=== PATIENT | female | born 1935 | race Caucasian/White ===

== ENCOUNTER 2016-12-13 10:02 | Day surgery (SDC) | payer MEDICARE, OTHER ==
[~2016-12-13] VITALS: Ht 157.5 cm; Wt 58.0 kg
[2016-12-13] VITALS (8 sets, daily range): BP systolic 112–143; BP diastolic 58–74; PULSE 53–59; RESP 9–29
[~2016-12-13 10:02] MED LIST: LEVE500T8 PO; RTPRO HHN; TYL650R PR
[2016-12-13] MEDS ORDERED: CEFAZOLIN 1 GM/50 ML (PMX) 50 ML IVPB ONE (12:20)
[2016-12-13] MEDS ORDERED: PROPOFOL 20 ML ONE (12:43)
--- NOTE | 2016-12-13 14:55 | GILP ---
DATE OF PROCEDURE: 12/13/2016 PROCEDURE PERFORMED: EGD with PEG INDICATION: An 81-year-old female undergoing this procedure for dislodgement of the G-tube. It was buried in the subcutaneous tissue. The balloon was deflated and removed 3 days ago. We allowed 3 days for the opening to become smaller, so we can put the original G-tube. The patient is suffering from dysphagia. INFORMED CONSENT: The risk of the procedure, related and unrelated complications, anesthetic risks, alternatives discussed. Informed consent was obtained. DESCRIPTION OF PROCEDURE: The patient was brought to the GI lab, sedated by ____and after opium ultimate sedation, scope was passed with much ease into esophagus, advanced further down into stomach, internal stoma identified. Through the external stomach, a guidewire was passed and the whole procedure was completed by modified Ponsky technique. The patient was rescoped, the position of the internal bumper confirmed. External bumper secured. She tolerated the procedure very well. IMPRESSION: Successful placement of gastrostomy tube done without any complication. PLAN: Resume feeding now, abdominal binder. Dictated By: SHANA RODAS/NTS Conf#: [id number] DID#: [id number] CC: SHANA GOODWIN MD;*EndCC* MTDD
== END 2016-12-13 16:00 | disposition home or self-care (01) ==
LOC: GIL 10:02
PROVIDERS: ATTEND Internal Medicine Gastroenterology
DX: R13.10 Dysphagia, unspecified (principal); J44.9 Chronic obstructive pulmonary disease, unspecified; I10 Essential (primary) hypertension
CPT/HCPCS: 43246; J0690

== ENCOUNTER 2016-12-16 15:45 | Inpatient (IN) | payer MEDICARE, OTHER ==
[~2016-12-16] VITALS: Ht 160 cm; Wt 58.0 kg
[2016-12-16] VITALS (31 sets, daily range): BP systolic 76–127; BP diastolic 36–70; PULSE 51–91; RESP 9–30; Ht 160 cm; Wt 58.0 kg
[2016-12-16] MEDS ORDERED: NORepinephrine 8MG/250 ML (PMX 250 ML ONE (16:54)
[2016-12-16] MEDS: SOD CHLORIDE 0.9% 1,000 ML IV SCH (16:56)
[2016-12-16] MEDS ORDERED: NORepinephrine 8MG/250 ML (PMX 250 ML IV SCH (17:00)
[2016-12-16] MEDS ORDERED: ACETAMINOPHEN 650 MG SUPP PR PRN (17:00)
[2016-12-16] MEDS ORDERED: VANCOMYCIN IV PER PHARMACY XX SCH (17:00)
[2016-12-16] MEDS ORDERED: ONDANSETRON 4 MG INJ IV PRN (17:00)
--- NOTE | 2016-12-16 17:07 | HP ---
Date/Time of Note Date/Time of Note DATE: 12/16/16 TIME: 16:58 Assessment/Plan VTE Prophylaxis VTE Prophylaxis Intervention: SCD's Assessment/Plan Assessment/Plan 81 yo female with a past medical history of glioblastoma, chronic encephalopathy , brain abscess s/p craniotomy, dysphagia s/p PEG, aspiration pneumonia risk, who came from [facility] for hypotension/hypothermia, and possible aspiration pneumonitis. 1. Septic Shock - 2/2 aspiration pneumonitis - admit the patient to the ICU, consult pulm, broad spectrum antibiotics, pressor support, respiratory cultures 2. Hyponatremia - chronic - monitor acute changes 3. Anemia - chronic disease - transfuse if hgb < 8 g/dL 4. Glioblastoma - monitor acute changes 5. Chronic encephalopathy - continue to re-orient patient as needed 6. Dysphagia s/p PEG - possible replacement needed, Dr. Salgado consulted 7. Gi ppx - pepcid IV 8. DVT ppx - scds as per clinical course. this critical care note took greater than 1 hour to complete HPI/ROS Admit Date/Time Admit Date/Time Dec 16, 2016 at 15:45 Hx of Present Illness 81 yo female with a past medical history of glioblastoma, chronic encephalopathy , brain abscess s/p craniotomy, dysphagia s/p PEG, aspiration pneumonia risk, who came from [facility] for hypotension/hypothermia, and possible aspiration pneumonitis. All this information was gathered from the chart, as the patient a non-verbal. ROS Subjective hx not possible: pt non-verbal PMH/Family/Social Past Medical History glioblastoma, chronic encephalopathy, brain abscess s/p craniotomy, dysphagia s/ p PEG, aspiration pneumonia risk Past Surgical History s/p PEG, colonoscopy, s/p left craniotomy Family History Significant Family History: no pertinent family hx Social History Alcohol Use: none Smoking Status: Never smoker Drug Use: none Exam/Review of Systems Vital Signs Vitals Vital Signs Date Time Temp Pulse Resp B/P Pulse Ox O2 Delivery O2 Flow Rate FiO2 12/16/16 16:30 56 12 86/43 97 Nasal Cannula 3.0 Exam Exam Gen Marlo: alert to self HEENT: NC/AT, PERRLA NECK: supple, no thyromegaly THORAX: symmetrical, no obvious deformities CV: S1S2, RRR, no M/G/R Lungs: CTAB no W/C/R/R Abd: soft, NT/ND, +BS, no rebound, no guarding, neg HSM, PEG site leaking EXT: no edema, no ecchymosis, no clubbing, FROM, contractures Neuro: stares, grossly intact Psych: withdrawn Skin: scattered ecchymoses Medications Medications Current Medications Sodium Chloride (NS) 1,000 ml @ 50 mls/hr Q20H IV Last administered on t 16:56; Admin Dose 50 MLS/HR; Start 12/16/16 at 16:41 Ondansetron HCl (Zofran Inj) 4 mg Q6H PRN IV NAUSEA AND/OR VOMITING; Start 10/20 at 17:00 Acetaminophen (Tylenol Supp) 650 mg Q4H PRN [place] PAIN LEVEL 1-3 OR FEVER; Start 12/16/16 at 17:00 Lorazepam (Ativan) 1 mg Q2H PRN IV ANXIETY; Start 12/16/16 at 17:00 Famotidine (Pepcid Iv) 20 mg Q12 IV ; Start 12/16/16 at 21:00 Levetiracetam 500 mg 500 mg BID PO ; Start 12/16/16 at 21:00 Norepinephrine/ Dextrose (Levophed/D5W) 500 ml @ 0 mls/hr TITRATE IV ; Start at 00:00 MAMTA SUAREZ MD Dec 16, 2016 17:07
[2016-12-16] MEDS ORDERED: LEVOFLOXACIN 500MG/D5W (PMX) 100 ML IVPB SCH (17:30)
--- NOTE | 2016-12-16 19:44 | CONS ---
DATE OF ADMISSION: 12/16/2016 DATE OF CONSULTATION: TYPE OF CONSULTATION: Gastroenterology. HISTORY OF PRESENT ILLNESS: The patient is an 81-year-old female with a history of glioblastoma; ch ronic encephalopathy; brain abscess, status post craniotomy; dysphagia, status post PEG; aspiration pneumonia who came from [facility] for hypothermia and hypotension, possible aspiration pneumon itis. The patient was in septic shock. She was started on a broad spectrum antibiotic and pressor support. GI consult was called in for leakage around the G-tube site. PAST MEDICAL HISTORY: As described. PAST SURGICAL HISTORY: G-tube and left craniotomy. FAMILY HISTORY: Negative. PHYSICAL EXAMINATION: VITAL SIGNS: Stable now. Heart rate is 54, ____ is 96. GENERAL: The patient is not in any distress. CARDIOVASCULAR: No murmur, gallop or click. LUNGS: Clear. ABDOMEN: Benign. I looked at the G-tube. G-tube opening was larger because of the buried bumper s yndrome and staffing had put a lot of gauze under the bumper, creating the leakage, so I removed all the gauze, which patient doesn't need it, and G-tube is in position. Again, the stoma is much larg er. There are no signs of peritonitis. EXTREMITIES: No edema. IMAGING: Chest x-ray: The lungs were clear. LABORATORY: WBC 7.8, hematocrit is 32. CMP was grossly within normal limits. IMPRESSION: 1. Sepsis, rule out pneumonia, rule out urinary tract infection. 2. Mild leakage from the gastrostomy tube site because of the larger stoma. 3. Status post craniotomy for glioblastoma. 4. Chronic encephalopathy. 5. Anemia. 6. Hyponatremia. PLAN: Continue pressor support, IV antibiotic, IV hydration. I've repositioned the G-tube. It can be used for medicine, and if there is leakage, then I may have to get a larger G-tube, instead of 2 4-Croatian a 26- or 28-Croatian, and if it's available from the GI lab, will replace it. Dictated By: SHANA RODAS/NEWTON Conf#: [id number] DID#: [id number]
[2016-12-16] MEDS: LEVOFLOXACIN 500MG/D5W (PMX) 100 ML IVPB SCH (20:18)
[2016-12-16] MEDS: FAMOTIDINE 20 MG INJ IV SCH (20:18)
[2016-12-16] MEDS: LEVETIRACETAM 500 MG TAB PO SCH (20:50)
[2016-12-16] MEDS: CEFEPIME 1GM/50 ML (PMX) 50 ML IVPB SCH (21:24)
[2016-12-16] MEDS ORDERED: VANCOMYCIN 1.25 GM in SOD CHLORIDE 0.9% 250 ML IVPB ONE (22:00)
[2016-12-17] VITALS (104 sets, daily range): BP systolic 73–172; BP diastolic 32–100; PULSE 75–157; RESP 15–44
--- NOTE | 2016-12-17 00:37 | RADRPT ---
PROCEDURE: XR Chest. CLINICAL INDICATION: Dyspnea TECHNIQUE: Anterior chest x-ray. COMPARISON: 12/03/2016 FINDINGS: Small bilateral pleural effusion in the left lung base is increased from previous exam. Blunting right costophrenic angle suggests trace pleural effusion, new compared to previous exam. Consolidation left lung base with obscured left hemidiaphragm is worse than on previous exam. Pulmonary vascular congestion is slightly more prominent than on previous exam. There is no evidence of pneumothorax. The heart size is large. There is atherosclerotic calcification of the aorta. The cardiomediastina l silhouette is otherwise unremarkable. The soft tissues are normal. Osseous structures are unremarkable. IMPRESSION: 1. Findings suggesting congestive heart failure with cardiomegaly, small bilateral pleural effusion s and pulmonary vascular congestion. 2. Atherosclerotic calcification aorta. 3. Retrocardiac atelectasis versus infiltrate, increased from previous exam. RPTAT: II .Anival Hendrix MD, MD Date Time Electronically viewed and signed by .Anival Hendrix MD, on 12/17/2016 00:37 .M/
[2016-12-17 06:25] LABS: CREATININE 0.26 mg/dl (0.44-1.00)
[2016-12-17 06:26] LABS: CALCIUM 8.4 mg/dl (8.4-10.2)
[2016-12-17 06:35] LABS: POTASSIUM 2.8 mmol/L (3.5-5.1)
[2016-12-17] MEDS ORDERED: SOD CHLORIDE 0.9% 1,000 ML IV ONE (07:00)
[2016-12-17 07:04] LABS: HEMATOCRIT 32.5 % (37.0-47.0); HEMOGLOBIN 11.4 g/dl (12.0-16.0); LYMPHOCYTES # 0.4 10^3/ul (0.8-2.9); LYMPHOCYTES % 3.7 % (15.0-51.0); MEAN CORPUSCULAR HEMOGLOBIN 31.5 pg (29.0-33.0); MEAN CORPUSCULAR VOLUME 90.1 fl (82.0-101.0); MEAN PLATELET VOLUME 6.3 fl (7.4-10.4); MONOCYTE # 0.6 10^3/ul (0.3-0.9); MONOCYTES % 5.6 % (0.0-11.0); NEUTROPHIL # 10.5 10^3/ul (1.6-7.5); NEUTROPHILS % 90.7 % (39.0-77.0); PLATELET COUNT 144 10^3/UL (140-440); RED BLOOD COUNT 3.61 10^6/ul (4.20-5.40); RED CELL DISTRIBUTION WIDTH 17.4 % (11.5-14.5); UNCORRECTED WBC 11.6 10^3/ul (4.8-10.8); WHITE BLOOD COUNT 11.6 10^3/ul (4.8-10.8)
[2016-12-17 07:17] LABS: CONDITION 1; LH ANALYZER COMMENTS 1
[2016-12-17] MEDS ORDERED: LIDOCAINE 1% (MDV) 20 ML INJ SC ONE (07:30)
[2016-12-17] MEDS ORDERED: MAGNESIUM SULFATE 1 GM/D5W 100 ML IVPB ONE (07:30)
[2016-12-17] MEDS ORDERED: POTASSIUM CHLORIDE 250 ML IVPB ONE (08:30)
[2016-12-17] MEDS ORDERED: POTASSIUM CHLORIDE 20 MEQ POWDER FOR ORAL SOLN GTB ONE (08:30)
[2016-12-17 08:37] LABS: AADO2 Arterial 344.3 mmHg (7.0-24.0); Allen Test ACCEPTAB; Arterial Base Excess -0.6 mmol/L (-3.0-3); Arterial COHb 0.3 % (0.0-3.0); Arterial Fraction of Oxyhgb 88.4 % (93.0-99.0); Arterial HCO3 22.5 mmol/L (22.0-26.0); Arterial MetHb 0.4 % (0.0-1.5); Arterial Total Hemglobin 12.1 g/dl (12.0-18.0); MODE MASK - SIMPLE
[2016-12-17] MEDS: CEFEPIME 1GM/50 ML (PMX) 50 ML IVPB SCH (09:00)
[2016-12-17] MEDS: FAMOTIDINE 20 MG INJ IV SCH ×2 (09:01→20:04)
[2016-12-17] MEDS: LEVETIRACETAM 500 MG TAB PO SCH ×2 (09:01→20:04)
--- NOTE | 2016-12-17 09:26 | CONS ---
Date/Time of Note Date/Time of Note DATE: 12/17/16 TIME: 09:21 Assessment/Plan Assessment/Plan Additional Assessment/Plan Assessment and recommendation; next 1. Patient admitted with hypotension and sepsis. Next 2. Hyponatremia with interval improvement. 3. History of glioblastoma as well as brain abscess status post multiple surgeries with very poor residual mental status. 4. Stable seizure disorder. 5. Hypokalemia. 6. Bibasilar atelectasis and changes of congestive heart failure is seen on chest x-ray from yesterday. Next Continue current treatment. Patient prognosis appears poor. G-tube will be replaced by the cartoonist special effects however it is not completely out and may just require repositioning. I did have a detailed discussion the patient's son at bedside and answered all his questions. Meanwhile resume amiodarone with the patient take for her cardiac arrhythmia. Potassium was replaced. Consultation Date/Type/Reason Admit Date/Time Dec 16, 2016 at 15:45 Initial Consult Date Patient condition remains unchanged. Was transferred over from [place] because of hypotension. The patient's G-tube has been out for the last 48 hours and is awaiting replacement. Patient also was found to be hyponatremic and septic. Currently on broad-spectrum antibiotic coverage. Because of underlying severe anoxic brain injury patient is unresponsive which is her underlying mental status. Next General examination; elderly lady currently on simple mask unresponsive. 24 HR Interval Summary Free Text/Dictation HEENT examination; supple neck, no JVD. Pupils are midsize and reactive to light bilaterally. Bilateral cataracts are present. Multiple well-healed craniotomy scars are present. No thyromegaly. No neck bruits. Bruits. Chest examination; diminished breath sounds throughout with scattered crackles. S1-S2 audible no murmurs regular rhythm. Abdomen examination; soft, no organomegaly. There is a dressing applied over the prior J-tube site. Mild drainage around it. Extremity examination; trace peripheral edema with extensive ecchymosis involving all 4 extremities more pronounced in the left arm. AUTOMOTIVE SERVICE WRITER examination patient remains unresponsive. Exam/Review of Systems Vital Signs Vitals Vital Signs Date Time Temp Pulse Resp B/P Pulse Ox O2 Delivery O2 Flow Rate FiO2 12/17/16 08:00 89 12/17/16 07:30 23 128/58 91 Mask 12/17/16 07:00 98.0 12/17/16 06:00 10.0 Intake and Output 12/16/16 12/16/16 12/17/16 15:00 23:00 07:00 Intake Total 468.00 ml 431.25 ml Output Total 510 ml 115 ml Balance -42.00 ml 316.25 ml Results Result Diagram: 12/17/16 0650 12/17/16 0520 Results 24 hrs Laboratory Tests Test 12/16/16 21:26 12/17/16 05:20 12/17/16 06:50 12/17/16 07:42 Bedside Glucose 136 Anion Gap 14 Blood Urea Nitrogen 11 Calcium Level 8.4 Carbon Dioxide Level 23 Chloride Level 102 Creatinine 0.26 L Glucose Level 64 #L Magnesium Level 1.6 L Potassium Level 2.8 *L Sodium Level 136 Basophils # 0.0 Basophils % 0.0 Blood Morphology Comment Eosinophils # 0.0 Eosinophils % 0.0 Hematocrit 32.5 L Hemoglobin 11.4 L Lymphocytes # 0.4 L Lymphocytes % 3.7 L Mean Corpuscular Hemoglobin 31.5 Mean Corpuscular Hemoglobin Concent 35.0 Mean Corpuscular Volume 90.1 Mean Platelet Volume 6.3 #L Monocytes # 0.6 Monocytes % 5.6 Neutrophils # 10.5 H Neutrophils % 90.7 H Nucleated Red Blood Cells # 0.0 Nucleated Red Blood Cells % 0.0 Platelet Count 144 # Red Blood Count 3.61 L Red Cell Distribution Width 17.4 H White Blood Count 11.6 #H Arterial Blood HCO3 22.5 Arterial Blood Base Excess -0.6 Arterial Blood Oxygen Saturation 89.0 L Rony Test ACCEPTAB Arterial Blood Gas Puncture Site Right Radial Arterial Blood Carboxyhemoglobin 0.3 Arterial Blood Date Drawn 12/17/2016 8:20:13 AM Arterial Blood Methemoglobin 0.4 Arterial Blood pCO2 (Temp correct) 32.4 L Arterial Blood pH (Temp corrected) 7.460 H Arterial Blood pO2 (Temp corrected) 55.1 L Blood Gas A-a O2 Differential 344.3 H Blood Gas Modality MASK - SIMPLE Blood Gas Notified Time 12/17/2016 8:37:00 AM Blood Gas Notified Whom JLD Blood Gas Specimen Source Blood arterial Blood Gas Temperature 37.0 FiO2 61.0 Oxyhemoglobin Percent 88.4 L Total Hemoglobin 12.1 Medications Medications Current Medications Sodium Chloride (NS) 1,000 ml @ 50 mls/hr Q20H IV Last administered on 16:56; Admin Dose 50 MLS/HR; Start 12/16/16 at 16:41 Ondansetron HCl (Zofran Inj) 4 mg Q6H PRN IV NAUSEA AND/OR VOMITING; Start 10/20 at 17:00 Acetaminophen (Tylenol Supp) 650 mg Q4H PRN [place] PAIN LEVEL 1-3 OR FEVER; Start 12/16/16 at 17:00 Lorazepam (Ativan) 1 mg Q2H PRN IV ANXIETY; Start 12/16/16 at 17:00 Famotidine (Pepcid Iv) 20 mg Q12 IV Last administered on 12/17/16 09:01; Admin Dose 20 MG; Start 12/16/16 at 21:00 Levetiracetam 500 mg 500 mg BID PO Last administered on 12/17/16 09:01; Admin Dose 500 MG; Start 12/16/16 at 21:00 Norepinephrine 16 mg/Dextrose 500 ml @ 0 mls/hr TITRATE IV ; Start 12/17/16 at 00:00 Cefepime HCl 50 ml @ 100 mls/hr Q12 IVPB Last administered on 12/16/16 21:24 ; Admin Dose 100 MLS/HR; Start 12/16/16 at 21:00 Levofloxacin/ Dextrose 100 ml @ 100 mls/hr Q24H IVPB Last administered on 12/16 20:18; Admin Dose 100 MLS/HR; Start 12/16/16 at 20:00 Vancomycin HCl 750 mg/Sodium Chloride 150 ml @ 75 mls/hr Q12H IVPB ; Start at 10:00 Potassium Chloride (KCl 40 MEQ/250 ML NS) 250 ml @ 62.5 mls/hr ONCE ONCE IVPB ; Start 12/17/16 at 08:30; Stop 12/17/16 at 12:29 ALISE ESTRADA Dec 17, 2016 09:26
[2016-12-17] MEDS: VANCOMYCIN 750 MG in SOD CHLORIDE 0.9% 150 ML IVPB SCH ×2 (09:45→15:21)
--- NOTE | 2016-12-17 11:34 | RADRPT ---
PROCEDURE: XR Chest. CLINICAL INDICATION: Aspiration. TECHNIQUE: Single AP portable chest COMPARISON: 12/16/2016 FINDINGS: Cardiomegaly. Atherosclerotic calcification of the thoracic aorta. Patchy airspace opacity in the right infrahilar and lower lobe region suggestive of consolidation and pneumonia. Left base patchy airspace opacity which may reflect atelectasis or pleural effusion. . Probable small right pleural effusion No pneumothorax. The osseous structures and soft tissues are unremarkable. IMPRESSION: 1. Bilateral air space opacities with more focal right perihilar and lower lobe area of consolidatio n suggestive of pneumonia. 2. Small bilateral pleural effusions. RPTAT:AAJJ Physician Ary Date Time Electronically viewed and signed by Physician Ary on 12/17/2016 11:34 TRISH/
--- NOTE | 2016-12-17 11:40 | RADRPT ---
PROCEDURE: XR Chest. CLINICAL INDICATION: Right central line placement. TECHNIQUE: Single AP portable chest COMPARISON: 12/17/2016 FINDINGS: Stable cardiomegaly and bilateral patchy air space disease with right lower lobe consolidation and b ilateral pleural effusions most compatible with pneumonia. Right PICC line catheter to overlying the mid superior vena cava. Atherosclerotic calcification of the aorta. No pneumothorax. The osseous s tructures and soft tissues are unremarkable. IMPRESSION: 1. Right PICC line catheter to overlying the mid superior vena cava. No other interval change in bi lateral airspace disease and cardiomegaly. RPTAT:AAJJ Dez Forde Physician Date Time Electronically viewed and signed by Physician Ary on 12/17/2016 11:40 TRISH/
[2016-12-17] MEDS: SOD CHLORIDE 0.9% 1,000 ML IV SCH ×2 (11:58→14:58)
--- NOTE | 2016-12-17 13:05 | PN ---
Date/Time of Note Date/Time of Note DATE: 12/17/16 TIME: 13:02 Assessment/Plan VTE Prophylaxis VTE Prophylaxis Intervention: SCD's Lines/Catheters IV [facility] PICC Line Central line still needed: Yes Urinary Cath still in place: Yes Reason Cath still needed: urinary retention Assessment/Plan Chief Complaint/Hosp Course Assessment/Plan: 81 yo female with a past medical history of glioblastoma, chronic encephalopathy, brain abscess s/p craniotomy, dysphagia s/p PEG, aspiration pneumonia risk, who came from [facility] for hypotension/hypothermia, and possible aspiration pneumonitis. 1. Septic Shock - 2/2 aspiration pneumonitis - on abx and pressor support. - continue ICU care, f/u consult pulm rec's, broad spectrum antibiotics, pressor support, respiratory cultures 2. Hyponatremia - chronic - resolved today - monitor acute changes 3. Anemia - chronic disease - transfuse if hgb < 8 g/dL 4. Glioblastoma - monitor acute changes 5. Chronic encephalopathy - continue to re-orient patient as needed 6. Dysphagia s/p PEG - possible replacement needed, Dr. Salgado consulted 7. Gi ppx - pepcid IV 8. DVT ppx - scds as per clinical course. Critical care time spent on pt care today = 45 min. Problems: Subjective 24 Hr Interval Summary Free Text/Dictation Pt on hyperthermia blanket to bring body temp up, on pressor and on NRB mask. Exam/Review of Systems Vital Signs Vitals Vital Signs Date Time Temp Pulse Resp B/P Pulse Ox O2 Delivery O2 Flow Rate FiO2 12/17/16 12:56 91 12/17/16 11:54 Non Rebreather 15.0 12/17/16 11:45 17 112/57 99 12/17/16 11:00 96.8 Intake and Output 12/16/16 12/16/16 12/17/16 15:00 23:00 07:00 Intake Total 468.00 ml 450.00 ml Output Total 510 ml 115 ml Balance -42.00 ml 335.00 ml Exam Gen Marlo: alert to self, on NRB mask HEENT: NC/AT, PERRLA NECK: supple, no thyromegaly THORAX: symmetrical, no obvious deformities CV: S1S2, RRR, no M/G/R Lungs: + mild crackles at bases Abd: soft, NT/ND, +BS, no rebound, no guarding, neg HSM, PEG site leaking EXT: no edema, no ecchymosis, no clubbing, FROM, contractures Neuro: stares, grossly intact Psych: withdrawn Skin: scattered ecchymoses Results Result Diagram: 12/17/16 0650 12/17/16 0520 Results 24 hrs Laboratory Tests Test 12/16/16 21:26 12/17/16 05:20 12/17/16 06:50 12/17/16 07:42 Bedside Glucose 136 Anion Gap 14 Blood Urea Nitrogen 11 Calcium Level 8.4 Carbon Dioxide Level 23 Chloride Level 102 Creatinine 0.26 L Glucose Level 64 #L Magnesium Level 1.6 L Potassium Level 2.8 *L Sodium Level 136 Basophils # 0.0 Basophils % 0.0 Blood Morphology Comment Eosinophils # 0.0 Eosinophils % 0.0 Hematocrit 32.5 L Hemoglobin 11.4 L Lymphocytes # 0.4 L Lymphocytes % 3.7 L Mean Corpuscular Hemoglobin 31.5 Mean Corpuscular Hemoglobin Concent 35.0 Mean Corpuscular Volume 90.1 Mean Platelet Volume 6.3 #L Monocytes # 0.6 Monocytes % 5.6 Neutrophils # 10.5 H Neutrophils % 90.7 H Nucleated Red Blood Cells # 0.0 Nucleated Red Blood Cells % 0.0 Platelet Count 144 # Red Blood Count 3.61 L Red Cell Distribution Width 17.4 H White Blood Count 11.6 #H Arterial Blood HCO3 22.5 Arterial Blood Base Excess -0.6 Arterial Blood Oxygen Saturation 89.0 L Rony Test ACCEPTAB Arterial Blood Gas Puncture Site Right Radial Arterial Blood Carboxyhemoglobin 0.3 Arterial Blood Date Drawn 12/17/2016 8:20:13 AM Arterial Blood Methemoglobin 0.4 Arterial Blood pCO2 (Temp correct) 32.4 L Arterial Blood pH (Temp corrected) 7.460 H Arterial Blood pO2 (Temp corrected) 55.1 L Blood Gas A-a O2 Differential 344.3 H Blood Gas Modality MASK - SIMPLE Blood Gas Notified Time 12/17/2016 8:37:00 AM Blood Gas Notified Whom ALEXIAD Blood Gas Specimen Source Blood arterial Blood Gas Temperature 37.0 FiO2 61.0 Oxyhemoglobin Percent 88.4 L Total Hemoglobin 12.1 Medications Medications Current Medications Sodium Chloride (NS) 1,000 ml @ 50 mls/hr Q20H IV Last administered on 16:56; Admin Dose 50 MLS/HR; Start 12/16/16 at 16:41 Ondansetron HCl (Zofran Inj) 4 mg Q6H PRN IV NAUSEA AND/OR VOMITING; Start 10/20 at 17:00 Acetaminophen (Tylenol Supp) 650 mg Q4H PRN [place] PAIN LEVEL 1-3 OR FEVER; Start 12/16/16 at 17:00 Lorazepam (Ativan) 1 mg Q2H PRN IV ANXIETY; Start 12/16/16 at 17:00 Famotidine (Pepcid Iv) 20 mg Q12 IV Last administered on 12/17/16 09:01; Admin Dose 20 MG; Start 12/16/16 at 21:00 Levetiracetam 500 mg 500 mg BID PO Last administered on 12/17/16 09:01; Admin Dose 500 MG; Start 12/16/16 at 21:00 Norepinephrine 16 mg/Dextrose 500 ml @ 0 mls/hr TITRATE IV ; Start 12/17/16 at 00:00 Cefepime HCl 50 ml @ 100 mls/hr Q12 IVPB Last administered on 12/16/16 21:24 ; Admin Dose 100 MLS/HR; Start 12/16/16 at 21:00 Levofloxacin/ Dextrose 100 ml @ 100 mls/hr Q24H IVPB Last administered on 12/16 20:18; Admin Dose 100 MLS/HR; Start 12/16/16 at 20:00 Vancomycin HCl/ Sodium Chloride (Vancocin/NS) 150 ml @ 75 mls/hr Q12H IVPB ; Start 12/17/16 at 10:00 Amiodarone HCl (Cordarone) 200 mg BID NGT ; Start 12/17/16 at 21:00 IV Flush (NS 10 ml) 10 ml PRN PRN IV IV PROTOCOL; Start 12/17/16 at 12:30 CAROL MICHELLE Dec 17, 2016 13:05
--- NOTE | 2016-12-17 13:24 | RADRPT ---
PROCEDURE: US guidance for PICC line CLINICAL INDICATION: PICC line placement TECHNIQUE: Multiple real-time images were acquired of the patient's arm utilizing a high resolutio n transducer. This was performed by the PICC line nurse for venous access. COMPARISON: None FINDINGS: Ultrasound guidance for PICC line placement. IMPRESSION: Ultrasound guidance for PICC line placement. RPTAT: AA .Bernardo West MD, MD Date Time Electronically viewed and signed by .Bernardo West MD, on 12/17/2016 13:24 .S/
[2016-12-17 15:33] LABS: ADD UMIC YES; URINE BILIRUBIN (Dip) NEGATIVE (NEGATIVE); URINE BLOOD (Dip) NEGATIVE (NEGATIVE); URINE COLOR LT. YELLOW (YELLOW); URINE GLUCOSE (Dip) NEGATIVE (NEGATIVE); URINE KETONES (Dip) 15 (NEGATIVE); URINE LEUKOCYTE ESTERASE (Dip) TRACE (NEGATIVE); URINE NITRITE (Dip) POSITIVE (NEGATIVE); URINE TOTAL PROTEIN (Dip) NEGATIVE (NEGATIVE); URINE UROBILINOGEN (Dip) 0.2 E.U./dL (0.1-1.0)
[2016-12-17 15:47] LABS: BACTERIA,URINE MODERATE; SQUAMOUS EPITHELIAL CELL,UR MANY; URINE RBCS 0-2 /HPF (0)
--- NOTE | 2016-12-17 15:54 | RADRPT ---
Echocardiogram Report Patient Name: JOMAR YATES Gender: Female Date: 1935 Study Date: 17-Dec-2016 Systems Lead: Otf Aragon RDCS Location: 110 Ref. Physician: CAROL MICHELLE Quality: Technically Difficult Study Procedures: Transthoracic echocardiogram with complete 2D, M-Mode, and doppler examination. Indications: Shortness of breath. 2D/M Mode Doppler Measurement Value Normal Ranges Measurement Value Normal Ranges LVIDd 2D 3.7 3.5 - 5.6 cm AV Peak Nilson 1.5 m/sec LVIDs 2D 1.4 2.1 - 4.1 cm AV Peak PG 9.0 mmHg FS 2D 61.3 % LVOT Peak Nilson 1.3 m/sec LVPWd 2D 1.3 0.6 - 1.1 cm LVOT Peak PG 6.0 mmHg IVSd 2D 1.4 0.6 - 1.1 cm MV E Peak Nilson 0.8 m/sec IVS/LVPW 2D 1.1 MV A Peak Nilson 0.9 m/sec AoR Diam 2D 2.6 2.0 - 3.7 cm MV E/A 0.9 LA/Ao 2D 0 0 - 1 MV Decel Time 194 msec EDV 2D 49.4 cm3 MV E/A 0.9 ESV 2D 2.9 cm3 TR Peak Nilson 2.9 m/sec LA Dimen 2D 1.2 2.3 - 4.0 cm TR Peak PG 34.0 mmHg RVSP 37.0 mmHg Findings Left Ventricle: Hyperdynamic left ventricular systolic function. Normal left ventricular cavity size. Moderate concentric left ventricular hypertrophy. Ejection fraction is visually estimated at 70 %. Tissue Doppler/Mitral Doppler indices are consistent with impaired relaxation (Stage I diastolic dysfunction). Right Ventricle: Normal right ventricular size. Normal right ventricular systolic function. Left Atrium: The left atrium is normal in size. Right Atrium: The right atrium is normal in size. Mitral Valve: Normal appearance and function of the mitral valve with trace physiologic regurgitation. Aortic Valve: Aortic sclerosis without stenosis. Trace aortic valve regurgitation. Tricuspid Valve: Normal appearance of the tricuspid valve. Estimated peak PA systolic pressure 37 mmHg. There is mild tricuspid regurgitation. Pulmonic Valve: Normal pulmonic valve appearance. There is trace pulmonic regurgitation. Pericardium: Normal pericardium with no significant pericardial effusion. Aorta: Normal aortic root. IVC: Normal size and normal respiratory collapse consistent with normal right atrial pressure. Conclusions 1.Hyperdynamic left ventricular systolic function. Normal left ventricular cavity size. Moderate concentric left ventricular hypertrophy. Ejection fraction is visually estimated at 70 %. Tissue Doppler/Mitral Doppler indices are consistent with impaired relaxation (Stage I diastolic dysfunction). 2.The left atrium is normal in size. 3.Normal appearance and function of the mitral valve with trace physiologic regurgitation. 4.Aortic sclerosis without stenosis. Trace aortic valve regurgitation. 5.Normal appearance of the tricuspid valve. Estimated peak PA systolic pressure 37 mmHg. There is mild tricuspid regurgitation. Electronically Signed By: Pedro Wiggins 17-Dec-2016 15:53:57 -0800 Patient Name: JOMAR YATES Study Date: 17-Dec-2016 [id number]
--- NOTE | 2016-12-17 19:09 | CONS ---
Date/Time of Note Date/Time of Note DATE: 12/17/16 TIME: 19:07 Assessment/Plan Assessment/Plan Additional Assessment/Plan IMPRESSION: 1. Sepsis, rule out pneumonia, rule out urinary tract infection. 2. Mild leakage from the gastrostomy tube site because of the larger stoma. 3. Status post craniotomy for glioblastoma. 4. Chronic encephalopathy. 5. Anemia. 6. Hyponatremia. Plan wound care nurse to evaluate g tube site,discussed with son may be she needs larger g tube Consultation Date/Type/Reason Admit Date/Time Dec 16, 2016 at 15:45 Initial Consult Date 24 HR Interval Summary Constitutional: improved Exam/Review of Systems Vital Signs Vitals Vital Signs Date Time Temp Pulse Resp B/P Pulse Ox O2 Delivery O2 Flow Rate FiO2 12/17/16 19:00 99 17 109/54 99 Non Rebreather 12/17/16 16:55 2.0 12/17/16 16:00 97.8 Intake and Output 12/16/16 12/16/16 12/17/16 15:00 23:00 07:00 Intake Total 468.00 ml 450.00 ml Output Total 510 ml 115 ml Balance -42.00 ml 335.00 ml Exam Constitutional: alert, oriented, well developed Psych: nl mood/affect, no complaints Head: atraumatic, normocephalic Eyes: EOMI, PERRL, nl conjunctiva, nl lids, nl sclera ENMT: nl external ears & nose, nl lips & teeth, nl nasal mucosa & septum Neck: non-tender, supple Respiratory: clear to auscultation, normal air movement Cardiovascular: nl pulses, regular rate and rhythm Gastrointestinal: nl liver, spleen, non-tender, soft Musculoskeletal: nl extremities to inspection, nl gait and stance Extremities: normal pulses Neurological: LOBBY PORTER II-XII intact, nl mental status, nl speech, nl strength Skin: nl turgor, No rash or lesions Lymph: nl lymph nodes Results Result Diagram: 12/17/16 0650 12/17/16 0520 Results 24 hrs Laboratory Tests Test 12/16/16 21:26 12/17/16 05:20 12/17/16 06:50 12/17/16 07:42 Bedside Glucose 136 Anion Gap 14 Blood Urea Nitrogen 11 Calcium Level 8.4 Carbon Dioxide Level 23 Chloride Level 102 Creatinine 0.26 L Glucose Level 64 #L Magnesium Level 1.6 L Potassium Level 2.8 *L Sodium Level 136 Basophils # 0.0 Basophils % 0.0 Blood Morphology Comment Eosinophils # 0.0 Eosinophils % 0.0 Hematocrit 32.5 L Hemoglobin 11.4 L Lymphocytes # 0.4 L Lymphocytes % 3.7 L Mean Corpuscular Hemoglobin 31.5 Mean Corpuscular Hemoglobin Concent 35.0 Mean Corpuscular Volume 90.1 Mean Platelet Volume 6.3 #L Monocytes # 0.6 Monocytes % 5.6 Neutrophils # 10.5 H Neutrophils % 90.7 H Nucleated Red Blood Cells # 0.0 Nucleated Red Blood Cells % 0.0 Platelet Count 144 # Red Blood Count 3.61 L Red Cell Distribution Width 17.4 H White Blood Count 11.6 #H Arterial Blood HCO3 22.5 Arterial Blood Base Excess -0.6 Arterial Blood Oxygen Saturation 89.0 L Rony Test ACCEPTAB Arterial Blood Gas Puncture Site Right Radial Arterial Blood Carboxyhemoglobin 0.3 Arterial Blood Date Drawn 12/17/2016 8:20:13 AM Arterial Blood Methemoglobin 0.4 Arterial Blood pCO2 (Temp correct) 32.4 L Arterial Blood pH (Temp corrected) 7.460 H Arterial Blood pO2 (Temp corrected) 55.1 L Blood Gas A-a O2 Differential 344.3 H Blood Gas Modality MASK - SIMPLE Blood Gas Notified Time 12/17/2016 8:37:00 AM Blood Gas Notified Whom JLD Blood Gas Specimen Source Blood arterial Blood Gas Temperature 37.0 FiO2 61.0 Oxyhemoglobin Percent 88.4 L Total Hemoglobin 12.1 Test 12/17/16 14:30 Urine Bacteria MODERATE Urine Bilirubin NEGATIVE Urine Clarity CLOUDY Urine Color LT. YELLOW Urine Glucose NEGATIVE Urine Hemoglobin NEGATIVE Urine Ketones 15 Urine Leukocyte Esterase TRACE H Urine Microscopic RBC 0-2 Urine Microscopic WBC 10-25 Urine Nitrite POSITIVE H Urine Specific [place] 1.020 Urine Squamous Epithelial Cells MANY Urine Total Protein NEGATIVE Urine Urobilinogen 0.2 E.U./dL Urine Yeast MODERATE Urine pH 7.0 Medications Medications Current Medications Sodium Chloride (NS) 1,000 ml @ 50 mls/hr Q20H IV Last administered on t 14:58; Admin Dose 50 MLS/HR; Start 12/16/16 at 16:41 Ondansetron HCl (Zofran Inj) 4 mg Q6H PRN IV NAUSEA AND/OR VOMITING; Start 10/20 at 17:00 Acetaminophen (Tylenol Supp) 650 mg Q4H PRN [place] PAIN LEVEL 1-3 OR FEVER; Start 12/16/16 at 17:00 Lorazepam (Ativan) 1 mg Q2H PRN IV ANXIETY; Start 12/16/16 at 17:00 Famotidine (Pepcid Iv) 20 mg Q12 IV Last administered on 12/17/16 09:01; Admin Dose 20 MG; Start 12/16/16 at 21:00 Levetiracetam 500 mg 500 mg BID PO Last administered on 12/17/16 09:01; Admin Dose 500 MG; Start 12/16/16 at 21:00 Norepinephrine 16 mg/Dextrose 500 ml @ 0 mls/hr TITRATE IV Last administered on 12/17/16 13:49; Admin Dose 18.75 MLS/HR; Start 12/17/16 at 00:00 Cefepime HCl 50 ml @ 100 mls/hr Q12 IVPB Last administered on 12/16/16 21:24 ; Admin Dose 100 MLS/HR; Start 12/16/16 at 21:00 Levofloxacin/ Dextrose (Levaquin 500mg/ D5W 100 ml (Pmx)) 100 ml @ 100 mls/hr Q24H IVPB Last administered on 12/16/16 20:18; Admin Dose 100 MLS/HR; Start at 20:00 Amiodarone HCl (Cordarone) 200 mg BID NGT ; Start 12/17/16 at 21:00 IV Flush 10 ml 10 ml PRN PRN IV IV PROTOCOL; Start 12/17/16 at 12:30 Vancomycin HCl/ Sodium Chloride (Vancocin/NS) 150 ml @ 75 mls/hr Q12H IVPB ; Start 12/18/16 at 03:00 SHANA GOODWIN MD Dec 17, 2016 19:09
[2016-12-17] MEDS: LEVOFLOXACIN 500MG/D5W (PMX) 100 ML IVPB SCH (20:04)
[2016-12-17] MEDS: AMIODARONE 200 MG TAB NGT SCH (20:17)
[2016-12-17] MEDS ORDERED: METOPROLOL 5 MG INJ IV ONE (21:00)
[2016-12-17 21:43] LABS: CREATININE 0.33 mg/dl (0.44-1.00)
[2016-12-17 21:44] LABS: MAGNESIUM 1.8 mg/dl (1.7-2.5)
[2016-12-17 21:45] LABS: POTASSIUM 2.8 mmol/L (3.5-5.1)
[2016-12-17] MEDS ORDERED: POTASSIUM CHLORIDE 30 MEQ in SOD CHLORIDE 0.9% 150 ML IVPB SCH (22:00)
[2016-12-17] MEDS ORDERED: AMIODARONE 150MG/D5W BOLUS 100 ML IV ONE ×2 (22:00→22:30)
[2016-12-17] MEDS ORDERED: AMIODARONE 900 MG in DEXTROSE 5% 482 ML IV SCH (22:00)
[2016-12-17] MEDS ORDERED: AMIODARONE 150MG/D5W BOLUS 100 ML ONE (22:07)
[2016-12-17] MEDS: POTASSIUM CHLORIDE 30 MEQ in SOD CHLORIDE 0.9% 150 ML IVPB SCH (22:39)
[2016-12-17] MEDS: AMIODARONE 900 MG in DEXTROSE 5% 482 ML IV SCH (22:41)
[2016-12-17] MEDS: LORAZEPAM 2 MG INJ IV PRN (23:10)
[2016-12-18] VITALS (102 sets, daily range): BP systolic 86–152; BP diastolic 30–96; PULSE 72–124; RESP 19–49
[2016-12-18] MEDS: CEFEPIME 1GM/50 ML (PMX) 50 ML IVPB SCH ×3 (00:59→21:14)
[2016-12-18] MEDS: POTASSIUM CHLORIDE 30 MEQ in SOD CHLORIDE 0.9% 150 ML IVPB SCH (01:54)
[2016-12-18 02:58] LABS: AADO2 Arterial 619.2 mmHg (7.0-24.0); Allen Test ACCEPTAB; Arterial Base Excess -3.1 mmol/L (-3.0-3); Arterial COHb 0.3 % (0.0-3.0); Arterial Fraction of Oxyhgb 90.3 % (93.0-99.0); Arterial HCO3 20.8 mmol/L (22.0-26.0); Arterial MetHb 0.3 % (0.0-1.5); Arterial Total Hemglobin 11.7 g/dl (12.0-18.0); MODE MASK - NRB
[2016-12-18] MEDS ORDERED: VANCOMYCIN 750 MG in SOD CHLORIDE 0.9% 150 ML IVPB SCH ×2 (03:00→20:00)
[2016-12-18 04:42] LABS: EOSINOPHILS % 0.2 % (0.0-7.0); HEMATOCRIT 31.8 % (37.0-47.0); HEMOGLOBIN 10.8 g/dl (12.0-16.0); LYMPHOCYTES # 0.3 10^3/ul (0.8-2.9); LYMPHOCYTES % 3.5 % (15.0-51.0); MEAN CORPUSCULAR HEMOGLOBIN 31.5 pg (29.0-33.0); MEAN CORPUSCULAR HGB CONC 34.1 g/dl (32.0-37.0); MEAN CORPUSCULAR VOLUME 92.5 fl (82.0-101.0); MEAN PLATELET VOLUME 6.7 fl (7.4-10.4); MONOCYTES % 0.2 % (0.0-11.0); NEUTROPHIL # 7.6 10^3/ul (1.6-7.5); NEUTROPHILS % 96.1 % (39.0-77.0); PLATELET COUNT 126 10^3/UL (140-440); RED BLOOD COUNT 3.43 10^6/ul (4.20-5.40); RED CELL DISTRIBUTION WIDTH 17.8 % (11.5-14.5); UNCORRECTED WBC 7.9 10^3/ul (4.8-10.8); WHITE BLOOD COUNT 7.9 10^3/ul (4.8-10.8)
[2016-12-18 04:48] LABS: POTASSIUM 4.2 mmol/L (3.5-5.1)
[2016-12-18 04:49] LABS: CONDITION 1; LH ANALYZER COMMENTS 1
[2016-12-18 04:50] LABS: CREATININE 0.4 mg/dl (0.44-1.00)
[2016-12-18 04:51] LABS: CALCIUM 8.2 mg/dl (8.4-10.2)
[2016-12-18 04:54] LABS: MAGNESIUM 1.5 mg/dl (1.7-2.5); PHOSPHORUS 2.9 mg/dl (2.5-4.9)
[2016-12-18] MEDS ORDERED: FUROSEMIDE 40 MG INJ IV ONE ×2 (05:00)
[2016-12-18] MEDS ORDERED: PHENYLephrine 20MG IN 250 ML 250 ML ONE (08:13)
[2016-12-18] MEDS: FAMOTIDINE 20 MG INJ IV SCH ×2 (08:17→21:13)
[2016-12-18] MEDS: LEVETIRACETAM 500 MG TAB PO SCH ×2 (08:17→21:14)
[2016-12-18] MEDS: AMIODARONE 200 MG TAB NGT SCH ×2 (08:18→21:14)
[2016-12-18 08:26] LABS: AADO2 Arterial 574.4 mmHg (7.0-24.0); Allen Test ACCEPTAB; Arterial COHb 0.3 % (0.0-3.0); Arterial Fraction of Oxyhgb 97.1 % (93.0-99.0); Arterial HCO3 18.2 mmol/L (22.0-26.0); Arterial MetHb 0.2 % (0.0-1.5); Arterial Total Hemglobin 11.8 g/dl (12.0-18.0); Blood Gas IEPAP 15/5; MODE MASK - BIPAP
[2016-12-18] MEDS ORDERED: MAGNESIUM SULFATE 2 GM/50 ML 50 ML IVPB ONE (08:30)
[2016-12-18] MEDS: SOD CHLORIDE 0.9% 1,000 ML IV SCH ×2 (08:31→14:00)
[2016-12-18] MEDS: PHENYLephrine 40 MG in DEXTROSE 5% 496 ML IV SCH (09:13)
--- NOTE | 2016-12-18 09:52 | CONS ---
Date/Time of Note Date/Time of Note DATE: 12/18/16 TIME: 09:48 Assessment/Plan Assessment/Plan Additional Assessment/Plan Assessment and recommendations; 1. Patient with severe anoxic enthesopathy status post craniotomy. 2. Severe sepsis. 3. Possibly aspiration pneumonia. 4. G-tube dislodgment. 5. Seizure disorder. 6. Cardiac arrhythmia. Currently on amiodarone drip. 7. Severe hypotension on high-dose Levophed drip. 8. Severe hypoxemia. 8. ABG was reviewed from today on BiPAP which is showing evidence of hyperventilation with mild respiratory alkalosis. Continue current treatment for now. I am going to have a discussion with the patient's son regarding further plan of care as the patient's prognosis appears extremely poor and she may need to be intubated. Meanwhile obtain a chest x- ray. Patient has been seen by the transport coordinator and his recommendations are to either remove the G-tube for now to let the wound heal or to place a bigger size tube. Consultation Date/Type/Reason Admit Date/Time Dec 16, 2016 at 15:45 Initial Consult Date Patient condition has taken a turn for the worse. Now requiring BiPAP at 90% FiO2. Patient remains completely unresponsive due to underlying encephalopathy. Also requiring high-dose Levophed for blood pressure maintenance. Patient also developed A. fib with RVR now in sinus rhythm on amiodarone drip. General examination; elderly lady, currently on BiPAP unresponsive. Exam/Review of Systems Vital Signs Vitals Vital Signs Date Time Temp Pulse Resp B/P Pulse Ox O2 Delivery O2 Flow Rate FiO2 12/18/16 09:15 83 29 111/36 95 BIPAP 12/18/16 09:00 99.2 12/18/16 05:18 15.0 100 Intake and Output 12/17/16 12/17/16 12/18/16 15:00 23:00 07:00 Intake Total 731.25 ml 860.00 ml 1428.45 ml Output Total 100 ml 215 ml 690 ml Balance 631.25 ml 645.00 ml 738.45 ml Exam HEENT examination; supple neck, right pupil is surgical. There is a left cataract. Multiple well-healed craniotomy scars are present. Patient does not multiple carious teeth. No thyromegaly. No neck masses. Supple neck. Chest examination; diminished breath sounds bilaterally. S1-S2 audible, no murmurs. Abdomen is soft. G-tube in place. With very mild leakage around the insertion site. Bowel sounds are audible. Extremity examination trace peripheral edema with multiple ecchymosis involving all 4 extremities more pronounced in the left upper extremity. TORPEDO MAN examination; patient remains completely unresponsive. Results Result Diagram: 12/18/16 0340 12/18/16 0340 Results 24 hrs Laboratory Tests Test 12/17/16 14:30 12/17/16 21:10 12/18/16 02:32 12/18/16 03:40 Urine Bacteria MODERATE Urine Bilirubin NEGATIVE Urine Clarity CLOUDY Urine Color LT. YELLOW Urine Glucose NEGATIVE Urine Hemoglobin NEGATIVE Urine Ketones 15 Urine Leukocyte Esterase TRACE H Urine Microscopic RBC 0-2 Urine Microscopic WBC 10-25 Urine Nitrite POSITIVE H Urine Specific [place] 1.020 Urine Squamous Epithelial Cells MANY Urine Total Protein NEGATIVE Urine Urobilinogen 0.2 E.U./dL Urine Yeast MODERATE Urine pH 7.0 Anion Gap 14 16 Blood Urea Nitrogen 10 10 Calcium Level 8.0 L 8.2 L Carbon Dioxide Level 21 21 Chloride Level 100 103 Creatinine 0.33 L 0.40 L Glucose Level 262 #H 229 H Magnesium Level 1.8 1.5 L Potassium Level 2.8 *L 4.2 Sodium Level 132 L 136 Arterial Blood HCO3 20.8 L Arterial Blood Base Excess -3.1 L Arterial Blood Oxygen Saturation 90.8 L Rony Test ACCEPTAB Arterial Blood Gas Puncture Site Right Radial Arterial Blood Carboxyhemoglobin 0.3 Arterial Blood Date Drawn 12/18/2016 2:50:34 AM Arterial Blood Methemoglobin 0.3 Arterial Blood pCO2 (Temp correct) 33.2 L Arterial Blood pH (Temp corrected) 7.414 Arterial Blood pO2 (Temp corrected) 60.6 L Blood Gas A-a O2 Differential 619.2 H Blood Gas Actual Respiration Rate 30 Blood Gas Modality MASK - NRB Blood Gas Notified Time 12/18/2016 2:58:05 AM Blood Gas Notified Whom MG Blood Gas Specimen Source Blood arterial Blood Gas Temperature 37.0 FiO2 100.0 Oxyhemoglobin Percent 90.3 L Total Hemoglobin 11.7 L Basophils # 0.0 Basophils % 0.0 Blood Morphology Comment Eosinophils # 0.0 Eosinophils % 0.2 Hematocrit 31.8 L Hemoglobin 10.8 L Lymphocytes # 0.3 L Lymphocytes % 3.5 L Mean Corpuscular Hemoglobin 31.5 Mean Corpuscular Hemoglobin Concent 34.1 Mean Corpuscular Volume 92.5 Mean Platelet Volume 6.7 L Monocytes # 0.0 L Monocytes % 0.2 Neutrophils # 7.6 H Neutrophils % 96.1 H Nucleated Red Blood Cells # 0.0 Nucleated Red Blood Cells % 0.0 Phosphorus Level 2.9 Platelet Count 126 L Red Blood Count 3.43 L Red Cell Distribution Width 17.8 H White Blood Count 7.9 # Test 12/18/16 07:30 Arterial Blood HCO3 18.2 L Arterial Blood Base Excess -4.0 L Arterial Blood Oxygen Saturation 97.6 Rony Test ACCEPTAB Arterial Blood Gas Puncture Site Right Radial Arterial Blood Carboxyhemoglobin 0.3 Arterial Blood Date Drawn 12/18/2016 8:11:05 AM Arterial Blood Methemoglobin 0.2 Arterial Blood pCO2 (Temp correct) 25.4 L Arterial Blood pH (Temp corrected) 7.473 H Arterial Blood pO2 (Temp corrected) 113.2 H Blood Gas A-a O2 Differential 574.4 H Blood Gas Actual Respiration Rate 27 Blood Gas IPAP/EPAP Ratio 15/5 Blood Gas Modality MASK - BIPAP Blood Gas Notified Time 12/18/2016 8:26:10 AM Blood Gas Notified Whom JLD Blood Gas Respiration Rate 14.0 Blood Gas Specimen Source Blood arterial Blood Gas Temperature 37.0 FiO2 100.0 Oxyhemoglobin Percent 97.1 Total Hemoglobin 11.8 L Medications Medications Current Medications Sodium Chloride (NS) 1,000 ml @ 50 mls/hr Q20H IV Last administered on 14:58; Admin Dose 50 MLS/HR; Start 12/16/16 at 16:41 Ondansetron HCl (Zofran Inj) 4 mg Q6H PRN IV NAUSEA AND/OR VOMITING; Start 10/20 at 17:00 Acetaminophen (Tylenol Supp) 650 mg Q4H PRN OR PAIN LEVEL 1-3 OR FEVER; Start 12/16/16 at 17:00 Lorazepam (Ativan) 1 mg Q2H PRN IV ANXIETY Last administered on 12/17/16 23:10 ; Admin Dose 1 MG; Start 12/16/16 at 17:00 Famotidine (Pepcid Iv) 20 mg Q12 IV Last administered on 12/18/16 08:17; Admin Dose 20 MG; Start 12/16/16 at 21:00 Levetiracetam 500 mg 500 mg BID PO Last administered on 12/18/16 08:17; Admin Dose 500 MG; Start 12/16/16 at 21:00 Norepinephrine 16 mg/Dextrose 500 ml @ 0 mls/hr TITRATE IV Last administered on 12/18/16 06:38; Admin Dose 50.62 MLS/HR; Start 12/17/16 at 00:00 Cefepime HCl 50 ml @ 100 mls/hr Q12 IVPB Last administered on 12/18/16 08:18 ; Admin Dose 100 MLS/HR; Start 12/16/16 at 21:00 Levofloxacin/ Dextrose (Levaquin 500mg/ D5W 100 ml (Pmx)) 100 ml @ 100 mls/hr Q24H IVPB Last administered on 12/17/16 20:04; Admin Dose 100 MLS/HR; Start at 20:00 Amiodarone HCl (Cordarone) 200 mg BID NGT Last administered on 12/18/16 08:18 ; Admin Dose 200 MG; Start 12/17/16 at 21:00 IV Flush 10 ml 10 ml PRN PRN IV IV PROTOCOL; Start 12/17/16 at 12:30 Vancomycin HCl 750 mg/Sodium Chloride 150 ml @ 75 mls/hr Q12H IVPB Last administered on 12/18/16 04:05; Admin Dose 75 MLS/HR; Start 12/18/16 at 03:00 Amiodarone HCl 900 mg/Dextrose 500 ml @ 0 mls/hr Q0M IV Last administered on 22:41; Admin Dose 33.4 MLS/HR; Start 12/17/16 at 22:30 Magnesium Sulfate 50 ml @ 25 mls/hr ONCE ONCE IVPB Last administered on 08:17; Admin Dose 25 MLS/HR; Start 12/18/16 at 08:30; Stop 12/18/16 at 10: 29 Phenylephrine HCl/ Dextrose (Hernán-Synephrine/ D5W) 500 ml @ 75 mls/hr TITRATE IV Last administered on 12/18/16 09:13; Admin Dose 30 MLS/HR; Start 12/18/16 at 08:30 ALISE ESTRADA Dec 18, 2016 09:52
--- NOTE | 2016-12-18 09:52 | RADRPT ---
PROCEDURE: XR Chest. CLINICAL INDICATION: Shortness of breath. TECHNIQUE: Single frontal view. COMPARISON: 12/17/2016. FINDINGS: The right arm PICC line remains in satisfactory position. There is consolidation in the right mid a nd lower lung zones consistent with pneumonia, unchanged. Left mid lung zone atelectasis or pneumon ia is improved. The heart is enlarged. There is calcification in the aorta consistent with atherosclerosis. There are small bilateral pleural effusions. There is no pneumothorax. IMPRESSION: 1. Improved appearance of the left mid lung zone. 2. No other change from 12/17/2016. RPTAT: QQ .Javier Roberts MD, MD Date Time Electronically viewed and signed by .Javier Roberts MD, MD on 12/18/2016 09:51 .R/
--- NOTE | 2016-12-18 12:07 | PN ---
Date/Time of Note Date/Time of Note DATE: 12/18/16 TIME: 12:04 Assessment/Plan VTE Prophylaxis VTE Prophylaxis Intervention: SCD's Lines/Catheters IV Catheter Type (from [facility]): PICC Line Central line still needed: Yes Urinary Cath still in place: Yes Reason Cath still needed: urinary retention Assessment/Plan Chief Complaint/Hosp Course Assessment/Plan: 81 yo female with a past medical history of glioblastoma, chronic encephalopathy, brain abscess s/p craniotomy, dysphagia s/p PEG, aspiration pneumonia risk, who came from [facility] for hypotension/hypothermia, and possible aspiration pneumonitis. 1. Septic Shock - 2/ aspiration pneumonitis - on abx and pressor support x 2 now. - continue ICU care, f/u consult pulm rec's, broad spectrum antibiotics, pressor support, respiratory cultures 2. Hyponatremia - chronic - resolved today - monitor acute changes 3. Anemia - chronic disease - transfuse if hgb < 8 g/dL 4. Glioblastoma - monitor acute changes 5. Chronic encephalopathy - continue to re-orient patient as needed 6. Dysphagia s/p PEG - possible replacement needed, Dr. Salgado consulted - holding off on this until more medically stable. 7. Gi ppx - pepcid IV 8. DVT ppx - scds as per clinical course. Palliative team also trying to set up familt meeting with son in near future as well. Critical care time spent on pt care today = 40 min. Problems: Subjective 24 Hr Interval Summary Free Text/Dictation On Bipap, now on 2 pressors. Exam/Review of Systems Vital Signs Vitals Vital Signs Date Time Temp Pulse Resp B/P Pulse Ox O2 Delivery O2 Flow Rate FiO2 12/18/16 11:45 80 32 125/47 99 BIPAP 12/18/16 11:00 97.8 12/18/16 05:18 15.0 100 Intake and Output 12/17/16 12/17/16 12/18/16 15:00 23:00 07:00 Intake Total 731.25 ml 860.00 ml 1428.45 ml Output Total 100 ml 215 ml 690 ml Balance 631.25 ml 645.00 ml 738.45 ml Exam Gen Marlo: alert to self, on BiPAP HEENT: NC/AT, PERRLA NECK: supple, no thyromegaly THORAX: symmetrical, no obvious deformities CV: S1S2, RRR, no M/G/R Lungs: + mild crackles at bases Abd: soft, NT/ND, +BS, no rebound, no guarding, neg HSM, PEG site leaking EXT: no edema, no ecchymosis, no clubbing, FROM, contractures Neuro: stares, grossly intact Psych: withdrawn Skin: scattered ecchymoses Results Result Diagram: 12/18/16 0340 12/18/16 0340 Results 24 hrs Laboratory Tests Test 12/17/16 14:30 12/17/16 21:10 12/18/16 02:32 12/18/16 03:40 Urine Bacteria MODERATE Urine Bilirubin NEGATIVE Urine Clarity CLOUDY Urine Color LT. YELLOW Urine Glucose NEGATIVE Urine Hemoglobin NEGATIVE Urine Ketones 15 Urine Leukocyte Esterase TRACE H Urine Microscopic RBC 0-2 Urine Microscopic WBC 10-25 Urine Nitrite POSITIVE H Urine Specific [place] 1.020 Urine Squamous Epithelial Cells MANY Urine Total Protein NEGATIVE Urine Urobilinogen 0.2 E.U./dL Urine Yeast MODERATE Urine pH 7.0 Anion Gap 14 16 Blood Urea Nitrogen 10 10 Calcium Level 8.0 L 8.2 L Carbon Dioxide Level 21 21 Chloride Level 100 103 Creatinine 0.33 L 0.40 L Glucose Level 262 #H 229 H Magnesium Level 1.8 1.5 L Potassium Level 2.8 *L 4.2 Sodium Level 132 L 136 Arterial Blood HCO3 20.8 L Arterial Blood Base Excess -3.1 L Arterial Blood Oxygen Saturation 90.8 L Rony Test ACCEPTAB Arterial Blood Gas Puncture Site Right Radial Arterial Blood Carboxyhemoglobin 0.3 Arterial Blood Date Drawn 12/18/2016 2:50:34 AM Arterial Blood Methemoglobin 0.3 Arterial Blood pCO2 (Temp correct) 33.2 L Arterial Blood pH (Temp corrected) 7.414 Arterial Blood pO2 (Temp corrected) 60.6 L Blood Gas A-a O2 Differential 619.2 H Blood Gas Actual Respiration Rate 30 Blood Gas Modality MASK - NRB Blood Gas Notified Time 12/18/2016 2:58:05 AM Blood Gas Notified Whom MG Blood Gas Specimen Source Blood arterial Blood Gas Temperature 37.0 FiO2 100.0 Oxyhemoglobin Percent 90.3 L Total Hemoglobin 11.7 L Basophils # 0.0 Basophils % 0.0 Blood Morphology Comment Eosinophils # 0.0 Eosinophils % 0.2 Hematocrit 31.8 L Hemoglobin 10.8 L Lymphocytes # 0.3 L Lymphocytes % 3.5 L Mean Corpuscular Hemoglobin 31.5 Mean Corpuscular Hemoglobin Concent 34.1 Mean Corpuscular Volume 92.5 Mean Platelet Volume 6.7 L Monocytes # 0.0 L Monocytes % 0.2 Neutrophils # 7.6 H Neutrophils % 96.1 H Nucleated Red Blood Cells # 0.0 Nucleated Red Blood Cells % 0.0 Phosphorus Level 2.9 Platelet Count 126 L Red Blood Count 3.43 L Red Cell Distribution Width 17.8 H White Blood Count 7.9 # Test 12/18/16 07:30 Arterial Blood HCO3 18.2 L Arterial Blood Base Excess -4.0 L Arterial Blood Oxygen Saturation 97.6 Rony Test ACCEPTAB Arterial Blood Gas Puncture Site Right Radial Arterial Blood Carboxyhemoglobin 0.3 Arterial Blood Date Drawn 12/18/2016 8:11:05 AM Arterial Blood Methemoglobin 0.2 Arterial Blood pCO2 (Temp correct) 25.4 L Arterial Blood pH (Temp corrected) 7.473 H Arterial Blood pO2 (Temp corrected) 113.2 H Blood Gas A-a O2 Differential 574.4 H Blood Gas Actual Respiration Rate 27 Blood Gas IPAP/EPAP Ratio 15/5 Blood Gas Modality MASK - BIPAP Blood Gas Notified Time 12/18/2016 8:26:10 AM Blood Gas Notified Whom JLD Blood Gas Respiration Rate 14.0 Blood Gas Specimen Source Blood arterial Blood Gas Temperature 37.0 FiO2 100.0 Oxyhemoglobin Percent 97.1 Total Hemoglobin 11.8 L Medications Medications Current Medications Sodium Chloride (NS) 1,000 ml @ 50 mls/hr Q20H IV Last administered on 14:58; Admin Dose 50 MLS/HR; Start 12/16/16 at 16:41 Ondansetron HCl (Zofran Inj) 4 mg Q6H PRN IV NAUSEA AND/OR VOMITING; Start 10/20 at 17:00 Acetaminophen (Tylenol Supp) 650 mg Q4H PRN [place] PAIN LEVEL 1-3 OR FEVER; Start 12/16/16 at 17:00 Lorazepam (Ativan) 1 mg Q2H PRN IV ANXIETY Last administered on 12/17/16 23:10 ; Admin Dose 1 MG; Start 12/16/16 at 17:00 Famotidine (Pepcid Iv) 20 mg Q12 IV Last administered on 12/18/16 08:17; Admin Dose 20 MG; Start 12/16/16 at 21:00 Levetiracetam 500 mg 500 mg BID PO Last administered on 12/18/16 08:17; Admin Dose 500 MG; Start 12/16/16 at 21:00 Norepinephrine 16 mg/Dextrose 500 ml @ 0 mls/hr TITRATE IV Last administered on 12/18/16 06:38; Admin Dose 50.62 MLS/HR; Start 12/17/16 at 00:00 Cefepime HCl 50 ml @ 100 mls/hr Q12 IVPB Last administered on 12/18/16 08:18 ; Admin Dose 100 MLS/HR; Start 12/16/16 at 21:00 Levofloxacin/ Dextrose (Levaquin 500mg/ D5W 100 ml (Pmx)) 100 ml @ 100 mls/hr Q24H IVPB Last administered on 12/17/16 20:04; Admin Dose 100 MLS/HR; Start at 20:00 Amiodarone HCl (Cordarone) 200 mg BID NGT Last administered on 12/18/16 08:18 ; Admin Dose 200 MG; Start 12/17/16 at 21:00 IV Flush 10 ml 10 ml PRN PRN IV IV PROTOCOL; Start 12/17/16 at 12:30 Vancomycin HCl 750 mg/Sodium Chloride 150 ml @ 75 mls/hr Q12H IVPB Last administered on 12/18/16 04:05; Admin Dose 75 MLS/HR; Start 12/18/16 at 03:00 Amiodarone HCl 900 mg/Dextrose 500 ml @ 0 mls/hr Q0M IV Last administered on 22:41; Admin Dose 33.4 MLS/HR; Start 12/17/16 at 22:30 Phenylephrine HCl/ Dextrose (Hernán-Synephrine/ D5W) 500 ml @ 75 mls/hr TITRATE IV Last administered on 12/18/16 09:13; Admin Dose 30 MLS/HR; Start 12/18/16 at 08:30 Miscellaneous Information (*Rx Drug Level Order Reminder*) 1 ONCE ONCE XX ; Start 12/18/16 at 14:00; Stop 12/18/16 at 14:01 CAROL MICHELLE Dec 18, 2016 12:07
--- NOTE | 2016-12-18 12:13 | CONS ---
DATE OF ADMISSION: 12/16/2016 DATE OF CONSULTATION: 12/17/2016 TYPE OF CONSULTATION: Palliative care. HISTORY OF PRESENT ILLNESS: This is an 81-year-old female with a complicated past medical history o f glioblastoma status post craniotomy for brain abscess, who presents with aspiration pneumonitis on 12/16/2016. Admitted to the intensive care unit, intubated, unfortunately required pressor support . She has been gravely ill since she has been admitted to the ICU, seen by multiple consultants inc luding GI, pulmonary medicine, and procedure was read by Dr. Wiggins, echocardiogram. The patient co ntinues to be ill requiring broad-spectrum IV antibiotic coverage, close attention to her metabolic condition. However, the patient was also encephalopathic prior to hospitalization. She has a son w ho has visited her on one occasion. The patient is a full code. Looking through her medical record s, there were 2 prior hospitalizations in 11/2016 and 01/2015. I am asked to see the patient, to sp eak to the patient's son in terms of goals of care while in the intensive care unit and throughout h ospitalization. MEDICATIONS: Please refer to reconciliation sheets. ALLERGIES: ASPIRIN. MAJOR MEDICAL PROBLEMS IN THE PAST: As per history of present illness. SOCIAL HISTORY: Unknown. The patient is intubated. FAMILY HISTORY: Unknown. REVIEW OF SYSTEMS: Cannot be obtained, patient intubated and the son is not here. What is known is that patient was transferred here from [facility] when she was found to be hypothermi c and hypotensive. PHYSICAL EXAMINATION: GENERAL: Shows an ill-appearing female who is intubated and nonresponsive to any verbal or tactile stimulation. VITAL SIGNS: Blood pressure 125/47, pulse of 80 and regular, respirations of 32, 99% saturation on 100% FIO2. HEENT: She is normocephalic and atraumatic. Anicteric and acyanotic on examination. CHEST: Shows bilateral distant breath sounds throughout both lung vitale. COR: S1, S2, without S3, S4, murmur, gallop, rub. Normal rate, normal rhythm on examination. ABDOMEN: Grossly benign. LABORATORY DATA: White blood cell count is 7.9, hemoglobin of 10.8, hematocrit of 31.8, platelet co unt 126,000. Chemistries: Serum sodium 136, potassium 4.2, chloride 103, bicarbonate 21, BUN of 10 , creatinine of 0.4, blood sugar 229. IMAGING: Chest x-ray done today 12/18/2016, improved appearance of the left mid lung zone. No othe r changes since 12/17/2016. ASSESSMENT AND PLAN: This is an 81-year-old female in the intensive care unit at [facility] transferred from [facility] when she became unstable, hypotensive and hypothermic . She is in shock secondary to sepsis, aspiration pneumonitis is presumed to be the underlying etio logy. Multiple fluid and electrolyte abnormalities at this time, and has been on pressor support. She is a full code. I will contact family member, son and schedule a meeting to discuss ongoing goa ls of care. Prognosis is extremely poor during this hospitalization. Dictated By: MISAEL CÁRDENAS MD LP/NTS Conf#: [id number] DID#: [id number]
--- NOTE | 2016-12-18 12:19 | PN ---
DATE: 12/18/2016 leadership development manager is in the process of contacting patient's son to schedule a conference with him. I hav e looked in my prior notes from 2015 admission and at that time found that my notes reflect that son is reasonable; however, there are other family members who [place] and he was conf licted insofar as changing the patient's code status between that hospitalization and followup was l ost thereafter. She does have a past medical history of glioblastoma, which was not completely rese cted. I will follow up on that history when I speak to son once again. Dictated By: MISAEL CÁRDENAS MD LP/NTS Conf#: [id number] DID#: [id number]
[2016-12-18] MEDS ORDERED: GLUCAGON 1 MG INJ IM PRN (13:00)
[2016-12-18] MEDS ORDERED: DEXTROSE 50% 50 ML SYRINGE IV PRN ×2 (13:00)
[2016-12-18] MEDS ORDERED: GLUCOSE GEL 15 GRAM TUBE BUCCAL PRN (13:00)
[2016-12-18] MEDS ORDERED: GLUCOSE GEL 15 GRAM TUBE PO PRN ×2 (13:00)
[2016-12-18] MEDS: INSULIN ASPART [NOVOLOG] 3 ML PEN SC SCH ×3 (13:35→21:17)
[2016-12-18] MEDS: AMIODARONE 900 MG in DEXTROSE 5% 482 ML IV SCH (13:59)
--- NOTE | 2016-12-18 14:41 | RADRPT ---
Vent Rate: 122 bpm RR Interval: 0 msec AR Interval: 138 msec QRS Duration: 78 msec QT Interval: 288 msec QTC Interval: 410 msec P-R-T [place]: 6 - -2 - 0 degrees Sinus tachycardia with premature supraventricular complexes and fusion complexes ST amp; T wave abnormality, consider inferolateral ischemia Abnormal ECG Electronically Signed By: Bolivar Hodges [id number]
[2016-12-18] MEDS: LEVOFLOXACIN 500MG/D5W (PMX) 100 ML IVPB SCH (20:15)
[2016-12-19] VITALS (69 sets, daily range): BP systolic 78–158; BP diastolic 41–66; PULSE 70–144; RESP 26–36
[2016-12-19] MEDS: INSULIN ASPART [NOVOLOG] 3 ML PEN SC SCH ×6 (01:04→20:21)
[2016-12-19] MEDS: SOD CHLORIDE 0.9% 1,000 ML IV SCH (04:41)
[2016-12-19 05:23] LABS: BASOPHILS % 0.1 % (0.0-2.0); EOSINOPHILS % 0.5 % (0.0-7.0); HEMATOCRIT 31.1 % (37.0-47.0); HEMOGLOBIN 10.6 g/dl (12.0-16.0); LYMPHOCYTES # 0.3 10^3/ul (0.8-2.9); LYMPHOCYTES % 3.3 % (15.0-51.0); MEAN CORPUSCULAR HEMOGLOBIN 31.5 pg (29.0-33.0); MEAN CORPUSCULAR HGB CONC 34.2 g/dl (32.0-37.0); MEAN CORPUSCULAR VOLUME 92.1 fl (82.0-101.0); MEAN PLATELET VOLUME 6.4 fl (7.4-10.4); MONOCYTES % 0.4 % (0.0-11.0); NEUTROPHIL # 7.2 10^3/ul (1.6-7.5); NEUTROPHILS % 95.7 % (39.0-77.0); PLATELET COUNT 86 10^3/UL (140-440); RED BLOOD COUNT 3.37 10^6/ul (4.20-5.40); RED CELL DISTRIBUTION WIDTH 18.1 % (11.5-14.5); UNCORRECTED WBC 7.6 10^3/ul (4.8-10.8); WHITE BLOOD COUNT 7.6 10^3/ul (4.8-10.8)
[2016-12-19 05:25] LABS: CONDITION 1; LH ANALYZER COMMENTS 1
[2016-12-19 05:54] LABS: CREATININE 0.33 mg/dl (0.44-1.00)
[2016-12-19 05:55] LABS: CALCIUM 8.2 mg/dl (8.4-10.2)
[2016-12-19 06:29] LABS: POTASSIUM 2.8 mmol/L (3.5-5.1)
[2016-12-19] MEDS ORDERED: POTASSIUM CHLORIDE 30 MEQ in SOD CHLORIDE 0.9% 150 ML IVPB ONE ×2 (07:00→10:00)
--- NOTE | 2016-12-19 08:09 | CONS ---
Date/Time of Note Date/Time of Note DATE: 12/19/16 TIME: 08:04 Assessment/Plan Assessment/Plan Additional Assessment/Plan Assessment and recommendations; next 1. Patient admitted with severe sepsis. Right lower lobe pneumonia. Currently on adequate antibiotic coverage. 2. History of brain surgery resulting in very poor mental status. 3. Cardiac arrhythmia, currently on amiodarone drip patient in sinus rhythm. 4. Severe hypotension on high-dose Levophed and phenylephrine drips. Continue current supportive care. There is a family meeting sometime today to discuss further plan of care. Patient prognosis is extremely poor and DNR status is strongly recommended with provision of comfort care measures as well. Meanwhile ABG will be performed shortly. Once ABGs done I will review it and make further recommendations. Meanwhile continue current BiPAP settings other supportive measures. Consultation Date/Type/Reason Admit Date/Time Dec 16, 2016 at 15:45 Initial Consult Date Patient condition remains extremely critical. Requiring high-dose combination of Hernán-Synephrine and Levophed drips at maxed out doses for blood pressure maintenance. Due to underlying severe anoxic brain injury, patient is unresponsive. Which is her underlying mental status. Currently maintained on BiPAP. General examination; elderly lady, on BiPAP, unresponsive. Exam/Review of Systems Vital Signs Vitals Vital Signs Date Time Temp Pulse Resp B/P Pulse Ox O2 Delivery O2 Flow Rate FiO2 12/19/16 07:00 123 34 104/57 96 BIPAP 12/19/16 05:30 50 12/19/16 04:00 97.7 12/18/16 05:18 15.0 Intake and Output 12/18/16 12/18/16 12/19/16 15:00 23:00 07:00 Intake Total 1077.87 ml 1103.30 ml 848.75 ml Output Total 235 ml 645 ml 660 ml Balance 842.87 ml 458.30 ml 188.75 ml Exam H EENT examination; supple neck, multiple cranial scars are present. Which all appeared well-healed. No thyromegaly. Positive JVD. Chest examination; diminished breath sound bilaterally. S1-S2 audible, no murmurs. Regular rhythm. Abdomen examination; soft, there is a dressing applied over J-tube. Bowel sounds are sluggish. No organomegaly felt. Extremity examination; no peripheral edema. She does have ecchymosis involving all 4 extremities. 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 Results Result Diagram: 12/19/16 0430 12/19/16 0430 Results 24 hrs Laboratory Tests Test 12/18/16 12:33 12/18/16 14:00 12/18/16 17:04 12/18/16 21:13 Bedside Glucose 320 H 270 H 298 H Vancomycin Level Trough 20.1 H Test 12/19/16 01:02 12/19/16 04:30 12/19/16 05:46 Bedside Glucose 243 H 182 Anion Gap 15 Basophils # 0.0 Basophils % 0.1 Blood Morphology Comment Blood Urea Nitrogen 9 Calcium Level 8.2 L Carbon Dioxide Level 20 L Chloride Level 98 Creatinine 0.33 L Eosinophils # 0.0 Eosinophils % 0.5 Glucose Level 185 Hematocrit 31.1 L Hemoglobin 10.6 L Lymphocytes # 0.3 L Lymphocytes % 3.3 L Mean Corpuscular Hemoglobin 31.5 Mean Corpuscular Hemoglobin Concent 34.2 Mean Corpuscular Volume 92.1 Mean Platelet Volume 6.4 L Monocytes # 0.0 L Monocytes % 0.4 Neutrophils # 7.2 Neutrophils % 95.7 H Nucleated Red Blood Cells # 0.0 Nucleated Red Blood Cells % 0.0 Platelet Count 86 #L Potassium Level 2.8 *L Red Blood Count 3.37 L Red Cell Distribution Width 18.1 H Sodium Level 130 L White Blood Count 7.6 Medications Medications Current Medications Sodium Chloride (NS) 1,000 ml @ 50 mls/hr Q20H IV Last administered on 14:00; Admin Dose 50 MLS/HR; Start 12/16/16 at 16:41 Ondansetron HCl (Zofran Inj) 4 mg Q6H PRN IV NAUSEA AND/OR VOMITING; Start 10/20 at 17:00 Acetaminophen (Tylenol Supp) 650 mg Q4H PRN [place] PAIN LEVEL 1-3 OR FEVER; Start 12/16/16 at 17:00 Lorazepam (Ativan) 1 mg Q2H PRN IV ANXIETY Last administered on 12/17/16 23:10 ; Admin Dose 1 MG; Start 12/16/16 at 17:00 Famotidine (Pepcid Iv) 20 mg Q12 IV Last administered on 12/18/16 21:13; Admin Dose 20 MG; Start 12/16/16 at 21:00 Levetiracetam 500 mg 500 mg BID PO Last administered on 12/18/16 21:14; Admin Dose 500 MG; Start 12/16/16 at 21:00 Norepinephrine 16 mg/Dextrose 500 ml @ 0 mls/hr TITRATE IV Last administered on 12/19/16 00:55; Admin Dose 56.25 MLS/HR; Start 12/17/16 at 00:00 Cefepime HCl 50 ml @ 100 mls/hr Q12 IVPB Last administered on 12/18/16 21:14 ; Admin Dose 100 MLS/HR; Start 12/16/16 at 21:00 Levofloxacin/ Dextrose (Levaquin 500mg/ D5W 100 ml (Pmx)) 100 ml @ 100 mls/hr Q24H IVPB Last administered on 12/18/16 20:15; Admin Dose 100 MLS/HR; Start at 20:00 Amiodarone HCl (Cordarone) 200 mg BID NGT Last administered on 12/18/16 21:14 ; Admin Dose 200 MG; Start 12/17/16 at 21:00 IV Flush 10 ml 10 ml PRN PRN IV IV PROTOCOL; Start 12/17/16 at 12:30 Phenylephrine HCl/ Dextrose (Hernán-Synephrine/ D5W) 500 ml @ 75 mls/hr TITRATE IV Last administered on 12/18/16 09:13; Admin Dose 30 MLS/HR; Start 12/18/16 at 08:30 Miscellaneous Information 1 ea NOTE XX ; Start 12/18/16 at 13:00 Glucose (Glutose) 15 gm Q15M PRN PO DECREASED GLUCOSE; Start 12/18/16 at 13:00 Glucose (Glutose) 22.5 gm Q15M PRN PO DECREASED GLUCOSE; Start 12/18/16 at 13: 00 Dextrose (D50w Syringe) 25 ml Q15M PRN IV DECREASED GLUCOSE; Start 12/18/16 at 13:00 Dextrose (D50w Syringe) 50 ml Q15M PRN IV DECREASED GLUCOSE; Start 12/18/16 at 13:00 Glucagon (Glucagen) 1 mg Q15M PRN IM DECREASED GLUCOSE; Start 12/18/16 at 13:00 Glucose (Glutose) 15 gm Q15M PRN BUCCAL DECREASED GLUCOSE; Start 12/18/16 at 13 :00 Insulin Aspart NOVOLOG *MODERATE* ALGORI... Q4 SC Last administered on t 05:49; Admin Dose 4 UNIT; Start 12/18/16 at 21:00 Potassium Chloride 30 meq/ Sodium Chloride 165 ml @ 55 mls/hr ONCE ONCE IVPB ; Start 12/19/16 at 07:00; Stop 12/19/16 at 09:59 Potassium Chloride/Sodium Chloride (KCl/NS) 165 ml @ 55 mls/hr ONCE ONCE IVPB ; Start 12/19/16 at 10:00; Stop 12/19/16 at 12:59 ALISE ESTRADA Dec 19, 2016 08:09
[2016-12-19] MEDS: CEFEPIME 1GM/50 ML (PMX) 50 ML IVPB SCH ×2 (08:40→20:18)
[2016-12-19] MEDS: AMIODARONE 200 MG TAB NGT SCH ×2 (08:43→20:18)
[2016-12-19] MEDS: FAMOTIDINE 20 MG INJ IV SCH ×2 (08:44→20:18)
[2016-12-19] MEDS: LEVETIRACETAM 500 MG TAB PO SCH ×2 (08:44→20:18)
[2016-12-19 09:06] LABS: AADO2 Arterial 271.7 mmHg (7.0-24.0); Allen Test ACCEPTAB; Arterial Base Excess -6.2 mmol/L (-3.0-3); Arterial COHb 0.3 % (0.0-3.0); Arterial HCO3 15.8 mmol/L (22.0-26.0); Arterial MetHb 0.2 % (0.0-1.5); Arterial Total Hemglobin 11.4 g/dl (12.0-18.0); Blood Gas IEPAP 15/8; MODE MASK - BIPAP
[2016-12-19] MEDS: DEXAMETHASONE 4 MG/ML 1 ML INJ IV SCH (13:41)
--- NOTE | 2016-12-19 13:42 | PN ---
Date/Time of Note Date/Time of Note DATE: 12/19/16 TIME: 13:33 Assessment/Plan VTE Prophylaxis VTE Prophylaxis Intervention: SCD's Lines/Catheters IV C[facility]ter Type ([facility] PICC Line Central line still needed: Yes Urinary Cath still in place: Yes Reason Cath still needed: urinary retention Assessment/Plan Chief Complaint/Hosp Course Assessment/Plan: 81 yo female with a past medical history of glioblastoma, chronic encephalopathy, brain abscess s/p craniotomy, dysphagia s/p PEG, aspiration pneumonia risk, who came from [facility] for hypotension/hypothermia, and possible aspiration pneumonitis. 1. Septic Shock - 2/ aspiration pneumonitis - on abx and pressor support x 2 still. - continue ICU care, f/u consult pulm rec's, broad spectrum antibiotics, pressor support, respiratory cultures 2. Hyponatremia - chronic - resolved now. - monitor acute changes 3. Anemia - chronic disease - transfuse if hgb < 8 g/dL 4. Glioblastoma - monitor acute changes 5. Chronic encephalopathy - continue to re-orient patient as needed 6. Dysphagia s/p PEG - possible replacement needed, Dr. Salgado consulted - holding off on this until more medically stable. 7. Gi ppx - pepcid IV 8. DVT ppx - scds 9. afib with RVR - occured a few days ago, now in NSR - continue PO amiodarone. as per clinical course. Palliative team also trying to set up family meeting with son in near future as well. Critical care time spent on pt care today = 45 min. Problems: Subjective 24 Hr Interval Summary Free Text/Dictation Pt presently on BiPAP, seen by DM educator, palliative, and pulm teams. Exam/Review of Systems Vital Signs Vitals Vital Signs Date Time Temp Pulse Resp B/P Pulse Ox O2 Delivery O2 Flow Rate FiO2 12/19/16 12:00 93 12/19/16 07:00 34 104/57 96 BIPAP 12/19/16 05:30 50 12/19/16 04:00 97.7 12/18/16 05:18 15.0 Intake and Output 12/18/16 12/18/16 12/19/16 15:00 23:00 07:00 Intake Total 1077.87 ml 1103.30 ml 848.75 ml Output Total 235 ml 645 ml 660 ml Balance 842.87 ml 458.30 ml 188.75 ml Exam Gen Marlo: alert to self, on BiPAP HEENT: NC/AT, PERRLA NECK: supple, no thyromegaly THORAX: symmetrical, no obvious deformities CV: S1S2, RRR, no M/G/R Lungs: + mild crackles at bases Abd: soft, NT/ND, +BS, no rebound, no guarding, neg HSM, PEG site leaking EXT: no edema, no ecchymosis, no clubbing, FROM, contractures Neuro: stares, grossly intact Psych: withdrawn Skin: scattered ecchymoses Results Result Diagram: 12/19/16 0430 12/19/16 0430 Results 24 hrs Laboratory Tests Test 12/18/16 14:00 12/18/16 17:04 12/18/16 21:13 12/19/16 01:02 Vancomycin Level Trough 20.1 H Bedside Glucose 270 H 298 H 243 H Test 12/19/16 04:30 12/19/16 05:46 12/19/16 08:02 12/19/16 09:17 Anion Gap 15 Basophils # 0.0 Basophils % 0.1 Blood Morphology Comment Blood Urea Nitrogen 9 Calcium Level 8.2 L Carbon Dioxide Level 20 L Chloride Level 98 Creatinine 0.33 L Eosinophils # 0.0 Eosinophils % 0.5 Glucose Level 185 Hematocrit 31.1 L Hemoglobin 10.6 L Lymphocytes # 0.3 L Lymphocytes % 3.3 L Mean Corpuscular Hemoglobin 31.5 Mean Corpuscular Hemoglobin Concent 34.2 Mean Corpuscular Volume 92.1 Mean Platelet Volume 6.4 L Monocytes # 0.0 L Monocytes % 0.4 Neutrophils # 7.2 Neutrophils % 95.7 H Nucleated Red Blood Cells # 0.0 Nucleated Red Blood Cells % 0.0 Platelet Count 86 #L Potassium Level 2.8 *L Red Blood Count 3.37 L Red Cell Distribution Width 18.1 H Sodium Level 130 L White Blood Count 7.6 Bedside Glucose 182 162 Arterial Blood HCO3 15.8 L Arterial Blood Base Excess -6.2 L Arterial Blood Oxygen Saturation 91.5 L Rony Test ACCEPTAB Arterial Blood Gas Puncture Site Right Radial Arterial Blood Carboxyhemoglobin 0.3 Arterial Blood Date Drawn 12/19/2016 8:32:11 AM Arterial Blood Methemoglobin 0.2 Arterial Blood pCO2 (Temp correct) 22.3 L Arterial Blood pH (Temp corrected) 7.468 H Arterial Blood pO2 (Temp corrected) 59.7 L Blood Gas A-a O2 Differential 271.7 H Blood Gas Actual Respiration Rate 31 Blood Gas IPAP/EPAP Ratio 18/06 Blood Gas Modality MASK - BIPAP Blood Gas Notified Time 12/19/2016 9:05:45 AM Blood Gas Notified Whom JLD Blood Gas Respiration Rate 14.0 Blood Gas Specimen Source Blood arterial Blood Gas Temperature 37.0 FiO2 50.0 Oxyhemoglobin Percent 91.0 L Total Hemoglobin 11.4 L Test 12/19/16 11:31 Bedside Glucose 172 Medications Medications Current Medications Sodium Chloride (NS) 1,000 ml @ 50 mls/hr Q20H IV Last administered on 14:00; Admin Dose 50 MLS/HR; Start 12/16/16 at 16:41 Ondansetron HCl (Zofran Inj) 4 mg Q6H PRN IV NAUSEA AND/OR VOMITING; Start 10/20 at 17:00 Acetaminophen (Tylenol Supp) 650 mg Q4H PRN IN PAIN LEVEL 1-3 OR FEVER; Start 12/16/16 at 17:00 Lorazepam (Ativan) 1 mg Q2H PRN IV ANXIETY Last administered on 12/17/16 23:10 ; Admin Dose 1 MG; Start 12/16/16 at 17:00 Famotidine (Pepcid Iv) 20 mg Q12 IV Last administered on 12/19/16 08:44; Admin Dose 20 MG; Start 12/16/16 at 21:00 Levetiracetam 500 mg 500 mg BID PO Last administered on 12/19/16 08:44; Admin Dose 500 MG; Start 12/16/16 at 21:00 Norepinephrine 16 mg/Dextrose 500 ml @ 0 mls/hr TITRATE IV Last administered on 12/19/16 10:27; Admin Dose 52.5 MLS/HR; Start 12/17/16 at 00:00 Cefepime HCl 50 ml @ 100 mls/hr Q12 IVPB Last administered on 12/19/16 08:40 ; Admin Dose 100 MLS/HR; Start 12/16/16 at 21:00 Levofloxacin/ Dextrose (Levaquin 500mg/ D5W 100 ml (Pmx)) 100 ml @ 100 mls/hr Q24H IVPB Last administered on 12/18/16 20:15; Admin Dose 100 MLS/HR; Start at 20:00 Amiodarone HCl (Cordarone) 200 mg BID NGT Last administered on 12/19/16 08:43 ; Admin Dose 200 MG; Start 12/17/16 at 21:00 IV Flush 10 ml 10 ml PRN PRN IV IV PROTOCOL; Start 12/17/16 at 12:30 Phenylephrine HCl/ Dextrose (Hernán-Synephrine/ D5W) 500 ml @ 75 mls/hr TITRATE IV Last administered on 12/18/16 09:13; Admin Dose 30 MLS/HR; Start 12/18/16 at 08:30 Miscellaneous Information 1 ea NOTE XX ; Start 12/18/16 at 13:00 Glucose (Glutose) 15 gm Q15M PRN PO DECREASED GLUCOSE; Start 12/18/16 at 13:00 Glucose (Glutose) 22.5 gm Q15M PRN PO DECREASED GLUCOSE; Start 12/18/16 at 13: 00 Dextrose (D50w Syringe) 25 ml Q15M PRN IV DECREASED GLUCOSE; Start 12/18/16 at 13:00 Dextrose (D50w Syringe) 50 ml Q15M PRN IV DECREASED GLUCOSE; Start 12/18/16 at 13:00 Glucagon (Glucagen) 1 mg Q15M PRN IM DECREASED GLUCOSE; Start 12/18/16 at 13:00 Glucose (Glutose) 15 gm Q15M PRN BUCCAL DECREASED GLUCOSE; Start 12/18/16 at 13 :00 Insulin Aspart (Novolog Insulin Pen) NOVOLOG *MODERATE* ALGORI... Q4 SC Last administered on 12/19/16 12:52; Admin Dose 2 UNIT; Start 12/18/16 at 21:00 Dexamethasone (Decadron) 4 mg DAILY IV ; Start 12/19/16 at 13:30; Status CAROL ALCALA Dec 19, 2016 13:42
[2016-12-19] MEDS: DEXTROSE 5%-0.45% NACL 1,000 ML IV SCH (14:41)
--- NOTE | 2016-12-19 14:55 | PN ---
DATE: 12/19/2016 A conference was scheduled with patient's son today at 1100 hours. It was a no show. Apparently marla cedeno called to reschedule for tomorrow, time pending. Dictated By: MISAEL CÁRDENAS MD LP/NTS Conf#: [id number] DID#: [id number]
[2016-12-19 17:13] LABS: POTASSIUM 3.3 mmol/L (3.5-5.1)
[2016-12-19 17:16] LABS: CREATININE 0.34 mg/dl (0.44-1.00)
[2016-12-19 17:17] LABS: CALCIUM 8.3 mg/dl (8.4-10.2)
--- NOTE | 2016-12-19 17:37 | CONS ---
Date/Time of Note Date/Time of Note DATE: 12/19/16 TIME: 17:36 Assessment/Plan Assessment/Plan Additional Assessment/Plan Additional Assessment/Plan IMPRESSION: 1. Sepsis, rule out pneumonia, rule out urinary tract infection. 2. Mild leakage from the gastrostomy tube site because of the larger stoma.reduced to minimal 3. Status post craniotomy for glioblastoma. 4. Chronic encephalopathy. 5. Anemia. 6. Hyponatremia. Plan wound care nurse to evaluate g tube site,discussed with son may be she needs larger g tube,when stable if leakage persistent Consultation Date/Type/Reason Admit Date/Time Dec 16, 2016 at 15:45 24 HR Interval Summary Subjective hx not possible: pt non-verbal, pt critical Exam/Review of Systems Vital Signs Vitals Vital Signs Date Time Temp Pulse Resp B/P Pulse Ox O2 Delivery O2 Flow Rate FiO2 12/19/16 17:31 81 100 60 12/19/16 17:00 34 105/52 BIPAP 12/19/16 16:00 96.9 12/18/16 05:18 15.0 Intake and Output 12/18/16 12/18/16 12/19/16 15:00 23:00 07:00 Intake Total 1077.87 ml 1103.30 ml 848.75 ml Output Total 235 ml 645 ml 705 ml Balance 842.87 ml 458.30 ml 143.75 ml Exam Constitutional: alert, oriented, well developed Psych: nl mood/affect, no complaints Head: atraumatic, normocephalic Eyes: EOMI, PERRL, nl conjunctiva, nl lids, nl sclera ENMT: nl external ears & nose, nl lips & teeth, nl nasal mucosa & septum Neck: non-tender, supple Respiratory: clear to auscultation, normal air movement Cardiovascular: nl pulses, regular rate and rhythm Gastrointestinal: nl liver, spleen, non-tender, soft Musculoskeletal: nl extremities to inspection, nl gait and stance Extremities: normal pulses Neurological: REAL ESTATE ACCOUNTANT II-XII intact, nl mental status, nl speech, nl strength Skin: nl turgor, No rash or lesions Lymph: nl lymph nodes Results Result Diagram: 12/19/16 0430 12/19/16 1650 Results 24 hrs Laboratory Tests Test 12/18/16 21:13 12/19/16 01:02 12/19/16 04:30 12/19/16 05:46 Bedside Glucose 298 H 243 H 182 Anion Gap 15 Basophils # 0.0 Basophils % 0.1 Blood Morphology Comment Blood Urea Nitrogen 9 Calcium Level 8.2 L Carbon Dioxide Level 20 L Chloride Level 98 Creatinine 0.33 L Eosinophils # 0.0 Eosinophils % 0.5 Glucose Level 185 Hematocrit 31.1 L Hemoglobin 10.6 L Lymphocytes # 0.3 L Lymphocytes % 3.3 L Mean Corpuscular Hemoglobin 31.5 Mean Corpuscular Hemoglobin Concent 34.2 Mean Corpuscular Volume 92.1 Mean Platelet Volume 6.4 L Monocytes # 0.0 L Monocytes % 0.4 Neutrophils # 7.2 Neutrophils % 95.7 H Nucleated Red Blood Cells # 0.0 Nucleated Red Blood Cells % 0.0 Platelet Count 86 #L Potassium Level 2.8 *L Red Blood Count 3.37 L Red Cell Distribution Width 18.1 H Sodium Level 130 L White Blood Count 7.6 Test 12/19/16 08:02 12/19/16 09:17 12/19/16 11:31 12/19/16 16:50 Arterial Blood HCO3 15.8 L Arterial Blood Base Excess -6.2 L Arterial Blood Oxygen Saturation 91.5 L Rony Test ACCEPTAB Arterial Blood Gas Puncture Site Right Radial Arterial Blood Carboxyhemoglobin 0.3 Arterial Blood Date Drawn 12/19/2016 8:32:11 AM Arterial Blood Methemoglobin 0.2 Arterial Blood pCO2 (Temp correct) 22.3 L Arterial Blood pH (Temp corrected) 7.468 H Arterial Blood pO2 (Temp corrected) 59.7 L Blood Gas A-a O2 Differential 271.7 H Blood Gas Actual Respiration Rate 31 Blood Gas IPAP/EPAP Ratio 18/06 Blood Gas Modality MASK - BIPAP Blood Gas Notified Time 12/19/2016 9:05:45 AM Blood Gas Notified Whom JLD Blood Gas Respiration Rate 14.0 Blood Gas Specimen Source Blood arterial Blood Gas Temperature 37.0 FiO2 50.0 Oxyhemoglobin Percent 91.0 L Total Hemoglobin 11.4 L Bedside Glucose 162 172 Anion Gap 14 Blood Urea Nitrogen 8 Calcium Level 8.3 L Carbon Dioxide Level 18 L Chloride Level 97 Creatinine 0.34 L Glucose Level 256 H Potassium Level 3.3 L Sodium Level 126 L Medications Medications Current Medications Ondansetron HCl (Zofran Inj) 4 mg Q6H PRN IV NAUSEA AND/OR VOMITING; Start 10/20 at 17:00 Acetaminophen (Tylenol Supp) 650 mg Q4H PRN [place] PAIN LEVEL 1-3 OR FEVER; Start 12/16/16 at 17:00 Lorazepam (Ativan) 1 mg Q2H PRN IV ANXIETY Last administered on 12/17/16 23:10 ; Admin Dose 1 MG; Start 12/16/16 at 17:00 Famotidine (Pepcid Iv) 20 mg Q12 IV Last administered on 12/19/16 08:44; Admin Dose 20 MG; Start 12/16/16 at 21:00 Levetiracetam 500 mg 500 mg BID PO Last administered on 12/19/16 08:44; Admin Dose 500 MG; Start 12/16/16 at 21:00 Norepinephrine 16 mg/Dextrose 500 ml @ 0 mls/hr TITRATE IV Last administered on 12/19/16 10:27; Admin Dose 52.5 MLS/HR; Start 12/17/16 at 00:00 Cefepime HCl (Maxipime 1gm/50 ml (Pmx)) 50 ml @ 100 mls/hr Q12 IVPB Last administered on 12/19/16 08:40; Admin Dose 100 MLS/HR; Start 12/16/16 at 21:00 Amiodarone HCl (Cordarone) 200 mg BID NGT Last administered on 12/19/16 08:43 ; Admin Dose 200 MG; Start 12/17/16 at 21:00 IV Flush 10 ml 10 ml PRN PRN IV IV PROTOCOL; Start 12/17/16 at 12:30 Phenylephrine HCl/ Dextrose (Hernán-Synephrine/ D5W) 500 ml @ 75 mls/hr TITRATE IV Last administered on 12/18/16 09:13; Admin Dose 30 MLS/HR; Start 12/18/16 at 08:30 Miscellaneous Information 1 ea NOTE XX ; Start 12/18/16 at 13:00 Glucose (Glutose) 15 gm Q15M PRN PO DECREASED GLUCOSE; Start 12/18/16 at 13:00 Glucose (Glutose) 22.5 gm Q15M PRN PO DECREASED GLUCOSE; Start 12/18/16 at 13: 00 Dextrose (D50w Syringe) 25 ml Q15M PRN IV DECREASED GLUCOSE; Start 12/18/16 at 13:00 Dextrose (D50w Syringe) 50 ml Q15M PRN IV DECREASED GLUCOSE; Start 12/18/16 at 13:00 Glucagon (Glucagen) 1 mg Q15M PRN IM DECREASED GLUCOSE; Start 12/18/16 at 13:00 Glucose (Glutose) 15 gm Q15M PRN BUCCAL DECREASED GLUCOSE; Start 12/18/16 at 13 :00 Insulin Aspart (Novolog Insulin Pen) NOVOLOG *MODERATE* ALGORI... Q4 SC Last administered on 12/19/16 12:52; Admin Dose 2 UNIT; Start 12/18/16 at 21:00 Dexamethasone 4 mg 4 mg DAILY IV Last administered on 12/19/16 13:41; Admin Dose 4 MG; Start 12/19/16 at 13:30 Dextrose/Sodium Chloride (D5-1/2ns) 1,000 ml @ 50 mls/hr Q20H IV Last administered on 12/19/16 14:41; Admin Dose 50 MLS/HR; Start 12/19/16 at 14:00 SHANA GOODWIN MD Dec 19, 2016 17:37
--- NOTE | 2016-12-19 17:57 | CONS ---
DATE OF ADMISSION: 12/16/2016 DATE OF CONSULTATION: 12/18/2016 GASTROINTESTINAL CONSULTATION FOLLOWUP SUBJECTIVE: The patient is an 81-year-old female who was transferred to intensive care unit for sep tic shock. The patient is on pressor support and obtunded. She is nonverbal OBJECTIVE: VITAL SIGNS: Stable. LUNGS: Air entry diminished at both bases. CARDIOVASCULAR: No murmur, gallop, or click. ABDOMEN: Soft. The G-tube is in place. The stoma is large, and there is leakage around the stomal site secondary to large stoma. EXTREMITIES: There is some ecchymoses on the left arm and some pedal edema. IMPRESSION: 1. Sepsis, most probably related to bilateral pneumonia. 2. Mild leakage from the G-tube site due to the large stoma. 3. Status post craniotomy for glioblastoma. 4. Anemia. 5. Hyponatremia. 6. Chronic encephalopathy. PLAN: I appreciate wound care evaluation. ____ has been placed, and patient has got ostomy pouch, and after that, the leakage has completely stopped. If the condition improves, then we will start f eeding her through the G-tube. Dictated By: SHANA RODAS/NEWOTN Conf#: [id number] DID#: [id number]
[2016-12-19] MEDS ORDERED: POTASSIUM CHLORIDE 250 ML IVPB ONE (19:30)
[2016-12-20] VITALS (82 sets, daily range): BP systolic 88–153; BP diastolic 36–85; PULSE 81–142; RESP 20–40
[2016-12-20] MEDS: INSULIN ASPART [NOVOLOG] 3 ML PEN SC SCH ×3 (01:27→08:08)
[2016-12-20] MEDS: PHENYLephrine 40 MG in DEXTROSE 5% 496 ML IV SCH (01:34)
[2016-12-20] MEDS: LORAZEPAM 2 MG INJ IV PRN (02:08)
[2016-12-20 04:56] LABS: HEMATOCRIT 28.5 % (37.0-47.0); HEMOGLOBIN 9.8 g/dl (12.0-16.0); LYMPHOCYTES # 0.1 10^3/ul (0.8-2.9); LYMPHOCYTES % 1.2 % (15.0-51.0); MEAN CORPUSCULAR HEMOGLOBIN 31.7 pg (29.0-33.0); MEAN CORPUSCULAR HGB CONC 34.2 g/dl (32.0-37.0); MEAN CORPUSCULAR VOLUME 92.5 fl (82.0-101.0); MEAN PLATELET VOLUME 6.8 fl (7.4-10.4); MONOCYTES % 0.5 % (0.0-11.0); NEUTROPHIL # 9.5 10^3/ul (1.6-7.5); NEUTROPHILS % 98.3 % (39.0-77.0); PLATELET COUNT 61 10^3/UL (140-440); RED BLOOD COUNT 3.09 10^6/ul (4.20-5.40); RED CELL DISTRIBUTION WIDTH 18.4 % (11.5-14.5); UNCORRECTED WBC 9.7 10^3/ul (4.8-10.8); WHITE BLOOD COUNT 9.7 10^3/ul (4.8-10.8)
[2016-12-20 05:12] LABS: CREATININE 0.3 mg/dl (0.44-1.00)
[2016-12-20 05:13] LABS: CALCIUM 8.7 mg/dl (8.4-10.2)
[2016-12-20 05:43] LABS: CONDITION 1; LH ANALYZER COMMENTS 1
--- NOTE | 2016-12-20 06:18 | RADRPT ---
PROCEDURE: XR Chest. CLINICAL INDICATION: DYSPNEA TECHNIQUE: Portable single view of the chest COMPARISON: 12/18 FINDINGS: There has been significant increase in left upper lobe and perihilar infiltrate. Right base infiltr ate is stable or slightly decreased. Left lower lobe infiltrate is likely similar to prior. Cardio megaly and aortic calcification is again seen. Right PICC line remains in place. IMPRESSION: Increase in left upper lobe and perihilar infiltrate. Stable or slight decrease in right and left b ase infiltrates. RPTAT: [facility] Danae Lancaster Physician Date Time Electronically viewed and signed by Danae Lancaster Physician on 12/20/2016 06:18 LE/
[2016-12-20 07:53] LABS: AADO2 Arterial 438.8 mmHg (7.0-24.0); Allen Test ACCEPTAB; Arterial Base Excess -8.6 mmol/L (-3.0-3); Arterial COHb 0.2 % (0.0-3.0); Arterial Fraction of Oxyhgb 98.1 % (93.0-99.0); Arterial HCO3 15.6 mmol/L (22.0-26.0); Arterial MetHb 0.5 % (0.0-1.5); Arterial Total Hemglobin 10.8 g/dl (12.0-18.0); Blood Gas IEPAP 15/8; MODE MASK - BIPAP
[2016-12-20] MEDS: FAMOTIDINE 20 MG INJ IV SCH (08:03)
[2016-12-20] MEDS: CEFEPIME 1GM/50 ML (PMX) 50 ML IVPB SCH (08:03)
[2016-12-20] MEDS: DEXAMETHASONE 4 MG/ML 1 ML INJ IV SCH (08:04)
[2016-12-20] MEDS: AMIODARONE 200 MG TAB NGT SCH ×2 (08:04→20:55)
[2016-12-20] MEDS: LEVETIRACETAM 500 MG TAB PO SCH ×2 (08:04→20:54)
--- NOTE | 2016-12-20 08:48 | CONS ---
Date/Time of Note Date/Time of Note DATE: 12/20/16 TIME: 08:44 Assessment/Plan Assessment/Plan Additional Assessment/Plan Chest x-ray was reviewed from today which is showing extensive bilateral pneumonia. Assessment and recommendations; 1. Patient admitted with severe pneumonia. 2. Currently maintained on BiPAP at 100% FiO2. 3. Paroxysmal atrial fibrillation, currently in sinus rhythm. 4. Stable seizure disorder. 5. Hyperglycemia. 6. 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 7. Hypotension. Currently on combination phenylephrine and Levophed drips with the decreased dosing today. 8. Status post G-tube removal. 9. Thrombocytopenia. Continue current supportive care. Prognosis is extremely poor. The family has still not decided about further plan of care. Meanwhile will maintain BiPAP. Consultation Date/Type/Reason Admit Date/Time Dec 16, 2016 at 15:45 Initial Consult Date Patient condition remains extremely critical. Requiring high-dose combination of Hernán-Synephrine and Levophed drips at maxed out doses for blood pressure maintenance. Due to underlying severe anoxic brain injury, patient is unresponsive. Which is her underlying mental status. Currently maintained on BiPAP. General examination; elderly lady, on BiPAP, unresponsive. 24 HR Interval Summary Free Text/Dictation Patient condition remains critical. Still requiring BiPAP at 100% FiO2. However dosing of phenylephrine and Levophed drips has been decreased. She remains in sinus rhythm. General examination; elderly lady, on BiPAP. Currently unresponsive. This is patient's underlying mental status. Exam/Review of Systems Vital Signs Vitals Vital Signs Date Time Temp Pulse Resp B/P Pulse Ox O2 Delivery O2 Flow Rate FiO2 12/20/16 06:15 101 40 135/54 100 BIPAP 12/20/16 05:44 100 12/20/16 03:45 97.9 12/18/16 05:18 15.0 Intake and Output 12/19/16 12/19/16 12/20/16 15:00 23:00 07:00 Intake Total 1760 ml 974.43 ml 873.42 ml Output Total 330 ml 475 ml 210 ml Balance 1430 ml 499.43 ml 663.42 ml Exam H EENT examination; patient on BiPAP. Multiple well-healed craniotomy scars are present with skull depressions. No neck masses. No thyromegaly. Chest examination; bilateral scattered crackles. S1-S2 audible, no murmurs. Regular rhythm. Abdomen examination; soft, nondistended. Bowel sounds audible. There is a dressing applied over the prior G-tube site. Extremity examination; no peripheral edema. POSTING CLERK examination; patient remains unresponsive. Results Result Diagram: 12/20/16 0350 12/20/16 0350 Results 24 hrs Laboratory Tests Test 12/19/16 09:17 12/19/16 11:31 12/19/16 16:50 12/19/16 17:42 Bedside Glucose 162 172 244 H Anion Gap 14 Blood Urea Nitrogen 8 Calcium Level 8.3 L Carbon Dioxide Level 18 L Chloride Level 97 Creatinine 0.34 L Glucose Level 256 H Potassium Level 3.3 L Sodium Level 126 L Test 12/19/16 20:17 12/20/16 01:24 12/20/16 03:50 12/20/16 05:11 Bedside Glucose 286 H 298 H 302 H Anion Gap 16 Basophils # 0.0 Basophils % 0.0 Blood Morphology Comment Blood Urea Nitrogen 7 Calcium Level 8.7 Carbon Dioxide Level 16 L Chloride Level 99 Creatinine 0.30 L Eosinophils # 0.0 Eosinophils % 0.0 Glucose Level 277 H Hematocrit 28.5 L Hemoglobin 9.8 L Lymphocytes # 0.1 L Lymphocytes % 1.2 L Magnesium Level 1.4 L Mean Corpuscular Hemoglobin 31.7 Mean Corpuscular Hemoglobin Concent 34.2 Mean Corpuscular Volume 92.5 Mean Platelet Volume 6.8 L Monocytes # 0.0 L Monocytes % 0.5 Neutrophils # 9.5 H Neutrophils % 98.3 H Nucleated Red Blood Cells # 0.0 Nucleated Red Blood Cells % 0.0 Platelet Count 61 #L Potassium Level 4.0 Prealbumin 4.4 L Red Blood Count 3.09 L Red Cell Distribution Width 18.4 H Sodium Level 127 L White Blood Count 9.7 # Test 12/20/16 07:00 12/20/16 07:50 Arterial Blood HCO3 15.6 L Arterial Blood Base Excess -8.6 L Arterial Blood Oxygen Saturation 98.8 Rony Test ACCEPTAB Arterial Blood Gas Puncture Site Right Radial Arterial Blood Carboxyhemoglobin 0.2 Arterial Blood Date Drawn 12/20/2016 7:21:54 AM Arterial Blood Methemoglobin 0.5 Arterial Blood pCO2 (Temp correct) 28.4 L Arterial Blood pH (Temp corrected) 7.359 Arterial Blood pO2 (Temp corrected) 245.8 H Blood Gas A-a O2 Differential 438.8 H Blood Gas Actual Respiration Rate 34 Blood Gas IPAP/EPAP Ratio 15/8 Blood Gas Modality MASK - BIPAP Blood Gas Notified Time 12/20/2016 7:53:36 AM Blood Gas Notified Whom JLD Blood Gas Respiration Rate 14.0 Blood Gas Specimen Source Blood arterial Blood Gas Temperature 37.0 FiO2 100.0 Oxyhemoglobin Percent 98.1 Total Hemoglobin 10.8 L Bedside Glucose 323 H Medications Medications Current Medications Ondansetron HCl (Zofran Inj) 4 mg Q6H PRN IV NAUSEA AND/OR VOMITING; Start 10/20 at 17:00 Acetaminophen (Tylenol Supp) 650 mg Q4H PRN [place] PAIN LEVEL 1-3 OR FEVER; Start 12/16/16 at 17:00 Lorazepam (Ativan) 1 mg Q2H PRN IV ANXIETY Last administered on 12/20/16 02:08 ; Admin Dose 1 MG; Start 12/16/16 at 17:00 Famotidine (Pepcid Iv) 20 mg Q12 IV Last administered on 12/20/16 08:03; Admin Dose 20 MG; Start 12/16/16 at 21:00 Levetiracetam 500 mg 500 mg BID PO Last administered on 12/20/16 08:04; Admin Dose 500 MG; Start 12/16/16 at 21:00 Norepinephrine 16 mg/Dextrose 500 ml @ 0 mls/hr TITRATE IV Last administered on 12/19/16 20:42; Admin Dose 46.87 MLS/HR; Start 12/17/16 at 00:00 Cefepime HCl (Maxipime 1gm/50 ml (Pmx)) 50 ml @ 100 mls/hr Q12 IVPB Last administered on 12/20/16 08:03; Admin Dose 100 MLS/HR; Start 12/16/16 at 21:00 Amiodarone HCl (Cordarone) 200 mg BID NGT Last administered on 12/20/16 08:04 ; Admin Dose 200 MG; Start 12/17/16 at 21:00 IV Flush 10 ml 10 ml PRN PRN IV IV PROTOCOL; Start 12/17/16 at 12:30 Phenylephrine HCl/ Dextrose (Hernán-Synephrine/ D5W) 500 ml @ 75 mls/hr TITRATE IV Last administered on 12/20/16 01:34; Admin Dose 15 MLS/HR; Start 12/18/16 at 08:30 Miscellaneous Information 1 ea NOTE XX ; Start 12/18/16 at 13:00 Glucose (Glutose) 15 gm Q15M PRN PO DECREASED GLUCOSE; Start 12/18/16 at 13:00 Glucose (Glutose) 22.5 gm Q15M PRN PO DECREASED GLUCOSE; Start 12/18/16 at 13: 00 Dextrose (D50w Syringe) 25 ml Q15M PRN IV DECREASED GLUCOSE; Start 12/18/16 at 13:00 Dextrose (D50w Syringe) 50 ml Q15M PRN IV DECREASED GLUCOSE; Start 12/18/16 at 13:00 Glucagon (Glucagen) 1 mg Q15M PRN IM DECREASED GLUCOSE; Start 12/18/16 at 13:00 Glucose (Glutose) 15 gm Q15M PRN BUCCAL DECREASED GLUCOSE; Start 12/18/16 at 13 :00 Insulin Aspart (Novolog Insulin Pen) NOVOLOG *MODERATE* ALGORI... Q4 SC Last administered on 12/20/16 08:08; Admin Dose 10 UNIT; Start 12/18/16 at 21:00 Dexamethasone 4 mg 4 mg DAILY IV Last administered on 12/20/16 08:04; Admin Dose 4 MG; Start 12/19/16 at 13:30 Dextrose/Sodium Chloride (D5-1/2ns) 1,000 ml @ 50 mls/hr Q20H IV Last administered on 12/19/16 14:41; Admin Dose 50 MLS/HR; Start 12/19/16 at 14:00 ALISE ESTRADA Dec 20, 2016 08:48
[2016-12-20 10:48] LABS: Allen Test ACCEPTAB; Arterial Base Excess -8.4 mmol/L (-3.0-3); Arterial COHb 0.2 % (0.0-3.0); Arterial Fraction of Oxyhgb 97.3 % (93.0-99.0); Arterial HCO3 16.9 mmol/L (22.0-26.0); Arterial MetHb 0.4 % (0.0-1.5); Arterial Total Hemglobin 10.8 g/dl (12.0-18.0); Blood Gas IEPAP 15/8; MODE MASK - BIPAP
[2016-12-20] MEDS: DEXTROSE 5%-0.45% NACL 1,000 ML IV SCH (11:01)
[2016-12-20] MEDS: ACCUCHECK XX SCH ×13 (11:30→23:30)
[2016-12-20] MEDS ORDERED: DEXTROSE 50% 50 ML SYRINGE IV PRN ×2 (11:30)
--- NOTE | 2016-12-20 12:01 | PN ---
Date/Time of Note Date/Time of Note DATE: 12/20/16 TIME: 11:55 Assessment/Plan VTE Prophylaxis VTE Prophylaxis Intervention: SCD's Lines/Catheters IV C[facility]ter Type (from [facility]): PICC Line Central line still needed: Yes Urinary Cath still in place: Yes Reason Cath still needed: urinary retention Assessment/Plan Chief Complaint/Hosp Course Assessment/Plan: 81 yo female with a past medical history of glioblastoma, chronic encephalopathy, brain abscess s/p craniotomy, dysphagia s/p PEG, aspiration pneumonia risk, who came from [facility] for hypotension/hypothermia, and possible aspiration pneumonitis. 1. Septic Shock - 2/2 aspiration pneumonitis - on abx and pressor support x 2 still. - continue ICU care, f/u consult pulm rec's, broad spectrum antibiotics, pressor support, respiratory cultures 2. Hyponatremia - chronic - resolved now. - monitor acute changes 3. Anemia - chronic disease - transfuse if hgb < 8 g/dL 4. Glioblastoma - monitor acute changes 5. Chronic encephalopathy - continue to re-orient patient as needed 6. Dysphagia s/p PEG - possible replacement needed, Dr. Salgado consulted - f/u rec's 7. Gi ppx - pepcid IV 8. DVT ppx - scds 9. afib with RVR - occurred a few days ago, now in NSR - continue PO amiodarone. 10. elevated sugars - sec to steroids, D5W IVf's - start insulin drip for now, monitor. 11. thrommbocytopenia - unclear source - d/c cefepime and Pepcid for now (can cause low plts as SE, although rare). - monitor levels, if worsens, consider Heme/Onc consult. as per clinical course. Palliative team also trying to set up family meeting with son in near future as well. Critical care time spent on pt care today = 40 min. Problems: Subjective 24 Hr Interval Summary Free Text/Dictation Pt still on BiPAP, not able to have family meeting yesterday. Exam/Review of Systems Vital Signs Vitals Vital Signs Date Time Temp Pulse Resp B/P Pulse Ox O2 Delivery O2 Flow Rate FiO2 12/20/16 11:30 93 100 100 12/20/16 09:00 32 145/65 12/20/16 08:00 97.9 BIPAP 12/18/16 05:18 15.0 Intake and Output 12/19/16 12/19/16 12/20/16 15:00 23:00 07:00 Intake Total 1760 ml 974.43 ml 873.42 ml Output Total 330 ml 475 ml 210 ml Balance 1430 ml 499.43 ml 663.42 ml Exam Gen Marlo: alert to self, on BiPAP HEENT: NC/AT, PERRLA NECK: supple, no thyromegaly THORAX: symmetrical, no obvious deformities CV: S1S2, RRR, no M/G/R Lungs: + mild crackles at bases Abd: soft, NT/ND, +BS, no rebound, no guarding, neg HSM, PEG site leaking EXT: no edema, no ecchymosis, no clubbing, FROM, contractures Neuro: stares, grossly intact Psych: withdrawn Skin: scattered ecchymoses Results Result Diagram: 12/20/16 0350 12/20/16 0350 Results 24 hrs Laboratory Tests Test 12/19/16 16:50 12/19/16 17:42 12/19/16 20:17 12/20/16 01:24 Anion Gap 14 Blood Urea Nitrogen 8 Calcium Level 8.3 L Carbon Dioxide Level 18 L Chloride Level 97 Creatinine 0.34 L Glucose Level 256 H Potassium Level 3.3 L Sodium Level 126 L Bedside Glucose 244 H 286 H 298 H Test 12/20/16 03:50 12/20/16 05:11 12/20/16 07:00 12/20/16 07:50 Anion Gap 16 Basophils # 0.0 Basophils % 0.0 Blood Morphology Comment Blood Urea Nitrogen 7 Calcium Level 8.7 Carbon Dioxide Level 16 L Chloride Level 99 Creatinine 0.30 L Eosinophils # 0.0 Eosinophils % 0.0 Glucose Level 277 H Hematocrit 28.5 L Hemoglobin 9.8 L Lymphocytes # 0.1 L Lymphocytes % 1.2 L Magnesium Level 1.4 L Mean Corpuscular Hemoglobin 31.7 Mean Corpuscular Hemoglobin Concent 34.2 Mean Corpuscular Volume 92.5 Mean Platelet Volume 6.8 L Monocytes # 0.0 L Monocytes % 0.5 Neutrophils # 9.5 H Neutrophils % 98.3 H Nucleated Red Blood Cells # 0.0 Nucleated Red Blood Cells % 0.0 Platelet Count 61 #L Potassium Level 4.0 Prealbumin 4.4 L Red Blood Count 3.09 L Red Cell Distribution Width 18.4 H Sodium Level 127 L White Blood Count 9.7 # Bedside Glucose 302 H 323 H Arterial Blood HCO3 15.6 L Arterial Blood Base Excess -8.6 L Arterial Blood Oxygen Saturation 98.8 Rony Test ACCEPTAB Arterial Blood Gas Puncture Site Right Radial Arterial Blood Carboxyhemoglobin 0.2 Arterial Blood Date Drawn 12/20/2016 7:21:54 AM Arterial Blood Methemoglobin 0.5 Arterial Blood pCO2 (Temp correct) 28.4 L Arterial Blood pH (Temp corrected) 7.359 Arterial Blood pO2 (Temp corrected) 245.8 H Blood Gas A-a O2 Differential 438.8 H Blood Gas Actual Respiration Rate 34 Blood Gas IPAP/EPAP Ratio 15 Blood Gas Modality MASK - BIPAP Blood Gas Notified Time 12/20/2016 7:53:36 AM Blood Gas Notified Whom JLD Blood Gas Respiration Rate 14.0 Blood Gas Specimen Source Blood arterial Blood Gas Temperature 37.0 FiO2 100.0 Oxyhemoglobin Percent 98.1 Total Hemoglobin 10.8 L Test 12/20/16 10:25 12/20/16 11:30 Arterial Blood HCO3 16.9 L Arterial Blood Base Excess -8.4 L Arterial Blood Oxygen Saturation 97.9 Rony Test ACCEPTAB Arterial Blood Gas Puncture Site Right Radial Arterial Blood Carboxyhemoglobin 0.2 Arterial Blood Date Drawn 12/20/2016 10:40:38 AM Arterial Blood Methemoglobin 0.4 Arterial Blood pCO2 (Temp correct) 34.2 L Arterial Blood pH (Temp corrected) 7.313 L Arterial Blood pO2 (Temp corrected) 128.8 H Blood Gas A-a O2 Differential 550.0 H Blood Gas Actual Respiration Rate 32 Blood Gas IPAP/EPAP Ratio 15 Blood Gas Modality MASK - BIPAP Blood Gas Notified Time 12/20/2016 10:48:27 AM Blood Gas Notified Whom JLD Blood Gas Respiration Rate 14.0 Blood Gas Specimen Source Blood arterial Blood Gas Temperature 37.0 FiO2 100.0 Oxyhemoglobin Percent 97.3 Total Hemoglobin 10.8 L Bedside Glucose 248 H Medications Medications Current Medications Ondansetron HCl (Zofran Inj) 4 mg Q6H PRN IV NAUSEA AND/OR VOMITING; Start 10/20 at 17:00 Acetaminophen (Tylenol Supp) 650 mg Q4H PRN [place] PAIN LEVEL 1-3 OR FEVER; Start 12/16/16 at 17:00 Lorazepam (Ativan) 1 mg Q2H PRN IV ANXIETY Last administered on 12/20/16 02:08 ; Admin Dose 1 MG; Start 12/16/16 at 17:00 Famotidine (Pepcid Iv) 20 mg Q12 IV Last administered on 12/20/16 08:03; Admin Dose 20 MG; Start 12/16/16 at 21:00 Levetiracetam 500 mg 500 mg BID PO Last administered on 12/20/16 08:04; Admin Dose 500 MG; Start 12/16/16 at 21:00 Norepinephrine 16 mg/Dextrose 500 ml @ 0 mls/hr TITRATE IV Last administered on 12/19/16 20:42; Admin Dose 46.87 MLS/HR; Start 12/17/16 at 00:00 Cefepime HCl (Maxipime 1gm/50 ml (Pmx)) 50 ml @ 100 mls/hr Q12 IVPB Last administered on 12/20/16 08:03; Admin Dose 100 MLS/HR; Start 12/16/16 at 21:00 Amiodarone HCl (Cordarone) 200 mg BID NGT Last administered on 12/20/16 08:04 ; Admin Dose 200 MG; Start 12/17/16 at 21:00 IV Flush 10 ml 10 ml PRN PRN IV IV PROTOCOL; Start 12/17/16 at 12:30 Phenylephrine HCl/ Dextrose (Hernán-Synephrine/ D5W) 500 ml @ 75 mls/hr TITRATE IV Last administered on 12/20/16 01:34; Admin Dose 15 MLS/HR; Start 12/18/16 at 08:30 Miscellaneous Information 1 ea NOTE XX ; Start 12/18/16 at 13:00 Glucose (Glutose) 15 gm Q15M PRN PO DECREASED GLUCOSE; Start 12/18/16 at 13:00 Glucose (Glutose) 22.5 gm Q15M PRN PO DECREASED GLUCOSE; Start 12/18/16 at 13: 00 Glucagon (Glucagen) 1 mg Q15M PRN IM DECREASED GLUCOSE; Start 12/18/16 at 13:00 Glucose (Glutose) 15 gm Q15M PRN BUCCAL DECREASED GLUCOSE; Start 12/18/16 at 13 :00 Dexamethasone 4 mg 4 mg DAILY IV Last administered on 12/20/16 08:04; Admin Dose 4 MG; Start 12/19/16 at 13:30 Dextrose/Sodium Chloride 1,000 ml @ 50 mls/hr Q20H IV Last administered on 11:01; Admin Dose 50 MLS/HR; Start 12/19/16 at 14:00 Magnesium Sulfate/ Sodium Chloride (Magnesium Sulfate/NS) 106 ml @ 35.333 mls/ hr ONCE ONCE IVPB ; Start 12/20/16 at 12:30; Stop 12/20/16 at 15:29 Diagnostic Test (Pha) (Accucheck) 1 ea Q1H XX ; Start 12/20/16 at 11:30 Dextrose (D50w Syringe) 25 ml Q15M PRN IV Till BS 80 mg/dL or above x2; Start 12/20/16 at 11:30 Dextrose (D50w Syringe) 50 ml Q15M PRN IV Till BS 80 mg/dL or above x2; Start 12/20/16 at 11:30 CAROL MICHELLE Dec 20, 2016 12:01
[2016-12-20] MEDS: INSULIN REGULAR, HUMAN 100 UNIT in SOD CHLORIDE 0.9% 99 ML IV SCH ×2 (12:15)
[2016-12-20] MEDS ORDERED: MAGNESIUM SULFATE 3 GM in SOD CHLORIDE 0.9% 100 ML IVPB ONE (12:30)
[2016-12-20] MEDS: IMIPENEM-CILAST 500MG IV (PMX) 100 ML IVPB SCH ×2 (17:30→23:41)
[2016-12-20] MEDS ORDERED: IMIPENEM/CILASTATIN 500 MG in SOD CHLORIDE 0.9% 250 ML IVPB SCH (18:00)
--- NOTE | 2016-12-20 18:27 | CONS ---
Date/Time of Note Date/Time of Note DATE: 12/20/16 TIME: 18:25 Assessment/Plan Assessment/Plan Additional Assessment/Plan IMPRESSION: 1. Sepsis, most probably related to bilateral pneumonia. 2. Mild leakage from the G-tube site due to the large stoma.better after osteomy pouch 3. Status post craniotomy for glioblastoma. 4. Anemia. 5. Hyponatremia. 6. Chronic encephalopathy. 7.shock on pressor support PLAN: patient has got ostomy pouch, and after that, the leakage has completely stopped. If the condition improves, then we will start feeding her through the G-tube. Consultation Date/Type/Reason Admit Date/Time Dec 16, 2016 at 15:45 24 HR Interval Summary Subjective hx not possible: pt non-verbal, pt critical Exam/Review of Systems Vital Signs Vitals Vital Signs Date Time Temp Pulse Resp B/P Pulse Ox O2 Delivery O2 Flow Rate FiO2 12/20/16 16:00 85 12/20/16 15:45 33 123/60 100 12/20/16 15:40 100 12/20/16 15:00 BIPAP 12/20/16 12:00 97.7 12/18/16 05:18 15.0 Intake and Output 12/19/16 12/19/16 12/20/16 15:00 23:00 07:00 Intake Total 1760 ml 974.43 ml 873.42 ml Output Total 330 ml 475 ml 235 ml Balance 1430 ml 499.43 ml 638.42 ml Exam Constitutional: alert, oriented, well developed Psych: nl mood/affect, no complaints Head: atraumatic, normocephalic Eyes: EOMI, PERRL, nl conjunctiva, nl lids, nl sclera ENMT: nl external ears & nose, nl lips & teeth, nl nasal mucosa & septum Neck: non-tender, supple Respiratory: clear to auscultation, normal air movement Cardiovascular: nl pulses, regular rate and rhythm Gastrointestinal: nl liver, spleen, non-tender, soft Musculoskeletal: nl extremities to inspection, nl gait and stance Extremities: normal pulses Neurological: PIPE FITTER II-XII intact, nl mental status, nl speech, nl strength Skin: nl turgor, No rash or lesions Lymph: nl lymph nodes Results Result Diagram: 12/20/16 0350 12/20/16 0350 Results 24 hrs Laboratory Tests Test 12/19/16 20:17 12/20/16 01:24 12/20/16 03:50 12/20/16 05:11 Bedside Glucose 286 H 298 H 302 H Anion Gap 16 Basophils # 0.0 Basophils % 0.0 Blood Morphology Comment Blood Urea Nitrogen 7 Calcium Level 8.7 Carbon Dioxide Level 16 L Chloride Level 99 Creatinine 0.30 L Eosinophils # 0.0 Eosinophils % 0.0 Glucose Level 277 H Hematocrit 28.5 L Hemoglobin 9.8 L Lymphocytes # 0.1 L Lymphocytes % 1.2 L Magnesium Level 1.4 L Mean Corpuscular Hemoglobin 31.7 Mean Corpuscular Hemoglobin Concent 34.2 Mean Corpuscular Volume 92.5 Mean Platelet Volume 6.8 L Monocytes # 0.0 L Monocytes % 0.5 Neutrophils # 9.5 H Neutrophils % 98.3 H Nucleated Red Blood Cells # 0.0 Nucleated Red Blood Cells % 0.0 Platelet Count 61 #L Potassium Level 4.0 Prealbumin 4.4 L Red Blood Count 3.09 L Red Cell Distribution Width 18.4 H Sodium Level 127 L White Blood Count 9.7 # Test 12/20/16 07:00 12/20/16 07:50 12/20/16 10:25 12/20/16 11:30 Arterial Blood HCO3 15.6 L 16.9 L Arterial Blood Base Excess -8.6 L -8.4 L Arterial Blood Oxygen Saturation 98.8 97.9 Rony Test ACCEPTAB ACCEPTAB Arterial Blood Gas Puncture Site Right Radial Right Radial Arterial Blood Carboxyhemoglobin 0.2 0.2 Arterial Blood Date Drawn 12/20/2016 7:21:54 AM 12/20/2016 10:40:38 AM Arterial Blood Methemoglobin 0.5 0.4 Arterial Blood pCO2 (Temp correct) 28.4 L 34.2 L Arterial Blood pH (Temp corrected) 7.359 7.313 L Arterial Blood pO2 (Temp corrected) 245.8 H 128.8 H Blood Gas A-a O2 Differential 438.8 H 550.0 H Blood Gas Actual Respiration Rate 34 32 Blood Gas IPAP/EPAP Ratio 18/06 18/06 Blood Gas Modality MASK - BIPAP MASK - BIPAP Blood Gas Notified Time 12/20/2016 7:53:36 AM 12/20/2016 10:48:27 AM Blood Gas Notified Whom JLD JLD Blood Gas Respiration Rate 14.0 14.0 Blood Gas Specimen Source Blood arterial Blood arterial Blood Gas Temperature 37.0 37.0 FiO2 100.0 100.0 Oxyhemoglobin Percent 98.1 97.3 Total Hemoglobin 10.8 L 10.8 L Bedside Glucose 323 H 248 H Test 12/20/16 13:11 12/20/16 15:04 12/20/16 15:48 12/20/16 16:30 Bedside Glucose 231 H 207 187 180 Test 12/20/16 17:21 Bedside Glucose 176 Medications Medications Current Medications Ondansetron HCl (Zofran Inj) 4 mg Q6H PRN IV NAUSEA AND/OR VOMITING; Start 10/20 at 17:00 Acetaminophen (Tylenol Supp) 650 mg Q4H PRN [place] PAIN LEVEL 1-3 OR FEVER; Start 12/16/16 at 17:00 Lorazepam (Ativan) 1 mg Q2H PRN IV ANXIETY Last administered on 12/20/16 02:08 ; Admin Dose 1 MG; Start 12/16/16 at 17:00 Famotidine (Pepcid Iv) 20 mg Q12 IV Last administered on 12/20/16 08:03; Admin Dose 20 MG; Start 12/16/16 at 21:00; Status Future Hold Levetiracetam 500 mg 500 mg BID PO Last administered on 12/20/16 08:04; Admin Dose 500 MG; Start 12/16/16 at 21:00 Norepinephrine/ Dextrose (Levophed/D5W) 500 ml @ 0 mls/hr TITRATE IV Last administered on 12/20/16 15:15; Admin Dose 15 MLS/HR; Start 12/17/16 at 00:00 Amiodarone HCl (Cordarone) 200 mg BID NGT Last administered on 12/20/16 08:04 ; Admin Dose 200 MG; Start 12/17/16 at 21:00 IV Flush 10 ml 10 ml PRN PRN IV IV PROTOCOL; Start 12/17/16 at 12:30 Phenylephrine HCl/ Dextrose (Hernán-Synephrine/ D5W) 500 ml @ 75 mls/hr TITRATE IV Last administered on 12/20/16 01:34; Admin Dose 15 MLS/HR; Start 12/18/16 at 08:30 Miscellaneous Information 1 ea NOTE XX ; Start 12/18/16 at 13:00 Glucose (Glutose) 15 gm Q15M PRN PO DECREASED GLUCOSE; Start 12/18/16 at 13:00 Glucose (Glutose) 22.5 gm Q15M PRN PO DECREASED GLUCOSE; Start 12/18/16 at 13: 00 Glucagon (Glucagen) 1 mg Q15M PRN IM DECREASED GLUCOSE; Start 12/18/16 at 13:00 Glucose (Glutose) 15 gm Q15M PRN BUCCAL DECREASED GLUCOSE; Start 12/18/16 at 13 :00 Dexamethasone 4 mg 4 mg DAILY IV Last administered on 12/20/16 08:04; Admin Dose 4 MG; Start 12/19/16 at 13:30 Dextrose/Sodium Chloride (D5-1/2ns) 1,000 ml @ 50 mls/hr Q20H IV Last administered on 12/20/16 11:01; Admin Dose 50 MLS/HR; Start 12/19/16 at 14:00 Diagnostic Test (Pha) (Accucheck) 1 ea Q1H XX ; Start 12/20/16 at 11:30 Dextrose (D50w Syringe) 25 ml Q15M PRN IV Till BS 80 mg/dL or above x2; Start 12/20/16 at 11:30 Dextrose (D50w Syringe) 50 ml Q15M PRN IV Till BS 80 mg/dL or above x2; Start 12/20/16 at 11:30 Pantoprazole 40 mg 40 mg DAILY@06 IV ; Start 12/21/16 at 06:00 Imipenem/ Cilastatin Sodium (Primaxin 500 Mg/ 100 ml (Pmx)) 100 ml @ 166.667 mls/hr Q6 IVPB Last administered on 12/20/16 17:30; Admin Dose 166.667 MLS/HR ; Start 12/20/16 at 18:00 SHANA GOODWIN MD Dec 20, 2016 18:27
[2016-12-21] VITALS (99 sets, daily range): BP systolic 48–146; BP diastolic 27–76; PULSE 76–120; RESP 17–41
[2016-12-21] MEDS: ACCUCHECK XX SCH ×23 (00:30→23:12)
[2016-12-21 01:55] LABS: AADO2 Arterial 513.7 mmHg (7.0-24.0); Allen Test ACCEPTAB; Arterial Base Excess -9.2 mmol/L (-3.0-3); Arterial COHb 0.3 % (0.0-3.0); Arterial Fraction of Oxyhgb 84.1 % (93.0-99.0); Arterial HCO3 25.7 mmol/L (22.0-26.0); Arterial MetHb 0.4 % (0.0-1.5); Arterial Total Hemglobin 10.8 g/dl (12.0-18.0); Blood Gas IEPAP 15/8; MODE MASK - BIPAP
--- NOTE | 2016-12-21 02:43 | RADRPT ---
PROCEDURE: XR Chest. CLINICAL INDICATION: s/p intubation TECHNIQUE: Single frontal chest x-ray. COMPARISON: 12/20/2016 FINDINGS: The endotracheal tube tip is in the right main bronchus approximately 1.5 cm below the level of the annabel. Right PICC line tip in superior vena cava. ECG leads are projected over the chest. Minima l enlargement of the cardiac silhouette is again seen. Pulmonary vascular congestion is again appar ent. Bilateral lung densities are again seen which could represent pulmonary edema and/or other inf iltrates improved in the left and right lower lungs and increased in the right upper lung compared t o the previous study. Calcification in the aortic arch. There may be small pleural effusions again seen. IMPRESSION: Endotracheal tube in right main bronchus as noted above. This should be pulled back approximately 5 cm. Please see additional findings above. Discussed with Wenceslao Nix at 02:39 a.m. on 12/21/2016. RPTAT: HJES .Manav Cool MD, MD Date Time Electronically viewed and signed by .Manav Cool MD, MD on 12/21/2016 02:42 .S/
[2016-12-21 04:54] LABS: HEMATOCRIT 27.3 % (37.0-47.0); HEMOGLOBIN 9.3 g/dl (12.0-16.0); MEAN CORPUSCULAR HEMOGLOBIN 31.5 pg (29.0-33.0); MEAN CORPUSCULAR HGB CONC 34.1 g/dl (32.0-37.0); MEAN CORPUSCULAR VOLUME 92.3 fl (82.0-101.0); MEAN PLATELET VOLUME 6.7 fl (7.4-10.4); PLATELET COUNT 49 10^3/UL (140-440); RED BLOOD COUNT 2.95 10^6/ul (4.20-5.40); RED CELL DISTRIBUTION WIDTH 17.8 % (11.5-14.5); UNCORRECTED WBC 2.5 10^3/ul (4.8-10.8); WHITE BLOOD COUNT 2.5 10^3/ul (4.8-10.8)
[2016-12-21 05:01] LABS: CREATININE 0.33 mg/dl (0.44-1.00)
[2016-12-21 05:02] LABS: CALCIUM 8.4 mg/dl (8.4-10.2); MAGNESIUM 1.9 mg/dl (1.7-2.5); PHOSPHORUS 4.5 mg/dl (2.5-4.9)
[2016-12-21 05:06] LABS: POTASSIUM 2.9 mmol/L (3.5-5.1)
[2016-12-21 05:08] LABS: CONDITION 1; LH ANALYZER COMMENTS 1; SUSPECT 1
[2016-12-21] MEDS: IMIPENEM-CILAST 500MG IV (PMX) 100 ML IVPB SCH ×3 (05:21→17:54)
[2016-12-21] MEDS: PANTOPRAZOLE 40 MG INJ IV SCH (05:21)
[2016-12-21] MEDS: DEXTROSE 5%-0.45% NACL 1,000 ML IV SCH (05:21)
[2016-12-21 06:20] LABS: Allen Test ACCEPTAB; Arterial Base Excess -9.9 mmol/L (-3.0-3); Arterial COHb 0.3 % (0.0-3.0); Arterial Fraction of Oxyhgb 98.1 % (93.0-99.0); Arterial HCO3 14.8 mmol/L (22.0-26.0); Arterial MetHb 0.6 % (0.0-1.5); Arterial Total Hemglobin 8.8 g/dl (12.0-18.0); MODE VENT - AC
[2016-12-21] MEDS: POTASSIUM CHLORIDE 50 ML IVPB SCH ×3 (06:21→11:16)
[2016-12-21] MEDS: PHENYLephrine 40 MG in DEXTROSE 5% 496 ML IV SCH ×2 (06:23→21:07)
--- NOTE | 2016-12-21 08:49 | CONS ---
Date/Time of Note Date/Time of Note DATE: 12/21/16 TIME: 08:43 Assessment/Plan Assessment/Plan Additional Assessment/Plan Ventilator settings; AC of 20, tidal volume 500, PEEP of 5, 60% FiO2. Assessment recommendations; 1. Patient admitted with severe bilateral pneumonia. Maintained on BiPAP but decompensated requiring intubation. 2. Advanced dementia. 3. Status post multiple craniotomies. 4. Seizure disorder. 5. Hyponatremia. 6. Hypokalemia. 7. CHF. 8. Severe hypotension currently on maxed out doses of Levophed and Hernán- Synephrine drips. 9. Poor urine output. Continue current treatment. Prognosis is extremely poor. Endotracheal tube was pulled out after last chest x-ray which revealed ETT tube in right mainstem bronchus. Consultation Date/Type/Reason Admit Date/Time Dec 16, 2016 at 15:45 Initial Consult Date Patient condition remains extremely critical. Requiring high-dose combination of Hernán-Synephrine and Levophed drips at maxed out doses for blood pressure maintenance. Due to underlying severe anoxic brain injury, patient is unresponsive. Which is her underlying mental status. Currently maintained on BiPAP. General examination; elderly lady, on BiPAP, unresponsive. Type of Consultation: Pulmonary/critical 24 HR Interval Summary Free Text/Dictation Patient condition remains extremely critical. Had to be intubated by the ER physician because of worsening respiratory status. Patient because of underlying severe anoxic encephalopathy remains unresponsive. Now orally intubated. Remains extremely hypotensive requiring high doses of Levophed and Hernán-Synephrine drips. Her output remains very poor. General examination; elderly woman, orally intubated, unresponsive. Exam/Review of Systems Vital Signs Vitals Vital Signs Date Time Temp Pulse Resp B/P Pulse Ox O2 Delivery O2 Flow Rate FiO2 12/21/16 06:30 108 21 85/45 97 12/21/16 06:15 Mechanical Ventilator 12/21/16 06:00 60 12/21/16 04:00 97.5 12/18/16 05:18 15.0 Intake and Output 12/20/16 12/20/16 12/21/16 15:00 23:00 07:00 Intake Total 1065 ml 1007.5 ml 952.70 ml Output Total 240 ml 210 ml Balance 825 ml 797.5 ml 952.70 ml Exam HEENT examination; supple neck, no JVD. Multiple cranial scars are present wich all appear well-healed. Orally intubated. No neck masses. No thyromegaly. Chest examination; diminished breath sounds throughout. S1-S2 audible, no murmurs. Regular rhythm. Abdomen examination; soft, G-tube in place. Bowel sounds audible. No organomegaly felt. Extremity examination; no peripheral edema. There are multiple ecchymosis involving all 4 extremities. INFORMATION TECHNOLOGY AUDIT MANAGER examination; patient remains unresponsive. Results Result Diagram: 12/21/16 0400 12/21/16 0400 Results 24 hrs Laboratory Tests Test 12/20/16 10:25 12/20/16 11:30 12/20/16 13:11 12/20/16 15:04 Arterial Blood HCO3 16.9 L Arterial Blood Base Excess -8.4 L Arterial Blood Oxygen Saturation 97.9 Rony Test ACCEPTAB Arterial Blood Gas Puncture Site Right Radial Arterial Blood Carboxyhemoglobin 0.2 Arterial Blood Date Drawn 12/20/2016 10:40:38 AM Arterial Blood Methemoglobin 0.4 Arterial Blood pCO2 (Temp correct) 34.2 L Arterial Blood pH (Temp corrected) 7.313 L Arterial Blood pO2 (Temp corrected) 128.8 H Blood Gas A-a O2 Differential 550.0 H Blood Gas Actual Respiration Rate 32 Blood Gas IPAP/EPAP Ratio 15/8 Blood Gas Modality MASK - BIPAP Blood Gas Notified Time 12/20/2016 10:48:27 AM Blood Gas Notified Whom JLD Blood Gas Respiration Rate 14.0 Blood Gas Specimen Source Blood arterial Blood Gas Temperature 37.0 FiO2 100.0 Oxyhemoglobin Percent 97.3 Total Hemoglobin 10.8 L Bedside Glucose 248 H 231 H 207 Test 12/20/16 15:48 12/20/16 16:30 12/20/16 17:21 12/20/16 18:47 Bedside Glucose 187 180 176 114 Test 12/20/16 19:50 12/20/16 20:51 12/20/16 21:36 12/20/16 22:32 Bedside Glucose 97 104 103 103 Test 12/20/16 23:29 12/21/16 00:33 12/21/16 01:39 12/21/16 01:46 Bedside Glucose 107 107 113 Arterial Blood HCO3 25.7 Arterial Blood Base Excess -9.2 L Arterial Blood Oxygen Saturation 84.7 L Rony Test ACCEPTAB Arterial Blood Gas Puncture Site Right Radial Arterial Blood Carboxyhemoglobin 0.3 Arterial Blood Date Drawn 12/21/2016 1:41:25 AM Arterial Blood Methemoglobin 0.4 Arterial Blood pCO2 (Temp correct) 135.7 *H Arterial Blood pH (Temp corrected) 6.895 *L Arterial Blood pO2 (Temp corrected) 63.6 L Blood Gas A-a O2 Differential 513.7 H Blood Gas Actual Respiration Rate 20 Blood Gas Critical Value Read Back GAILR. R.NDavy Blood Gas IPAP/EPAP Ratio 18/06 Blood Gas Modality MASK - BIPAP Blood Gas Notified Time 12/21/2016 1:52:55 AM Blood Gas Notified Whom GregDavyMCCLELLAN VASCULAR MANAGER Blood Gas Respiration Rate 14.0 Blood Gas Specimen Source Blood arterial Blood Gas Temperature 37.0 FiO2 100.0 Oxyhemoglobin Percent 84.1 L Total Hemoglobin 10.8 L Test 12/21/16 02:41 12/21/16 03:45 12/21/16 04:00 12/21/16 04:15 Bedside Glucose 138 139 Anion Gap 12 Basophils # Pending Basophils % Pending Blood Morphology Comment Blood Urea Nitrogen 10 Calcium Level 8.4 Carbon Dioxide Level 17 L Chloride Level 94 L Creatinine 0.33 L Eosinophils # Pending Eosinophils % Pending Glucose Level 296 H Hematocrit 27.3 L Hemoglobin 9.3 L Lymphocytes # Pending Lymphocytes % Pending Magnesium Level 1.9 Mean Corpuscular Hemoglobin 31.5 Mean Corpuscular Hemoglobin Concent 34.1 Mean Corpuscular Volume 92.3 Mean Platelet Volume 6.7 L Monocytes # Pending Monocytes % Pending Neutrophils # Pending Neutrophils % Pending Nucleated Red Blood Cells # Pending Nucleated Red Blood Cells % Pending Phosphorus Level 4.5 Platelet Count 49 L Potassium Level 2.9 *L Red Blood Count 2.95 L Red Cell Distribution Width 17.8 H Sodium Level 120 L White Blood Count 2.5 #L Arterial Blood HCO3 14.8 L Arterial Blood Base Excess -9.9 L Arterial Blood Oxygen Saturation 99.0 Rony Test ACCEPTAB Arterial Blood Gas Puncture Site Right Radial Arterial Blood Carboxyhemoglobin 0.3 Arterial Blood Date Drawn 12/21/2016 5:30:00 AM Arterial Blood Methemoglobin 0.6 Arterial Blood pCO2 (Temp correct) 28.4 L Arterial Blood pH (Temp corrected) 7.336 L Arterial Blood pO2 (Temp corrected) 214.6 H Blood Gas A-a O2 Differential 470.0 H Blood Gas Actual Respiration Rate 20 Blood Gas Inspiratory Pressure 32.0 Blood Gas Low PEEP Setting 5.0 Blood Gas Modality VENT - AC Blood Gas Notified Time 12/21/2016 5:41:00 AM Blood Gas Notified Whom MM Blood Gas Respiration Rate 20.0 Blood Gas Specimen Source Blood arterial Blood Gas Temperature 37.0 Blood Gas Tidal Volume 500.0 FiO2 100.0 Oxyhemoglobin Percent 98.1 Total Hemoglobin 8.8 L Test 12/21/16 05:30 12/21/16 06:35 Bedside Glucose 128 121 Medications Medications Current Medications Ondansetron HCl (Zofran Inj) 4 mg Q6H PRN IV NAUSEA AND/OR VOMITING; Start 10/20 at 17:00 Acetaminophen (Tylenol Supp) 650 mg Q4H PRN [place] PAIN LEVEL 1-3 OR FEVER; Start 12/16/16 at 17:00 Lorazepam (Ativan) 1 mg Q2H PRN IV ANXIETY Last administered on 12/20/16 02:08 ; Admin Dose 1 MG; Start 12/16/16 at 17:00 Famotidine (Pepcid Iv) 20 mg Q12 IV Last administered on 12/20/16 08:03; Admin Dose 20 MG; Start 12/16/16 at 21:00; Status Future Hold Levetiracetam 500 mg 500 mg BID PO Last administered on 12/20/16 20:54; Admin Dose 500 MG; Start 12/16/16 at 21:00 Norepinephrine/ Dextrose (Levophed/D5W) 500 ml @ 0 mls/hr TITRATE IV Last administered on 12/20/16 15:15; Admin Dose 15 MLS/HR; Start 12/17/16 at 00:00 Amiodarone HCl (Cordarone) 200 mg BID NGT Last administered on 12/20/16 20:55 ; Admin Dose 200 MG; Start 12/17/16 at 21:00 IV Flush 10 ml 10 ml PRN PRN IV IV PROTOCOL; Start 12/17/16 at 12:30 Phenylephrine HCl/ Dextrose (Hernán-Synephrine/ D5W) 500 ml @ 75 mls/hr TITRATE IV Last administered on 12/21/16 06:23; Admin Dose 15 MLS/HR; Start 12/18/16 at 08:30 Miscellaneous Information 1 ea NOTE XX ; Start 12/18/16 at 13:00 Glucose (Glutose) 15 gm Q15M PRN PO DECREASED GLUCOSE; Start 12/18/16 at 13:00 Glucose (Glutose) 22.5 gm Q15M PRN PO DECREASED GLUCOSE; Start 12/18/16 at 13: 00 Glucagon (Glucagen) 1 mg Q15M PRN IM DECREASED GLUCOSE; Start 12/18/16 at 13:00 Glucose (Glutose) 15 gm Q15M PRN BUCCAL DECREASED GLUCOSE; Start 12/18/16 at 13 :00 Dexamethasone 4 mg 4 mg DAILY IV Last administered on 12/20/16 08:04; Admin Dose 4 MG; Start 12/19/16 at 13:30 Dextrose/Sodium Chloride (D5-1/2ns) 1,000 ml @ 50 mls/hr Q20H IV Last administered on 12/21/16 05:21; Admin Dose 50 MLS/HR; Start 12/19/16 at 14:00 Diagnostic Test (Pha) (Accucheck) 1 ea Q1H XX ; Start 12/20/16 at 11:30 Dextrose (D50w Syringe) 25 ml Q15M PRN IV Till BS 80 mg/dL or above x2; Start 12/20/16 at 11:30 Dextrose (D50w Syringe) 50 ml Q15M PRN IV Till BS 80 mg/dL or above x2; Start 12/20/16 at 11:30 Pantoprazole 40 mg 40 mg DAILY@06 IV Last administered on 12/21/16 05:21; Admin Dose 40 MG; Start 12/21/16 at 06:00 Imipenem/ Cilastatin Sodium 100 ml @ 166.667 mls/hr Q6 IVPB Last administered on 12/21/16 05:21; Admin Dose 166.667 MLS/HR; Start 12/20/16 at 18:00 Potassium Chloride (KCl 20 MEQ/50 ML SW) 50 ml @ 25 mls/hr Q2H IVPB Last administered on 12/21/16 06:21; Admin Dose 25 MLS/HR; Start 12/21/16 at 06:00; Stop 12/21/16 at 11:59 ALISE ESTRADA Dec 21, 2016 08:48
[2016-12-21] MEDS: DEXAMETHASONE 4 MG/ML 1 ML INJ IV SCH (09:02)
[2016-12-21] MEDS: AMIODARONE 200 MG TAB NGT SCH ×2 (09:02→20:14)
[2016-12-21] MEDS: LEVETIRACETAM 500 MG TAB PO SCH (09:03)
[2016-12-21 09:28] LABS: LYMPHOCYTES # 0.2 10^3/ul (0.8-2.9); MONOCYTE # 0.1 10^3/ul (0.3-0.9); NEUTROPHIL # 1.7 10^3/ul (1.6-7.5); PLATELET ESTIMATE PLT APPEAR DECREASED
--- NOTE | 2016-12-21 11:23 | PN ---
Date/Time of Note Date/Time of Note DATE: 12/21/16 TIME: 11:14 Assessment/Plan VTE Prophylaxis VTE Prophylaxis Intervention: SCD's Lines/Catheters IV [facility]ter [facility] (from [facility] PICC Line Central line still needed: Yes Urinary Cath still in place: Yes Reason Cath still needed: urinary retention Assessment/Plan Chief Complaint/Hosp Course Assessment/Plan: 81 yo female with a past medical history of glioblastoma, chronic encephalopathy, brain abscess s/p craniotomy, dysphagia s/p PEG, aspiration pneumonia risk, who came from [facility] for hypotension/hypothermia, and possible aspiration pneumonitis. 1. Septic Shock - 2/2 aspiration pneumonitis - on abx and pressor support x 2 still. Now intubated unfortunately. - continue ICU care, f/u consult pulm rec's, broad spectrum antibiotics, pressor support, respiratory cultures 2. Hyponatremia - chronic - more prevalent today (127 -> 120) - monitor acute changes - will add salt tabs TID, NS IVF's. - check BMP in evening today. 3. Anemia - chronic disease - transfuse if hgb < 8 g/dL 4. Glioblastoma - monitor acute changes 5. Chronic encephalopathy - continue to re-orient patient as needed 6. Dysphagia s/p PEG - possible replacement needed, Dr. Salgado consulted - f/u rec's 7. Gi ppx - pepcid IV 8. DVT ppx - scds 9. afib with RVR - occurred a few days ago, now in NSR - continue PO amiodarone. 10. elevated sugars - sec to steroids, D5W IVf's, now improved with insulin drip. - continue insulin drip for now, monitor. 11. thrombocytopenia - unclear source (144 -> 126 -> 86 ->-> 49). No signs of bleeding. - have d/c'ed cefepime and Pepcid yesterday (can cause low plts as SE, although rare) - will also get Heme/Onc consult. - monitor levels Dispo: as per clinical course. Palliative team also trying to set up family meeting with son in near future as well. I spoke with pt's son Toney in detail over the phone on 12/20/16 explaining the daily plan that day. He asked questions about her condition including blood pressure, antibiotic treatment, elevated sugars and treatment for this, low platelets and our treatment for this, and and all his questions were answered then. Critical care time spent on pt care today = 50 min. Problems: Subjective 24 Hr Interval Summary Free Text/Dictation Pt had worsening respiratory distress last night and had to be intubated early this AM. Still on pressor support x 2. On insulin drip as well. Exam/Review of Systems Vital Signs Vitals Vital Signs Date Time Temp Pulse Resp B/P Pulse Ox O2 Delivery O2 Flow Rate FiO2 12/21/16 10:00 92 32 88/46 100 Mechanical Ventilator 12/21/16 08:00 60 12/21/16 07:30 98.2 12/18/16 05:18 15.0 Intake and Output 12/20/16 12/20/16 12/21/16 15:00 23:00 07:00 Intake Total 1065 ml 1007.5 ml 1030.20 ml Output Total 240 ml 210 ml Balance 825 ml 797.5 ml 1030.20 ml Exam Gen Marlo: intubated, sedated HEENT: NC/AT, PERRLA NECK: supple, no thyromegaly THORAX: symmetrical, no obvious deformities CV: S1S2, RRR, no M/G/R Lungs: + mild crackles at bases Abd: soft, NT/ND, +BS, no rebound, no guarding, neg HSM, PEG site leaking EXT: no edema, no ecchymosis, no clubbing, FROM, contractures Neuro: stares, grossly intact Skin: scattered ecchymoses Results Result Diagram: 12/21/16 0400 12/21/16 0400 Results 24 hrs Laboratory Tests Test 12/20/16 11:30 12/20/16 13:11 12/20/16 15:04 12/20/16 15:48 Bedside Glucose 248 H 231 H 207 187 Test 12/20/16 16:30 12/20/16 17:21 12/20/16 18:47 12/20/16 19:50 Bedside Glucose 180 176 114 97 Test 12/20/16 20:51 12/20/16 21:36 12/20/16 22:32 12/20/16 23:29 Bedside Glucose 104 103 103 107 Test 12/21/16 00:33 12/21/16 01:39 12/21/16 01:46 12/21/16 02:41 Bedside Glucose 107 113 138 Arterial Blood HCO3 25.7 Arterial Blood Base Excess -9.2 L Arterial Blood Oxygen Saturation 84.7 L Rony Test ACCEPTAB Arterial Blood Gas Puncture Site Right Radial Arterial Blood Carboxyhemoglobin 0.3 Arterial Blood Date Drawn 12/21/2016 1:41:25 AM Arterial Blood Methemoglobin 0.4 Arterial Blood pCO2 (Temp correct) 135.7 *H Arterial Blood pH (Temp corrected) 6.895 *L Arterial Blood pO2 (Temp corrected) 63.6 L Blood Gas A-a O2 Differential 513.7 H Blood Gas Actual Respiration Rate 20 Blood Gas Critical Value Read Back BIOFORESTIO,R. R.N. 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 MATERIAL CONTROL ASSOCIATE Blood Gas Respiration Rate 14.0 Blood Gas Specimen Source Blood arterial Blood Gas Temperature 37.0 FiO2 100.0 Oxyhemoglobin Percent 84.1 L Total Hemoglobin 10.8 L Test 12/21/16 03:45 12/21/16 04:00 12/21/16 04:15 12/21/16 05:30 Bedside Glucose 139 128 Anion Gap 12 Band Neutrophils % 25.0 H Basophils # Basophils % Blood Morphology Comment Blood Urea Nitrogen 10 Calcium Level 8.4 Carbon Dioxide Level 17 L Chloride Level 94 L Creatinine 0.33 L Eosinophils # Eosinophils % Glucose Level 296 H Hematocrit 27.3 L Hemoglobin 9.3 L Lymphocytes # 0.2 L Lymphocytes % 6.0 L Magnesium Level 1.9 Mean Corpuscular Hemoglobin 31.5 Mean Corpuscular Hemoglobin Concent 34.1 Mean Corpuscular Volume 92.3 Mean Platelet Volume 6.7 L Monocytes # 0.1 L Monocytes % 2.0 Neutrophils # 1.7 Neutrophils % 67.0 Nucleated Red Blood Cells # Nucleated Red Blood Cells % Phosphorus Level 4.5 Platelet Count 49 L Platelet Estimate PLT APPEAR DECREASED Potassium Level 2.9 *L Red Blood Count 2.95 L Red Cell Distribution Width 17.8 H Sodium Level 120 L White Blood Count 2.5 #L Arterial Blood HCO3 14.8 L Arterial Blood Base Excess -9.9 L Arterial Blood Oxygen Saturation 99.0 Rony Test ACCEPTAB Arterial Blood Gas Puncture Site Right Radial Arterial Blood Carboxyhemoglobin 0.3 Arterial Blood Date Drawn 12/21/2016 5:30:00 AM Arterial Blood Methemoglobin 0.6 Arterial Blood pCO2 (Temp correct) 28.4 L Arterial Blood pH (Temp corrected) 7.336 L Arterial Blood pO2 (Temp corrected) 214.6 H Blood Gas A-a O2 Differential 470.0 H Blood Gas Actual Respiration Rate 20 Blood Gas Inspiratory Pressure 32.0 Blood Gas Low PEEP Setting 5.0 Blood Gas Modality VENT - AC Blood Gas Notified Time 12/21/2016 5:41:00 AM Blood Gas Notified Whom MM Blood Gas Respiration Rate 20.0 Blood Gas Specimen Source Blood arterial Blood Gas Temperature 37.0 Blood Gas Tidal Volume 500.0 FiO2 100.0 Oxyhemoglobin Percent 98.1 Total Hemoglobin 8.8 L Test 12/21/16 06:35 12/21/16 08:27 12/21/16 09:28 Bedside Glucose 121 111 118 Medications Medications Current Medications Ondansetron HCl (Zofran Inj) 4 mg Q6H PRN IV NAUSEA AND/OR VOMITING; Start 10/20 at 17:00 Acetaminophen (Tylenol Supp) 650 mg Q4H PRN [place] PAIN LEVEL 1-3 OR FEVER; Start 12/16/16 at 17:00 Lorazepam (Ativan) 1 mg Q2H PRN IV ANXIETY Last administered on 12/20/16 02:08 ; Admin Dose 1 MG; Start 12/16/16 at 17:00 Famotidine (Pepcid Iv) 20 mg Q12 IV Last administered on 12/20/16 08:03; Admin Dose 20 MG; Start 12/16/16 at 21:00; Status Future Hold Levetiracetam 500 mg 500 mg BID PO Last administered on 12/21/16 09:03; Admin Dose 500 MG; Start 12/16/16 at 21:00 Norepinephrine/ Dextrose (Levophed/D5W) 500 ml @ 0 mls/hr TITRATE IV Last administered on 12/20/16 15:15; Admin Dose 15 MLS/HR; Start 12/17/16 at 00:00 Amiodarone HCl (Cordarone) 200 mg BID NGT Last administered on 12/21/16 09:02 ; Admin Dose 200 MG; Start 12/17/16 at 21:00 IV Flush 10 ml 10 ml PRN PRN IV IV PROTOCOL; Start 12/17/16 at 12:30 Phenylephrine HCl/ Dextrose (Hernán-Synephrine/ D5W) 500 ml @ 75 mls/hr TITRATE IV Last administered on 12/21/16 06:23; Admin Dose 15 MLS/HR; Start 12/18/16 at 08:30 Miscellaneous Information 1 ea NOTE XX ; Start 12/18/16 at 13:00 Glucose (Glutose) 15 gm Q15M PRN PO DECREASED GLUCOSE; Start 12/18/16 at 13:00 Glucose (Glutose) 22.5 gm Q15M PRN PO DECREASED GLUCOSE; Start 12/18/16 at 13: 00 Glucagon (Glucagen) 1 mg Q15M PRN IM DECREASED GLUCOSE; Start 12/18/16 at 13:00 Glucose (Glutose) 15 gm Q15M PRN BUCCAL DECREASED GLUCOSE; Start 12/18/16 at 13 :00 Dexamethasone 4 mg 4 mg DAILY IV Last administered on 12/21/16 09:02; Admin Dose 4 MG; Start 12/19/16 at 13:30 Dextrose/Sodium Chloride (D5-1/2ns) 1,000 ml @ 50 mls/hr Q20H IV Last administered on 12/21/16 05:21; Admin Dose 50 MLS/HR; Start 12/19/16 at 14:00 Diagnostic Test (Pha) (Accucheck) 1 ea Q1H XX ; Start 12/20/16 at 11:30 Dextrose (D50w Syringe) 25 ml Q15M PRN IV Till BS 80 mg/dL or above x2; Start 12/20/16 at 11:30 Dextrose (D50w Syringe) 50 ml Q15M PRN IV Till BS 80 mg/dL or above x2; Start 12/20/16 at 11:30 Pantoprazole 40 mg 40 mg DAILY@06 IV Last administered on 12/21/16 05:21; Admin Dose 40 MG; Start 12/21/16 at 06:00 Imipenem/ Cilastatin Sodium 100 ml @ 166.667 mls/hr Q6 IVPB Last administered on 12/21/16 05:21; Admin Dose 166.667 MLS/HR; Start 12/20/16 at 18:00 Potassium Chloride (KCl 20 MEQ/50 ML SW) 50 ml @ 25 mls/hr Q2H IVPB Last administered on 2/17/17at 09:01; Admin Dose 25 MLS/HR; Start 12/21/16 at 06:00; Stop 12/21/16 at 11:59 CAROL MICHELLE Dec 21, 2016 11:23
[2016-12-21] MEDS ORDERED: PROPOFOL 100 ML ONE (11:24)
[2016-12-21 12:17] LABS: POTASSIUM 4.7 mmol/L (3.5-5.1)
[2016-12-21 12:19] LABS: CREATININE 0.38 mg/dl (0.44-1.00)
[2016-12-21 12:20] LABS: CALCIUM 9.3 mg/dl (8.4-10.2)
[2016-12-21] MEDS: SOD CHLORIDE 0.9% 1,000 ML IV SCH (12:26)
[2016-12-21] MEDS: SODIUM CHLORIDE 1 GM TAB PO SCH ×2 (12:27→20:14)
[2016-12-21] MEDS: PROPOFOL 100 ML IV SCH (12:30)
--- NOTE | 2016-12-21 14:29 | CONS ---
DATE OF ADMISSION: 12/16/2016 DATE OF CONSULTATION: 12/21/2016 TYPE OF CONSULTATION: Infectious Disease. REASON FOR CONSULTATION: Antibiotic management. HISTORY OF PRESENT ILLNESS: Ammy Hernández is an 81-year-old female with past medical history of glio blastoma who comes in now with possible aspiration pneumonia and is being seen for antibiotic manage ment. Her past problems include: 1. Glioblastoma. 2. Chronic encephalopathy. 3. Brain abscess, status post craniotomy. 4. Dysphagia, status post G-tube placement. 5. Aspiration pneumonia. The patient comes in from [facility] with hypotension, h ypothermia and possible pneumonitis. She was brought to the ICU in septic shock, placed on broad sp ectrum antibiotics, pressors, respiratory support. She is status post G-tube placement, status post left craniotomy as noted. HOSPITAL COURSE: The patient was seen by numerous consultants. Presently she is intubated. She choi s a PICC line and a Singer catheter for urinary retention. She has anemia of chronic disease, of cou rse, glioblastoma, chronic encephalopathy, atrial fibrillation on amiodarone, now in regular sinus r hythm, thrombocytopenia. She was on cefepime, which was discontinued on the . She is now on im ipenem 500 mg q.6 hours. Her white count is 2.5, down from 9.7, H and H 9.3 and 27.3, platelet count of 49,000. So, her plat elet count has continued to drop, possibly related to the cefepime. Her blood cultures are negative . Urine showed mixed gram-negative and gram-positive organisms. She currently is afebrile. Her est x-ray shows an endotracheal tube in the right main bronchus, which should be pulled back. There is a right PICC line. Bilateral lung densities are again seen which could represent pulmonary porfirio a or infiltrates. Improvement in the left and right lower lungs and increased in the right upper ba ng, calcification in the aortic arch. There may be small pleural effusions again seen. PAST MEDICAL HISTORY: Operations as outlined. FAMILY HISTORY: Noncontributory. SOCIAL HISTORY: She does not smoke, drink or abuse drugs. ALLERGIES: NONE TO PENICILLIN, SULFA OR FOODS. MEDICATIONS: Per chart. REVIEW OF SYSTEMS: As per HPI. PHYSICAL EXAMINATION: GENERAL: The patient is a chronically ill-appearing female who actually has been reintubated mj scott of worsening respiratory distress and sedated on propofol. SKIN: Without generalized rash. She has scattered ecchymoses. HEENT: As noted, she has an ET tube. NECK: Supple. LYMPH NODES: None palpable. CHEST: Decreased breath sounds at the bases with occasional rales HEART: Without murmur or gallop. ABDOMEN: Soft, nontender. G-tube in place. There is some slight leakage from the G-tube area. EXTREMITIES: Without cyanosis, clubbing, or edema. She has contractures. RECTAL AND GENITAL: Deferred. NEUROLOGIC: No focal neurological abnormality. IMPRESSION AND PLAN: The patient has developed pancytopenia. She is currently on imipenem. If her platelet count continues to go down and she continues pancytopenic, we may switch her to an aminogl ycoside and vancomycin and discontinue the imipenem as well. I will dictate my findings to the hosp italist and the various consultants. We should also check on her sputum cultures. Dictated By: MART PANCHAL MD, JD/NEWTON Conf#: [id number] DID#: [id number]
--- NOTE | 2016-12-21 15:39 | RADRPT ---
PROCEDURE: XR Chest. CLINICAL INDICATION: Assess endotracheal tube placement. TECHNIQUE: Single frontal view of the chest was obtained COMPARISON: Chest x-ray 12/21/2016 02:28 a.m. FINDINGS: The endotracheal tube rests at T4-5 about 3 cm superior to the annabel. There are vascular calcifica tions in the aortic arch. There has been some improvement of the asymmetric mixed interstitial and alveolar infiltrates in both lungs compared to the prior study. A left pleural effusion is noted. A small right pleural effusion is suspected. Vascular calcifications in the aortic arch. The heart i s mildly enlarged. The PICC line catheter rests with its tip in the superior vena cava at the junct ion with the right atrium. There are degenerative osteophytes in the thoracic spine. IMPRESSION: 1. The endotracheal tube rests at the level of T5-6 about 3 cm superior to the annabel. 2. Interval improvement of the mixed patchy bilateral pulmonary infiltrates as compared to 12/21/19 at 12:28 a.m. 3. Stable bilateral pleural effusions, the left to larger than the right. 4. Satisfactory positioning of the PICC line catheter in the superior vena cava. 5. Atherosclerotic vascular disease. RPTAT:AAJJ Physician Jasmin Date Time Electronically viewed and signed by Physician Jasmin on 12/21/2016 15:39 /
--- NOTE | 2016-12-21 15:58 | CONS ---
Date/Time of Note Date/Time of Note DATE: 12/21/16 TIME: 15:54 Assessment/Plan Assessment/Plan Additional Assessment/Plan 1. Sepsis, most probably related to bilateral pneumonia. 2. Mild leakage from the G-tube site due to the large stoma.better after ostomy pouch 3. Status post craniotomy for glioblastoma. 4. Anemia. 5. Hyponatremia. 6. Chronic encephalopathy. 7.shock on pressor support 8. vent dependent respiratory failure 9. pancytopenia ,secondary to sepsis PLAN: patient has got ostomy pouch, and after that, the leakage has completely stopped. If the condition improves, then we will start feeding her through the G-tube antibiotics as per ID monitor cbc Consultation Date/Type/Reason Admit Date/Time Dec 16, 2016 at 15:45 Type of Consultation: Pulmonary/critical 24 HR Interval Summary Free Text/Dictation condition deteriorated over nite,requiring intubation Subjective hx not possible: pt critical Exam/Review of Systems Vital Signs Vitals Vital Signs Date Time Temp Pulse Resp B/P Pulse Ox O2 Delivery O2 Flow Rate FiO2 12/21/16 14:15 101 23 93/49 99 Mechanical Ventilator 12/21/16 11:30 60 12/21/16 07:30 98.2 12/18/16 05:18 15.0 Intake and Output 12/20/16 12/20/16 12/21/16 15:00 23:00 07:00 Intake Total 1065 ml 1007.5 ml 1030.20 ml Output Total 240 ml 210 ml Balance 825 ml 797.5 ml 1030.20 ml Exam Constitutional: alert, oriented, well developed Psych: nl mood/affect, no complaints Head: atraumatic, normocephalic Eyes: EOMI, PERRL, nl conjunctiva, nl lids, nl sclera ENMT: nl external ears & nose, nl lips & teeth, nl nasal mucosa & septum Neck: non-tender, supple Respiratory: clear to auscultation, normal air movement Cardiovascular: nl pulses, regular rate and rhythm Gastrointestinal: nl liver, spleen, non-tender, soft Musculoskeletal: nl extremities to inspection, nl gait and stance Extremities: normal pulses Neurological: CREDIT MANAGER II-XII intact, nl mental status, nl speech, nl strength Skin: nl turgor, No rash or lesions Lymph: nl lymph nodes Results Result Diagram: 12/21/16 0400 12/21/16 1146 Results 24 hrs Laboratory Tests Test 12/20/16 16:30 12/20/16 17:21 12/20/16 18:47 12/20/16 19:50 Bedside Glucose 180 176 114 97 Test 12/20/16 20:51 12/20/16 21:36 12/20/16 22:32 12/20/16 23:29 Bedside Glucose 104 103 103 107 Test 12/21/16 00:33 12/21/16 01:39 12/21/16 01:46 12/21/16 02:41 Bedside Glucose 107 113 138 Arterial Blood HCO3 25.7 Arterial Blood Base Excess -9.2 L Arterial Blood Oxygen Saturation 84.7 L Rony Test ACCEPTAB Arterial Blood Gas Puncture Site Right Radial Arterial Blood Carboxyhemoglobin 0.3 Arterial Blood Date Drawn 12/21/2016 1:41:25 AM Arterial Blood Methemoglobin 0.4 Arterial Blood pCO2 (Temp correct) 135.7 *H Arterial Blood pH (Temp corrected) 6.895 *L Arterial Blood pO2 (Temp corrected) 63.6 L Blood Gas A-a O2 Differential 513.7 H Blood Gas Actual Respiration Rate 20 Blood Gas Critical Value Read Back BIONISIO,R. R.N. 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 BRAIDED [employer]SEMBLER Blood Gas Respiration Rate 14.0 Blood Gas Specimen Source Blood arterial Blood Gas Temperature 37.0 FiO2 100.0 Oxyhemoglobin Percent 84.1 L Total Hemoglobin 10.8 L Test 12/21/16 03:45 12/21/16 04:00 12/21/16 04:15 12/21/16 05:30 Bedside Glucose 139 128 Anion Gap 12 Band Neutrophils % 25.0 H Basophils # Basophils % Blood Morphology Comment Blood Urea Nitrogen 10 Calcium Level 8.4 Carbon Dioxide Level 17 L Chloride Level 94 L Creatinine 0.33 L Eosinophils # Eosinophils % Glucose Level 296 H Hematocrit 27.3 L Hemoglobin 9.3 L Lymphocytes # 0.2 L Lymphocytes % 6.0 L Magnesium Level 1.9 Mean Corpuscular Hemoglobin 31.5 Mean Corpuscular Hemoglobin Concent 34.1 Mean Corpuscular Volume 92.3 Mean Platelet Volume 6.7 L Monocytes # 0.1 L Monocytes % 2.0 Neutrophils # 1.7 Neutrophils % 67.0 Nucleated Red Blood Cells # Nucleated Red Blood Cells % Phosphorus Level 4.5 Platelet Count 49 L Platelet Estimate PLT APPEAR DECREASED Potassium Level 2.9 *L Red Blood Count 2.95 L Red Cell Distribution Width 17.8 H Sodium Level 120 L White Blood Count 2.5 #L Arterial Blood HCO3 14.8 L Arterial Blood Base Excess -9.9 L Arterial Blood Oxygen Saturation 99.0 Rony Test ACCEPTAB Arterial Blood Gas Puncture Site Right Radial Arterial Blood Carboxyhemoglobin 0.3 Arterial Blood Date Drawn 12/21/2016 5:30:00 AM Arterial Blood Methemoglobin 0.6 Arterial Blood pCO2 (Temp correct) 28.4 L Arterial Blood pH (Temp corrected) 7.336 L Arterial Blood pO2 (Temp corrected) 214.6 H Blood Gas A-a O2 Differential 470.0 H Blood Gas Actual Respiration Rate 20 Blood Gas Inspiratory Pressure 32.0 Blood Gas Low PEEP Setting 5.0 Blood Gas Modality VENT - AC Blood Gas Notified Time 12/21/2016 5:41:00 AM Blood Gas Notified Whom MM Blood Gas Respiration Rate 20.0 Blood Gas Specimen Source Blood arterial Blood Gas Temperature 37.0 Blood Gas Tidal Volume 500.0 FiO2 100.0 Oxyhemoglobin Percent 98.1 Total Hemoglobin 8.8 L Test 12/21/16 06:35 12/21/16 08:27 12/21/16 09:28 12/21/16 11:15 Bedside Glucose 121 111 118 120 Test 12/21/16 11:46 12/21/16 11:55 12/21/16 14:11 12/21/16 15:31 Anion Gap 18 H Blood Urea Nitrogen 10 Calcium Level 9.3 Carbon Dioxide Level 13 L Chloride Level 98 Creatinine 0.38 L Glucose Level 137 # Potassium Level 4.7 Sodium Level 124 L Bedside Glucose 174 176 184 Medications Medications Current Medications Ondansetron HCl (Zofran Inj) 4 mg Q6H PRN IV NAUSEA AND/OR VOMITING; Start 10/20 at 17:00 Acetaminophen (Tylenol Supp) 650 mg Q4H PRN [place] PAIN LEVEL 1-3 OR FEVER; Start 12/16/16 at 17:00 Lorazepam (Ativan) 1 mg Q2H PRN IV ANXIETY Last administered on 12/20/16t 02:08 ; Admin Dose 1 MG; Start 12/16/16 at 17:00 Famotidine 20 mg 20 mg Q12 IV Last administered on 12/20/16 08:03; Admin Dose 20 MG; Start 12/16/16 at 21:00; Status Future Hold Norepinephrine/ Dextrose (Levophed/D5W) 500 ml @ 0 mls/hr TITRATE IV Last administered on 12/21/16 12:04; Admin Dose 37.5 MLS/HR; Start 12/17/16 at 00:00 Amiodarone HCl (Cordarone) 200 mg BID NGT Last administered on 12/21/16 09:02 ; Admin Dose 200 MG; Start 12/17/16 at 21:00 IV Flush 10 ml 10 ml PRN PRN IV IV PROTOCOL; Start 12/17/16 at 12:30 Phenylephrine HCl/ Dextrose (Hernán-Synephrine/ D5W) 500 ml @ 75 mls/hr TITRATE IV Last administered on 12/21/16 06:23; Admin Dose 15 MLS/HR; Start 12/18/16 at 08:30 Miscellaneous Information 1 ea NOTE XX ; Start 12/18/16 at 13:00 Glucose (Glutose) 15 gm Q15M PRN PO DECREASED GLUCOSE; Start 12/18/16 at 13:00 Glucose (Glutose) 22.5 gm Q15M PRN PO DECREASED GLUCOSE; Start 12/18/16 at 13: 00 Glucagon (Glucagen) 1 mg Q15M PRN IM DECREASED GLUCOSE; Start 12/18/16 at 13:00 Glucose (Glutose) 15 gm Q15M PRN BUCCAL DECREASED GLUCOSE; Start 12/18/16 at 13 :00 Dexamethasone 4 mg 4 mg DAILY IV Last administered on 12/21/16 09:02; Admin Dose 4 MG; Start 12/19/16 at 13:30 Dextrose/Sodium Chloride (D5-1/2ns) 1,000 ml @ 50 mls/hr Q20H IV Last administered on 12/21/16 05:21; Admin Dose 50 MLS/HR; Start 12/19/16 at 14:00 Diagnostic Test (Pha) (Accucheck) 1 ea Q1H XX Last administered on 12/21/16 15 :35; Admin Dose 1 EA; Start 12/20/16 at 11:30 Dextrose (D50w Syringe) 25 ml Q15M PRN IV Till BS 80 mg/dL or above x2; Start 12/20/16 at 11:30 Dextrose (D50w Syringe) 50 ml Q15M PRN IV Till BS 80 mg/dL or above x2; Start 12/20/16 at 11:30 Pantoprazole 40 mg 40 mg DAILY@06 IV Last administered on 12/21/16 05:21; Admin Dose 40 MG; Start 12/21/16 at 06:00 Imipenem/ Cilastatin Sodium 100 ml @ 166.667 mls/hr Q6 IVPB Last administered on 12/21/16 12:26; Admin Dose 166.667 MLS/HR; Start 12/20/16 at 18:00 Levetiracetam/ Sodium Chloride (Keppra Iv/NS) 105 ml @ 420 mls/hr Q12 IVPB ; Start 12/21/16 at 21:00 Sodium Chloride 2 gm 2 gm TID PO Last administered on 12/21/16 12:27; Admin Dose 2 GM; Start 12/21/16 at 13:00 Sodium Chloride 1,000 ml @ 75 mls/hr [id number] IV Last administered on 12:26; Admin Dose 75 MLS/HR; Start 12/21/16 at 12:00; Stop 12/22/16 at 11: 00 Propofol (Diprivan) 100 ml @ 1.74 mls/hr Q12H IV Last administered on 12:30; Admin Dose 1.74 MLS/HR; Start 12/21/16 at 12:30 SHANA GOODWIN MD Dec 21, 2016 15:58
--- NOTE | 2016-12-21 19:01 | CONS ---
Date/Time of Note Date/Time of Note DATE: 12/21/16 TIME: 18:47 Assessment/Plan Assessment/Plan Chief Complaint/Hosp Course PROGRESSIVE PANCYTOPENIA , INCLUDING THE SIGNIFICANT DROP OF PLATELET COUNT FROM N ON ADMISSION TO 49 TODAY NOTE THAT PT WAS EXPOSED TO IMIPENEM, PEPCID, VANCO, CEFEPIME REVIEW SMEAR AVOID MYELOSUPPRESSIVE MEDS CHECK DIC PROFILE NO INDICATIONS FOR TRANSFUSION AT PRESENT PANCYTOPENIA IS MOST LIKELY 2 TO SEPSIS, ALTHOUGH DRUG EFFECT IS ALSO POSSIBLE glioblastoma-monitor acute changes OBTAIN AND REVIEW OLD RECORD brain abscess s/p craniotomy Anemia - chronic disease - transfuse if hgb < 8 g/dL Septic Shock - 2/2 aspiration pneumonitis -ICU, pulm, broad spectrum antibiotics , pressor support, f-up respiratory cultures, ID Hyponatremia - chronic - monitor acute changes Chronic encephalopathy Dysphagia s/p PEG - possible replacement needed, Dr. Salgado consulted Gi ppx - pepcid IV DVT ppx - scds Problems: Consultation Date/Type/Reason Admit Date/Time Dec 16, 2016 at 15:45 Date of Consultation: Dec 21, 2016 Type of Consultation: hemeonc Reason for Consultation thrombocytopenia GBM Referring Provider: CAROL MICHELLE Hx of Present Illness 81 yo female with a past medical history of glioblastoma, chronic encephalopathy , brain abscess s/p craniotomy, dysphagia s/p PEG, aspiration pneumonia risk, who came from [facility] for hypotension/hypothermia, and possible aspiration pneumonitis. All this information was gathered from the chart, as the patient a non-verbal. PT IS CURRENTLY IN ICU, SEPTIC, CRITICALLY ILL, ON PRESSORS SHE WAS NOTED TO HAVE PROGRESSIVE PANCYTOPENIA , INCLUDING THE SIGNIFICANT DROP OF PLATELET COUNT FROM N ON ADMISSION TO 49 TODAY AND I WAS ASKED TO PROVIDE HEMEONC CONSULT NOTE THAT PT WAS EXPOSED TO IMIPENEM, PEPCID, VANCO, CEFEPIME ROS Subjective hx not possible: pt non-verbal PMH/Family/Social Past Medical History glioblastoma, chronic encephalopathy, brain abscess s/p craniotomy, dysphagia s/ p PEG, aspiration pneumonia risk Past Surgical History s/p PEG, colonoscopy, s/p left craniotomy Family History Significant Family History: no pertinent family hx Social History Alcohol Use: none Smoking Status: Never smoker Drug Use: none Constitutional: improved Psychological: nl mood/affect, no complaints Social History Alcohol Use: none Smoking Status: Unknown if ever smoked Drug Use: none Exam/Review of Systems Vital Signs Vitals Vital Signs Date Time Temp Pulse Resp B/P Pulse Ox O2 Delivery O2 Flow Rate FiO2 12/21/16 17:30 97 27 98 60 12/21/16 16:45 98/54 Mechanical Ventilator 12/21/16 16:00 98.5 12/18/16 05:18 15.0 Intake and Output 12/20/16 12/20/16 12/21/16 15:00 23:00 07:00 Intake Total 1065 ml 1007.5 ml 1030.20 ml Output Total 240 ml 210 ml Balance 825 ml 797.5 ml 1030.20 ml Exam GENERAL: The patient is a chronically ill-appearing female who actually has been reintubated because of worsening respiratory distress and sedated on propofol. SKIN: Without generalized rash. She has scattered ecchymoses. HEENT: As noted, she has an ET tube. NECK: Supple. LYMPH NODES: None palpable. CHEST: Decreased breath sounds at the bases with occasional rales HEART: Without murmur or gallop. ABDOMEN: Soft, nontender. G-tube in place. There is some slight leakage from the G-tube area. EXTREMITIES: Without cyanosis, clubbing, or edema. She has contractures. RECTAL AND GENITAL: Deferred. NEUROLOGIC: No focal neurological abnormality. Results Result Diagram: 12/21/16 0400 12/21/16 1146 Results 24 hrs Laboratory Tests Test 12/20/16 19:50 12/20/16 20:51 12/20/16 21:36 12/20/16 22:32 Bedside Glucose 97 104 103 103 Test 12/20/16 23:29 12/21/16 00:33 12/21/16 01:39 12/21/16 01:46 Bedside Glucose 107 107 113 Arterial Blood HCO3 25.7 Arterial Blood Base Excess -9.2 L Arterial Blood Oxygen Saturation 84.7 L Rony Test ACCEPTAB Arterial Blood Gas Puncture Site Right Radial Arterial Blood Carboxyhemoglobin 0.3 Arterial Blood Date Drawn 12/21/2016 1:41:25 AM Arterial Blood Methemoglobin 0.4 Arterial Blood pCO2 (Temp correct) 135.7 *H Arterial Blood pH (Temp corrected) 6.895 *L Arterial Blood pO2 (Temp corrected) 63.6 L Blood Gas A-a O2 Differential 513.7 H Blood Gas Actual Respiration Rate 20 Blood Gas Critical Value Read Back BIONISIO,R. R.N. 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 Blood Gas Respiration Rate 14.0 Blood Gas Specimen Source Blood arterial Blood Gas Temperature 37.0 FiO2 100.0 Oxyhemoglobin Percent 84.1 L Total Hemoglobin 10.8 L Test 12/21/16 02:41 12/21/16 03:45 12/21/16 04:00 12/21/16 04:15 Bedside Glucose 138 139 Anion Gap 12 Band Neutrophils % 25.0 H Basophils # Basophils % Blood Morphology Comment Blood Urea Nitrogen 10 Calcium Level 8.4 Carbon Dioxide Level 17 L Chloride Level 94 L Creatinine 0.33 L Eosinophils # Eosinophils % Glucose Level 296 H Hematocrit 27.3 L Hemoglobin 9.3 L Lymphocytes # 0.2 L Lymphocytes % 6.0 L Magnesium Level 1.9 Mean Corpuscular Hemoglobin 31.5 Mean Corpuscular Hemoglobin Concent 34.1 Mean Corpuscular Volume 92.3 Mean Platelet Volume 6.7 L Monocytes # 0.1 L Monocytes % 2.0 Neutrophils # 1.7 Neutrophils % 67.0 Nucleated Red Blood Cells # Nucleated Red Blood Cells % Phosphorus Level 4.5 Platelet Count 49 L Platelet Estimate PLT APPEAR DECREASED Potassium Level 2.9 *L Red Blood Count 2.95 L Red Cell Distribution Width 17.8 H Sodium Level 120 L White Blood Count 2.5 #L Arterial Blood HCO3 14.8 L Arterial Blood Base Excess -9.9 L Arterial Blood Oxygen Saturation 99.0 Rony Test ACCEPTAB Arterial Blood Gas Puncture Site Right Radial Arterial Blood Carboxyhemoglobin 0.3 Arterial Blood Date Drawn 12/21/2016 5:30:00 AM Arterial Blood Methemoglobin 0.6 Arterial Blood pCO2 (Temp correct) 28.4 L Arterial Blood pH (Temp corrected) 7.336 L Arterial Blood pO2 (Temp corrected) 214.6 H Blood Gas A-a O2 Differential 470.0 H Blood Gas Actual Respiration Rate 20 Blood Gas Inspiratory Pressure 32.0 Blood Gas Low PEEP Setting 5.0 Blood Gas Modality VENT - AC Blood Gas Notified Time 12/21/2016 5:41:00 AM Blood Gas Notified Whom MM Blood Gas Respiration Rate 20.0 Blood Gas Specimen Source Blood arterial Blood Gas Temperature 37.0 Blood Gas Tidal Volume 500.0 FiO2 100.0 Oxyhemoglobin Percent 98.1 Total Hemoglobin 8.8 L Test 12/21/16 05:30 12/21/16 06:35 12/21/16 08:27 12/21/16 09:28 Bedside Glucose 128 121 111 118 Test 12/21/16 11:15 12/21/16 11:46 12/21/16 11:55 12/21/16 14:11 Bedside Glucose 120 174 176 Anion Gap 18 H Blood Urea Nitrogen 10 Calcium Level 9.3 Carbon Dioxide Level 13 L Chloride Level 98 Creatinine 0.38 L Glucose Level 137 # Potassium Level 4.7 Sodium Level 124 L Test 12/21/16 15:31 12/21/16 16:46 12/21/16 17:49 Bedside Glucose 184 175 171 Medications Medications Current Medications Ondansetron HCl (Zofran Inj) 4 mg Q6H PRN IV NAUSEA AND/OR VOMITING; Start 10/20 at 17:00 Acetaminophen (Tylenol Supp) 650 mg Q4H PRN [place] PAIN LEVEL 1-3 OR FEVER; Start 12/16/16 at 17:00 Lorazepam (Ativan) 1 mg Q2H PRN IV ANXIETY Last administered on 12/20/16 02:08 ; Admin Dose 1 MG; Start 12/16/16 at 17:00 Famotidine 20 mg 20 mg Q12 IV Last administered on 12/20/16 08:03; Admin Dose 20 MG; Start 12/16/16 at 21:00; Status Future Hold Norepinephrine/ Dextrose (Levophed/D5W) 500 ml @ 0 mls/hr TITRATE IV Last administered on 12/21/16 12:04; Admin Dose 37.5 MLS/HR; Start 12/17/16 at 00:00 Amiodarone HCl (Cordarone) 200 mg BID NGT Last administered on 12/21/16 09:02 ; Admin Dose 200 MG; Start 12/17/16 at 21:00 IV Flush 10 ml 10 ml PRN PRN IV IV PROTOCOL; Start 12/17/16 at 12:30 Phenylephrine HCl/ Dextrose (Hernán-Synephrine/ D5W) 500 ml @ 75 mls/hr TITRATE IV Last administered on 12/21/16 06:23; Admin Dose 15 MLS/HR; Start 12/18/16 at 08:30 Miscellaneous Information 1 ea NOTE XX ; Start 12/18/16 at 13:00 Glucose (Glutose) 15 gm Q15M PRN PO DECREASED GLUCOSE; Start 12/18/16 at 13:00 Glucose (Glutose) 22.5 gm Q15M PRN PO DECREASED GLUCOSE; Start 12/18/16 at 13: 00 Glucagon (Glucagen) 1 mg Q15M PRN IM DECREASED GLUCOSE; Start 12/18/16 at 13:00 Glucose (Glutose) 15 gm Q15M PRN BUCCAL DECREASED GLUCOSE; Start 12/18/16 at 13 :00 Dexamethasone 4 mg 4 mg DAILY IV Last administered on 12/21/16 09:02; Admin Dose 4 MG; Start 12/19/16 at 13:30 Dextrose/Sodium Chloride (D5-1/2ns) 1,000 ml @ 50 mls/hr Q20H IV Last administered on 12/21/16 05:21; Admin Dose 50 MLS/HR; Start 12/19/16 at 14:00 Diagnostic Test (Pha) (Accucheck) 1 ea Q1H XX Last administered on 12/21/16 18 :42; Admin Dose 1 EA; Start 12/20/16 at 11:30 Dextrose (D50w Syringe) 25 ml Q15M PRN IV Till BS 80 mg/dL or above x2; Start 12/20/16 at 11:30 Dextrose (D50w Syringe) 50 ml Q15M PRN IV Till BS 80 mg/dL or above x2; Start 12/20/16 at 11:30 Pantoprazole 40 mg 40 mg DAILY@06 IV Last administered on 12/21/16 05:21; Admin Dose 40 MG; Start 12/21/16 at 06:00 Imipenem/ Cilastatin Sodium 100 ml @ 166.667 mls/hr Q6 IVPB Last administered on 12/21/16 17:54; Admin Dose 166.667 MLS/HR; Start 12/20/16 at 18:00 Levetiracetam/ Sodium Chloride (Keppra Iv/NS) 105 ml @ 420 mls/hr Q12 IVPB ; Start 12/21/16 at 21:00 Sodium Chloride 2 gm 2 gm TID PO Last administered on 12/21/16 12:27; Admin Dose 2 GM; Start 12/21/16 at 13:00 Sodium Chloride 1,000 ml @ 75 mls/hr [id number] IV Last administered on 12:26; Admin Dose 75 MLS/HR; Start 12/21/16 at 12:00; Stop 12/22/16 at 11: 00 Propofol (Diprivan) 100 ml @ 1.74 mls/hr Q12H IV Last administered on 12:30; Admin Dose 1.74 MLS/HR; Start 12/21/16 at 12:30 MAYA MIKE MD Dec 21, 2016 19:01
[2016-12-21 20:08] LABS: LACTATE DEHYDROGENASE 719 IU/L (313-618); PT RATIO 1.4; URIC ACID 4.8 mg/dl (3.1-7.9)
[2016-12-21 20:09] LABS: THROMBIN TIME 14.2 SEC (13.8-19.1)
[2016-12-21 20:10] LABS: IRON 13 ug/dl (35-150)
[2016-12-21 20:16] LABS: D-DIMER 2410.85 ng/ml (<460)
[2016-12-21] MEDS: INSULIN REGULAR, HUMAN 100 UNIT in SOD CHLORIDE 0.9% 99 ML IV SCH ×2 (20:18)
[2016-12-21 20:20] LABS: TOTAL IRON BINDING CAPACITY 128 ug/dl (241-421)
[2016-12-21 20:34] LABS: FIBRIN SPLIT PRODUCT <10 ug/ml (<10); INR 1.46; PARTIAL THROMBOPLASTIN TIME 34.9 Sec (25.0-35.0); PROTIME 17.8 Sec (12.2-14.2)
[2016-12-21 20:38] LABS: PLATELET COUNT 16 10^3/UL (140-440)
[2016-12-21 20:41] LABS: THYROID STIMULATING HORMONE 0.177 MIU/L (0.465-4.680)
[2016-12-21 20:43] LABS: RETICULOCYTE COUNT % 1.8 % (0.5-1.5)
[2016-12-21] MEDS: LEVETIRACETAM IV 500 MG in SOD CHLORIDE 0.9% 100 ML IVPB SCH (21:03)
[2016-12-21 21:36] LABS: FOLATE > 20.0 ng/ml (2.8-20.0)
[2016-12-21] MEDS ORDERED: SOD CHLORIDE 0.9% 250 ML IV* ONE (22:33)
[2016-12-21] MEDS ORDERED: ACETAMINOPHEN 325 MG TAB PO SCH (23:00)
[2016-12-21] MEDS ORDERED: DIPHENHYDRAMINE 50 MG INJ IV SCH (23:00)
[2016-12-22] VITALS (95 sets, daily range): BP systolic 86–148; BP diastolic 45–79; PULSE 77–123; RESP 18–35
[2016-12-22] MEDS: ACCUCHECK XX SCH ×25 (00:12→23:55)
[2016-12-22] MEDS: IMIPENEM-CILAST 500MG IV (PMX) 100 ML IVPB SCH ×4 (00:12→18:45)
[2016-12-22] MEDS: PROPOFOL 100 ML IV SCH ×2 (00:30→12:30)
[2016-12-22] MEDS: SOD CHLORIDE 0.9% 1,000 ML IV SCH (01:20)
[2016-12-22] MEDS: DEXTROSE 5%-0.45% NACL 1,000 ML IV SCH ×2 (04:11→22:00)
[2016-12-22 05:03] LABS: HEMATOCRIT 27.2 % (37.0-47.0); HEMOGLOBIN 9.4 g/dl (12.0-16.0); MEAN CORPUSCULAR HEMOGLOBIN 31.7 pg (29.0-33.0); MEAN CORPUSCULAR HGB CONC 34.5 g/dl (32.0-37.0); MEAN CORPUSCULAR VOLUME 91.8 fl (82.0-101.0); RED BLOOD COUNT 2.97 10^6/ul (4.20-5.40); RED CELL DISTRIBUTION WIDTH 19.5 % (11.5-14.5); UNCORRECTED WBC 3.8 10^3/ul (4.8-10.8); WHITE BLOOD COUNT 3.8 10^3/ul (4.8-10.8)
[2016-12-22] MEDS: PANTOPRAZOLE 40 MG INJ IV SCH (05:14)
[2016-12-22 05:25] LABS: CONDITION 1; LH ANALYZER COMMENTS 1; MEAN PLATELET VOLUME 8.3 fl (7.4-10.4); SUSPECT 1
[2016-12-22 05:27] LABS: PLATELET COUNT 14 10^3/UL (140-440); POTASSIUM 3.8 mmol/L (3.5-5.1)
[2016-12-22 05:30] LABS: CALCIUM 9.3 mg/dl (8.4-10.2); CREATININE 0.36 mg/dl (0.44-1.00)
--- NOTE | 2016-12-22 07:32 | RADRPT ---
PROCEDURE: XR Chest. CLINICAL INDICATION: Respiratory failure TECHNIQUE: Portable single view of the chest COMPARISON: 12/21 FINDINGS: The endotracheal tube has been pulled back and is now in good position with tip at the level of the clavicles. Right PICC line remains in place. Cardiomegaly and ectatic and calcified aorta again se en. Lung volumes are reduced compared with prior. Diffuse right lung infiltrate and increased inte rstitial markings are stable. Left lung infiltrate has increased in the left base. Left upper lobe infiltrate is likely unchanged. Degenerative change of the spine. IMPRESSION: Endotracheal tube now in good position. Increased left base infiltrate. Reduced lung volumes. RPTAT: [facility] Physician Deonna Date Time Electronically viewed and signed by Danae Lancaster Physician on 12/22/2016 07:32 LE/
[2016-12-22 08:50] LABS: AADO2 Arterial 218.2 mmHg (7.0-24.0); Allen Test ACCEPTAB; Arterial Base Excess -9.9 mmol/L (-3.0-3); Arterial COHb 0.3 % (0.0-3.0); Arterial Fraction of Oxyhgb 96.9 % (93.0-99.0); Arterial HCO3 13.4 mmol/L (22.0-26.0); Arterial MetHb 0.4 % (0.0-1.5); Arterial Total Hemglobin 8.3 g/dl (12.0-18.0); MODE VENT - AC
[2016-12-22 09:05] LABS: LYMPHOCYTES # 0.2 10^3/ul (0.8-2.9); MONOCYTE # 0.2 10^3/ul (0.3-0.9); NEUTROPHIL # 2.5 10^3/ul (1.6-7.5)
[2016-12-22 09:06] LABS: PLATELET ESTIMATE PLT APPEAR DECREASED
[2016-12-22] MEDS: LEVETIRACETAM IV 500 MG in SOD CHLORIDE 0.9% 100 ML IVPB SCH ×2 (09:30→22:10)
[2016-12-22] MEDS: DEXAMETHASONE 4 MG/ML 1 ML INJ IV SCH (09:30)
[2016-12-22] MEDS: SODIUM CHLORIDE 1 GM TAB PO SCH ×3 (09:32→22:11)
[2016-12-22] MEDS: AMIODARONE 200 MG TAB NGT SCH ×2 (09:34→22:11)
--- NOTE | 2016-12-22 12:50 | PN ---
Date/Time of Note Date/Time of Note DATE: 12/22/16 TIME: 12:43 Assessment/Plan VTE Prophylaxis VTE Prophylaxis Intervention: contraindicated, SCD's VTE Contraindication Reason: bleeding Lines/Catheters IV Catheter Type (from Nrs): PICC Line Central line still needed: Yes Urinary Cath still in place: Yes Reason Cath still needed: urinary retention Assessment/Plan Chief Complaint/Hosp Course Assessment/Plan: 81 yo female with a past medical history of glioblastoma, chronic encephalopathy, brain abscess s/p craniotomy, dysphagia s/p PEG, aspiration pneumonia risk, who came from [facility] for hypotension/hypothermia, and possible aspiration pneumonitis. 1. Septic Shock - 2/2 aspiration pneumonitis - on abx and pressor support x 1 now. Still intubated. - continue ICU care, f/u consult pulm rec's, broad spectrum antibiotics, pressor support, respiratory cultures 2. Hyponatremia - chronic - slightly improved today (120 -> 124 -> 129) - monitor acute changes - salt tabs TID x 24 more hrs, NS IVF's. - check BMP 3. Anemia - chronic disease - transfuse if hgb < 8 g/dL 4. Glioblastoma - monitor acute changes 5. Chronic encephalopathy - continue to re-orient patient as needed 6. Dysphagia s/p PEG - possible replacement needed, Dr. Salgado consulted - f/u rec's 7. Gi ppx - pepcid IV 8. DVT ppx - scds 9. afib with RVR - occurred a few days ago, now in NSR - continue PO amiodarone. 10. elevated sugars - sec to steroids, D5W IVf's, now improved with insulin drip. - continue insulin drip for now, monitor. 11. thrombocytopenia - unclear source (144 -> 126 -> 86 ->-> 49 -> -> 16 -> 14) . No signs of bleeding. Seen by Heme/Onc team - check CBC today (plt transfusion given this AM) - have also d/c'ed cefepime and Pepcid 2 days ago (can cause low plts as SE, although rare) - f/u Heme/Onc and ID consult rec's - monitor levels Dispo: as per clinical course. Palliative team also trying to set up family meeting with son in near future as well. I spoke with pt's son Toney in detail over the phone on 12/20/16 explaining the daily plan that day. He asked questions about her condition including blood pressure, antibiotic treatment, elevated sugars and treatment for this, low platelets and our treatment for this, and and all his questions were answered then. Critical care time spent on pt care today = 45 min. Problems: Subjective 24 Hr Interval Summary Free Text/Dictation Pt received plt transfusion today. On one pressor support only now. Still intubated. Exam/Review of Systems Vital Signs Vitals Vital Signs Date Time Temp Pulse Resp B/P Pulse Ox O2 Delivery O2 Flow Rate FiO2 12/22/16 10:30 105 20 96/45 98 Mechanical Ventilator 12/22/16 10:00 97.4 12/22/16 08:00 40 Intake and Output 12/21/16 12/21/16 12/22/16 15:00 23:00 07:00 Intake Total 1036.59 ml 1294.42 ml 1361.93 ml Output Total 1125 ml 620 ml Balance 1036.59 ml 169.42 ml 741.93 ml Exam Gen Marlo: intubated, sedated HEENT: NC/AT, PERRLA NECK: supple, no thyromegaly THORAX: symmetrical, no obvious deformities CV: S1S2, RRR, no M/G/R Lungs: + mild crackles at bases Abd: soft, NT/ND, +BS, no rebound, no guarding, neg HSM, PEG site leaking EXT: no edema, no ecchymosis, no clubbing, FROM, contractures Neuro: stares, grossly intact Skin: scattered ecchymoses Results Result Diagram: 12/22/16 04012/22/16 0400 Results 24 hrs Laboratory Tests Test 12/21/16 14:11 12/21/16 15:31 12/21/16 16:46 12/21/16 17:49 Bedside Glucose 176 184 175 171 Test 12/21/16 18:41 12/21/16 19:43 12/21/16 20:10 12/21/16 21:07 Bedside Glucose 163 151 138 Absolute Reticulocyte Count 0.049 Activated Partial Thromboplast Time 34.9 D-Dimer 2410.85 H D-Dimer Comment Erythrocyte Sedimentation Rate 30 Ferritin 820.0 H Fibrinogen 326.0 Folate > 20.0 H INR International Normalized Ratio 1.46 Iron Level 13 L Lactate Dehydrogenase 719 H Percent Iron Saturation 10 L Percent Reticulocyte Count 1.8 H Plasma Fibrin Degradation Products <10 Platelet Count 16 *L Prothrombin Time 17.8 #H Prothrombin Time Ratio 1.4 Thrombin Time 14.2 Thyroid Stimulating Hormone (TSH) 0.177 L Total Iron Binding Capacity 128 L Uric Acid 4.8 Vitamin B12 Level > 1000 H Test 12/21/16 22:02 12/21/16 23:06 12/21/16 23:08 12/22/16 00:11 Bedside Glucose 134 98 135 133 Test 12/22/16 02:16 12/22/16 04:00 12/22/16 04:05 12/22/16 06:09 Bedside Glucose 116 121 144 Anion Gap 16 Band Neutrophils % 26.0 H Blood Morphology Comment Blood Urea Nitrogen 9 Calcium Level 9.3 Carbon Dioxide Level 13 L Chloride Level 104 Creatinine 0.36 L Glucose Level 112 Hematocrit 27.2 L Hemoglobin 9.4 L Lymphocytes # 0.2 L Lymphocytes % 5.0 L Mean Corpuscular Hemoglobin 31.7 Mean Corpuscular Hemoglobin Concent 34.5 Mean Corpuscular Volume 91.8 Mean Platelet Volume 8.3 # Monocytes # 0.2 L Monocytes % 4.0 Neutrophils # 2.5 Neutrophils % 65.0 Nucleated Red Blood Cells % 1.0 H Platelet Count 14 #*L Platelet Estimate PLT APPEAR DECREASED Potassium Level 3.8 Red Blood Count 2.97 L Red Cell Distribution Width 19.5 H Sodium Level 129 L White Blood Count 3.8 #L Test 12/22/16 08:00 12/22/16 08:17 12/22/16 10:14 12/22/16 11:41 Arterial Blood HCO3 13.4 L Arterial Blood Base Excess -9.9 L Arterial Blood Oxygen Saturation 97.6 Rony Test ACCEPTAB Arterial Blood Gas Puncture Site Right Radial Arterial Blood Carboxyhemoglobin 0.3 Arterial Blood Date Drawn 12/22/2016 8:36:24 AM Arterial Blood Methemoglobin 0.4 Arterial Blood pCO2 (Temp correct) 21.9 L Arterial Blood pH (Temp corrected) 7.406 Arterial Blood pO2 (Temp corrected) 113.7 H Blood Gas A-a O2 Differential 218.2 H Blood Gas Actual Respiration Rate 20 Blood Gas Low PEEP Setting 5.0 Blood Gas Modality VENT - AC Blood Gas Notified Time 12/22/2016 8:50:18 AM Blood Gas Notified Whom WS Blood Gas Respiration Rate 20.0 Blood Gas Specimen Source Blood arterial Blood Gas Temperature 37.0 Blood Gas Tidal Volume 500.0 FiO2 50.0 Oxyhemoglobin Percent 96.9 Total Hemoglobin 8.3 L Bedside Glucose 122 114 139 Medications Medications Current Medications Ondansetron HCl (Zofran Inj) 4 mg Q6H PRN IV NAUSEA AND/OR VOMITING; Start 10/20 at 17:00 Acetaminophen (Tylenol Supp) 650 mg Q4H PRN [place] PAIN LEVEL 1-3 OR FEVER; Start 12/16/16 at 17:00 Lorazepam (Ativan) 1 mg Q2H PRN IV ANXIETY Last administered on 12/20/16 02:08 ; Admin Dose 1 MG; Start 12/16/16 at 17:00 Famotidine 20 mg 20 mg Q12 IV Last administered on 12/20/16 08:03; Admin Dose 20 MG; Start 12/16/16 at 21:00; Status Future Hold Norepinephrine/ Dextrose (Levophed/D5W) 500 ml @ 0 mls/hr TITRATE IV Last administered on 12/22/16 12:20; Admin Dose 22.5 MLS/HR; Start 12/17/16 at 00:00 Amiodarone HCl (Cordarone) 200 mg BID NGT Last administered on 12/22/16 09:34 ; Admin Dose 200 MG; Start 12/17/16 at 21:00 IV Flush 10 ml 10 ml PRN PRN IV IV PROTOCOL; Start 12/17/16 at 12:30 Phenylephrine HCl/ Dextrose (Hernán-Synephrine/ D5W) 500 ml @ 75 mls/hr TITRATE IV Last administered on 12/21/16 21:07; Admin Dose 18.75 MLS/HR; Start at 08:30 Miscellaneous Information 1 ea NOTE XX ; Start 12/18/16 at 13:00 Glucose (Glutose) 15 gm Q15M PRN PO DECREASED GLUCOSE; Start 12/18/16 at 13:00 Glucose (Glutose) 22.5 gm Q15M PRN PO DECREASED GLUCOSE; Start 12/18/16 at 13: 00 Glucagon (Glucagen) 1 mg Q15M PRN IM DECREASED GLUCOSE; Start 12/18/16 at 13:00 Glucose (Glutose) 15 gm Q15M PRN BUCCAL DECREASED GLUCOSE; Start 12/18/16 at 13 :00 Dexamethasone 4 mg 4 mg DAILY IV Last administered on 12/22/16 09:30; Admin Dose 4 MG; Start 12/19/16 at 13:30 Dextrose/Sodium Chloride (D5-1/2ns) 1,000 ml @ 50 mls/hr Q20H IV Last administered on 12/22/16 04:11; Admin Dose 50 MLS/HR; Start 12/19/16 at 14:00 Diagnostic Test (Pha) (Accucheck) 1 ea Q1H XX Last administered on 12/22/16 06 :11; Admin Dose 1 EA; Start 12/20/16 at 11:30 Dextrose (D50w Syringe) 25 ml Q15M PRN IV Till BS 80 mg/dL or above x2; Start 12/20/16 at 11:30 Dextrose (D50w Syringe) 50 ml Q15M PRN IV Till BS 80 mg/dL or above x2; Start 12/20/16 at 11:30 Pantoprazole 40 mg 40 mg DAILY@06 IV Last administered on 12/22/16 05:14; Admin Dose 40 MG; Start 12/21/16 at 06:00 Imipenem/ Cilastatin Sodium 100 ml @ 166.667 mls/hr Q6 IVPB Last administered on 12/22/16 12:19; Admin Dose 166.667 MLS/HR; Start 12/20/16 at 18:00 Levetiracetam/ Sodium Chloride (Keppra Iv/NS) 105 ml @ 420 mls/hr Q12 IVPB Last administered on 12/22/16 09:30; Admin Dose 420 MLS/HR; Start 12/21/16 at 21:00 Sodium Chloride 2 gm 2 gm TID PO Last administered on 12/22/16 12:19; Admin Dose 2 GM; Start 12/21/16 at 13:00 Propofol (Diprivan) 100 ml @ 1.74 mls/hr Q12H IV Last administered on 12:30; Admin Dose 1.74 MLS/HR; Start 12/21/16 at 12:30 Acetaminophen (Tylenol Tab) 650 mg ONCE PO Last administered on 12/22/16 05:14 ; Admin Dose 650 MG; Start 12/21/16 at 23:00; Stop 12/22/16 at 22:59 Diphenhydramine HCl (Benadryl) 25 mg ONCE IV Last administered on 12/22/16t 05: 14; Admin Dose 25 MG; Start 12/21/16 at 23:00; Stop 12/22/16 at 22:59 CAROL MICHELLE Dec 22, 2016 12:50
[2016-12-22 13:45] LABS: HEMATOCRIT 20.4 % (37.0-47.0); HEMOGLOBIN 7.1 g/dl (12.0-16.0); MEAN CORPUSCULAR HEMOGLOBIN 32.2 pg (29.0-33.0); MEAN CORPUSCULAR HGB CONC 34.9 g/dl (32.0-37.0); MEAN CORPUSCULAR VOLUME 92.2 fl (82.0-101.0); MEAN PLATELET VOLUME 6.7 fl (7.4-10.4); PLATELET COUNT 211 10^3/UL (140-440); RED BLOOD COUNT 2.21 10^6/ul (4.20-5.40); RED CELL DISTRIBUTION WIDTH 19.1 % (11.5-14.5); UNCORRECTED WBC 5.2 10^3/ul (4.8-10.8); WHITE BLOOD COUNT 5.2 10^3/ul (4.8-10.8)
[2016-12-22 13:46] LABS: CONDITION 1; LH ANALYZER COMMENTS 1; SUSPECT 1
--- NOTE | 2016-12-22 14:36 | PN ---
DATE: 12/22/2016 SUBJECTIVE: No acute changes. The patient is lying comfortably in bed, intubated, sedated on insul in and Levophed drip. VITAL SIGNS: Temperature 97.4, pulse 105, respirations 20, blood pressure 96/45, saturation 98% on vent. LABORATORY DATA: WBC 3.8, H and H 9.4 and 27.2, platelets 14, bands 26, lymphocytes 5, monocytes 4. MICROBIOLOGY: Cultures since admission have been negative. INDWELLINGS: The patient had PICC line placed on 12/17/2016, endotracheal tube, NG tube, Singer cath eter. DIAGNOSTICS: Chest x-ray revealed increased left base infiltrate. ANTIMICROBIALS: The patient is on: 1. Imipenem. 2. Vancomycin since 12/16/2016. Total antibiotics day #8. PHYSICAL EXAMINATION: GENERAL: This is a chronically ill-appearing, obese, well-developed, elderly woman who is lying com fortably in bed. HEENT: Head atraumatic, normocephalic. Sclerae anicteric. Buccal mucosa dry. NECK: Supple, trachea midline. CHEST: Rise symmetrical. Breath sounds diminished. HEART: S1, S2. ABDOMEN: Soft. Bowel sounds present. EXTREMITIES: With bilateral edema. ASSESSMENT: 1. Severe sepsis with shock. 2. Pancytopenia with progressive thrombocytopenia. 3. Healthcare-associated pneumonia. 4. Urinary tract infection as per urinalysis, with a moderate amount a few yeast as per urinalysis. Urine culture on admission showed contaminated specimen. 5. History of brain abscess, status post craniotomy. 6. Dysphagia, status post percutaneous endoscopic gastrostomy. 7. History of glioblastoma. PLAN: We are going to start patient on Diflucan. We will send sputum for culture. We will start h er on doxycycline IV for broader coverage. Continue imipenem for now. Repeat urine culture. Dictated By: MERISSA DUTTA CNA GNA for [facility] Conf#: [id number] DID#: [id number]
[2016-12-22 14:58] LABS: LYMPHOCYTES # 0.2 10^3/ul (0.8-2.9); MONOCYTE # 0.6 10^3/ul (0.3-0.9); MYELOCYTES # 0.1; NEUTROPHIL # 2.4 10^3/ul (1.6-7.5)
[2016-12-22] MEDS: FLUCONAZOLE 100 MG/NS (PMX) 50 ML IVPB SCH (15:12)
--- NOTE | 2016-12-22 17:45 | CONS ---
Date/Time of Note Date/Time of Note DATE: 12/22/16 TIME: 17:42 Consult Date/Type/Reason Admit Date/Time Dec 16, 2016 at 15:45 Initial Consult Date 12/21/16 Type of Consultation: Pulm Ordering Provider: CAROL MICHELLE Subjective No events on mech vent. Remains on levophed gtt. Objective Vital Signs Date Time Temp Pulse Resp B/P Pulse Ox O2 Delivery O2 Flow Rate FiO2 12/22/16 15:15 92 18 116/66 98 Mechanical Ventilator 12/22/16 13:45 40 12/22/16 12:00 97.7 Intake and Output 12/21/16 12/21/16 12/22/16 15:00 23:00 07:00 Intake Total 1036.59 ml 1294.42 ml 1361.93 ml Output Total 1125 ml 620 ml Balance 1036.59 ml 169.42 ml 741.93 ml CV: S1S2, RRR, no M/G/R Lungs: + mild crackles at bases Abd: soft, NT/ND, +BS, no rebound, no guarding, neg HSM, PEG site leaking EXT: no edema, no ecchymosis, no clubbing, FROM, contractures Results/Medications Result Diagram: 12/22/16 1520 12/22/16 0400 Results 24 hrs Laboratory Tests Test 12/21/16 17:49 12/21/16 18:41 12/21/16 19:43 12/21/16 20:10 Bedside Glucose 171 163 151 Absolute Reticulocyte Count 0.049 Activated Partial Thromboplast Time 34.9 D-Dimer 2410.85 H D-Dimer Comment Erythrocyte Sedimentation Rate 30 Ferritin 820.0 H Fibrinogen 326.0 Folate > 20.0 H INR International Normalized Ratio 1.46 Iron Level 13 L Lactate Dehydrogenase 719 H Percent Iron Saturation 10 L Percent Reticulocyte Count 1.8 H Plasma Fibrin Degradation Products <10 Platelet Count 16 *L Prothrombin Time 17.8 #H Prothrombin Time Ratio 1.4 Thrombin Time 14.2 Thyroid Stimulating Hormone (TSH) 0.177 L Total Iron Binding Capacity 128 L Uric Acid 4.8 Vitamin B12 Level > 1000 H Test 12/21/16 21:07 12/21/16 22:02 12/21/16 23:06 12/21/16 23:08 Bedside Glucose 138 134 98 135 Test 12/22/16 00:11 12/22/16 02:16 12/22/16 04:00 12/22/16 04:05 Bedside Glucose 133 116 121 Anion Gap 16 Band Neutrophils % 26.0 H Blood Morphology Comment Blood Urea Nitrogen 9 Calcium Level 9.3 Carbon Dioxide Level 13 L Chloride Level 104 Creatinine 0.36 L Glucose Level 112 Hematocrit 27.2 L Hemoglobin 9.4 L Lymphocytes # 0.2 L Lymphocytes % 5.0 L Mean Corpuscular Hemoglobin 31.7 Mean Corpuscular Hemoglobin Concent 34.5 Mean Corpuscular Volume 91.8 Mean Platelet Volume 8.3 # Monocytes # 0.2 L Monocytes % 4.0 Neutrophils # 2.5 Neutrophils % 65.0 Nucleated Red Blood Cells % 1.0 H Platelet Count 14 #*L Platelet Estimate PLT APPEAR DECREASED Potassium Level 3.8 Red Blood Count 2.97 L Red Cell Distribution Width 19.5 H Sodium Level 129 L White Blood Count 3.8 #L Test 12/22/16 06:09 12/22/16 08:00 12/22/16 08:17 12/22/16 10:14 Bedside Glucose 144 122 114 Arterial Blood HCO3 13.4 L Arterial Blood Base Excess -9.9 L Arterial Blood Oxygen Saturation 97.6 Rony Test ACCEPTAB Arterial Blood Gas Puncture Site Right Radial Arterial Blood Carboxyhemoglobin 0.3 Arterial Blood Date Drawn 12/22/2016 8:36:24 AM Arterial Blood Methemoglobin 0.4 Arterial Blood pCO2 (Temp correct) 21.9 L Arterial Blood pH (Temp corrected) 7.406 Arterial Blood pO2 (Temp corrected) 113.7 H Blood Gas A-a O2 Differential 218.2 H Blood Gas Actual Respiration Rate 20 Blood Gas Low PEEP Setting 5.0 Blood Gas Modality VENT - AC Blood Gas Notified Time 12/22/2016 8:50:18 AM Blood Gas Notified Whom WS Blood Gas Respiration Rate 20.0 Blood Gas Specimen Source Blood arterial Blood Gas Temperature 37.0 Blood Gas Tidal Volume 500.0 FiO2 50.0 Oxyhemoglobin Percent 96.9 Total Hemoglobin 8.3 L Test 12/22/16 11:41 12/22/16 13:31 12/22/16 14:27 12/22/16 15:20 Bedside Glucose 139 141 Band Neutrophils % 36.0 H Basophils # Basophils % Blood Morphology Comment Differential Comment MANUAL DIFF Eosinophils # Eosinophils % Hematocrit 20.4 #L Hemoglobin 7.1 #L Lymphocytes # 0.2 L Lymphocytes % 4.0 L Mean Corpuscular Hemoglobin 32.2 Mean Corpuscular Hemoglobin Concent 34.9 Mean Corpuscular Volume 92.2 Mean Platelet Volume 6.7 L Monocytes # 0.6 Monocytes % 11.0 Myelocytes # 0.1 Myelocytes % 1.0 H Neutrophils # 2.4 Neutrophils % 46.0 Nucleated Red Blood Cells # Nucleated Red Blood Cells % 1.0 H Platelet Count 211 # 219 Promyelocytes # 0.1 Promyelocytes % 2.0 H Red Blood Count 2.21 #L Red Cell Distribution Width 19.1 H White Blood Count 5.2 # Test 12/22/16 15:35 Bedside Glucose 139 Medications Current Medications Ondansetron HCl (Zofran Inj) 4 mg Q6H PRN IV NAUSEA AND/OR VOMITING; Start 10/20 at 17:00 Acetaminophen (Tylenol Supp) 650 mg Q4H PRN [place] PAIN LEVEL 1-3 OR FEVER; Start 12/16/16 at 17:00 Lorazepam (Ativan) 1 mg Q2H PRN IV ANXIETY Last administered on 12/20/16 02:08 ; Admin Dose 1 MG; Start 12/16/16 at 17:00 Famotidine 20 mg 20 mg Q12 IV Last administered on 12/20/16 08:03; Admin Dose 20 MG; Start 12/16/16 at 21:00; Status Future Hold Norepinephrine/ Dextrose (Levophed/D5W) 500 ml @ 0 mls/hr TITRATE IV Last administered on 12/22/16 12:20; Admin Dose 22.5 MLS/HR; Start 12/17/16 at 00:00 Amiodarone HCl (Cordarone) 200 mg BID NGT Last administered on 12/22/16 09:34 ; Admin Dose 200 MG; Start 12/17/16 at 21:00 IV Flush 10 ml 10 ml PRN PRN IV IV PROTOCOL; Start 12/17/16 at 12:30 Phenylephrine HCl/ Dextrose (Hernán-Synephrine/ D5W) 500 ml @ 75 mls/hr TITRATE IV Last administered on 12/21/16 21:07; Admin Dose 18.75 MLS/HR; Start at 08:30 Miscellaneous Information 1 ea NOTE XX ; Start 12/18/16 at 13:00 Glucose (Glutose) 15 gm Q15M PRN PO DECREASED GLUCOSE; Start 12/18/16 at 13:00 Glucose (Glutose) 22.5 gm Q15M PRN PO DECREASED GLUCOSE; Start 12/18/16 at 13: 00 Glucagon (Glucagen) 1 mg Q15M PRN IM DECREASED GLUCOSE; Start 12/18/16 at 13:00 Glucose (Glutose) 15 gm Q15M PRN BUCCAL DECREASED GLUCOSE; Start 12/18/16 at 13 :00 Dexamethasone 4 mg 4 mg DAILY IV Last administered on 12/22/16 09:30; Admin Dose 4 MG; Start 12/19/16 at 13:30 Dextrose/Sodium Chloride (D5-1/2ns) 1,000 ml @ 50 mls/hr Q20H IV Last administered on 12/22/16 04:11; Admin Dose 50 MLS/HR; Start 12/19/16 at 14:00 Diagnostic Test (Pha) (Accucheck) 1 ea Q1H XX Last administered on 12/22/16 14 :30; Admin Dose 1 EA; Start 12/20/16 at 11:30 Dextrose (D50w Syringe) 25 ml Q15M PRN IV Till BS 80 mg/dL or above x2; Start 12/20/16 at 11:30 Dextrose (D50w Syringe) 50 ml Q15M PRN IV Till BS 80 mg/dL or above x2; Start 12/20/16 at 11:30 Pantoprazole 40 mg 40 mg DAILY@06 IV Last administered on 12/22/16 05:14; Admin Dose 40 MG; Start 12/21/16 at 06:00 Imipenem/ Cilastatin Sodium 100 ml @ 166.667 mls/hr Q6 IVPB Last administered on 12/22/16 12:19; Admin Dose 166.667 MLS/HR; Start 12/20/16 at 18:00 Levetiracetam/ Sodium Chloride (Keppra Iv/NS) 105 ml @ 420 mls/hr Q12 IVPB Last administered on 12/22/16 09:30; Admin Dose 420 MLS/HR; Start 12/21/16 at 21:00 Sodium Chloride 2 gm 2 gm TID PO Last administered on 12/22/16 12:19; Admin Dose 2 GM; Start 12/21/16 at 13:00 Propofol (Diprivan) 100 ml @ 1.74 mls/hr Q12H IV Last administered on 12:30; Admin Dose 1.74 MLS/HR; Start 12/21/16 at 12:30 Acetaminophen (Tylenol Tab) 650 mg ONCE PO Last administered on 12/22/16 05:14 ; Admin Dose 650 MG; Start 12/21/16 at 23:00; Stop 12/22/16 at 22:59 Diphenhydramine HCl 25 mg 25 mg ONCE IV Last administered on 12/22/16 05:14; Admin Dose 25 MG; Start 12/21/16 at 23:00; Stop 12/22/16 at 22:59 Doxycycline Hyclate 100 mg/ Sodium Chloride 250 ml @ 250 mls/hr Q12 IVPB ; Start 12/22/16 at 21:00 Fluconazole/ Sodium Chloride (Diflucan 100 Mg/ NS (Pmx)) 50 ml @ 50 mls/hr Q24H IVPB Last administered on 12/22/16 15:12; Admin Dose 50 MLS/HR; Start at 15:00 Assessment/Plan Additional Assessment/Plan IMP: 1. Septic Shock 2. Aspiration Pneumonia 3. VDRF 4. Anemia 5. Glioblastoma 6. Chronic encephalopathy RECS: 1. Abx 2. Vent support 3. Titrate levophed to MAP > 65 mm Hg 4. Prognosis poor 35 min cc time AARON LANDEROS MD Dec 22, 2016 17:45
[2016-12-22] MEDS ORDERED: SOD CHLORIDE 0.9% 250 ML IV* ONE (19:36)
--- NOTE | 2016-12-22 21:47 | CONS ---
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 Salgado consulted Gi ppx - pepcid IV DVT ppx - scds Problems: Consultation Date/Type/Reason Admit Date/Time Dec 16, 2016 at 15:45 Initial Consult Date 12/21/16 Type of Consultation: HEMEONC Referring Provider: CAROL MICHELLE 24 HR Interval Summary Free Text/Dictation ALL NOTED D/W STAFF POST PLATELET TRANSFUSION PLATELET COUNT IMPROVED NO BLEEDING H/H- DROPPED Exam/Review of Systems Vital Signs Vitals Vital Signs Date Time Temp Pulse Resp B/P Pulse Ox O2 Delivery O2 Flow Rate FiO2 12/22/16 20:00 101 12/22/16 19:00 25 132/66 96 Mechanical Ventilator 12/22/16 17:40 40 12/22/16 16:00 97.6 Intake and Output 12/21/16 12/21/16 12/22/16 15:00 23:00 07:00 Intake Total 1036.59 ml 1294.42 ml 1361.93 ml Output Total 1125 ml 620 ml Balance 1036.59 ml 169.42 ml 741.93 ml Exam Pt received plt transfusion today. On one pressor support only now. Still intubated. Exam/Review of Systems Vital Signs Vitals Vital Signs Date Time Temp Pulse Resp B/P Pulse Ox O2 Delivery O2 Flow Rate FiO2 12/22/16 10:30 105 20 96/45 98 Mechanical Ventilator 12/22/16 10:00 97.4 12/22/16 08:00 40 Intake and Output 12/21/16 12/21/16 12/22/16 15:00 23:00 07:00 Intake Total 1036.59 ml 1294.42 ml 1361.93 ml Output Total 1125 ml 620 ml Balance 1036.59 ml 169.42 ml 741.93 ml Exam Gen Marlo: intubated, sedated HEENT: NC/AT, PERRLA NECK: supple, no thyromegaly THORAX: symmetrical, no obvious deformities CV: S1S2, RRR, no M/G/R Lungs: + mild crackles at bases Abd: soft, NT/ND, +BS, no rebound, no guarding, neg HSM, PEG site leaking EXT: no edema, no ecchymosis, no clubbing, FROM, contractures Neuro: stares, grossly intact Skin: scattered ecchymoses Results Result Diagram: 12/22/16 1520 12/22/16 0400 Results 24 hrs Laboratory Tests Test 12/21/16 22:02 12/21/16 23:06 12/21/16 23:08 12/22/16 00:11 Bedside Glucose 134 98 135 133 Test 12/22/16 02:16 12/22/16 04:00 12/22/16 04:05 12/22/16 06:09 Bedside Glucose 116 121 144 Anion Gap 16 Band Neutrophils % 26.0 H Blood Morphology Comment Blood Urea Nitrogen 9 Calcium Level 9.3 Carbon Dioxide Level 13 L Chloride Level 104 Creatinine 0.36 L Glucose Level 112 Hematocrit 27.2 L Hemoglobin 9.4 L Lymphocytes # 0.2 L Lymphocytes % 5.0 L Mean Corpuscular Hemoglobin 31.7 Mean Corpuscular Hemoglobin Concent 34.5 Mean Corpuscular Volume 91.8 Mean Platelet Volume 8.3 # Monocytes # 0.2 L Monocytes % 4.0 Neutrophils # 2.5 Neutrophils % 65.0 Nucleated Red Blood Cells % 1.0 H Platelet Count 14 #*L Platelet Estimate PLT APPEAR DECREASED Potassium Level 3.8 Red Blood Count 2.97 L Red Cell Distribution Width 19.5 H Sodium Level 129 L White Blood Count 3.8 #L Test 12/22/16 08:00 12/22/16 08:17 12/22/16 10:14 12/22/16 11:41 Arterial Blood HCO3 13.4 L Arterial Blood Base Excess -9.9 L Arterial Blood Oxygen Saturation 97.6 Rony Test ACCEPTAB Arterial Blood Gas Puncture Site Right Radial Arterial Blood Carboxyhemoglobin 0.3 Arterial Blood Date Drawn 12/22/2016 8:36:24 AM Arterial Blood Methemoglobin 0.4 Arterial Blood pCO2 (Temp correct) 21.9 L Arterial Blood pH (Temp corrected) 7.406 Arterial Blood pO2 (Temp corrected) 113.7 H Blood Gas A-a O2 Differential 218.2 H Blood Gas Actual Respiration Rate 20 Blood Gas Low PEEP Setting 5.0 Blood Gas Modality VENT - AC Blood Gas Notified Time 12/22/2016 8:50:18 AM Blood Gas Notified Whom WS Blood Gas Respiration Rate 20.0 Blood Gas Specimen Source Blood arterial Blood Gas Temperature 37.0 Blood Gas Tidal Volume 500.0 FiO2 50.0 Oxyhemoglobin Percent 96.9 Total Hemoglobin 8.3 L Bedside Glucose 122 114 139 Test 12/22/16 13:31 12/22/16 14:27 12/22/16 15:20 12/22/16 15:35 Band Neutrophils % 36.0 H Basophils # Basophils % Blood Morphology Comment Differential Comment MANUAL DIFF Eosinophils # Eosinophils % Hematocrit 20.4 #L Hemoglobin 7.1 #L Lymphocytes # 0.2 L Lymphocytes % 4.0 L Mean Corpuscular Hemoglobin 32.2 Mean Corpuscular Hemoglobin Concent 34.9 Mean Corpuscular Volume 92.2 Mean Platelet Volume 6.7 L Monocytes # 0.6 Monocytes % 11.0 Myelocytes # 0.1 Myelocytes % 1.0 H Neutrophils # 2.4 Neutrophils % 46.0 Nucleated Red Blood Cells # Nucleated Red Blood Cells % 1.0 H Platelet Count 211 # 219 Promyelocytes # 0.1 Promyelocytes % 2.0 H Red Blood Count 2.21 #L Red Cell Distribution Width 19.1 H White Blood Count 5.2 # Bedside Glucose 141 139 Test 12/22/16 17:50 12/22/16 20:06 Bedside Glucose 138 130 Medications Medications Current Medications Ondansetron HCl (Zofran Inj) 4 mg Q6H PRN IV NAUSEA AND/OR VOMITING; Start 10/20 at 17:00 Acetaminophen (Tylenol Supp) 650 mg Q4H PRN [place] PAIN LEVEL 1-3 OR FEVER; Start 12/16/16 at 17:00 Lorazepam (Ativan) 1 mg Q2H PRN IV ANXIETY Last administered on 12/20/16 02:08 ; Admin Dose 1 MG; Start 12/16/16 at 17:00 Famotidine 20 mg 20 mg Q12 IV Last administered on 12/20/16 08:03; Admin Dose 20 MG; Start 12/16/16 at 21:00; Status Future Hold Norepinephrine/ Dextrose (Levophed/D5W) 500 ml @ 0 mls/hr TITRATE IV Last administered on 12/22/16 12:20; Admin Dose 22.5 MLS/HR; Start 12/17/16 at 00:00 Amiodarone HCl (Cordarone) 200 mg BID NGT Last administered on 12/22/16 09:34 ; Admin Dose 200 MG; Start 12/17/16 at 21:00 IV Flush 10 ml 10 ml PRN PRN IV IV PROTOCOL; Start 12/17/16 at 12:30 Phenylephrine HCl/ Dextrose (Hernán-Synephrine/ D5W) 500 ml @ 75 mls/hr TITRATE IV Last administered on 12/21/16 21:07; Admin Dose 18.75 MLS/HR; Start at 08:30 Miscellaneous Information 1 ea NOTE XX ; Start 12/18/16 at 13:00 Glucose (Glutose) 15 gm Q15M PRN PO DECREASED GLUCOSE; Start 12/18/16 at 13:00 Glucose (Glutose) 22.5 gm Q15M PRN PO DECREASED GLUCOSE; Start 12/18/16 at 13: 00 Glucagon (Glucagen) 1 mg Q15M PRN IM DECREASED GLUCOSE; Start 12/18/16 at 13:00 Glucose (Glutose) 15 gm Q15M PRN BUCCAL DECREASED GLUCOSE; Start 12/18/16 at 13 :00 Dexamethasone 4 mg 4 mg DAILY IV Last administered on 12/22/16 09:30; Admin Dose 4 MG; Start 12/19/16 at 13:30 Dextrose/Sodium Chloride (D5-1/2ns) 1,000 ml @ 50 mls/hr Q20H IV Last administered on 12/22/16 04:11; Admin Dose 50 MLS/HR; Start 12/19/16 at 14:00 Diagnostic Test (Pha) (Accucheck) 1 ea Q1H XX Last administered on 12/22/16 20 :13; Admin Dose 1 EA; Start 12/20/16 at 11:30 Dextrose (D50w Syringe) 25 ml Q15M PRN IV Till BS 80 mg/dL or above x2; Start 12/20/16 at 11:30 Dextrose (D50w Syringe) 50 ml Q15M PRN IV Till BS 80 mg/dL or above x2; Start 12/20/16 at 11:30 Pantoprazole 40 mg 40 mg DAILY@06 IV Last administered on 12/22/16 05:14; Admin Dose 40 MG; Start 12/21/16 at 06:00 Imipenem/ Cilastatin Sodium 100 ml @ 166.667 mls/hr Q6 IVPB Last administered on 12/22/16 18:45; Admin Dose 166.667 MLS/HR; Start 12/20/16 at 18:00 Levetiracetam/ Sodium Chloride (Keppra Iv/NS) 105 ml @ 420 mls/hr Q12 IVPB Last administered on 12/22/16 09:30; Admin Dose 420 MLS/HR; Start 12/21/16 at 21:00 Sodium Chloride 2 gm 2 gm TID PO Last administered on 12/22/16 12:19; Admin Dose 2 GM; Start 12/21/16 at 13:00 Propofol (Diprivan) 100 ml @ 1.74 mls/hr Q12H IV Last administered on 12:30; Admin Dose 1.74 MLS/HR; Start 12/21/16 at 12:30 Acetaminophen (Tylenol Tab) 650 mg ONCE PO Last administered on 12/22/16 05:14 ; Admin Dose 650 MG; Start 12/21/16 at 23:00; Stop 12/22/16 at 22:59 Diphenhydramine HCl 25 mg 25 mg ONCE IV Last administered on 12/22/16 05:14; Admin Dose 25 MG; Start 12/21/16 at 23:00; Stop 12/22/16 at 22:59 Doxycycline Hyclate 100 mg/ Sodium Chloride 250 ml @ 250 mls/hr Q12 IVPB ; Start 12/22/16 at 21:00 Fluconazole/ Sodium Chloride (Diflucan 100 Mg/ NS (Pmx)) 50 ml @ 50 mls/hr Q24H IVPB Last administered on 12/22/16t 15:12; Admin Dose 50 MLS/HR; Start at 15:00 MAYA MIKE MD Dec 22, 2016 21:47
[2016-12-22] MEDS: DOXYCYCLINE 100 MG in SOD CHLORIDE 0.9% 250 ML IVPB SCH (22:10)
[2016-12-23] VITALS (99 sets, daily range): BP systolic 78–146; BP diastolic 47–106; PULSE 72–128; RESP 17–32
[2016-12-23] MEDS: PROPOFOL 100 ML IV SCH ×2 (00:30→12:30)
[2016-12-23] MEDS: ACCUCHECK XX SCH ×23 (00:30→23:30)
[2016-12-23] MEDS: IMIPENEM-CILAST 500MG IV (PMX) 100 ML IVPB SCH ×4 (01:34→18:06)
[2016-12-23] MEDS: PANTOPRAZOLE 40 MG INJ IV SCH (05:38)
[2016-12-23 06:50] LABS: CREATININE 0.32 mg/dl (0.44-1.00)
[2016-12-23 06:51] LABS: CALCIUM 9.8 mg/dl (8.4-10.2)
[2016-12-23 07:01] LABS: HEMATOCRIT 31.1 % (37.0-47.0); HEMOGLOBIN 10.8 g/dl (12.0-16.0); MEAN CORPUSCULAR HEMOGLOBIN 31.3 pg (29.0-33.0); MEAN CORPUSCULAR HGB CONC 34.7 g/dl (32.0-37.0); MEAN CORPUSCULAR VOLUME 90.2 fl (82.0-101.0); MEAN PLATELET VOLUME 7.3 fl (7.4-10.4); PLATELET COUNT 147 10^3/UL (140-440); RED BLOOD COUNT 3.44 10^6/ul (4.20-5.40); RED CELL DISTRIBUTION WIDTH 16.8 % (11.5-14.5); UNCORRECTED WBC 6.6 10^3/ul (4.8-10.8); WHITE BLOOD COUNT 6.6 10^3/ul (4.8-10.8)
[2016-12-23 07:05] LABS: POTASSIUM 2.2 mmol/L (3.5-5.1)
[2016-12-23] MEDS ORDERED: POTASSIUM CHLORIDE (SR) 20 MEQ TAB PO STA (07:14)
[2016-12-23 07:21] LABS: CONDITION 1; LH ANALYZER COMMENTS 1; SUSPECT 1
[2016-12-23] MEDS: POTASSIUM CHLORIDE 50 ML IVPB SCH ×6 (08:10→14:03)
[2016-12-23] MEDS: DEXTROSE 5%-0.45% NACL 1,000 ML IV SCH (08:10)
[2016-12-23] MEDS: INSULIN REGULAR, HUMAN 100 UNIT in SOD CHLORIDE 0.9% 99 ML IV SCH ×2 (09:02)
[2016-12-23] MEDS: AMIODARONE 200 MG TAB NGT SCH ×2 (09:08→21:25)
[2016-12-23] MEDS: DEXAMETHASONE 4 MG/ML 1 ML INJ IV SCH (09:08)
[2016-12-23] MEDS: SODIUM CHLORIDE 1 GM TAB PO SCH ×2 (09:08→14:03)
[2016-12-23] MEDS: LEVETIRACETAM IV 500 MG in SOD CHLORIDE 0.9% 100 ML IVPB SCH ×2 (09:08→21:25)
[2016-12-23] MEDS: DOXYCYCLINE 100 MG in SOD CHLORIDE 0.9% 250 ML IVPB SCH ×2 (09:10→21:26)
[2016-12-23 11:22] LABS: LYMPHOCYTES # 0.2 10^3/ul (0.8-2.9); MONOCYTE # 0.3 10^3/ul (0.3-0.9); NEUTROPHIL # 5.5 10^3/ul (1.6-7.5)
--- NOTE | 2016-12-23 12:42 | CONS ---
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 Salgado consulted Gi ppx - pepcid IV DVT ppx - scds Problems: Consultation Date/Type/Reason Admit Date/Time Dec 16, 2016 at 15:45 Initial Consult Date 12/21/16 Type of Consultation: HEMEONC Referring Provider: CAROL MICHELLE 24 HR Interval Summary Free Text/Dictation all noted post PRBC NO BLEEDING Exam/Review of Systems Vital Signs Vitals Vital Signs Date Time Temp Pulse Resp B/P Pulse Ox O2 Delivery O2 Flow Rate FiO2 12/23/16 10:45 89 20 105/54 96 12/23/16 10:00 Mechanical Ventilator 12/23/16 08:00 40 12/23/16 08:00 98.0 Intake and Output 12/22/16 12/22/16 12/23/16 15:00 23:00 07:00 Intake Total 1223.87 ml 474 ml Output Total 580 ml 2295 ml 850 ml Balance 643.87 ml -1821 ml -850 ml Exam Gen Marlo: intubated, sedated HEENT: NC/AT, PERRLA NECK: supple, no thyromegaly THORAX: symmetrical, no obvious deformities CV: S1S2, RRR, no M/G/R Lungs: + mild crackles at bases Abd: soft, NT/ND, +BS, no rebound, no guarding, neg HSM, PEG site leaking EXT: no edema, no ecchymosis, no clubbing, FROM, contractures Neuro: stares, grossly intact Skin: scattered ecchymoses Results Result Diagram: 12/23/16 0530 12/23/16 0530 Results 24 hrs Laboratory Tests Test 12/22/16 13:31 12/22/16 14:27 12/22/16 15:20 12/22/16 15:35 Band Neutrophils % 36.0 H Basophils # Basophils % Blood Morphology Comment Differential Comment MANUAL DIFF Eosinophils # Eosinophils % Hematocrit 20.4 #L Hemoglobin 7.1 #L Lymphocytes # 0.2 L Lymphocytes % 4.0 L Mean Corpuscular Hemoglobin 32.2 Mean Corpuscular Hemoglobin Concent 34.9 Mean Corpuscular Volume 92.2 Mean Platelet Volume 6.7 L Monocytes # 0.6 Monocytes % 11.0 Myelocytes # 0.1 Myelocytes % 1.0 H Neutrophils # 2.4 Neutrophils % 46.0 Nucleated Red Blood Cells # Nucleated Red Blood Cells % 1.0 H Platelet Count 211 # 219 Promyelocytes # 0.1 Promyelocytes % 2.0 H Red Blood Count 2.21 #L Red Cell Distribution Width 19.1 H White Blood Count 5.2 # Bedside Glucose 141 139 Test 12/22/16 17:50 12/22/16 20:06 12/22/16 22:17 12/22/16 23:32 Bedside Glucose 138 130 125 109 Test 12/23/16 01:34 12/23/16 03:47 12/23/16 05:30 12/23/16 05:35 Bedside Glucose 99 105 102 Anion Gap 18 H Band Neutrophils % 8.0 H Basophils # Basophils % Blood Morphology Comment Blood Urea Nitrogen 10 Calcium Level 9.8 Carbon Dioxide Level 16 L Chloride Level 107 Creatinine 0.32 L Differential Comment MANUAL DIFF Eosinophils # Eosinophils % Glucose Level 82 Hematocrit 31.1 #L Hemoglobin 10.8 #L Lymphocytes # 0.2 L Lymphocytes % 3.0 L Mean Corpuscular Hemoglobin 31.3 Mean Corpuscular Hemoglobin Concent 34.7 Mean Corpuscular Volume 90.2 Mean Platelet Volume 7.3 L Monocytes # 0.3 Monocytes % 5.0 Neutrophils # 5.5 Neutrophils % 84.0 H Nucleated Red Blood Cells # Nucleated Red Blood Cells % Platelet Count 147 # Potassium Level 2.2 *L Red Blood Count 3.44 #L Red Cell Distribution Width 16.8 H Sodium Level 139 White Blood Count 6.6 # Test 12/23/16 08:17 12/23/16 09:03 12/23/16 09:38 12/23/16 10:06 Bedside Glucose 78 67 L 93 81 Test 12/23/16 10:50 12/23/16 11:53 Bedside Glucose 74 110 Medications Medications Current Medications Ondansetron HCl (Zofran Inj) 4 mg Q6H PRN IV NAUSEA AND/OR VOMITING; Start 10/20 at 17:00 Acetaminophen (Tylenol Supp) 650 mg Q4H PRN [place] PAIN LEVEL 1-3 OR FEVER; Start 12/16/16 at 17:00 Lorazepam (Ativan) 1 mg Q2H PRN IV ANXIETY Last administered on 12/20/16 02:08 ; Admin Dose 1 MG; Start 12/16/16 at 17:00 Famotidine 20 mg 20 mg Q12 IV Last administered on 12/20/16 08:03; Admin Dose 20 MG; Start 12/16/16 at 21:00; Status Future Hold Norepinephrine/ Dextrose (Levophed/D5W) 500 ml @ 0 mls/hr TITRATE IV Last administered on 12/22/16 12:20; Admin Dose 22.5 MLS/HR; Start 12/17/16 at 00:00 Amiodarone HCl (Cordarone) 200 mg BID NGT Last administered on 12/23/16 09:08 ; Admin Dose 200 MG; Start 12/17/16 at 21:00 IV Flush 10 ml 10 ml PRN PRN IV IV PROTOCOL; Start 12/17/16 at 12:30 Phenylephrine HCl/ Dextrose (Hernán-Synephrine/ D5W) 500 ml @ 75 mls/hr TITRATE IV Last administered on 12/21/16 21:07; Admin Dose 18.75 MLS/HR; Start at 08:30 Miscellaneous Information 1 ea NOTE XX ; Start 12/18/16 at 13:00 Glucose (Glutose) 15 gm Q15M PRN PO DECREASED GLUCOSE; Start 12/18/16 at 13:00 Glucose (Glutose) 22.5 gm Q15M PRN PO DECREASED GLUCOSE; Start 12/18/16 at 13: 00 Glucagon (Glucagen) 1 mg Q15M PRN IM DECREASED GLUCOSE; Start 12/18/16 at 13:00 Glucose (Glutose) 15 gm Q15M PRN BUCCAL DECREASED GLUCOSE; Start 12/18/16 at 13 :00 Dexamethasone 4 mg 4 mg DAILY IV Last administered on 12/23/16 09:08; Admin Dose 4 MG; Start 12/19/16 at 13:30 Dextrose/Sodium Chloride (D5-1/2ns) 1,000 ml @ 50 mls/hr Q20H IV Last administered on 12/23/16 08:10; Admin Dose 50 MLS/HR; Start 12/19/16 at 14:00 Diagnostic Test (Pha) (Accucheck) 1 ea Q1H XX Last administered on 12/23/16 06 :39; Admin Dose 1 EA; Start 12/20/16 at 11:30 Dextrose (D50w Syringe) 25 ml Q15M PRN IV Till BS 80 mg/dL or above x2 Last administered on 12/23/16 09:26; Admin Dose 25 ML; Start 12/20/16 at 11:30 Dextrose (D50w Syringe) 50 ml Q15M PRN IV Till BS 80 mg/dL or above x2; Start 12/20/16 at 11:30 Pantoprazole 40 mg 40 mg DAILY@06 IV Last administered on 12/23/16 05:38; Admin Dose 40 MG; Start 12/21/16 at 06:00 Imipenem/ Cilastatin Sodium 100 ml @ 166.667 mls/hr Q6 IVPB Last administered on 12/23/16 11:48; Admin Dose 166.667 MLS/HR; Start 12/20/16 at 18:00 Levetiracetam/ Sodium Chloride (Keppra Iv/NS) 105 ml @ 420 mls/hr Q12 IVPB Last administered on 12/23/16 09:08; Admin Dose 420 MLS/HR; Start 12/21/16 at 21:00 Sodium Chloride 2 gm 2 gm TID PO Last administered on 12/23/16 09:08; Admin Dose 2 GM; Start 12/21/16 at 13:00 Propofol 100 ml @ 1.74 mls/hr Q12H IV Last administered on 12/21/16 12:30; Admin Dose 1.74 MLS/HR; Start 12/21/16 at 12:30 Doxycycline Hyclate 100 mg/ Sodium Chloride 250 ml @ 250 mls/hr Q12 IVPB Last administered on 12/23/16 09:10; Admin Dose 250 MLS/HR; Start 12/22/16 at 21:00 Fluconazole/ Sodium Chloride 50 ml @ 50 mls/hr Q24H IVPB Last administered on 15:12; Admin Dose 50 MLS/HR; Start 12/22/16 at 15:00 Potassium Chloride (KCl 10 MEQ/50 ML SW) 50 ml @ 50 mls/hr Q1H IVPB Last administered on 12/23/16 11:49; Admin Dose 50 MLS/HR; Start 12/23/16 at 07:30; Stop 12/23/16 at 13:29 MAYA MIKE MD Dec 23, 2016 12:42
--- NOTE | 2016-12-23 13:49 | CONS ---
Date/Time of Note Date/Time of Note DATE: 12/23/16 TIME: 13:47 Assessment/Plan Assessment/Plan Chief Complaint/Hosp Course Impression 1. Sepsis, most probably related to bilateral pneumonia. 2. 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 Improved after ostomy pouch 3. Status post craniotomy for glioblastoma. 4. Anemia. 5. Hyponatremia. 6. Chronic encephalopathy. 7. shock on pressor support 8. vent dependent respiratory failure 9. pancytopenia ,secondary to sepsis PLAN: 1. routine G-tube care. 2. If the condition improves, then we will start feeding her through the G- tube. For now, would continue to hold tube feed 3. antibiotics as per ID 4. management of pancytopenia per Heme onc 5. consider TPN for nutrition per primary Problems: Consultation Date/Type/Reason Admit Date/Time Dec 16, 2016 at 15:45 Initial Consult Date 12/21/16 Type of Consultation: GI Referring Provider: CAROL MICHELLE 24 HR Interval Summary Subjective hx not possible: pt non-verbal Constitutional: requiring O2 Exam/Review of Systems Vital Signs Vitals Vital Signs Date Time Temp Pulse Resp B/P Pulse Ox O2 Delivery O2 Flow Rate FiO2 12/23/16 12:00 89 12/23/16 10:45 20 105/54 96 12/23/16 10:00 Mechanical Ventilator 12/23/16 08:00 40 12/23/16 08:00 98.0 Intake and Output 12/22/16 12/22/16 12/23/16 15:00 23:00 07:00 Intake Total 1223.87 ml 474 ml Output Total 580 ml 2295 ml 850 ml Balance 643.87 ml -1821 ml -850 ml Exam Constitutional: non-verbal Psych: confusion Head: atraumatic, normocephalic Eyes: nl conjunctiva, nl lids, nl sclera ENMT: mucosa pink and moist, nl external ears & nose, nl lips & teeth, nl nasal mucosa & septum Neck: non-tender, supple Respiratory: clear to auscultation, normal air movement Cardiovascular: nl pulses, regular rate and rhythm Gastrointestinal: bowel sounds, non-tender, soft Results Result Diagram: 12/23/16 0530 12/23/16 0530 Results 24 hrs Laboratory Tests Test 12/22/16 14:27 12/22/16 15:20 12/22/16 15:35 12/22/16 17:50 Bedside Glucose 141 139 138 Platelet Count 219 Test 12/22/16 20:06 12/22/16 22:17 12/22/16 23:32 12/23/16 01:34 Bedside Glucose 130 125 109 99 Test 12/23/16 03:47 12/23/16 05:30 12/23/16 05:35 12/23/16 08:17 Bedside Glucose 105 102 78 Anion Gap 18 H Band Neutrophils % 8.0 H Basophils # Basophils % Blood Morphology Comment Blood Urea Nitrogen 10 Calcium Level 9.8 Carbon Dioxide Level 16 L Chloride Level 107 Creatinine 0.32 L Differential Comment MANUAL DIFF Eosinophils # Eosinophils % Glucose Level 82 Hematocrit 31.1 #L Hemoglobin 10.8 #L Lymphocytes # 0.2 L Lymphocytes % 3.0 L Mean Corpuscular Hemoglobin 31.3 Mean Corpuscular Hemoglobin Concent 34.7 Mean Corpuscular Volume 90.2 Mean Platelet Volume 7.3 L Monocytes # 0.3 Monocytes % 5.0 Neutrophils # 5.5 Neutrophils % 84.0 H Nucleated Red Blood Cells # Nucleated Red Blood Cells % Platelet Count 147 # Potassium Level 2.2 *L Red Blood Count 3.44 #L Red Cell Distribution Width 16.8 H Sodium Level 139 White Blood Count 6.6 # Test 12/23/16 09:03 12/23/16 09:38 12/23/16 10:06 12/23/16 10:50 Bedside Glucose 67 L 93 81 74 Test 12/23/16 11:53 12/23/16 13:10 Bedside Glucose 110 95 Medications Medications Current Medications Ondansetron HCl (Zofran Inj) 4 mg Q6H PRN IV NAUSEA AND/OR VOMITING; Start 10/20 at 17:00 Acetaminophen (Tylenol Supp) 650 mg Q4H PRN [place] PAIN LEVEL 1-3 OR FEVER; Start 12/16/16 at 17:00 Lorazepam (Ativan) 1 mg Q2H PRN IV ANXIETY Last administered on 12/20/16 02:08 ; Admin Dose 1 MG; Start 12/16/16 at 17:00 Famotidine 20 mg 20 mg Q12 IV Last administered on 12/20/16 08:03; Admin Dose 20 MG; Start 12/16/16 at 21:00; Status Future Hold Norepinephrine/ Dextrose (Levophed/D5W) 500 ml @ 0 mls/hr TITRATE IV Last administered on 12/22/16 12:20; Admin Dose 22.5 MLS/HR; Start 12/17/16 at 00:00 Amiodarone HCl (Cordarone) 200 mg BID NGT Last administered on 12/23/16 09:08 ; Admin Dose 200 MG; Start 12/17/16 at 21:00 IV Flush 10 ml 10 ml PRN PRN IV IV PROTOCOL; Start 12/17/16 at 12:30 Phenylephrine HCl/ Dextrose (Hernán-Synephrine/ D5W) 500 ml @ 75 mls/hr TITRATE IV Last administered on 12/21/16 21:07; Admin Dose 18.75 MLS/HR; Start at 08:30 Miscellaneous Information 1 ea NOTE XX ; Start 12/18/16 at 13:00 Glucose (Glutose) 15 gm Q15M PRN PO DECREASED GLUCOSE; Start 12/18/16 at 13:00 Glucose (Glutose) 22.5 gm Q15M PRN PO DECREASED GLUCOSE; Start 12/18/16 at 13: 00 Glucagon (Glucagen) 1 mg Q15M PRN IM DECREASED GLUCOSE; Start 12/18/16 at 13:00 Glucose (Glutose) 15 gm Q15M PRN BUCCAL DECREASED GLUCOSE; Start 12/18/16 at 13 :00 Dexamethasone 4 mg 4 mg DAILY IV Last administered on 12/23/16 09:08; Admin Dose 4 MG; Start 12/19/16 at 13:30 Dextrose/Sodium Chloride (D5-1/2ns) 1,000 ml @ 50 mls/hr Q20H IV Last administered on 12/23/16 08:10; Admin Dose 50 MLS/HR; Start 12/19/16 at 14:00 Diagnostic Test (Pha) (Accucheck) 1 ea Q1H XX Last administered on 12/23/16 06 :39; Admin Dose 1 EA; Start 12/20/16 at 11:30 Dextrose (D50w Syringe) 25 ml Q15M PRN IV Till BS 80 mg/dL or above x2 Last administered on 12/23/16 09:26; Admin Dose 25 ML; Start 12/20/16 at 11:30 Dextrose (D50w Syringe) 50 ml Q15M PRN IV Till BS 80 mg/dL or above x2; Start 12/20/16 at 11:30 Pantoprazole 40 mg 40 mg DAILY@06 IV Last administered on 12/23/16 05:38; Admin Dose 40 MG; Start 12/21/16 at 06:00 Imipenem/ Cilastatin Sodium 100 ml @ 166.667 mls/hr Q6 IVPB Last administered on 12/23/16 11:48; Admin Dose 166.667 MLS/HR; Start 12/20/16 at 18:00 Levetiracetam/ Sodium Chloride (Keppra Iv/NS) 105 ml @ 420 mls/hr Q12 IVPB Last administered on 12/23/16 09:08; Admin Dose 420 MLS/HR; Start 12/21/16 at 21:00 Sodium Chloride 2 gm 2 gm TID PO Last administered on 12/23/16 09:08; Admin Dose 2 GM; Start 12/21/16 at 13:00 Propofol 100 ml @ 1.74 mls/hr Q12H IV Last administered on 12/21/16 12:30; Admin Dose 1.74 MLS/HR; Start 12/21/16 at 12:30 Doxycycline Hyclate 100 mg/ Sodium Chloride 250 ml @ 250 mls/hr Q12 IVPB Last administered on 12/23/16 09:10; Admin Dose 250 MLS/HR; Start 12/22/16 at 21:00 Fluconazole/ Sodium Chloride (Diflucan 100 Mg/ NS (Pmx)) 50 ml @ 50 mls/hr Q24H IVPB Last administered on 12/22/16 15:12; Admin Dose 50 MLS/HR; Start at 15:00 SHINE MADRID MD Dec 23, 2016 13:49
--- NOTE | 2016-12-23 14:07 | PN ---
Date/Time of Note Date/Time of Note DATE: 12/23/16 TIME: 14:02 Assessment/Plan VTE Prophylaxis VTE Prophylaxis Intervention: contraindicated, SCD's Lines/Catheters IV C[facility]ter Type (from [facility]): PICC Line Central line still needed: Yes Urinary Cath still in place: Yes Reason Cath still needed: urinary retention Assessment/Plan Chief Complaint/Hosp Course Assessment/Plan: 81 yo female with a past medical history of glioblastoma, chronic encephalopathy, brain abscess s/p craniotomy, dysphagia s/p PEG, aspiration pneumonia risk, who came from [facility] for hypotension/hypothermia, and possible aspiration pneumonitis. 1. Septic Shock - 2/2 aspiration pneumonitis - on abx and pressor support x 1 now. Still intubated. - continue ICU care, f/u consult pulm rec's, broad spectrum antibiotics, pressor support, respiratory cultures - will switch to ISS as well, d/c insulin drip. 2. Hyponatremia - chronic - resolving now (120 -> 124 -> 129 ->-> 139) - monitor levels - will d/c salt tabs TID todau - check BMP daily 3. Anemia - chronic disease - transfuse if hgb < 8 g/dL 4. Glioblastoma - monitor acute changes 5. Chronic encephalopathy - continue to re-orient patient as needed 6. Dysphagia s/p PEG - possible replacement needed, Dr. Salgado consulted - f/u rec's 7. Gi ppx - pepcid IV 8. DVT ppx - scds 9. afib with RVR - occurred a few days ago, now in NSR - continue PO amiodarone. 10. elevated sugars - sec to steroids, D5W IVf's, now improved with insulin drip. - continue insulin drip for now, monitor. 11. thrombocytopenia - unclear source, s/p plt transfusion and improvement seen now (14 -> 211 -> 147) Seen by Heme/Onc team, DIC panel ordered as well. - monitor, have also d/c'ed cefepime and Pepcid 3 days ago (can cause low plts as SE, although rare) - f/u Heme/Onc and ID consult rec's, f/u DIC panel 12. hypokalemia - replete aggressively today, f/u BMP later today as well. Dispo: as per clinical course. Palliative team also trying to set up family meeting with son in near future as well. I spoke with pt's son Toney in detail over the phone on 12/20/16 explaining the daily plan that day. He asked questions about her condition including blood pressure, antibiotic treatment, elevated sugars and treatment for this, low platelets and our treatment for this, and and all his questions were answered then. Critical care time spent on pt care today = 40 min. Problems: Subjective 24 Hr Interval Summary Free Text/Dictation Plt levels much improved. Some + bleeding oral however. On lower dose pressor x 1 support now. Had some hypoglycemia today as well (has still been on insulin drip). Exam/Review of Systems Vital Signs Vitals Vital Signs Date Time Temp Pulse Resp B/P Pulse Ox O2 Delivery O2 Flow Rate FiO2 12/23/16 13:45 77 31 95/57 96 12/23/16 13:00 Mechanical Ventilator 12/23/16 12:00 98.6 12/23/16 08:00 40 Intake and Output 12/22/16 12/22/16 12/23/16 15:00 23:00 07:00 Intake Total 1223.87 ml 474 ml Output Total 580 ml 2295 ml 850 ml Balance 643.87 ml -1821 ml -850 ml Exam Gen Marlo: intubated, sedated HEENT: NC/AT, PERRLA NECK: supple, no thyromegaly THORAX: symmetrical, no obvious deformities CV: S1S2, RRR, no M/G/R Lungs: + mild crackles at bases Abd: soft, NT/ND, +BS, no rebound, no guarding, neg HSM, PEG site leaking EXT: no edema, no ecchymosis, no clubbing, FROM, contractures Neuro: stares, grossly intact Skin: scattered ecchymoses Results Result Diagram: 12/23/16 0530 12/23/16 0530 Results 24 hrs Laboratory Tests Test 12/22/16 14:27 12/22/16 15:20 12/22/16 15:35 12/22/16 17:50 Bedside Glucose 141 139 138 Platelet Count 219 Test 12/22/16 20:06 12/22/16 22:17 12/22/16 23:32 12/23/16 01:34 Bedside Glucose 130 125 109 99 Test 12/23/16 03:47 12/23/16 05:30 12/23/16 05:35 12/23/16 08:17 Bedside Glucose 105 102 78 Anion Gap 18 H Band Neutrophils % 8.0 H Basophils # Basophils % Blood Morphology Comment Blood Urea Nitrogen 10 Calcium Level 9.8 Carbon Dioxide Level 16 L Chloride Level 107 Creatinine 0.32 L Differential Comment MANUAL DIFF Eosinophils # Eosinophils % Glucose Level 82 Hematocrit 31.1 #L Hemoglobin 10.8 #L Lymphocytes # 0.2 L Lymphocytes % 3.0 L Mean Corpuscular Hemoglobin 31.3 Mean Corpuscular Hemoglobin Concent 34.7 Mean Corpuscular Volume 90.2 Mean Platelet Volume 7.3 L Monocytes # 0.3 Monocytes % 5.0 Neutrophils # 5.5 Neutrophils % 84.0 H Nucleated Red Blood Cells # Nucleated Red Blood Cells % Platelet Count 147 # Potassium Level 2.2 *L Red Blood Count 3.44 #L Red Cell Distribution Width 16.8 H Sodium Level 139 White Blood Count 6.6 # Test 12/23/16 09:03 12/23/16 09:38 12/23/16 10:06 12/23/16 10:50 Bedside Glucose 67 L 93 81 74 Test 12/23/16 11:53 12/23/16 13:10 Bedside Glucose 110 95 Medications Medications Current Medications Ondansetron HCl (Zofran Inj) 4 mg Q6H PRN IV NAUSEA AND/OR VOMITING; Start 10/20 at 17:00 Acetaminophen (Tylenol Supp) 650 mg Q4H PRN [place] PAIN LEVEL 1-3 OR FEVER; Start 12/16/16 at 17:00 Lorazepam (Ativan) 1 mg Q2H PRN IV ANXIETY Last administered on 12/20/16 02:08 ; Admin Dose 1 MG; Start 12/16/16 at 17:00 Famotidine 20 mg 20 mg Q12 IV Last administered on 12/20/16 08:03; Admin Dose 20 MG; Start 12/16/16 at 21:00; Status Future Hold Norepinephrine/ Dextrose (Levophed/D5W) 500 ml @ 0 mls/hr TITRATE IV Last administered on 12/22/16 12:20; Admin Dose 22.5 MLS/HR; Start 12/17/16 at 00:00 Amiodarone HCl (Cordarone) 200 mg BID NGT Last administered on 12/23/16 09:08 ; Admin Dose 200 MG; Start 12/17/16 at 21:00 IV Flush 10 ml 10 ml PRN PRN IV IV PROTOCOL; Start 12/17/16 at 12:30 Phenylephrine HCl/ Dextrose (Hernán-Synephrine/ D5W) 500 ml @ 75 mls/hr TITRATE IV Last administered on 12/21/16 21:07; Admin Dose 18.75 MLS/HR; Start at 08:30 Miscellaneous Information 1 ea NOTE XX ; Start 12/18/16 at 13:00 Glucose (Glutose) 15 gm Q15M PRN PO DECREASED GLUCOSE; Start 12/18/16 at 13:00 Glucose (Glutose) 22.5 gm Q15M PRN PO DECREASED GLUCOSE; Start 12/18/16 at 13: 00 Glucagon (Glucagen) 1 mg Q15M PRN IM DECREASED GLUCOSE; Start 12/18/16 at 13:00 Glucose (Glutose) 15 gm Q15M PRN BUCCAL DECREASED GLUCOSE; Start 12/18/16 at 13 :00 Dexamethasone 4 mg 4 mg DAILY IV Last administered on 12/23/16 09:08; Admin Dose 4 MG; Start 12/19/16 at 13:30 Dextrose/Sodium Chloride (D5-1/2ns) 1,000 ml @ 50 mls/hr Q20H IV Last administered on 12/23/16 08:10; Admin Dose 50 MLS/HR; Start 12/19/16 at 14:00 Diagnostic Test (Pha) (Accucheck) 1 ea Q1H XX Last administered on 12/23/16 06 :39; Admin Dose 1 EA; Start 12/20/16 at 11:30 Dextrose (D50w Syringe) 25 ml Q15M PRN IV Till BS 80 mg/dL or above x2 Last administered on 12/23/16 09:26; Admin Dose 25 ML; Start 12/20/16 at 11:30 Dextrose (D50w Syringe) 50 ml Q15M PRN IV Till BS 80 mg/dL or above x2; Start 12/20/16 at 11:30 Pantoprazole 40 mg 40 mg DAILY@06 IV Last administered on 12/23/16 05:38; Admin Dose 40 MG; Start 12/21/16 at 06:00 Imipenem/ Cilastatin Sodium 100 ml @ 166.667 mls/hr Q6 IVPB Last administered on 12/23/16 11:48; Admin Dose 166.667 MLS/HR; Start 12/20/16 at 18:00 Levetiracetam/ Sodium Chloride (Keppra Iv/NS) 105 ml @ 420 mls/hr Q12 IVPB Last administered on 12/23/16 09:08; Admin Dose 420 MLS/HR; Start 12/21/16 at 21:00 Sodium Chloride 2 gm 2 gm TID PO Last administered on 12/23/16 09:08; Admin Dose 2 GM; Start 12/21/16 at 13:00 Propofol 100 ml @ 1.74 mls/hr Q12H IV Last administered on 12/21/16 12:30; Admin Dose 1.74 MLS/HR; Start 12/21/16 at 12:30 Doxycycline Hyclate 100 mg/ Sodium Chloride 250 ml @ 250 mls/hr Q12 IVPB Last administered on 12/23/16 09:10; Admin Dose 250 MLS/HR; Start 12/22/16 at 21:00 Fluconazole/ Sodium Chloride (Diflucan 100 Mg/ NS (Pmx)) 50 ml @ 50 mls/hr Q24H IVPB Last administered on 12/22/16 15:12; Admin Dose 50 MLS/HR; Start at 15:00 CAROL MICHELLE Dec 23, 2016 14:07
[2016-12-23] MEDS: FLUCONAZOLE 100 MG/NS (PMX) 50 ML IVPB SCH (15:54)
[2016-12-23 16:04] LABS: POTASSIUM 4.5 mmol/L (3.5-5.1)
[2016-12-23 16:07] LABS: CREATININE 0.32 mg/dl (0.44-1.00)
[2016-12-23 16:08] LABS: CALCIUM 9.8 mg/dl (8.4-10.2)
--- NOTE | 2016-12-23 16:19 | CONS ---
Date/Time of Note Date/Time of Note DATE: 12/23/16 TIME: 16:16 Consult Date/Type/Reason Admit Date/Time Dec 16, 2016 at 15:45 Initial Consult Date 12/21/16 Type of Consultation: Pulm Ordering Provider: CAROL MICHELLE Subjective Remains on vent and vasopressor support. Objective Vital Signs Date Time Temp Pulse Resp B/P Pulse Ox O2 Delivery O2 Flow Rate FiO2 12/23/16 14:30 85 27 98/51 97 12/23/16 14:00 Mechanical Ventilator 12/23/16 13:00 40 12/23/16 12:00 98.6 Intake and Output 12/22/16 12/22/16 12/23/16 15:00 23:00 07:00 Intake Total 1223.87 ml 474 ml Output Total 580 ml 2295 ml 850 ml Balance 643.87 ml -1821 ml -850 ml CV: S1S2, RRR, no M/G/R Lungs: + mild crackles at bases Abd: soft, NT/ND, +BS, no rebound, no guarding, neg HSM, PEG site leaking EXT: no edema, no ecchymosis, no clubbing, FROM, contractures Results/Medications Result Diagram: 12/23/16 0530 12/23/16 1550 Results 24 hrs Laboratory Tests Test 12/22/16 17:50 12/22/16 20:06 12/22/16 22:17 12/22/16 23:32 Bedside Glucose 138 130 125 109 Test 12/23/16 01:34 12/23/16 03:47 12/23/16 05:30 12/23/16 05:35 Bedside Glucose 99 105 102 Anion Gap 18 H Band Neutrophils % 8.0 H Basophils # Basophils % Blood Morphology Comment Blood Urea Nitrogen 10 Calcium Level 9.8 Carbon Dioxide Level 16 L Chloride Level 107 Creatinine 0.32 L Differential Comment MANUAL DIFF Eosinophils # Eosinophils % Glucose Level 82 Hematocrit 31.1 #L Hemoglobin 10.8 #L Lymphocytes # 0.2 L Lymphocytes % 3.0 L Mean Corpuscular Hemoglobin 31.3 Mean Corpuscular Hemoglobin Concent 34.7 Mean Corpuscular Volume 90.2 Mean Platelet Volume 7.3 L Monocytes # 0.3 Monocytes % 5.0 Neutrophils # 5.5 Neutrophils % 84.0 H Nucleated Red Blood Cells # Nucleated Red Blood Cells % Platelet Count 147 # Potassium Level 2.2 *L Red Blood Count 3.44 #L Red Cell Distribution Width 16.8 H Sodium Level 139 White Blood Count 6.6 # Test 12/23/16 08:17 12/23/16 09:03 12/23/16 09:38 12/23/16 10:06 Bedside Glucose 78 67 L 93 81 Test 12/23/16 10:50 12/23/16 11:53 12/23/16 13:10 12/23/16 14:05 Bedside Glucose 74 110 95 100 Test 12/23/16 15:50 12/23/16 16:01 Anion Gap 18 H Blood Urea Nitrogen 11 Calcium Level 9.8 Carbon Dioxide Level 15 L Chloride Level 110 Creatinine 0.32 L Glucose Level 97 Potassium Level 4.5 # Sodium Level 138 Bedside Glucose 94 Medications Current Medications Ondansetron HCl (Zofran Inj) 4 mg Q6H PRN IV NAUSEA AND/OR VOMITING; Start 10/20 at 17:00 Acetaminophen (Tylenol Supp) 650 mg Q4H PRN [place] PAIN LEVEL 1-3 OR FEVER; Start 12/16/16 at 17:00 Lorazepam (Ativan) 1 mg Q2H PRN IV ANXIETY Last administered on 12/20/16 02:08 ; Admin Dose 1 MG; Start 12/16/16 at 17:00 Famotidine 20 mg 20 mg Q12 IV Last administered on 12/20/16 08:03; Admin Dose 20 MG; Start 12/16/16 at 21:00; Status Future Hold Norepinephrine/ Dextrose (Levophed/D5W) 500 ml @ 0 mls/hr TITRATE IV Last administered on 12/22/16 12:20; Admin Dose 22.5 MLS/HR; Start 12/17/16 at 00:00 Amiodarone HCl (Cordarone) 200 mg BID NGT Last administered on 12/23/16 09:08 ; Admin Dose 200 MG; Start 12/17/16 at 21:00 IV Flush 10 ml 10 ml PRN PRN IV IV PROTOCOL; Start 12/17/16 at 12:30 Phenylephrine HCl/ Dextrose (Hernán-Synephrine/ D5W) 500 ml @ 75 mls/hr TITRATE IV Last administered on 12/21/16 21:07; Admin Dose 18.75 MLS/HR; Start at 08:30 Miscellaneous Information 1 ea NOTE XX ; Start 12/18/16 at 13:00 Glucose (Glutose) 15 gm Q15M PRN PO DECREASED GLUCOSE; Start 12/18/16 at 13:00 Glucose (Glutose) 22.5 gm Q15M PRN PO DECREASED GLUCOSE; Start 12/18/16 at 13: 00 Glucagon (Glucagen) 1 mg Q15M PRN IM DECREASED GLUCOSE; Start 12/18/16 at 13:00 Glucose (Glutose) 15 gm Q15M PRN BUCCAL DECREASED GLUCOSE; Start 12/18/16 at 13 :00 Dexamethasone 4 mg 4 mg DAILY IV Last administered on 12/23/16 09:08; Admin Dose 4 MG; Start 12/19/16 at 13:30 Dextrose/Sodium Chloride (D5-1/2ns) 1,000 ml @ 50 mls/hr Q20H IV Last administered on 12/23/16 08:10; Admin Dose 50 MLS/HR; Start 12/19/16 at 14:00 Diagnostic Test (Pha) (Accucheck) 1 ea Q1H XX Last administered on 12/23/16 06 :39; Admin Dose 1 EA; Start 12/20/16 at 11:30 Dextrose (D50w Syringe) 25 ml Q15M PRN IV Till BS 80 mg/dL or above x2 Last administered on 12/23/16 09:26; Admin Dose 25 ML; Start 12/20/16 at 11:30 Dextrose (D50w Syringe) 50 ml Q15M PRN IV Till BS 80 mg/dL or above x2; Start 12/20/16 at 11:30 Pantoprazole 40 mg 40 mg DAILY@06 IV Last administered on 12/23/16 05:38; Admin Dose 40 MG; Start 12/21/16 at 06:00 Imipenem/ Cilastatin Sodium 100 ml @ 166.667 mls/hr Q6 IVPB Last administered on 12/23/16 11:48; Admin Dose 166.667 MLS/HR; Start 12/20/16 at 18:00 Levetiracetam 500 mg/Sodium Chloride 105 ml @ 420 mls/hr Q12 IVPB Last administered on 12/23/16 09:08; Admin Dose 420 MLS/HR; Start 12/21/16 at 21:00 Propofol 100 ml @ 1.74 mls/hr Q12H IV Last administered on 12/21/16 12:30; Admin Dose 1.74 MLS/HR; Start 12/21/16 at 12:30 Doxycycline Hyclate 100 mg/ Sodium Chloride 250 ml @ 250 mls/hr Q12 IVPB Last administered on 12/23/16 09:10; Admin Dose 250 MLS/HR; Start 12/22/16 at 21:00 Fluconazole/ Sodium Chloride (Diflucan 100 Mg/ NS (Pmx)) 50 ml @ 50 mls/hr Q24H IVPB Last administered on 12/23/16 15:54; Admin Dose 50 MLS/HR; Start at 15:00 Insulin Aspart (Novolog Insulin Pen) NOVOLOG *MILD* ALGORI... Q4 SC ; Start at 17:00 Assessment/Plan Additional Assessment/Plan IMP: 1. Septic Shock 2. Aspiration Pneumonia 3. VDRF 4. Anemia 5. Glioblastoma 6. Chronic encephalopathy RECS: 1. Abx per ID 2. Vent support 3. Titrate levophed to MAP > 65 mm Hg 4. Palliative care eval/Goals of care discussion with family. 35 min cc time AARON LANDEROS MD Dec 23, 2016 16:19
[2016-12-23] MEDS: INSULIN ASPART [NOVOLOG] 3 ML PEN SC SCH ×2 (16:39→21:00)
--- NOTE | 2016-12-23 18:23 | PN ---
DATE: 12/23/2016 SUBJECTIVE: No acute events overnight. The patient is lying comfortably in bed, still on Levophed drip, but it was titrated down to 3 mcg per minute. LABORATORIES: WBC today 6.6, platelets 147, neutrophils 84, bands 8, lymphs 3. BUN 11, creatinine 0.32. MICROBIOLOGY: Blood cultures remain negative. Endotracheal culture growing gram-negative rods. INDWELLINGS: Endotracheal tube, PICC line placed on 12/2012, NG tube, Singer catheter. ANTIMICROBIALS: 1. Doxycycline day #2. 2. Fluconazole day 2. 3. Imipenem day #4. PHYSICAL EXAMINATION: GENERAL: Chronically ill-appearing, fragile, elderly woman who is lying comfortably in bed. HEENT: Head atraumatic, normocephalic. Sclerae anicteric. Buccal mucosa dry. NECK: Obese. CHEST: Rise symmetrical. Breath sounds diminished to bases. HEART: S1, S2. ABDOMEN: Obese, soft. Bowel tones hypoactive. EXTREMITIES: Bilateral edema. SKIN: With multiple ecchymoses positive for anasarca. ASSESSMENT: 1. Severe sepsis with shock. 2. Healthcare-associated pneumonia. 3. Urinary tract infection as per urinalysis. 4. History of brain abscess, status post craniotomy. 5. Resolving thrombocytopenia. 6. History of glioblastoma. PLAN: The patient is improving. Still on pressors, but had been titrating down. Platelet count im proved. We will continue her on current antimicrobials. Follow recommendations of specialists. Dictated By: MERISSA DUTTA TURRET LATHE MACHINIST for MART DELACRUZ/NTS Conf#: [id number] DID#: [id number]
[2016-12-24] VITALS (99 sets, daily range): BP systolic 83–146; BP diastolic 45–74; PULSE 70–130; RESP 17–33
[2016-12-24] MEDS: ACCUCHECK XX SCH ×9 (00:02→06:45)
[2016-12-24] MEDS: PROPOFOL 100 ML IV SCH ×2 (00:30→12:30)
[2016-12-24] MEDS: IMIPENEM-CILAST 500MG IV (PMX) 100 ML IVPB SCH ×4 (00:39→18:10)
[2016-12-24] MEDS: INSULIN ASPART [NOVOLOG] 3 ML PEN SC SCH ×6 (01:00→20:56)
[2016-12-24 05:07] LABS: AADO2 Arterial 197.1 mmHg (7.0-24.0); Allen Test ACCEPTAB; Arterial Base Excess -8.5 mmol/L (-3.0-3); Arterial COHb 0.3 % (0.0-3.0); Arterial Fraction of Oxyhgb 91.4 % (93.0-99.0); Arterial HCO3 14.2 mmol/L (22.0-26.0); Arterial MetHb 0.4 % (0.0-1.5); MODE VENT-AC
[2016-12-24 05:49] LABS: POTASSIUM 3.7 mmol/L (3.5-5.1)
[2016-12-24 05:52] LABS: CREATININE 0.34 mg/dl (0.44-1.00)
[2016-12-24] MEDS: PANTOPRAZOLE 40 MG INJ IV SCH (06:02)
[2016-12-24] MEDS: LORAZEPAM 2 MG INJ IV PRN (06:20)
[2016-12-24 06:44] LABS: HEMATOCRIT 32.2 % (37.0-47.0); HEMOGLOBIN 11.3 g/dl (12.0-16.0); LYMPHOCYTES # 0.3 10^3/ul (0.8-2.9); LYMPHOCYTES % 3.5 % (15.0-51.0); MEAN CORPUSCULAR HEMOGLOBIN 31.3 pg (29.0-33.0); MEAN CORPUSCULAR HGB CONC 35.1 g/dl (32.0-37.0); MEAN CORPUSCULAR VOLUME 89.1 fl (82.0-101.0); MEAN PLATELET VOLUME 7.1 fl (7.4-10.4); MONOCYTES % 0.2 % (0.0-11.0); NEUTROPHILS % 96.3 % (39.0-77.0); PLATELET COUNT 80 10^3/UL (140-440); RED BLOOD COUNT 3.61 10^6/ul (4.20-5.40); RED CELL DISTRIBUTION WIDTH 17.7 % (11.5-14.5); UNCORRECTED WBC 8.3 10^3/ul (4.8-10.8); WHITE BLOOD COUNT 8.3 10^3/ul (4.8-10.8)
[2016-12-24 06:46] LABS: CONDITION 1; LH ANALYZER COMMENTS 1; SUSPECT 1
--- NOTE | 2016-12-24 07:20 | RADRPT ---
PROCEDURE: XR Chest 1 view. CLINICAL INDICATION: Shortness of breath, ventilated TECHNIQUE: AP views of the chest were obtained. COMPARISON: December 22, 2016 FINDINGS: The heart is large. Calcified atherosclerosis is noted in the aorta. Endotracheal tube is stable an d appears in grossly appropriate location. Retrocardiac opacity is stable. Patchy left upper lobe infiltrates have decreased. Patchy infiltrates throughout the right lung have also mildly decreased . Significant residual remains. The osseous structures are osteopenic, but appear grossly intact. Degenerative changes are seen in the right shoulder. IMPRESSION: Cardiomegaly with calcified atherosclerosis in the aorta. Stable retrocardiac opacity that may reflect left lower lobe atelectasis or infiltrate combined with small pleural effusion. Interval decrease in left upper lobe infiltrates. Mild interval decrease in patchy infiltrates throughout the right lung. Significant residual remain s. RPTAT: AA .Andrew Jorge MD, Date Time Electronically viewed and signed by .Andrew Jorge MD, on 12/24/2016 07:20 .P/
[2016-12-24] MEDS ORDERED: SOD CHLORIDE 0.9% 500 ML IV ONE (07:30)
[2016-12-24] MEDS: LEVETIRACETAM IV 500 MG in SOD CHLORIDE 0.9% 100 ML IVPB SCH ×2 (08:27→23:32)
[2016-12-24] MEDS: DOXYCYCLINE 100 MG in SOD CHLORIDE 0.9% 250 ML IVPB SCH ×2 (08:27→20:51)
[2016-12-24] MEDS: DEXAMETHASONE 4 MG/ML 1 ML INJ IV SCH (08:27)
[2016-12-24] MEDS: AMIODARONE 200 MG TAB NGT SCH ×2 (08:27→20:50)
--- NOTE | 2016-12-24 09:04 | CONS ---
Date/Time of Note Date/Time of Note DATE: 12/24/16 TIME: 09:01 Assessment/Plan Assessment/Plan Additional Assessment/Plan Ventilator settings; assist control 20, tidal volume 500, PEEP of 5, 50% FiO2. Assessment and recommendations; 1. Patient with bilateral pneumonia requiring intubation. Failed BiPAP. 2. History of glioblastoma with multiple cranial surgeries. 3. Patient with severe anoxic brain injury. Remains unresponsive which is her underlying mental status. 4. Stable seizure disorder. Continue current supportive care. Overall prognosis remains very poor. Consultation Date/Type/Reason Admit Date/Time Dec 16, 2016 at 15:45 Initial Consult Date Patient condition remains extremely critical. Requiring high-dose combination of Hernán-Synephrine and Levophed drips at maxed out doses for blood pressure maintenance. Due to underlying severe anoxic brain injury, patient is unresponsive. Which is her underlying mental status. Currently maintained on BiPAP. General examination; elderly lady, on BiPAP, unresponsive. Type of Consultation: Pulm Referring Provider: CAROL MICHELLE 24 HR Interval Summary Free Text/Dictation Patient condition remains critical. Still requiring full ventilator support. Patient however is been taken off Levophed drip. General examination; elderly lady, orally intubated. Somewhat awake but not responsive to any commands. Exam/Review of Systems Vital Signs Vitals Vital Signs Date Time Temp Pulse Resp B/P Pulse Ox O2 Delivery O2 Flow Rate FiO2 12/24/16 07:15 79 21 93/48 98 12/24/16 05:22 50 12/24/16 04:00 97.8 Mechanical Ventilator Intake and Output 12/23/16 12/23/16 12/24/16 15:00 23:00 07:00 Intake Total 475 ml 723.75 ml 566.86 ml Output Total 520 ml 305 ml 235 ml Balance -45 ml 418.75 ml 331.86 ml Exam H EENT examination; supple neck, positive JVD. Orally intubated. Patient had multiple well-healed craniotomy scars. No thyromegaly. No neck masses. Chest examination; diminished breath sounds throughout. S1-S2 audible, no murmurs. Regular rhythm. Abdomen examination; soft, G-tube in place. Bowel sounds are very sluggish. Extremity examination; no peripheral edema. HYDRAULIC LIFT DRIVER examination; patient is awake but does not follow any commands. Results Result Diagram: 12/24/16 0515 12/24/16 0515 Results 24 hrs Laboratory Tests Test 12/23/16 09:03 12/23/16 09:38 12/23/16 10:06 12/23/16 10:50 Bedside Glucose 67 L 93 81 74 Test 12/23/16 11:53 12/23/16 13:10 12/23/16 14:05 12/23/16 15:50 Bedside Glucose 110 95 100 Anion Gap 18 H Blood Urea Nitrogen 11 Calcium Level 9.8 Carbon Dioxide Level 15 L Chloride Level 110 Creatinine 0.32 L Glucose Level 97 Potassium Level 4.5 # Sodium Level 138 Test 12/23/16 16:01 12/23/16 21:31 12/24/16 01:48 12/24/16 05:00 Bedside Glucose 94 119 118 Arterial Blood HCO3 14.2 L Arterial Blood Base Excess -8.5 L Arterial Blood Oxygen Saturation 92.0 L Rony Test ACCEPTAB Arterial Blood Gas Puncture Site Right Radial Arterial Blood Carboxyhemoglobin 0.3 Arterial Blood Date Drawn 12/24/2016 4:53:24 AM Arterial Blood Methemoglobin 0.4 Arterial Blood pCO2 (Temp correct) 22.5 L Arterial Blood pH (Temp corrected) 7.417 Arterial Blood pO2 (Temp corrected) 62.2 L Blood Gas A-a O2 Differential 197.1 H Blood Gas Actual Respiration Rate 23 Blood Gas Inspiratory Pressure 35.0 Blood Gas Low PEEP Setting 5.0 Blood Gas Modality VENT-AC Blood Gas Notified Time 12/24/2016 5:06:57 AM Blood Gas Notified Whom JMD Blood Gas Respiration Rate 20.0 Blood Gas Specimen Source Blood arterial Blood Gas Temperature 37.0 Blood Gas Tidal Volume 500.0 FiO2 40.0 Oxyhemoglobin Percent 91.4 L Total Hemoglobin 12.0 Test 12/24/16 05:15 12/24/16 06:09 12/24/16 08:05 Anion Gap 18 H Basophils # Pending Basophils % Pending Blood Morphology Comment Blood Urea Nitrogen 12 Calcium Level 10.0 Carbon Dioxide Level 16 L Chloride Level 111 H Creatinine 0.34 L Eosinophils # Pending Eosinophils % Pending Glucose Level 103 Hematocrit 32.2 L Hemoglobin 11.3 L Lactic Acid Level 6.2 *H Lymphocytes # Pending Lymphocytes % Pending Mean Corpuscular Hemoglobin 31.3 Mean Corpuscular Hemoglobin Concent 35.1 Mean Corpuscular Volume 89.1 Mean Platelet Volume 7.1 L Monocytes # Pending Monocytes % Pending Neutrophils # Pending Neutrophils % Pending Nucleated Red Blood Cells # Pending Nucleated Red Blood Cells % Pending Platelet Count 80 #L Potassium Level 3.7 Red Blood Count 3.61 L Red Cell Distribution Width 17.7 H Sodium Level 141 White Blood Count 8.3 # Bedside Glucose 115 102 Medications Medications Current Medications Ondansetron HCl (Zofran Inj) 4 mg Q6H PRN IV NAUSEA AND/OR VOMITING; Start 10/20 at 17:00 Acetaminophen (Tylenol Supp) 650 mg Q4H PRN [place] PAIN LEVEL 1-3 OR FEVER; Start 12/16/16 at 17:00 Lorazepam (Ativan) 1 mg Q2H PRN IV ANXIETY Last administered on 12/20/16 02:08 ; Admin Dose 1 MG; Start 12/16/16 at 17:00 Famotidine 20 mg 20 mg Q12 IV Last administered on 12/20/16 08:03; Admin Dose 20 MG; Start 12/16/16 at 21:00; Status Future Hold Norepinephrine/ Dextrose (Levophed/D5W) 500 ml @ 0 mls/hr TITRATE IV Last administered on 12/22/16 12:20; Admin Dose 22.5 MLS/HR; Start 12/17/16 at 00:00 Amiodarone HCl (Cordarone) 200 mg BID NGT Last administered on 12/24/16 08:27 ; Admin Dose 200 MG; Start 12/17/16 at 21:00 IV Flush 10 ml 10 ml PRN PRN IV IV PROTOCOL; Start 12/17/16 at 12:30 Phenylephrine HCl/ Dextrose (Hernán-Synephrine/ D5W) 500 ml @ 75 mls/hr TITRATE IV Last administered on 12/21/16 21:07; Admin Dose 18.75 MLS/HR; Start at 08:30 Miscellaneous Information 1 ea NOTE XX ; Start 12/18/16 at 13:00 Glucose (Glutose) 15 gm Q15M PRN PO DECREASED GLUCOSE; Start 12/18/16 at 13:00 Glucose (Glutose) 22.5 gm Q15M PRN PO DECREASED GLUCOSE; Start 12/18/16 at 13: 00 Glucagon (Glucagen) 1 mg Q15M PRN IM DECREASED GLUCOSE; Start 12/18/16 at 13:00 Glucose (Glutose) 15 gm Q15M PRN BUCCAL DECREASED GLUCOSE; Start 12/18/16 at 13 :00 Dexamethasone 4 mg 4 mg DAILY IV Last administered on 12/24/16 08:27; Admin Dose 4 MG; Start 12/19/16 at 13:30 Dextrose/Sodium Chloride (D5-1/2ns) 1,000 ml @ 50 mls/hr Q20H IV Last administered on 12/23/16 08:10; Admin Dose 50 MLS/HR; Start 12/19/16 at 14:00 Dextrose (D50w Syringe) 25 ml Q15M PRN IV Till BS 80 mg/dL or above x2 Last administered on 12/23/16 09:26; Admin Dose 25 ML; Start 12/20/16 at 11:30 Dextrose (D50w Syringe) 50 ml Q15M PRN IV Till BS 80 mg/dL or above x2; Start 12/20/16 at 11:30 Pantoprazole 40 mg 40 mg DAILY@06 IV Last administered on 12/24/16 06:02; Admin Dose 40 MG; Start 12/21/16 at 06:00 Imipenem/ Cilastatin Sodium 100 ml @ 166.667 mls/hr Q6 IVPB Last administered on 12/24/16 06:03; Admin Dose 166.667 MLS/HR; Start 12/20/16 at 18:00 Levetiracetam 500 mg/Sodium Chloride 105 ml @ 420 mls/hr Q12 IVPB Last administered on 12/24/16 08:27; Admin Dose 420 MLS/HR; Start 12/21/16 at 21:00 Propofol 100 ml @ 1.74 mls/hr Q12H IV Last administered on 12/21/16 12:30; Admin Dose 1.74 MLS/HR; Start 12/21/16 at 12:30 Doxycycline Hyclate 100 mg/ Sodium Chloride 250 ml @ 250 mls/hr Q12 IVPB Last administered on 12/24/16 08:27; Admin Dose 250 MLS/HR; Start 12/22/16 at 21:00 Fluconazole/ Sodium Chloride (Diflucan 100 Mg/ NS (Pmx)) 50 ml @ 50 mls/hr Q24H IVPB Last administered on 12/23/16t 15:54; Admin Dose 50 MLS/HR; Start at 15:00 Insulin Aspart (Novolog Insulin Pen) NOVOLOG *MILD* ALGORI... Q4 SC ; Start at 17:00 ALISE ESTRADA Dec 24, 2016 09:04
--- NOTE | 2016-12-24 10:34 | PN ---
Date/Time of Note Date/Time of Note DATE: 12/24/16 TIME: 10:12 Assessment/Plan VTE Prophylaxis VTE Prophylaxis Intervention: SCD's Lines/Catheters IV [facility]ter Type (from [facility]): PICC Line Central line still needed: Yes Urinary Cath still in place: Yes Reason Cath still needed: other (indicate) Assessment/Plan Assessment/Plan 81 yo female with a past medical history of glioblastoma, chronic encephalopathy , brain abscess s/p craniotomy, dysphagia s/p PEG, who came from [facility] for hypotension/hypothermia, and possible aspiration pneumonitis. PROBLEMS: Severe Sepsis with shock, bandemia and Lactic acidosis - 2/2 PNA /UTI Acute resp failure on full ventilator support [place] Pneumonia - Pseudomonas Yeast / Bacterial UTI Pancytopenia 2/2 Sepsis: ?improving Chronic encephalopathy with hx of the following * Glioblastoma * Hx .of brain abscess * s/p craniotomy * Resultant seizure d/o Dysphagia 2/2 #4 s/p PEG Afib with RVR - now in NSR Hyperglycemia: steroid induced Hypokalemia: improved Hyponatremia - likely 2/2 dehydration: resolved Anasarca PLAN: Continue ICU care and Support Continue IV abx and antifungals per ID / appreciate input Continue Vent mgt and Weaning / appreciate pulm input Continue amiodarone for Afib Albumin / Lasix Wean off Steroids Continue close lab monitoring and mgt Appreciate all other consults PROPHYLAXIS: IV PPI / SCDs PROGNOSIS: Guarded Critical care time spent on pt care today = 40 min. Subjective 24 Hr Interval Summary Free Text/Dictation Patient seen and examined. Remains intubated, off sedation Exam/Review of Systems Vital Signs Vitals Vital Signs Date Time Temp Pulse Resp B/P Pulse Ox O2 Delivery O2 Flow Rate FiO2 12/24/16 09:30 79 20 100 50 12/24/16 09:15 90/49 12/24/16 09:00 Mechanical Ventilator 12/24/16 08:00 97.5 Intake and Output 12/23/16 12/23/16 12/24/16 15:00 23:00 07:00 Intake Total 475 ml 723.75 ml 566.86 ml Output Total 520 ml 305 ml 235 ml Balance -45 ml 418.75 ml 331.86 ml Exam Constitutional: non-verbal, other (obese, elderly, Patient barely responsive, not following commands or tracking), Eyes open spontaneously, No oriented, No distress Psych: other (unable to assess) Head: normocephalic, atraumatic Eyes: PERRL, No icteric ENMT: Intubated No mucosa pink and moist (dry) Neck: non-tender Respiratory: diminished breath sounds, + bibasal crackles No labored breathing Cardiovascular: regular rate and rhythm, No murmurs/extra sounds Gastrointestinal: soft, non-tender, bowel sounds, other (PEG tube noted + cellulitis butb no discharge and yellow serous fluid draining from around the tube) Genitourinary - Female: nl external genitalia Extremities: Generalized anasraca and bruising with ecchymosis Neurological: lethargic, other (altered, eyes opening spontaneously but no tracking or following commands), No nl mental status, No nl speech, No nl strength Results Result Diagram: 12/24/1615 12/24/1615 Results 24 hrs Laboratory Tests Test 12/23/16 10:50 12/23/16 11:53 12/23/16 13:10 12/23/16 14:05 Bedside Glucose 74 110 95 100 Test 12/23/16 15:50 12/23/16 16:01 12/23/16 21:31 12/24/16 01:48 Anion Gap 18 H Blood Urea Nitrogen 11 Calcium Level 9.8 Carbon Dioxide Level 15 L Chloride Level 110 Creatinine 0.32 L Glucose Level 97 Potassium Level 4.5 # Sodium Level 138 Bedside Glucose 94 119 118 Test 12/24/16 05:00 12/24/16 05:15 12/24/16 06:09 12/24/16 08:05 Arterial Blood HCO3 14.2 L Arterial Blood Base Excess -8.5 L Arterial Blood Oxygen Saturation 92.0 L Rony Test ACCEPTAB Arterial Blood Gas Puncture Site Right Radial Arterial Blood Carboxyhemoglobin 0.3 Arterial Blood Date Drawn 12/24/2016 4:53:24 AM Arterial Blood Methemoglobin 0.4 Arterial Blood pCO2 (Temp correct) 22.5 L Arterial Blood pH (Temp corrected) 7.417 Arterial Blood pO2 (Temp corrected) 62.2 L Blood Gas A-a O2 Differential 197.1 H Blood Gas Actual Respiration Rate 23 Blood Gas Inspiratory Pressure 35.0 Blood Gas Low PEEP Setting 5.0 Blood Gas Modality VENT-AC Blood Gas Notified Time 12/24/2016 5:06:57 AM Blood Gas Notified Whom JMD Blood Gas Respiration Rate 20.0 Blood Gas Specimen Source Blood arterial Blood Gas Temperature 37.0 Blood Gas Tidal Volume 500.0 FiO2 40.0 Oxyhemoglobin Percent 91.4 L Total Hemoglobin 12.0 Anion Gap 18 H Basophils # Pending Basophils % Pending Blood Morphology Comment Blood Urea Nitrogen 12 Calcium Level 10.0 Carbon Dioxide Level 16 L Chloride Level 111 H Creatinine 0.34 L Eosinophils # Pending Eosinophils % Pending Glucose Level 103 Hematocrit 32.2 L Hemoglobin 11.3 L Lactic Acid Level 6.2 *H Lymphocytes # Pending Lymphocytes % Pending Mean Corpuscular Hemoglobin 31.3 Mean Corpuscular Hemoglobin Concent 35.1 Mean Corpuscular Volume 89.1 Mean Platelet Volume 7.1 L Monocytes # Pending Monocytes % Pending Neutrophils # Pending Neutrophils % Pending Nucleated Red Blood Cells # Pending Nucleated Red Blood Cells % Pending Platelet Count 80 #L Potassium Level 3.7 Red Blood Count 3.61 L Red Cell Distribution Width 17.7 H Sodium Level 141 White Blood Count 8.3 # Bedside Glucose 115 102 Test 12/24/16 09:22 Lactic Acid Level 5.4 *H Medications Medications Current Medications Ondansetron HCl (Zofran Inj) 4 mg Q6H PRN IV NAUSEA AND/OR VOMITING; Start 10/20 at 17:00 Acetaminophen (Tylenol Supp) 650 mg Q4H PRN MS PAIN LEVEL 1-3 OR FEVER; Start 12/16/16 at 17:00 Lorazepam (Ativan) 1 mg Q2H PRN IV ANXIETY Last administered on 12/20/16 02:08 ; Admin Dose 1 MG; Start 12/16/16 at 17:00 Famotidine 20 mg 20 mg Q12 IV Last administered on 12/20/16 08:03; Admin Dose 20 MG; Start 12/16/16 at 21:00; Status Future Hold Norepinephrine/ Dextrose (Levophed/D5W) 500 ml @ 0 mls/hr TITRATE IV Last administered on 12/22/16 12:20; Admin Dose 22.5 MLS/HR; Start 12/17/16 at 00:00 Amiodarone HCl (Cordarone) 200 mg BID NGT Last administered on 12/24/16 08:27 ; Admin Dose 200 MG; Start 12/17/16 at 21:00 IV Flush 10 ml 10 ml PRN PRN IV IV PROTOCOL; Start 12/17/16 at 12:30 Phenylephrine HCl/ Dextrose (Hernán-Synephrine/ D5W) 500 ml @ 75 mls/hr TITRATE IV Last administered on 12/21/16 21:07; Admin Dose 18.75 MLS/HR; Start at 08:30 Miscellaneous Information 1 ea NOTE XX ; Start 12/18/16 at 13:00 Glucose (Glutose) 15 gm Q15M PRN PO DECREASED GLUCOSE; Start 12/18/16 at 13:00 Glucose (Glutose) 22.5 gm Q15M PRN PO DECREASED GLUCOSE; Start 12/18/16 at 13: 00 Glucagon (Glucagen) 1 mg Q15M PRN IM DECREASED GLUCOSE; Start 12/18/16 at 13:00 Glucose (Glutose) 15 gm Q15M PRN BUCCAL DECREASED GLUCOSE; Start 12/18/16 at 13 :00 Dexamethasone 4 mg 4 mg DAILY IV Last administered on 12/24/16 08:27; Admin Dose 4 MG; Start 12/19/16 at 13:30 Dextrose/Sodium Chloride (D5-1/2ns) 1,000 ml @ 50 mls/hr Q20H IV Last administered on 12/23/16 08:10; Admin Dose 50 MLS/HR; Start 12/19/16 at 14:00 Dextrose (D50w Syringe) 25 ml Q15M PRN IV Till BS 80 mg/dL or above x2 Last administered on 12/23/16 09:26; Admin Dose 25 ML; Start 12/20/16 at 11:30 Dextrose (D50w Syringe) 50 ml Q15M PRN IV Till BS 80 mg/dL or above x2; Start 12/20/16 at 11:30 Pantoprazole 40 mg 40 mg DAILY@06 IV Last administered on 12/24/16 06:02; Admin Dose 40 MG; Start 12/21/16 at 06:00 Imipenem/ Cilastatin Sodium 100 ml @ 166.667 mls/hr Q6 IVPB Last administered on 12/24/16 06:03; Admin Dose 166.667 MLS/HR; Start 12/20/16 at 18:00 Levetiracetam 500 mg/Sodium Chloride 105 ml @ 420 mls/hr Q12 IVPB Last administered on 12/24/16 08:27; Admin Dose 420 MLS/HR; Start 12/21/16 at 21:00 Propofol 100 ml @ 1.74 mls/hr Q12H IV Last administered on 12/21/16 12:30; Admin Dose 1.74 MLS/HR; Start 12/21/16 at 12:30 Doxycycline Hyclate 100 mg/ Sodium Chloride 250 ml @ 250 mls/hr Q12 IVPB Last administered on 12/24/16 08:27; Admin Dose 250 MLS/HR; Start 12/22/16 at 21:00 Fluconazole/ Sodium Chloride (Diflucan 100 Mg/ NS (Pmx)) 50 ml @ 50 mls/hr Q24H IVPB Last administered on 12/23/16 15:54; Admin Dose 50 MLS/HR; Start at 15:00 Insulin Aspart (Novolog Insulin Pen) NOVOLOG *MILD* ALGORI... Q4 SC ; Start at 17:00 Procedures Procedures PROCEDURE: XR Chest 1 view. CLINICAL INDICATION: Shortness of breath, ventilated TECHNIQUE: AP views of the chest were obtained. COMPARISON: December 22, 2016 FINDINGS: The heart is large. Calcified atherosclerosis is noted in the aorta. Endotracheal tube is stable and appears in grossly appropriate location. Retrocardiac opacity is stable. Patchy left upper lobe infiltrates have decreased. Patchy infiltrates throughout the right lung have also mildly decreased. Significant residual remains. The osseous structures are osteopenic , but appear grossly intact. Degenerative changes are seen in the right shoulder. IMPRESSION: Cardiomegaly with calcified atherosclerosis in the aorta. Stable retrocardiac opacity that may reflect left lower lobe atelectasis or infiltrate combined with small pleural effusion. Interval decrease in left upper lobe infiltrates. Mild interval decrease in patchy infiltrates throughout the right lung. Significant residual remains. RPTAT: AA .Andrew Jorge MD, Date Time Electronically viewed and signed by .Andrew Jorge MD, on 12/24/2016 07:20 JOHAN LEMUS Dec 24, 2016 10:23
[2016-12-24] MEDS ORDERED: POTASSIUM CHLORIDE 40 MEQ in DEXTROSE 5%-0.45% NACL 1,000 ML IV SCH (11:00)
[2016-12-24] MEDS ORDERED: SOD CHLORIDE 0.9% 1,000 ML IV ONE (11:00)
[2016-12-24] MEDS ORDERED: FUROSEMIDE 40 MG INJ IV ONE (11:30)
[2016-12-24 11:31] LABS: ANISOCYTOSIS 1+
[2016-12-24] MEDS: D5W-0.45 NACL + KCL 40 MEQ 1,000 ML IV SCH (11:54)
[2016-12-24] MEDS: ALBUMIN HUMAN 25% 100 ML IV SCH ×2 (11:54→19:05)
[2016-12-24] MEDS ORDERED: NACL IV SCH (12:00)
[2016-12-24] MEDS ORDERED: POTASSIUM CHLORIDE IV SCH (12:00)
[2016-12-24] MEDS ORDERED: DEXTROSE IV SCH (12:00)
[2016-12-24] MEDS: FLUCONAZOLE 100 MG/NS (PMX) 50 ML IVPB SCH (15:36)
--- NOTE | 2016-12-24 16:38 | PN ---
DATE: 12/24/2016 SUBJECTIVE: Patient is off pressors, lying comfortably in bed, afebrile. VITAL SIGNS: Temperature 97.5, pulse 77, respirations 20, blood pressure 90/49, saturation 100 on 5 0 FIO2. WBC 8.3, H and H 11.3 and 32.2, platelets 80, neutrophils 96.3, no bands. BUN 12, creatini ne 0.34. Lactic acid 5.4. MICROBIOLOGY: Sputum culture grew Pseudomonas aeruginosa. Urine culture ordered to be repeated, bu t has not been done and states it says it was canceled. INDWELLINGS: Endotracheal tube, NG tube, Singer catheter, PICC line placed on 12/2012. ANTIMICROBIALS: Patient is on: 1. Fluconazole. 2. Doxycycline. 3. Imipenem. PHYSICAL EXAMINATION: GENERAL: This is an obese, chronically ill-appearing, elderly woman who is in no distress. HEENT: Head atraumatic, normocephalic. Sclerae anicteric. Buccal mucosa dry. NECK: Obese. CHEST: Rise symmetrical. Breath sounds diminished to bases. HEART: S1, S2. ABDOMEN: Obese, soft. Bowel tones hypoactive. EXTREMITIES: With bilateral edema and multiple ecchymotic areas. ASSESSMENT: 1. Severe sepsis with shock, status post Levophed discontinued. 2. Healthcare-associated pneumonia. 3. Urinary tract infection as per urinalysis. 4. History of glioblastoma with brain abscess, status post craniotomy. 5. Anemia with thrombocytopenia. 5. Lactic acidosis. PLAN: The patient is doing better in terms of the fact that she is off pressors now. She is on ant ibiotics and antifungal coverage for presence of yeast in her urinalysis. We will order a urine cul ture again today. Continue her on current antimicrobials. Order procalcitonin levels. Dictated By: MERISSA DUTTA MINE SAFET[employer] MANAGER for [employer] MD NI/NTS Conf#: [id number] DID#: [id number]
--- NOTE | 2016-12-24 19:21 | CONS ---
Date/Time of Note Date/Time of Note DATE: 12/24/16 TIME: 19:19 Assessment/Plan Assessment/Plan Additional Assessment/Plan 1. Sepsis, most probably related to bilateral pneumonia. 2. Mild leakage from the G-tube site due to the large stoma.better after ostomy pouch 3. Status post craniotomy for glioblastoma. 4. Anemia. 5. Hyponatremia. 6. Chronic encephalopathy. 7.shock on pressor support 8. vent dependent respiratory failure 9. pancytopenia ,secondary to sepsis PLAN: patient has got ostomy pouch, and after that, the leakage has completely stopped. If the condition improves, then we will start feeding her through the G-tube antibiotics as per ID monitor cbc Consultation Date/Type/Reason Admit Date/Time Dec 16, 2016 at 15:45 Type of Consultation: Pulm Referring Provider: CAROL MICHELLE 24 HR Interval Summary Subjective hx not possible: pt non-verbal, pt critical Exam/Review of Systems Vital Signs Vitals Vital Signs Date Time Temp Pulse Resp B/P Pulse Ox O2 Delivery O2 Flow Rate FiO2 12/24/16 18:15 90 20 102/49 98 12/24/16 18:00 Mechanical Ventilator 12/24/16 17:30 50 12/24/16 16:00 98.7 Intake and Output 12/23/16 12/23/16 12/24/16 15:00 23:00 07:00 Intake Total 475 ml 723.75 ml 566.86 ml Output Total 520 ml 305 ml 235 ml Balance -45 ml 418.75 ml 331.86 ml Exam Constitutional: alert, oriented, well developed Psych: nl mood/affect, no complaints Head: atraumatic, normocephalic Eyes: EOMI, PERRL, nl conjunctiva, nl lids, nl sclera ENMT: nl external ears & nose, nl lips & teeth, nl nasal mucosa & septum Neck: non-tender, supple Respiratory: clear to auscultation, normal air movement Cardiovascular: nl pulses, regular rate and rhythm Gastrointestinal: nl liver, spleen, non-tender, soft Musculoskeletal: nl extremities to inspection, nl gait and stance Extremities: normal pulses Neurological: [employer]LYST II-XII intact, nl mental status, nl speech, nl strength Skin: nl turgor, No rash or lesions Lymph: nl lymph nodes Results Result Diagram: 12/24/16 0515 12/24/16 0515 Results 24 hrs Laboratory Tests Test 12/23/16 21:31 12/24/16 01:48 12/24/16 05:00 12/24/16 05:15 Bedside Glucose 119 118 Arterial Blood HCO3 14.2 L Arterial Blood Base Excess -8.5 L Arterial Blood Oxygen Saturation 92.0 L Rony Test ACCEPTAB Arterial Blood Gas Puncture Site Right Radial Arterial Blood Carboxyhemoglobin 0.3 Arterial Blood Date Drawn 12/24/2016 4:53:24 AM Arterial Blood Methemoglobin 0.4 Arterial Blood pCO2 (Temp correct) 22.5 L Arterial Blood pH (Temp corrected) 7.417 Arterial Blood pO2 (Temp corrected) 62.2 L Blood Gas A-a O2 Differential 197.1 H Blood Gas Actual Respiration Rate 23 Blood Gas Inspiratory Pressure 35.0 Blood Gas Low PEEP Setting 5.0 Blood Gas Modality VENT-AC Blood Gas Notified Time 12/24/2016 5:06:57 AM Blood Gas Notified Whom JMD Blood Gas Respiration Rate 20.0 Blood Gas Specimen Source Blood arterial Blood Gas Temperature 37.0 Blood Gas Tidal Volume 500.0 FiO2 40.0 Oxyhemoglobin Percent 91.4 L Total Hemoglobin 12.0 Anion Gap 18 H Anisocytosis 1+ Basophils # 0.0 Basophils % 0.0 Blood Morphology Comment Blood Urea Nitrogen 12 Calcium Level 10.0 Carbon Dioxide Level 16 L Chloride Level 111 H Creatinine 0.34 L Eosinophils # 0.0 Eosinophils % 0.0 Glucose Level 103 Hematocrit 32.2 L Hemoglobin 11.3 L Lactic Acid Level 6.2 *H Lymphocytes # 0.3 L Lymphocytes % 3.5 L Mean Corpuscular Hemoglobin 31.3 Mean Corpuscular Hemoglobin Concent 35.1 Mean Corpuscular Volume 89.1 Mean Platelet Volume 7.1 L Monocytes # 0.0 L Monocytes % 0.2 Neutrophils # 8.0 H Neutrophils % 96.3 H Nucleated Red Blood Cells # 0.0 Nucleated Red Blood Cells % 0.0 Platelet Count 80 #L Potassium Level 3.7 Red Blood Count 3.61 L Red Cell Distribution Width 17.7 H Sodium Level 141 White Blood Count 8.3 # Test 12/24/16 06:09 12/24/16 08:05 12/24/16 09:22 12/24/16 12:26 Bedside Glucose 115 102 85 Lactic Acid Level 5.4 *H Test 12/24/16 15:58 12/24/16 16:00 Lactic Acid Level 5.0 *H Bedside Glucose 119 Medications Medications Current Medications Ondansetron HCl (Zofran Inj) 4 mg Q6H PRN IV NAUSEA AND/OR VOMITING; Start 10/20 at 17:00 Acetaminophen (Tylenol Supp) 650 mg Q4H PRN [place] PAIN LEVEL 1-3 OR FEVER; Start 12/16/16 at 17:00 Lorazepam (Ativan) 1 mg Q2H PRN IV ANXIETY Last administered on 12/20/16 02:08 ; Admin Dose 1 MG; Start 12/16/16 at 17:00 Famotidine 20 mg 20 mg Q12 IV Last administered on 12/20/16 08:03; Admin Dose 20 MG; Start 12/16/16 at 21:00; Status Future Hold Norepinephrine/ Dextrose (Levophed/D5W) 500 ml @ 0 mls/hr TITRATE IV Last administered on 12/22/16 12:20; Admin Dose 22.5 MLS/HR; Start 12/17/16 at 00:00 Amiodarone HCl (Cordarone) 200 mg BID NGT Last administered on 12/24/16 08:27 ; Admin Dose 200 MG; Start 12/17/16 at 21:00 IV Flush 10 ml 10 ml PRN PRN IV IV PROTOCOL; Start 12/17/16 at 12:30 Phenylephrine HCl/ Dextrose (Hernán-Synephrine/ D5W) 500 ml @ 75 mls/hr TITRATE IV Last administered on 12/21/16 21:07; Admin Dose 18.75 MLS/HR; Start at 08:30 Miscellaneous Information 1 ea NOTE XX ; Start 12/18/16 at 13:00 Glucose (Glutose) 15 gm Q15M PRN PO DECREASED GLUCOSE; Start 12/18/16 at 13:00 Glucose (Glutose) 22.5 gm Q15M PRN PO DECREASED GLUCOSE; Start 12/18/16 at 13: 00 Glucagon (Glucagen) 1 mg Q15M PRN IM DECREASED GLUCOSE; Start 12/18/16 at 13:00 Glucose (Glutose) 15 gm Q15M PRN BUCCAL DECREASED GLUCOSE; Start 12/18/16 at 13 :00 Dexamethasone (Decadron) 4 mg DAILY IV Last administered on 12/24/16 08:27; Admin Dose 4 MG; Start 12/19/16 at 13:30 Dextrose (D50w Syringe) 25 ml Q15M PRN IV Till BS 80 mg/dL or above x2 Last administered on 12/23/16 09:26; Admin Dose 25 ML; Start 12/20/16 at 11:30 Dextrose (D50w Syringe) 50 ml Q15M PRN IV Till BS 80 mg/dL or above x2; Start 12/20/16 at 11:30 Pantoprazole 40 mg 40 mg DAILY@06 IV Last administered on 12/24/16 06:02; Admin Dose 40 MG; Start 12/21/16 at 06:00 Imipenem/ Cilastatin Sodium 100 ml @ 166.667 mls/hr Q6 IVPB Last administered on 12/24/16 18:10; Admin Dose 166.667 MLS/HR; Start 12/20/16 at 18:00 Levetiracetam 500 mg/Sodium Chloride 105 ml @ 420 mls/hr Q12 IVPB Last administered on 12/24/16 08:27; Admin Dose 420 MLS/HR; Start 12/21/16 at 21:00 Propofol 100 ml @ 1.74 mls/hr Q12H IV Last administered on 12/21/16 12:30; Admin Dose 1.74 MLS/HR; Start 12/21/16 at 12:30 Doxycycline Hyclate 100 mg/ Sodium Chloride 250 ml @ 250 mls/hr Q12 IVPB Last administered on 12/24/16 08:27; Admin Dose 250 MLS/HR; Start 12/22/16 at 21:00 Fluconazole/ Sodium Chloride (Diflucan 100 Mg/ NS (Pmx)) 50 ml @ 50 mls/hr Q24H IVPB Last administered on 12/24/16 15:36; Admin Dose 50 MLS/HR; Start at 15:00 Insulin Aspart NOVOLOG *MILD* ALGORI... Q4 SC ; Start 12/23/16 at 17:00 Albumin Human 100 ml @ 100 mls/hr Q8H IV Last administered on 12/24/16 19:05 ; Admin Dose 100 MLS/HR; Start 12/24/16 at 11:30; Stop 12/25/16 at 04:29 Potassium Chloride/Dextrose/ Sod Cl (D5-1/2ns + KCl 40 Meq) 1,000 ml @ 50 mls/ hr Q20H IV Last administered on 12/24/16t 11:54; Admin Dose 50 MLS/HR; Start at 12:00 SHANA GOODWIN MD Dec 24, 2016 19:21
--- NOTE | 2016-12-24 21:00 | CONS ---
Date/Time of Note Date/Time of Note DATE: 12/24/16 TIME: 20:57 Assessment/Plan Assessment/Plan Chief Complaint/Hosp Course PROGRESSIVE PANCYTOPENIA , INCLUDING THE SIGNIFICANT DROP OF PLATELET COUNT FROM N ON ADMISSION TO 14 NOTE THAT PT WAS EXPOSED TO IMIPENEM, PEPCID, VANCO, CEFEPIME SMEAR- NEG AVOID MYELOSUPPRESSIVE MEDS DIC PROFILE- NEG POST PLATELET TRANSFUSION WITH GREAT RESPONSE PANCYTOPENIA IS MOST LIKELY 2 TO SEPSIS, ALTHOUGH DRUG EFFECT IS ALSO POSSIBLE ANEMIA WITH SIGNIFICANT DROP H/H TRANSFUSE PRBC PRN MONITOR FOR BLEEDING AND HEMOLYSIS glioblastoma-monitor acute changes OLD RECORD- P brain abscess s/p craniotomy Anemia - chronic disease - transfuse if hgb < 8 g/dL Septic Shock - 2/2 aspiration pneumonitis -ICU, pulm, broad spectrum antibiotics , pressor support, f-up respiratory cultures, ID Hyponatremia - chronic - monitor acute changes Chronic encephalopathy Dysphagia s/p PEG - possible replacement needed, Dr. Salgado consulted Gi ppx - pepcid IV DVT ppx - scds Problems: Consultation Date/Type/Reason Admit Date/Time Dec 16, 2016 at 15:45 Initial Consult Date 12/21/16 Type of Consultation: hemeon Referring Provider: CAROL MICHELLE 24 HR Interval Summary Free Text/Dictation count stable h/h- improved no bleeding platelet count started to drop again Exam/Review of Systems Vital Signs Vitals Vital Signs Date Time Temp Pulse Resp B/P Pulse Ox O2 Delivery O2 Flow Rate FiO2 12/24/16 19:46 95 21 98 50 12/24/16 18:15 102/49 12/24/16 18:00 Mechanical Ventilator 12/24/16 16:00 98.7 Intake and Output 12/23/16 12/23/16 12/24/16 15:00 23:00 07:00 Intake Total 475 ml 723.75 ml 566.86 ml Output Total 520 ml 305 ml 235 ml Balance -45 ml 418.75 ml 331.86 ml Exam Gen Marlo: intubated, sedated HEENT: NC/AT, PERRLA NECK: supple, no thyromegaly THORAX: symmetrical, no obvious deformities CV: S1S2, RRR, no M/G/R Lungs: + mild crackles at bases Abd: soft, NT/ND, +BS, no rebound, no guarding, neg HSM, PEG site leaking EXT: no edema, no ecchymosis, no clubbing, FROM, contractures Neuro: stares, grossly intact Skin: scattered ecchymoses Results Result Diagram: 12/24/1615 12/24/1615 Results 24 hrs Laboratory Tests Test 12/23/16 21:31 12/24/16 01:48 12/24/16 05:00 12/24/16 05:15 Bedside Glucose 119 118 Arterial Blood HCO3 14.2 L Arterial Blood Base Excess -8.5 L Arterial Blood Oxygen Saturation 92.0 L Rony Test ACCEPTAB Arterial Blood Gas Puncture Site Right Radial Arterial Blood Carboxyhemoglobin 0.3 Arterial Blood Date Drawn 12/24/2016 4:53:24 AM Arterial Blood Methemoglobin 0.4 Arterial Blood pCO2 (Temp correct) 22.5 L Arterial Blood pH (Temp corrected) 7.417 Arterial Blood pO2 (Temp corrected) 62.2 L Blood Gas A-a O2 Differential 197.1 H Blood Gas Actual Respiration Rate 23 Blood Gas Inspiratory Pressure 35.0 Blood Gas Low PEEP Setting 5.0 Blood Gas Modality VENT-AC Blood Gas Notified Time 12/24/2016 5:06:57 AM Blood Gas Notified Whom JMD Blood Gas Respiration Rate 20.0 Blood Gas Specimen Source Blood arterial Blood Gas Temperature 37.0 Blood Gas Tidal Volume 500.0 FiO2 40.0 Oxyhemoglobin Percent 91.4 L Total Hemoglobin 12.0 Anion Gap 18 H Anisocytosis 1+ Basophils # 0.0 Basophils % 0.0 Blood Morphology Comment Blood Urea Nitrogen 12 Calcium Level 10.0 Carbon Dioxide Level 16 L Chloride Level 111 H Creatinine 0.34 L Eosinophils # 0.0 Eosinophils % 0.0 Glucose Level 103 Hematocrit 32.2 L Hemoglobin 11.3 L Lactic Acid Level 6.2 *H Lymphocytes # 0.3 L Lymphocytes % 3.5 L Mean Corpuscular Hemoglobin 31.3 Mean Corpuscular Hemoglobin Concent 35.1 Mean Corpuscular Volume 89.1 Mean Platelet Volume 7.1 L Monocytes # 0.0 L Monocytes % 0.2 Neutrophils # 8.0 H Neutrophils % 96.3 H Nucleated Red Blood Cells # 0.0 Nucleated Red Blood Cells % 0.0 Platelet Count 80 #L Potassium Level 3.7 Red Blood Count 3.61 L Red Cell Distribution Width 17.7 H Sodium Level 141 White Blood Count 8.3 # Test 12/24/16 06:09 12/24/16 08:05 12/24/16 09:22 12/24/16 12:26 Bedside Glucose 115 102 85 Lactic Acid Level 5.4 *H Test 12/24/16 15:58 12/24/16 16:00 Lactic Acid Level 5.0 *H Bedside Glucose 119 Medications Medications Current Medications Ondansetron HCl (Zofran Inj) 4 mg Q6H PRN IV NAUSEA AND/OR VOMITING; Start 10/20 at 17:00 Acetaminophen (Tylenol Supp) 650 mg Q4H PRN [place] PAIN LEVEL 1-3 OR FEVER; Start 12/16/16 at 17:00 Lorazepam (Ativan) 1 mg Q2H PRN IV ANXIETY Last administered on 12/20/16 02:08 ; Admin Dose 1 MG; Start 12/16/16 at 17:00 Famotidine 20 mg 20 mg Q12 IV Last administered on 12/20/16 08:03; Admin Dose 20 MG; Start 12/16/16 at 21:00; Status Future Hold Norepinephrine/ Dextrose (Levophed/D5W) 500 ml @ 0 mls/hr TITRATE IV Last administered on 12/22/16 12:20; Admin Dose 22.5 MLS/HR; Start 12/17/16 at 00:00 Amiodarone HCl (Cordarone) 200 mg BID NGT Last administered on 12/24/16 20:50 ; Admin Dose 200 MG; Start 12/17/16 at 21:00 IV Flush 10 ml 10 ml PRN PRN IV IV PROTOCOL; Start 12/17/16 at 12:30 Phenylephrine HCl/ Dextrose (Hernán-Synephrine/ D5W) 500 ml @ 75 mls/hr TITRATE IV Last administered on 12/21/16 21:07; Admin Dose 18.75 MLS/HR; Start at 08:30 Miscellaneous Information 1 ea NOTE XX ; Start 12/18/16 at 13:00 Glucose (Glutose) 15 gm Q15M PRN PO DECREASED GLUCOSE; Start 12/18/16 at 13:00 Glucose (Glutose) 22.5 gm Q15M PRN PO DECREASED GLUCOSE; Start 12/18/16 at 13: 00 Glucagon (Glucagen) 1 mg Q15M PRN IM DECREASED GLUCOSE; Start 12/18/16 at 13:00 Glucose (Glutose) 15 gm Q15M PRN BUCCAL DECREASED GLUCOSE; Start 12/18/16 at 13 :00 Dexamethasone (Decadron) 4 mg DAILY IV Last administered on 12/24/16 08:27; Admin Dose 4 MG; Start 12/19/16 at 13:30 Dextrose (D50w Syringe) 25 ml Q15M PRN IV Till BS 80 mg/dL or above x2 Last administered on 12/23/16 09:26; Admin Dose 25 ML; Start 12/20/16 at 11:30 Dextrose (D50w Syringe) 50 ml Q15M PRN IV Till BS 80 mg/dL or above x2; Start 12/20/16 at 11:30 Pantoprazole 40 mg 40 mg DAILY@06 IV Last administered on 12/24/16 06:02; Admin Dose 40 MG; Start 12/21/16 at 06:00 Imipenem/ Cilastatin Sodium 100 ml @ 166.667 mls/hr Q6 IVPB Last administered on 12/24/16 18:10; Admin Dose 166.667 MLS/HR; Start 12/20/16 at 18:00 Levetiracetam 500 mg/Sodium Chloride 105 ml @ 420 mls/hr Q12 IVPB Last administered on 12/24/16 08:27; Admin Dose 420 MLS/HR; Start 12/21/16 at 21:00 Propofol 100 ml @ 1.74 mls/hr Q12H IV Last administered on 12/21/16 12:30; Admin Dose 1.74 MLS/HR; Start 12/21/16 at 12:30 Doxycycline Hyclate 100 mg/ Sodium Chloride 250 ml @ 250 mls/hr Q12 IVPB Last administered on 12/24/16 20:51; Admin Dose 250 MLS/HR; Start 12/22/16 at 21:00 Fluconazole/ Sodium Chloride (Diflucan 100 Mg/ NS (Pmx)) 50 ml @ 50 mls/hr Q24H IVPB Last administered on 12/24/16 15:36; Admin Dose 50 MLS/HR; Start at 15:00 Insulin Aspart NOVOLOG *MILD* ALGORI... Q4 SC ; Start 2/19/17 at 17:00 Albumin Human 100 ml @ 100 mls/hr Q8H IV Last administered on 12/24/16 19:05 ; Admin Dose 100 MLS/HR; Start 12/24/16 at 11:30; Stop 12/25/16 at 04:29 Potassium Chloride/Dextrose/ Sod Cl (D5-1/2ns + KCl 40 Meq) 1,000 ml @ 50 mls/ hr Q20H IV Last administered on 12/24/16 11:54; Admin Dose 50 MLS/HR; Start at 12:00 MAYA MIKE MD Dec 24, 2016 21:00
[2016-12-25] VITALS (86 sets, daily range): BP systolic 81–174; BP diastolic 19–131; PULSE 85–152; RESP 19–38
[2016-12-25] MEDS: IMIPENEM-CILAST 500MG IV (PMX) 100 ML IVPB SCH ×4 (00:21→17:33)
[2016-12-25] MEDS: PROPOFOL 100 ML IV SCH ×2 (00:23→12:30)
[2016-12-25] MEDS: INSULIN ASPART [NOVOLOG] 3 ML PEN SC SCH ×6 (01:00→21:00)
[2016-12-25] MEDS: ALBUMIN HUMAN 25% 100 ML IV SCH (03:42)
[2016-12-25] MEDS: LORAZEPAM 2 MG INJ IV PRN ×4 (05:03→22:13)
[2016-12-25 05:39] LABS: ALBUMIN 3.1 g/dl (3.3-4.9)
[2016-12-25 05:41] LABS: CREATININE 0.36 mg/dl (0.44-1.00)
[2016-12-25 05:42] LABS: BILIRUBIN,DIRECT 6.8 mg/dl (0.00-0.20); BILIRUBIN,INDIRECT 1.5 mg/dl (0-1.1); BILIRUBIN,TOTAL 8.3 mg/dl (0.2-1.3); CALCIUM 10.3 mg/dl (8.4-10.2); TOTAL PROTEIN 4.8 g/dl (6.1-8.1)
[2016-12-25 05:54] LABS: POTASSIUM 2.9 mmol/L (3.5-5.1)
[2016-12-25] MEDS: PANTOPRAZOLE 40 MG INJ IV SCH (06:10)
[2016-12-25] MEDS ORDERED: POTASSIUM CHLORIDE 250 ML IVPB SCH (06:30)
[2016-12-25 06:39] LABS: HEMATOCRIT 26.8 % (37.0-47.0); HEMOGLOBIN 9.7 g/dl (12.0-16.0); MEAN CORPUSCULAR HEMOGLOBIN 31.9 pg (29.0-33.0); MEAN CORPUSCULAR HGB CONC 36.1 g/dl (32.0-37.0); MEAN CORPUSCULAR VOLUME 88.5 fl (82.0-101.0); MEAN PLATELET VOLUME 7.3 fl (7.4-10.4); RED BLOOD COUNT 3.03 10^6/ul (4.20-5.40); RED CELL DISTRIBUTION WIDTH 17.9 % (11.5-14.5)
[2016-12-25 07:20] LABS: CONDITION 1; LH ANALYZER COMMENTS 1; SUSPECT 1
[2016-12-25 07:26] LABS: PLATELET COUNT 39 10^3/UL (140-440)
[2016-12-25] MEDS: AMIODARONE 200 MG TAB NGT SCH ×2 (08:32→20:49)
[2016-12-25] MEDS: D5W-0.45 NACL + KCL 40 MEQ 1,000 ML IV SCH (08:32)
[2016-12-25] MEDS: DOXYCYCLINE 100 MG in SOD CHLORIDE 0.9% 250 ML IVPB SCH ×2 (08:33→20:49)
[2016-12-25] MEDS: POTASSIUM CHLORIDE 250 ML IVPB SCH ×2 (08:33→12:51)
[2016-12-25] MEDS: DEXAMETHASONE 4 MG/ML 1 ML INJ IV SCH (08:33)
[2016-12-25] MEDS: LEVETIRACETAM IV 500 MG in SOD CHLORIDE 0.9% 100 ML IVPB SCH ×2 (08:33→20:49)
--- NOTE | 2016-12-25 09:09 | PN ---
Date/Time of Note Date/Time of Note DATE: 12/25/16 TIME: 08:46 Assessment/Plan VTE Prophylaxis VTE Prophylaxis Intervention: contraindicated, other (SCds bruising skin) Lines/Catheters IV Catheter Type (from Nrs): PICC Line Central line still needed: Yes Urinary Cath still in place: Yes Reason Cath still needed: other (indicate) Assessment/Plan Assessment/Plan 81 yo female with a past medical history of glioblastoma, chronic encephalopathy , brain abscess s/p craniotomy, dysphagia s/p PEG, who came from [facility] for hypotension/hypothermia, and possible aspiration pneumonitis. PROBLEMS: Severe Sepsis with shock, bandemia and Lactic acidosis - 2/2 PNA /UTI Multiorgan failure Acute resp failure on full ventilator support Husam Pneumonia - Pseudomonas Yeast / Bacterial UTI Pancytopenia 2/2 Sepsis: ?improving Chronic encephalopathy with hx of the following * Glioblastoma * Hx .of brain abscess * s/p craniotomy * Resultant seizure d/o Dysphagia 2/2 #4 s/p PEG Afib with RVR - now in NSR Hyperglycemia: steroid induced Hypokalemia: improved Severe Anasarca Hepatic failure with likely ascites contributing to Tube leakage Leakage around PEG tube PLAN: Continue ICU care and Support Continue IV abx and antifungals per ID / appreciate input Continue Vent mgt and Weaning / appreciate pulm input Continue amiodarone for Afib Albumin / Lasix Wean off Steroids Continue close lab monitoring and mgt Appreciate all other consults PROPHYLAXIS: IV PPI / SCDs PROGNOSIS: Extremely poor / palliative care recommends Bioethics consult. Tried to speak with her son today, he was very hostile and absolutely refused to discuss his mother's condition, but focused instead on grievances with staff and physicians. Continue current mgt . F/u Bioethics recommendations. Critical care time spent on pt care today = 40 min. Subjective 24 Hr Interval Summary Free Text/Dictation Patient seen and examined. Nursing reports no acute overnight events. Subjective hx not possible: pt non-verbal, pt critical status Exam/Review of Systems Vital Signs Vitals Vital Signs Date Time Temp Pulse Resp B/P Pulse Ox O2 Delivery O2 Flow Rate FiO2 12/25/16 07:00 93 22 92/36 98 12/25/16 05:50 45 12/25/16 04:00 97.8 Mechanical Ventilator Intake and Output 12/24/16 12/24/1617 15:00 23:00 07:00 Intake Total 320 ml 805 ml Output Total 1335 ml 1670 ml 1130 ml Balance -1335 ml -1350 ml -325 ml Exam Constitutional: non-verbal, other (obese, elderly, Patient barely responsive, not following commands or tracking), Eyes open spontaneously, No oriented, No distress Psych: other (unable to assess) Head: normocephalic, atraumatic Eyes: PERRL, No icteric ENMT: Intubated No mucosa pink and moist (dry) Neck: non-tender Respiratory: diminished breath sounds, + bibasal crackles No labored breathing Cardiovascular: regular rate and rhythm, No murmurs/extra sounds Gastrointestinal: soft, non-tender, bowel sounds, other (PEG tube noted + cellulitis butb no discharge and yellow serous fluid draining from around the tube) Genitourinary - Female: nl external genitalia Extremities: Generalized anasraca and bruising with ecchymosis Neurological: lethargic, other (altered, eyes opening spontaneously but no tracking or following commands), No nl mental status, No nl speech, No nl strength Results Result Diagram: 12/25/16 0510 12/25/16 0510 Results 24 hrs Laboratory Tests Test 12/24/16 09:22 12/24/16 12:26 12/24/16 15:58 12/24/16 16:00 Lactic Acid Level 5.4 *H 5.0 *H Bedside Glucose 85 119 Test 12/24/16 20:56 12/25/16 01:22 12/25/16 05:00 12/25/16 05:10 Bedside Glucose 131 104 Lactic Acid Level 5.8 *H Alanine Aminotransferase (ALT/SGPT) 84 H Albumin 3.1 L Alkaline Phosphatase 186 H Anion Gap 22 H Aspartate Amino Transf (AST/SGOT) 64 H Basophils # Pending Basophils % Pending Blood Morphology Comment Blood Urea Nitrogen 12 Calcium Level 10.3 H Carbon Dioxide Level 15 L Chloride Level 111 H Creatinine 0.36 L Direct Bilirubin 6.80 H Eosinophils # Pending Eosinophils % Pending Glucose Level 105 Hematocrit 26.8 L Hemoglobin 9.7 L Indirect Bilirubin 1.5 H Lymphocytes # Pending Lymphocytes % Pending Mean Corpuscular Hemoglobin 31.9 Mean Corpuscular Hemoglobin Concent 36.1 Mean Corpuscular Volume 88.5 Mean Platelet Volume 7.3 L Monocytes # Pending Monocytes % Pending Neutrophils # Pending Neutrophils % Pending Nucleated Red Blood Cells # Pending Nucleated Red Blood Cells % Pending Platelet Count 39 #L Potassium Level 2.9 *L Red Blood Count 3.03 L Red Cell Distribution Width 17.9 H Sodium Level 145 H Total Bilirubin 8.3 H Total Protein 4.8 L White Blood Count 4.0 #L Medications Medications Current Medications Ondansetron HCl (Zofran Inj) 4 mg Q6H PRN IV NAUSEA AND/OR VOMITING; Start 10/20 at 17:00 Acetaminophen (Tylenol Supp) 650 mg Q4H PRN [place] PAIN LEVEL 1-3 OR FEVER; Start 12/16/16 at 17:00 Lorazepam (Ativan) 1 mg Q2H PRN IV ANXIETY Last administered on 12/25/16 05:03 ; Admin Dose 1 MG; Start 12/16/16 at 17:00 Famotidine 20 mg 20 mg Q12 IV Last administered on 12/20/16 08:03; Admin Dose 20 MG; Start 12/16/16 at 21:00; Status Future Hold Norepinephrine/ Dextrose (Levophed/D5W) 500 ml @ 0 mls/hr TITRATE IV Last administered on 12/22/16 12:20; Admin Dose 22.5 MLS/HR; Start 12/17/16 at 00:00 Amiodarone HCl (Cordarone) 200 mg BID NGT Last administered on 12/25/16 08:32 ; Admin Dose 200 MG; Start 12/17/16 at 21:00 IV Flush 10 ml 10 ml PRN PRN IV IV PROTOCOL; Start 12/17/16 at 12:30 Phenylephrine HCl/ Dextrose (Hernán-Synephrine/ D5W) 500 ml @ 75 mls/hr TITRATE IV Last administered on 12/21/16 21:07; Admin Dose 18.75 MLS/HR; Start at 08:30 Miscellaneous Information 1 ea NOTE XX ; Start 12/18/16 at 13:00 Glucose (Glutose) 15 gm Q15M PRN PO DECREASED GLUCOSE; Start 12/18/16 at 13:00 Glucose (Glutose) 22.5 gm Q15M PRN PO DECREASED GLUCOSE; Start 12/18/16 at 13: 00 Glucagon (Glucagen) 1 mg Q15M PRN IM DECREASED GLUCOSE; Start 12/18/16 at 13:00 Glucose (Glutose) 15 gm Q15M PRN BUCCAL DECREASED GLUCOSE; Start 12/18/16 at 13 :00 Dexamethasone (Decadron) 4 mg DAILY IV Last administered on 12/25/16 08:33; Admin Dose 4 MG; Start 12/19/16 at 13:30 Dextrose (D50w Syringe) 25 ml Q15M PRN IV Till BS 80 mg/dL or above x2 Last administered on 12/23/16 09:26; Admin Dose 25 ML; Start 12/20/16 at 11:30 Dextrose (D50w Syringe) 50 ml Q15M PRN IV Till BS 80 mg/dL or above x2; Start 12/20/16 at 11:30 Pantoprazole 40 mg 40 mg DAILY@06 IV Last administered on 12/25/16 06:10; Admin Dose 40 MG; Start 12/21/16 at 06:00 Imipenem/ Cilastatin Sodium 100 ml @ 166.667 mls/hr Q6 IVPB Last administered on 12/25/16 06:16; Admin Dose 166.667 MLS/HR; Start 12/20/16 at 18:00 Levetiracetam 500 mg/Sodium Chloride 105 ml @ 420 mls/hr Q12 IVPB Last administered on 12/25/16 08:33; Admin Dose 420 MLS/HR; Start 12/21/16 at 21:00 Propofol 100 ml @ 1.74 mls/hr Q12H IV Last administered on 12/21/16 12:30; Admin Dose 1.74 MLS/HR; Start 12/21/16 at 12:30 Doxycycline Hyclate 100 mg/ Sodium Chloride 250 ml @ 250 mls/hr Q12 IVPB Last administered on 12/25/16 08:33; Admin Dose 250 MLS/HR; Start 12/22/16 at 21:00 Fluconazole/ Sodium Chloride (Diflucan 100 Mg/ NS (Pmx)) 50 ml @ 50 mls/hr Q24H IVPB Last administered on 12/24/16 15:36; Admin Dose 50 MLS/HR; Start at 15:00 Insulin Aspart NOVOLOG *MILD* ALGORI... Q4 SC ; Start 12/23/16 at 17:00 Potassium Chloride/Dextrose/ Sod Cl 1,000 ml @ 50 mls/hr Q20H IV Last administered on 12/25/16 08:32; Admin Dose 50 MLS/HR; Start 12/24/16 at 12:00 Potassium Chloride (KCl 40 MEQ/250 ML NS) 250 ml @ 62.5 mls/hr Q4H IVPB Last administered on 12/25/16 08:33; Admin Dose 62.5 MLS/HR; Start 12/25/16 at 07:00 ; Stop 12/25/16 at 14:59 JOHAN LEMUS Dec 25, 2016 08:56
--- NOTE | 2016-12-25 09:13 | CONS ---
Date/Time of Note Date/Time of Note DATE: 12/25/16 TIME: 09:10 Assessment/Plan Assessment/Plan Additional Assessment/Plan Data settings; assist control 20, tidal volume 500, PEEP of 5, 45% FiO2. Assessment and recommendations; 1. Patient with history of chronic respiratory failure now admitted with severe bilateral pneumonia and severe sepsis. 2. History of glioblastoma, status post multiple craniotomies. 3. History of profound mental unresponsiveness. 5. Thrombocytopenia. 6. Severe icterus. 7. History of cardiac arrhythmia. Currently in sinus rhythm. Continue current treatment. Wean down FiO2 to keep O2 sat around 94%. Overall prognosis remains extremely poor. Consultation Date/Type/Reason Admit Date/Time Dec 16, 2016 at 15:45 Initial Consult Date Patient condition remains extremely critical. Requiring high-dose combination of Hernán-Synephrine and Levophed drips at maxed out doses for blood pressure maintenance. Due to underlying severe anoxic brain injury, patient is unresponsive. Which is her underlying mental status. Currently maintained on BiPAP. General examination; elderly lady, on BiPAP, unresponsive. Type of Consultation: Pulmonary/critical care Referring Provider: CAROL MICHELLE 24 HR Interval Summary Free Text/Dictation Patient's condition remains critical. Patient however has been off pressor support now. Remains orally intubated. Because of underlying severe anoxic brain injury patient remains unresponsive which is her underlying mental status. General examination; elderly lady, orally intubated. Awake but unresponsive. Exam/Review of Systems Vital Signs Vitals Vital Signs Date Time Temp Pulse Resp B/P Pulse Ox O2 Delivery O2 Flow Rate FiO2 12/25/16 07:00 93 22 92/36 98 12/25/16 05:50 45 12/25/16 04:00 97.8 Mechanical Ventilator Intake and Output 12/24/16 12/24/16 12/25/16 15:00 23:00 07:00 Intake Total 320 ml 805 ml Output Total 1335 ml 1670 ml 1130 ml Balance -1335 ml -1350 ml -325 ml Exam H EENT examination; supple neck, no JVD. Patient remains strongly icteric. Toes are midsize and reactive to light bilaterally. Orally intubated. No neck masses. Chest examination; diminished breath sound bilaterally. S1-S2 audible, no murmurs. Regular rhythm. Abdomen examination; soft, bowel sounds are audible. No organomegaly. There is a dressing applied over the J-tube. Extremity examination; no peripheral edema. Patient does not multiple ecchymosis involving all 4 extremities. 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 Results Result Diagram: 12/25/16 0510 12/25/16 0510 Results 24 hrs Laboratory Tests Test 12/24/16 09:22 12/24/16 12:26 12/24/16 15:58 12/24/16 16:00 Lactic Acid Level 5.4 *H 5.0 *H Bedside Glucose 85 119 Test 12/24/16 20:56 12/25/16 01:22 12/25/16 05:00 12/25/16 05:10 Bedside Glucose 131 104 Lactic Acid Level 5.8 *H Alanine Aminotransferase (ALT/SGPT) 84 H Albumin 3.1 L Alkaline Phosphatase 186 H Anion Gap 22 H Aspartate Amino Transf (AST/SGOT) 64 H Basophils # Pending Basophils % Pending Blood Morphology Comment Blood Urea Nitrogen 12 Calcium Level 10.3 H Carbon Dioxide Level 15 L Chloride Level 111 H Creatinine 0.36 L Direct Bilirubin 6.80 H Eosinophils # Pending Eosinophils % Pending Glucose Level 105 Hematocrit 26.8 L Hemoglobin 9.7 L Indirect Bilirubin 1.5 H Lymphocytes # Pending Lymphocytes % Pending Mean Corpuscular Hemoglobin 31.9 Mean Corpuscular Hemoglobin Concent 36.1 Mean Corpuscular Volume 88.5 Mean Platelet Volume 7.3 L Monocytes # Pending Monocytes % Pending Neutrophils # Pending Neutrophils % Pending Nucleated Red Blood Cells # Pending Nucleated Red Blood Cells % Pending Platelet Count 39 #L Potassium Level 2.9 *L Red Blood Count 3.03 L Red Cell Distribution Width 17.9 H Sodium Level 145 H Total Bilirubin 8.3 H Total Protein 4.8 L White Blood Count 4.0 #L Test 12/25/16 09:00 Bedside Glucose 120 Medications Medications Current Medications Ondansetron HCl (Zofran Inj) 4 mg Q6H PRN IV NAUSEA AND/OR VOMITING; Start 10/20 at 17:00 Acetaminophen (Tylenol Supp) 650 mg Q4H PRN [place] PAIN LEVEL 1-3 OR FEVER; Start 12/16/16 at 17:00 Lorazepam (Ativan) 1 mg Q2H PRN IV ANXIETY Last administered on 12/25/16 05:03 ; Admin Dose 1 MG; Start 12/16/16 at 17:00 Famotidine 20 mg 20 mg Q12 IV Last administered on 12/20/16 08:03; Admin Dose 20 MG; Start 12/16/16 at 21:00; Status Future Hold Norepinephrine/ Dextrose (Levophed/D5W) 500 ml @ 0 mls/hr TITRATE IV Last administered on 12/22/16 12:20; Admin Dose 22.5 MLS/HR; Start 12/17/16 at 00:00 Amiodarone HCl (Cordarone) 200 mg BID NGT Last administered on 12/25/16 08:32 ; Admin Dose 200 MG; Start 12/17/16 at 21:00 IV Flush 10 ml 10 ml PRN PRN IV IV PROTOCOL; Start 12/17/16 at 12:30 Phenylephrine HCl/ Dextrose (Hernán-Synephrine/ D5W) 500 ml @ 75 mls/hr TITRATE IV Last administered on 12/21/16 21:07; Admin Dose 18.75 MLS/HR; Start at 08:30 Miscellaneous Information 1 ea NOTE XX ; Start 12/18/16 at 13:00 Glucose (Glutose) 15 gm Q15M PRN PO DECREASED GLUCOSE; Start 12/18/16 at 13:00 Glucose (Glutose) 22.5 gm Q15M PRN PO DECREASED GLUCOSE; Start 12/18/16 at 13: 00 Glucagon (Glucagen) 1 mg Q15M PRN IM DECREASED GLUCOSE; Start 12/18/16 at 13:00 Glucose (Glutose) 15 gm Q15M PRN BUCCAL DECREASED GLUCOSE; Start 12/18/16 at 13 :00 Dexamethasone (Decadron) 4 mg DAILY IV Last administered on 12/25/16 08:33; Admin Dose 4 MG; Start 12/19/16 at 13:30 Dextrose (D50w Syringe) 25 ml Q15M PRN IV Till BS 80 mg/dL or above x2 Last administered on 12/23/16 09:26; Admin Dose 25 ML; Start 12/20/16 at 11:30 Dextrose (D50w Syringe) 50 ml Q15M PRN IV Till BS 80 mg/dL or above x2; Start 12/20/16 at 11:30 Pantoprazole 40 mg 40 mg DAILY@06 IV Last administered on 12/25/16 06:10; Admin Dose 40 MG; Start 12/21/16 at 06:00 Imipenem/ Cilastatin Sodium 100 ml @ 166.667 mls/hr Q6 IVPB Last administered on 12/25/16 06:16; Admin Dose 166.667 MLS/HR; Start 12/20/16 at 18:00 Levetiracetam 500 mg/Sodium Chloride 105 ml @ 420 mls/hr Q12 IVPB Last administered on 12/25/16 08:33; Admin Dose 420 MLS/HR; Start 12/21/16 at 21:00 Propofol 100 ml @ 1.74 mls/hr Q12H IV Last administered on 12/21/16 12:30; Admin Dose 1.74 MLS/HR; Start 12/21/16 at 12:30 Doxycycline Hyclate 100 mg/ Sodium Chloride 250 ml @ 250 mls/hr Q12 IVPB Last administered on 12/25/16 08:33; Admin Dose 250 MLS/HR; Start 12/22/16 at 21:00 Fluconazole/ Sodium Chloride (Diflucan 100 Mg/ NS (Pmx)) 50 ml @ 50 mls/hr Q24H IVPB Last administered on 12/24/16 15:36; Admin Dose 50 MLS/HR; Start at 15:00 Insulin Aspart NOVOLOG *MILD* ALGORI... Q4 SC ; Start 12/23/16 at 17:00 Potassium Chloride/Dextrose/ Sod Cl 1,000 ml @ 50 mls/hr Q20H IV Last administered on 12/25/16 08:32; Admin Dose 50 MLS/HR; Start 12/24/16 at 12:00 Potassium Chloride (KCl 40 MEQ/250 ML NS) 250 ml @ 62.5 mls/hr Q4H IVPB Last administered on 12/25/16 08:33; Admin Dose 62.5 MLS/HR; Start 12/25/16 at 07:00 ; Stop 12/25/16 at 14:59 ALISE ESTRADA Dec 25, 2016 09:13
[2016-12-25] MEDS ORDERED: POTASSIUM CHLORIDE 250 ML IVPB ONE (09:30)
[2016-12-25 10:11] LABS: ANISOCYTOSIS 1+
--- NOTE | 2016-12-25 10:19 | CONS ---
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 Salgado consulted Gi ppx - pepcid IV DVT ppx - scds Problems: Consultation Date/Type/Reason Admit Date/Time Dec 16, 2016 at 15:45 Initial Consult Date 12/21/16 Referring Provider: CAROL MICHELLE 24 HR Interval Summary Free Text/Dictation Patient condition remains extremely critical. Requiring high-dose combination of Hernán-Synephrine and Levophed drips at maxed out doses for blood pressure maintenance. Due to underlying severe anoxic brain injury, patient is unresponsive. Which is her underlying mental status. Currently maintained on BiPAP. Exam/Review of Systems Vital Signs Vitals Vital Signs Date Time Temp Pulse Resp B/P Pulse Ox O2 Delivery O2 Flow Rate FiO2 12/25/16 09:30 97 26 129/67 95 12/25/16 09:00 Mechanical Ventilator Nasal Cannula 12/25/16 08:00 98.6 12/25/16 08:00 45 Intake and Output 12/24/16 12/24/16 12/25/16 15:00 23:00 07:00 Intake Total 320 ml 805 ml Output Total 1335 ml 1670 ml 1130 ml Balance -1335 ml -1350 ml -325 ml Exam Gen Marlo: intubated, sedated HEENT: NC/AT, PERRLA NECK: supple, no thyromegaly THORAX: symmetrical, no obvious deformities CV: S1S2, RRR, no M/G/R Lungs: + mild crackles at bases Abd: soft, NT/ND, +BS, no rebound, no guarding, neg HSM, PEG site leaking EXT: no edema, no ecchymosis, no clubbing, FROM, contractures Neuro: stares, grossly intact Skin: scattered ecchymoses Results Result Diagram: 12/25/16 0510 12/25/16 0510 Results 24 hrs Laboratory Tests Test 12/24/16 12:26 12/24/16 15:58 12/24/16 16:00 12/24/16 20:56 Bedside Glucose 85 119 131 Lactic Acid Level 5.0 *H Test 12/25/16 01:22 12/25/16 05:00 12/25/16 05:10 12/25/16 09:00 Bedside Glucose 104 120 Lactic Acid Level 5.8 *H Alanine Aminotransferase (ALT/SGPT) 84 H Albumin 3.1 L Alkaline Phosphatase 186 H Anion Gap 22 H Anisocytosis 1+ Aspartate Amino Transf (AST/SGOT) 64 H Basophils # 0.0 Basophils % 1.0 Blood Morphology Comment Blood Urea Nitrogen 12 Calcium Level 10.3 H Carbon Dioxide Level 15 L Chloride Level 111 H Creatinine 0.36 L Direct Bilirubin 6.80 H Eosinophils # Pending Eosinophils % Pending Glucose Level 105 Hematocrit 26.8 L Hemoglobin 9.7 L Indirect Bilirubin 1.5 H Lymphocytes # 0.5 L Lymphocytes % 12.0 L Mean Corpuscular Hemoglobin 31.9 Mean Corpuscular Hemoglobin Concent 36.1 Mean Corpuscular Volume 88.5 Mean Platelet Volume 7.3 L Monocytes # Pending Monocytes % Pending Neutrophils # 2.7 Neutrophils % 68.0 Nucleated Red Blood Cells # 0.0 Nucleated Red Blood Cells % 0.0 Platelet Count 39 #L Potassium Level 2.9 *L Red Blood Count 3.03 L Red Cell Distribution Width 17.9 H Sodium Level 145 H Total Bilirubin 8.3 H Total Protein 4.8 L White Blood Count 4.0 #L Medications Medications Current Medications Ondansetron HCl (Zofran Inj) 4 mg Q6H PRN IV NAUSEA AND/OR VOMITING; Start 10/20 at 17:00 Acetaminophen (Tylenol Supp) 650 mg Q4H PRN [place] PAIN LEVEL 1-3 OR FEVER; Start 12/16/16 at 17:00 Lorazepam (Ativan) 1 mg Q2H PRN IV ANXIETY Last administered on 12/25/16 05:03 ; Admin Dose 1 MG; Start 12/16/16 at 17:00 Famotidine 20 mg 20 mg Q12 IV Last administered on 12/20/16 08:03; Admin Dose 20 MG; Start 12/16/16 at 21:00; Status Future Hold Norepinephrine/ Dextrose (Levophed/D5W) 500 ml @ 0 mls/hr TITRATE IV Last administered on 12/22/16 12:20; Admin Dose 22.5 MLS/HR; Start 12/17/16 at 00:00 Amiodarone HCl (Cordarone) 200 mg BID NGT Last administered on 12/25/16 08:32 ; Admin Dose 200 MG; Start 12/17/16 at 21:00 IV Flush 10 ml 10 ml PRN PRN IV IV PROTOCOL; Start 12/17/16 at 12:30 Phenylephrine HCl/ Dextrose (Hernná-Synephrine/ D5W) 500 ml @ 75 mls/hr TITRATE IV Last administered on 12/21/16 21:07; Admin Dose 18.75 MLS/HR; Start at 08:30 Miscellaneous Information 1 ea NOTE XX ; Start 12/18/16 at 13:00 Glucose (Glutose) 15 gm Q15M PRN PO DECREASED GLUCOSE; Start 12/18/16 at 13:00 Glucose (Glutose) 22.5 gm Q15M PRN PO DECREASED GLUCOSE; Start 12/18/16 at 13: 00 Glucagon (Glucagen) 1 mg Q15M PRN IM DECREASED GLUCOSE; Start 12/18/16 at 13:00 Glucose (Glutose) 15 gm Q15M PRN BUCCAL DECREASED GLUCOSE; Start 12/18/16 at 13 :00 Dexamethasone (Decadron) 4 mg DAILY IV Last administered on 12/25/16 08:33; Admin Dose 4 MG; Start 12/19/16 at 13:30 Dextrose (D50w Syringe) 25 ml Q15M PRN IV Till BS 80 mg/dL or above x2 Last administered on 12/23/16 09:26; Admin Dose 25 ML; Start 12/20/16 at 11:30 Dextrose (D50w Syringe) 50 ml Q15M PRN IV Till BS 80 mg/dL or above x2; Start 12/20/16 at 11:30 Pantoprazole 40 mg 40 mg DAILY@06 IV Last administered on 12/25/16 06:10; Admin Dose 40 MG; Start 12/21/16 at 06:00 Imipenem/ Cilastatin Sodium 100 ml @ 166.667 mls/hr Q6 IVPB Last administered on 12/25/16 06:16; Admin Dose 166.667 MLS/HR; Start 12/20/16 at 18:00 Levetiracetam 500 mg/Sodium Chloride 105 ml @ 420 mls/hr Q12 IVPB Last administered on 12/25/16 08:33; Admin Dose 420 MLS/HR; Start 12/21/16 at 21:00 Propofol 100 ml @ 1.74 mls/hr Q12H IV Last administered on 12/21/16 12:30; Admin Dose 1.74 MLS/HR; Start 12/21/16 at 12:30 Doxycycline Hyclate 100 mg/ Sodium Chloride 250 ml @ 250 mls/hr Q12 IVPB Last administered on 12/25/16 08:33; Admin Dose 250 MLS/HR; Start 12/22/16 at 21:00 Fluconazole/ Sodium Chloride (Diflucan 100 Mg/ NS (Pmx)) 50 ml @ 50 mls/hr Q24H IVPB Last administered on 12/24/16 15:36; Admin Dose 50 MLS/HR; Start at 15:00 Insulin Aspart NOVOLOG *MILD* ALGORI... Q4 SC ; Start 12/23/16 at 17:00 Potassium Chloride/Dextrose/ Sod Cl 1,000 ml @ 50 mls/hr Q20H IV Last administered on 12/25/16 08:32; Admin Dose 50 MLS/HR; Start 12/24/16 at 12:00 Potassium Chloride 250 ml @ 62.5 mls/hr Q4H IVPB Last administered on 08:33; Admin Dose 62.5 MLS/HR; Start 12/25/16 at 07:00; Stop 12/25/16 at 14 :59 Potassium Chloride (KCl 40 MEQ/250 ML NS) 250 ml @ 62.5 mls/hr ONCE ONCE IVPB ; Start 12/25/16 at 09:30; Stop 12/25/16 at 13:29 MAYA MIKE MD Dec 25, 2016 10:19
[2016-12-25 10:45] LABS: LYMPHOCYTES # 0.5 10^3/ul (0.8-2.9); MYELOCYTES # 0.1; NEUTROPHIL # 2.7 10^3/ul (1.6-7.5)
[2016-12-25] MEDS ORDERED: TOBRAMYCIN IV PER PHARMACY XX SCH (11:30)
--- NOTE | 2016-12-25 12:18 | PN ---
DATE: 12/25/2016 SUBJECTIVE: No events overnight. The patient is lying comfortably in bed. She is off pressors. S he opens eyes, but does not follow commands. VITAL SIGNS: Temperature 98.6, pulse 97, respirations 26, blood pressure 129/67, saturation 95% on vent. WBC 4, H and H 9.7 and 26.8, platelets 39, bands 12, lymphs 12. Sodium 145, potassium 2.9, B UN 12, creatinine 0.36. Lactic acid 5.8. MICROBIOLOGY: Blood cultures since admission remain negative. [facility] Procalcitonin level in process. INDWELLINGS: Endotracheal tube, PEG, Singer, PICC line placed on 12/17/2016. ANTIMICROBIALS: The patient is on: 1. Doxycycline 2. Fluconazole. 3. Imipenem. PHYSICAL EXAMINATION: GENERAL: This is a chronically ill-appearing, elderly woman who is lying comfortably in bed. HEENT: Head atraumatic, normocephalic. Sclerae anicteric. Buccal mucosa dry. NECK: Supple, trachea midline. CHEST: Rise symmetrical. Breath sounds with bilateral scattered crackles. HEART: S1, S2. ABDOMEN: Obese, soft. Bowel tones hypoactive. EXTREMITIES: Bilateral edema. SKIN: With anasarca. ASSESSMENT: 1. Severe sepsis with septic shock and persistent lactic acidosis, off pressors. 2. Healthcare-associated pneumonia. 3. Urinary tract infection per urinalysis. 4. Acute respiratory failure. 5. Anemia with thrombocytopenia. 6. History of glioblastoma with brain abscess, status post craniotomy. 7. Severe anasarca. PLAN: The patient remains unchanged. Stable off pressors. She is being followed by multiple consu ltants. Pending urine culture and procalcitonin level. We are going to repeat blood cultures today , given persistent lactic acidosis. Dictated By: MERISSA DUTTA BANK NOTE DESIGNER for [facility] Conf#: [id number] DID#: [id number]
[2016-12-25] MEDS: AMIODARONE 900 MG in DEXTROSE 5% 482 ML IV SCH ×2 (12:52→19:37)
[2016-12-25] MEDS ORDERED: DILTIAZEM 25 MG INJ IV ONE (13:00)
[2016-12-25] MEDS ORDERED: TOBRAMYCIN 300 MG in SOD CHLORIDE 0.9% 100 ML IVPB SCH (14:00)
[2016-12-25 15:25] LABS: AADO2 Arterial 226.7 mmHg (7.0-24.0); Allen Test ACCEPTAB; Arterial Base Excess -10.1 mmol/L (-3.0-3); Arterial COHb 0.3 % (0.0-3.0); Arterial Fraction of Oxyhgb 92.2 % (93.0-99.0); Arterial HCO3 13.1 mmol/L (22.0-26.0); Arterial MetHb 0.5 % (0.0-1.5); Arterial Total Hemglobin 11.8 g/dl (12.0-18.0); MODE VENT - AC
[2016-12-25] MEDS: FLUCONAZOLE 100 MG/NS (PMX) 50 ML IVPB SCH (15:34)
[2016-12-26] VITALS (103 sets, daily range): BP systolic 71–132; BP diastolic 23–119; PULSE 79–125; RESP 18–37
[2016-12-26] MEDS ORDERED: [UNRECOGNIZED DRUG - REMARK] XX ONE
[2016-12-26] MEDS: PROPOFOL 100 ML IV SCH ×3 (00:30→21:54)
[2016-12-26] MEDS: IMIPENEM-CILAST 500MG IV (PMX) 100 ML IVPB SCH ×5 (00:48→23:59)
[2016-12-26] MEDS: INSULIN ASPART [NOVOLOG] 3 ML PEN SC SCH ×6 (00:52→21:53)
[2016-12-26] MEDS: LORAZEPAM 2 MG INJ IV PRN ×2 (01:35→04:21)
[2016-12-26] MEDS ORDERED: ALBUTEROL 0.5% (NEB) 2.5 MG/0.5 ML AMP HHN SCH (02:00)
[2016-12-26] MEDS ORDERED: IPRATROPIUM (NEB) 0.5 MG/2.5 ML AMP HHN SCH (02:00)
[2016-12-26] MEDS: D5W-0.45 NACL + KCL 40 MEQ 1,000 ML IV SCH ×2 (04:00→13:20)
[2016-12-26 06:27] LABS: INR 2.61; PROTIME 28.3 Sec (12.2-14.2); PT RATIO 2.2
[2016-12-26 06:28] LABS: ALBUMIN 2.3 g/dl (3.3-4.9); PARTIAL THROMBOPLASTIN TIME 47.9 Sec (25.0-35.0); POTASSIUM 4.6 mmol/L (3.5-5.1)
[2016-12-26 06:30] LABS: CREATININE 0.36 mg/dl (0.44-1.00)
[2016-12-26 06:31] LABS: ALBUMIN/GLOBULIN RATIO 1.09; BILIRUBIN,DIRECT 8.3 mg/dl (0.00-0.20); BILIRUBIN,INDIRECT 1.5 mg/dl (0-1.1); BILIRUBIN,TOTAL 9.8 mg/dl (0.2-1.3); CALCIUM 9.9 mg/dl (8.4-10.2); TOTAL PROTEIN 4.4 g/dl (6.1-8.1)
[2016-12-26 06:32] LABS: MAGNESIUM 1.1 mg/dl (1.7-2.5)
[2016-12-26] MEDS: PANTOPRAZOLE 40 MG INJ IV SCH (06:36)
[2016-12-26 08:14] LABS: HEMATOCRIT 30.8 % (37.0-47.0); HEMOGLOBIN 10.5 g/dl (12.0-16.0); RED BLOOD COUNT 3.42 10^6/ul (4.20-5.40); WHITE BLOOD COUNT 10.9 10^3/ul (4.8-10.8)
[2016-12-26 08:15] LABS: MEAN CORPUSCULAR HEMOGLOBIN 30.7 pg (29.0-33.0); MEAN CORPUSCULAR HGB CONC 34.1 g/dl (32.0-37.0); MEAN CORPUSCULAR VOLUME 90.1 fl (82.0-101.0); RED CELL DISTRIBUTION WIDTH 18.9 % (11.5-14.5)
[2016-12-26 08:20] LABS: PLATELET COUNT 12 10^3/UL (140-440)
--- NOTE | 2016-12-26 08:21 | CONS ---
Date/Time of Note Date/Time of Note DATE: 12/26/16 TIME: 08:16 Assessment/Plan Assessment/Plan Additional Assessment/Plan Ventilator settings; AC of 20, tidal volume 500, PEEP of 5, 60% FiO2. Assessment and recommendations; 1. Patient with respiratory failure due to bilateral pneumonia. 2. History of glioblastoma with multiple craniotomies in the past. Patient has maintained extremely poor mental status throughout her stay at [facility]. 3. Shock liver with severe hyperbilirubinemia. 4. History of cardiac arrhythmia. 5. Hypotension requiring pressor support. 6. Hypoxemia. Continue current supportive care. Switch propofol to Versed. Also had fentanyl drip for pain management. Overall prognosis remains extremely poor. Consultation Date/Type/Reason Admit Date/Time Dec 16, 2016 at 15:45 Initial Consult Date Patient condition remains extremely critical. Requiring high-dose combination of Hernán-Synephrine and Levophed drips at maxed out doses for blood pressure maintenance. Due to underlying severe anoxic brain injury, patient is unresponsive. Which is her underlying mental status. Currently maintained on BiPAP. General examination; elderly lady, on BiPAP, unresponsive. Type of Consultation: Pulmonary/critical care Referring Provider: CAROL MICHELLE 24 HR Interval Summary Free Text/Dictation Patient's condition remains critical. Still requiring full ventilator support at high FiO2. Also requiring pressor support with Levophed for hypotension. Patient remains essentially unresponsive on account of anoxic brain injury. General examination; elderly lady, orally intubated. Remains unresponsive. Exam/Review of Systems Vital Signs Vitals Vital Signs Date Time Temp Pulse Resp B/P Pulse Ox O2 Delivery O2 Flow Rate FiO2 12/26/16 07:00 104 27 75/42 96 12/26/16 05:39 60 12/26/16 04:15 Mechanical Ventilator 12/26/16 04:00 97.9 Intake and Output 12/25/16 12/25/16 12/26/16 15:00 23:00 07:00 Intake Total 0 ml 0 ml Output Total 1450 ml 305 ml 390 ml Balance -1450 ml -305 ml -390 ml Exam HEENT examination; supple neck, or intubated. Vertebral craniotomy scars are present. Pupils are small bilaterally. Patient is deeply icteric. No neck masses. No thyromegaly. Chest examination; diminished breath sounds bilaterally. S1-S2 audible, no murmurs. Regular rhythm. Abdomen examination; soft, protuberant. G-tube in place with the bag attached at the prior J-tube site and there is some leakage around the tube site. Bowel sounds are sluggish. Extremity examination; trace peripheral edema. There are multiple ecchymosis involving all 4 extremities. More pronounced in the right upper extremity. DIRECTOR OF COUNSELING examination; patient is sedated. Results Result Diagram: 12/25/16 0510 12/26/16 0540 Results 24 hrs Laboratory Tests Test 12/25/16 09:00 12/25/16 11:15 12/25/16 13:08 12/25/16 14:58 Bedside Glucose 120 148 Lactic Acid Level 5.2 *H Arterial Blood HCO3 13.1 L Arterial Blood Base Excess -10.1 L Arterial Blood Oxygen Saturation 92.9 L Rony Test ACCEPTAB Arterial Blood Gas Puncture Site Right Radial Arterial Blood Carboxyhemoglobin 0.3 Arterial Blood Date Drawn 12/25/2016 3:20:44 PM Arterial Blood Methemoglobin 0.5 Arterial Blood pCO2 (Temp correct) 22.4 L Arterial Blood pH (Temp corrected) 7.385 Arterial Blood pO2 (Temp corrected) 68.7 L Blood Gas A-a O2 Differential 226.7 H Blood Gas Actual Respiration Rate 30 Blood Gas Low PEEP Setting 5.0 Blood Gas Modality VENT - AC Blood Gas Notified Time 12/25/2016 3:25:23 PM Blood Gas Notified Whom JLD Blood Gas Respiration Rate 20.0 Blood Gas Specimen Source Blood arterial Blood Gas Temperature 37.0 Blood Gas Tidal Volume 500.0 FiO2 45.0 Oxyhemoglobin Percent 92.2 L Total Hemoglobin 11.8 L Test 12/25/16 17:32 12/25/16 18:40 12/25/16 20:56 12/26/16 00:04 Bedside Glucose 156 169 Potassium Level 4.5 Random Tobramycin Level 8.4 Test 12/26/16 00:47 12/26/16 05:40 Bedside Glucose 151 Activated Partial Thromboplast Time 47.9 H Alanine Aminotransferase (ALT/SGPT) 71 H Albumin 2.3 L Albumin/Globulin Ratio 1.09 Alkaline Phosphatase 189 H Anion Gap 27 H Aspartate Amino Transf (AST/SGOT) 59 H Blood Urea Nitrogen 12 Calcium Level 9.9 Carbon Dioxide Level 12 L Chloride Level 112 H Creatinine 0.36 L Direct Bilirubin 8.30 H Globulin 2.10 Glucose Level 135 INR International Normalized Ratio 2.61 Indirect Bilirubin 1.5 H Magnesium Level 1.1 L Potassium Level 4.6 Prothrombin Time 28.3 #H Prothrombin Time Ratio 2.2 Sodium Level 146 H Total Bilirubin 9.8 H Total Protein 4.4 L Medications Medications Current Medications Ondansetron HCl (Zofran Inj) 4 mg Q6H PRN IV NAUSEA AND/OR VOMITING; Start 10/20 at 17:00 Acetaminophen (Tylenol Supp) [address] PAIN LEVEL 1-3 OR FEVER; Start 12/16/16 at 17:00 Lorazepam (Ativan) 1 mg Q2H PRN IV ANXIETY Last administered on 12/26/16 04:21 ; Admin Dose 1 MG; Start 12/16/16 at 17:00 Famotidine 20 mg 20 mg Q12 IV Last administered on 12/20/16 08:03; Admin Dose 20 MG; Start 12/16/16 at 21:00; Status Future Hold Norepinephrine/ Dextrose (Levophed/D5W) 500 ml @ 0 mls/hr TITRATE IV Last administered on 12/25/16 13:25; Admin Dose 9.37 MLS/HR; Start 12/17/16 at 00:00 Amiodarone HCl (Cordarone) 200 mg BID NGT Last administered on 12/25/16 08:32 ; Admin Dose 200 MG; Start 12/17/16 at 21:00 IV Flush 10 ml 10 ml PRN PRN IV IV PROTOCOL; Start 12/17/16 at 12:30 Phenylephrine HCl/ Dextrose (Hernán-Synephrine/ D5W) 500 ml @ 75 mls/hr TITRATE IV Last administered on 12/21/16 21:07; Admin Dose 18.75 MLS/HR; Start at 08:30 Miscellaneous Information 1 ea NOTE XX ; Start 12/18/16 at 13:00 Glucose (Glutose) 15 gm Q15M PRN PO DECREASED GLUCOSE; Start 12/18/16 at 13:00 Glucose (Glutose) 22.5 gm Q15M PRN PO DECREASED GLUCOSE; Start 12/18/16 at 13: 00 Glucagon (Glucagen) 1 mg Q15M PRN IM DECREASED GLUCOSE; Start 12/18/16 at 13:00 Glucose (Glutose) 15 gm Q15M PRN BUCCAL DECREASED GLUCOSE; Start 12/18/16 at 13 :00 Dexamethasone (Decadron) 4 mg DAILY IV Last administered on 12/25/16 08:33; Admin Dose 4 MG; Start 12/19/16 at 13:30 Dextrose (D50w Syringe) 25 ml Q15M PRN IV Till BS 80 mg/dL or above x2 Last administered on 12/23/16 09:26; Admin Dose 25 ML; Start 12/20/16 at 11:30 Dextrose (D50w Syringe) 50 ml Q15M PRN IV Till BS 80 mg/dL or above x2; Start 12/20/16 at 11:30 Pantoprazole 40 mg 40 mg DAILY@06 IV Last administered on 12/26/16 06:36; Admin Dose 40 MG; Start 12/21/16 at 06:00 Imipenem/ Cilastatin Sodium 100 ml @ 166.667 mls/hr Q6 IVPB Last administered on 12/26/16 06:36; Admin Dose 166.667 MLS/HR; Start 12/20/16 at 18:00 Levetiracetam 500 mg/Sodium Chloride 105 ml @ 420 mls/hr Q12 IVPB Last administered on 12/25/16 20:49; Admin Dose 420 MLS/HR; Start 12/21/16 at 21:00 Propofol 100 ml @ 1.74 mls/hr Q12H IV Last administered on 12/26/16 04:21; Admin Dose 1.74 MLS/HR; Start 12/21/16 at 12:30 Doxycycline Hyclate 100 mg/ Sodium Chloride 250 ml @ 250 mls/hr Q12 IVPB Last administered on 12/25/16 20:49; Admin Dose 250 MLS/HR; Start 12/22/16 at 21:00 Fluconazole/ Sodium Chloride (Diflucan 100 Mg/ NS (Pmx)) 50 ml @ 50 mls/hr Q24H IVPB Last administered on 12/25/16 15:34; Admin Dose 50 MLS/HR; Start at 15:00 Insulin Aspart NOVOLOG *MILD* ALGORI... Q4 SC Last administered on 12/26/16 00 :52; Admin Dose 1 UNIT; Start 12/23/16 at 17:00 Potassium Chloride/Dextrose/ Sod Cl (D5-1/2ns + KCl 40 Meq) 1,000 ml @ 50 mls/ hr Q20H IV Last administered on 12/25/16 08:32; Admin Dose 50 MLS/HR; Start at 12:00 Tobramycin TOBRAMYCIN PER PHARMACY NOTE XX ; Start 12/25/16 at 11:30 Amiodarone HCl 900 mg/Dextrose 500 ml @ 0 mls/hr Q0M IV Last administered on 19:37; Admin Dose 16.63 MLS/HR; Start 12/25/16 at 13:00; Stop 12/26/16 at 12:59 Tobramycin/Sodium Chloride (Tobramycin/NS) 107.5 ml @ 103.75 mls/ hr Q48H IVPB ; Start 12/27/16 at 14:00 ALISE ESTRADA Dec 26, 2016 08:21
[2016-12-26] MEDS: IPRATROPIUM (HFA) 12.9 GM INHALER INH SCH ×3 (08:36→20:43)
[2016-12-26] MEDS: ALBUTEROL HFA 8 GM INHALER INH SCH ×3 (08:37→20:43)
[2016-12-26] MEDS: AMIODARONE 200 MG TAB NGT SCH ×2 (09:00→21:33)
[2016-12-26] MEDS: DOXYCYCLINE 100 MG in SOD CHLORIDE 0.9% 250 ML IVPB SCH ×2 (09:00→21:33)
[2016-12-26 09:36] LABS: LYMPHOCYTES # 0.4 10^3/ul (0.8-2.9); MONOCYTE # 0.2 10^3/ul (0.3-0.9); MYELOCYTES # 1.1; NEUTROPHIL # 3.8 10^3/ul (1.6-7.5); PLATELET ESTIMATE PLT APPEAR DECREASED
[2016-12-26] MEDS: DEXAMETHASONE 4 MG/ML 1 ML INJ IV SCH (09:58)
[2016-12-26] MEDS: LEVETIRACETAM IV 500 MG in SOD CHLORIDE 0.9% 100 ML IVPB SCH ×2 (10:00→21:30)
--- NOTE | 2016-12-26 11:05 | CONS ---
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 Salgado consulted Gi ppx - pepcid IV DVT ppx - scds Problems: Consultation Date/Type/Reason Admit Date/Time Dec 16, 2016 at 15:45 Initial Consult Date 12/21/16 Type of Consultation: hemeon Referring Provider: CAROL MICHELLE 24 HR Interval Summary Free Text/Dictation Patient condition remains extremely critical. Requiring high-dose combination of Hernán-Synephrine and Levophed drips at maxed out doses for blood pressure maintenance. Due to underlying severe anoxic brain injury, patient is unresponsive. Which is her underlying mental status. Currently maintained on BiPAP. Exam/Review of Systems Vital Signs Vitals Vital Signs Date Time Temp Pulse Resp B/P Pulse Ox O2 Delivery O2 Flow Rate FiO2 12/26/16 08:40 105 30 97 60 12/26/16 07:00 75/42 12/26/16 04:15 Mechanical Ventilator 12/26/16 04:00 97.9 Intake and Output 12/25/16 12/25/16 12/26/16 15:00 23:00 07:00 Intake Total 544.44 ml 749.28 ml Output Total 1450 ml 305 ml 390 ml Balance -1450 ml 239.44 ml 359.28 ml Exam Gen Marlo: intubated, sedated HEENT: NC/AT, PERRLA NECK: supple, no thyromegaly THORAX: symmetrical, no obvious deformities CV: S1S2, RRR, no M/G/R Lungs: + mild crackles at bases Abd: soft, NT/ND, +BS, no rebound, no guarding, neg HSM, PEG site leaking EXT: no edema, no ecchymosis, no clubbing, FROM, contractures Neuro: stares, grossly intact Skin: scattered ecchymoses Results Result Diagram: 12/26/16 0540 12/26/16 0540 Results 24 hrs Laboratory Tests Test 12/25/16 11:15 12/25/16 13:08 12/25/16 14:58 12/25/16 17:32 Lactic Acid Level 5.2 *H Bedside Glucose 148 156 Arterial Blood HCO3 13.1 L Arterial Blood Base Excess -10.1 L Arterial Blood Oxygen Saturation 92.9 L Rony Test ACCEPTAB Arterial Blood Gas Puncture Site Right Radial Arterial Blood Carboxyhemoglobin 0.3 Arterial Blood Date Drawn 12/25/2016 3:20:44 PM Arterial Blood Methemoglobin 0.5 Arterial Blood pCO2 (Temp correct) 22.4 L Arterial Blood pH (Temp corrected) 7.385 Arterial Blood pO2 (Temp corrected) 68.7 L Blood Gas A-a O2 Differential 226.7 H Blood Gas Actual Respiration Rate 30 Blood Gas Low PEEP Setting 5.0 Blood Gas Modality VENT - AC Blood Gas Notified Time 12/25/2016 3:25:23 PM Blood Gas Notified Whom JLD Blood Gas Respiration Rate 20.0 Blood Gas Specimen Source Blood arterial Blood Gas Temperature 37.0 Blood Gas Tidal Volume 500.0 FiO2 45.0 Oxyhemoglobin Percent 92.2 L Total Hemoglobin 11.8 L Test 12/25/16 18:40 12/25/16 20:56 12/26/16 00:04 12/26/16 00:47 Potassium Level 4.5 Bedside Glucose 169 151 Random Tobramycin Level 8.4 Test 12/26/16 05:40 12/26/16 10:06 Activated Partial Thromboplast Time 47.9 H Alanine Aminotransferase (ALT/SGPT) 71 H Albumin 2.3 L Albumin/Globulin Ratio 1.09 Alkaline Phosphatase 189 H Anion Gap 27 H Aspartate Amino Transf (AST/SGOT) 59 H Band Neutrophils % 27.0 H Basophils # Basophils % Blood Urea Nitrogen 12 Calcium Level 9.9 Carbon Dioxide Level 12 L Chloride Level 112 H Creatinine 0.36 L Direct Bilirubin 8.30 H Eosinophils # Eosinophils % Globulin 2.10 Glucose Level 135 Hematocrit 30.8 L Hemoglobin 10.5 L INR International Normalized Ratio 2.61 Indirect Bilirubin 1.5 H Lymphocytes # 0.4 L Lymphocytes % 4.0 L Magnesium Level 1.1 L Mean Corpuscular Hemoglobin 30.7 Mean Corpuscular Hemoglobin Concent 34.1 Mean Corpuscular Volume 90.1 Mean Platelet Volume 9.0 # Metamyelocytes # 2.1 Metamyelocytes % 19.0 H Monocytes # 0.2 L Monocytes % 2.0 Myelocytes # 1.1 Myelocytes % 10.0 H Neutrophils # 3.8 Neutrophils % 35.0 L Nucleated Red Blood Cells # Nucleated Red Blood Cells % Platelet Count 12 #*L Platelet Estimate PLT APPEAR DECREASED Potassium Level 4.6 Promyelocytes # 0.3 Promyelocytes % 3.0 H Prothrombin Time 28.3 #H Prothrombin Time Ratio 2.2 Red Blood Count 3.42 L Red Cell Distribution Width 18.9 H Sodium Level 146 H Total Bilirubin 9.8 H Total Protein 4.4 L White Blood Count 10.9 #H Bedside Glucose 158 Medications Medications Current Medications Ondansetron HCl (Zofran Inj) 4 mg Q6H PRN IV NAUSEA AND/OR VOMITING; Start 10/20 at 17:00 Acetaminophen (Tylenol Supp) 650 mg Q4H PRN [place] PAIN LEVEL 1-3 OR FEVER; Start 12/16/16 at 17:00 Lorazepam (Ativan) 1 mg Q2H PRN IV ANXIETY Last administered on 12/26/16 04:21 ; Admin Dose 1 MG; Start 12/16/16 at 17:00 Famotidine 20 mg 20 mg Q12 IV Last administered on 12/20/16 08:03; Admin Dose 20 MG; Start 12/16/16 at 21:00; Status Future Hold Norepinephrine/ Dextrose (Levophed/D5W) 500 ml @ 0 mls/hr TITRATE IV Last administered on 12/25/16 13:25; Admin Dose 9.37 MLS/HR; Start 12/17/16 at 00:00 Amiodarone HCl (Cordarone) 200 mg BID NGT Last administered on 12/25/16 08:32 ; Admin Dose 200 MG; Start 12/17/16 at 21:00 IV Flush 10 ml 10 ml PRN PRN IV IV PROTOCOL; Start 12/17/16 at 12:30 Phenylephrine HCl/ Dextrose (Hernán-Synephrine/ D5W) 500 ml @ 75 mls/hr TITRATE IV Last administered on 12/21/16 21:07; Admin Dose 18.75 MLS/HR; Start at 08:30 Miscellaneous Information 1 ea NOTE XX ; Start 12/18/16 at 13:00 Glucose (Glutose) 15 gm Q15M PRN PO DECREASED GLUCOSE; Start 12/18/16 at 13:00 Glucose (Glutose) 22.5 gm Q15M PRN PO DECREASED GLUCOSE; Start 12/18/16 at 13: 00 Glucagon (Glucagen) 1 mg Q15M PRN IM DECREASED GLUCOSE; Start 12/18/16 at 13:00 Glucose (Glutose) 15 gm Q15M PRN BUCCAL DECREASED GLUCOSE; Start 12/18/16 at 13 :00 Dexamethasone (Decadron) 4 mg DAILY IV Last administered on 12/26/16 09:58; Admin Dose 4 MG; Start 12/19/16 at 13:30 Dextrose (D50w Syringe) 25 ml Q15M PRN IV Till BS 80 mg/dL or above x2 Last administered on 12/23/16 09:26; Admin Dose 25 ML; Start 12/20/16 at 11:30 Dextrose (D50w Syringe) 50 ml Q15M PRN IV Till BS 80 mg/dL or above x2; Start 12/20/16 at 11:30 Pantoprazole 40 mg 40 mg DAILY@06 IV Last administered on 12/26/16 06:36; Admin Dose 40 MG; Start 12/21/16 at 06:00 Imipenem/ Cilastatin Sodium 100 ml @ 166.667 mls/hr Q6 IVPB Last administered on 12/26/16 06:36; Admin Dose 166.667 MLS/HR; Start 12/20/16 at 18:00 Levetiracetam 500 mg/Sodium Chloride 105 ml @ 420 mls/hr Q12 IVPB Last administered on 12/26/16 10:00; Admin Dose 420 MLS/HR; Start 12/21/16 at 21:00 Propofol 100 ml @ 1.74 mls/hr Q12H IV Last administered on 12/26/16 04:21; Admin Dose 1.74 MLS/HR; Start 12/21/16 at 12:30 Doxycycline Hyclate 100 mg/ Sodium Chloride 250 ml @ 250 mls/hr Q12 IVPB Last administered on 12/26/16 09:00; Admin Dose 250 MLS/HR; Start 12/22/16 at 21:00 Fluconazole/ Sodium Chloride (Diflucan 100 Mg/ NS (Pmx)) 50 ml @ 50 mls/hr Q24H IVPB Last administered on 12/25/16 15:34; Admin Dose 50 MLS/HR; Start at 15:00 Insulin Aspart NOVOLOG *MILD* ALGORI... Q4 SC Last administered on 12/26/16 10 :09; Admin Dose 1 UNIT; Start 12/23/16 at 17:00 Potassium Chloride/Dextrose/ Sod Cl (D5-1/2ns + KCl 40 Meq) 1,000 ml @ 50 mls/ hr Q20H IV Last administered on 12/25/16 08:32; Admin Dose 50 MLS/HR; Start at 12:00 Tobramycin TOBRAMYCIN PER PHARMACY NOTE XX ; Start 12/25/16 at 11:30 Amiodarone HCl 900 mg/Dextrose 500 ml @ 0 mls/hr Q0M IV Last administered on 19:37; Admin Dose 16.63 MLS/HR; Start 12/25/16 at 13:00; Stop 12/26/16 at 12:59 Tobramycin/Sodium Chloride (Tobramycin/NS) 107.5 ml @ 103.75 mls/ hr Q48H IVPB ; Start 12/27/16 at 14:00 MAYA MIKE MD Dec 26, 2016 11:05
--- NOTE | 2016-12-26 13:19 | PN ---
DATE: 12/26/2016 SUBJECTIVE: No acute events overnight. The patient is lying comfortably in bed. She is nonverbal, noncommunicative, still on pressors and amiodarone drip. VITAL SIGNS: Temperature 97.9, pulse 105, respirations 30, blood pressure 75/42, saturation 97% on 60 FIO2. WBC 10.9, H and H 10.5 and 30.8, platelets 12, bands 27, lymphs 4, monos 2. BUN 12. MICROBIOLOGY: Blood cultures since December 25 negative. INDWELLINGS: Endotracheal tube, PEG, Singer, PICC line placed on December 17. ANTIMICROBIALS: The patient is on: 1. Tobramycin. 2. Doxycycline 3. Fluconazole. 4. Imipenem. PHYSICAL EXAMINATION: GENERAL: Chronically ill-appearing, elderly woman who is lying comfortably in bed. HEENT: Head atraumatic, normocephalic. Sclerae anicteric. Buccal mucosa dry. NECK: Obese. CHEST: Rise symmetrical. Breath sounds with bilateral scattered crackles. HEART: S1, S2. ABDOMEN: Soft, bowel tones present. EXTREMITIES: Bilateral edema. ASSESSMENT: 1. Severe sepsis with shock and multisystem organ failure. 2. Healthcare-associated pneumonia with sputum culture growing multidrug-resistant Pseudomonas aeru ginosa, patient was started on tobramycin. 3. Carmen glabrata urinary tract infection. 4. Persistent lactic acidosis. 5. Thrombocytopenia. 6. Anemia. 7. History of glioblastoma with brain abscess, status post craniotomy. 8. Anasarca with multiple pressure sores. 9. Transaminitis with elevated total bilirubin, gastroenterology on case. PLAN: The patient remains unchanged. She is being followed by multiple consultants. We will keep her on current antimicrobials, monitor renal function, blood products as per primary team. We will change Diflucan to Cancidas for coverage of Carmen glabrata, await for procalcitonin level. Dictated By: MERISSA DUTTA DIRECTOR for [facility]/NTS Conf#: [id number] DID#: [id number]
--- NOTE | 2016-12-26 13:47 | PN ---
Date/Time of Note Date/Time of Note DATE: 12/26/16 TIME: 13:45 Assessment/Plan VTE Prophylaxis VTE Prophylaxis Intervention: contraindicated, other (friable skin) VTE Contraindication Reason: bleeding, thrombocytopenia Lines/Catheters IV Catheter Type (from Nrs): PICC Line Central line still needed: Yes Urinary Cath still in place: Yes Reason Cath still needed: other (indicate) (terminal patient) Assessment/Plan Assessment/Plan 81 yo female with a past medical history of glioblastoma, chronic encephalopathy , brain abscess s/p craniotomy, dysphagia s/p PEG, who came from [facility] for hypotension/hypothermia, and possible aspiration pneumonitis. PROBLEMS: * Severe Sepsis with shock, bandemia and Lactic acidosis - 2/2 PNA /UTI * Multiorgan failure * Acute resp failure on full ventilator support * Husam Pneumonia - Pseudomonas * Yeast / Bacterial UTI * Leucocytosis with bandemia and thrombocytopenia 2/2 sepsis * Chronic encephalopathy with hx of the following * Glioblastoma * Hx .of brain abscess * s/p craniotomy * Resultant seizure d/o * Dysphagia 2/2 #4 s/p PEG * Afib with RVR - now in NSR * DM 2 : A1C 6.9 : Stable on SSI * Hepatic failure with * Severe anasarca * Thrombocytopenia / coagulopathy * likely ascites contributing to Tube leakage * Leakage around PEG tube with surrounding cellulitis PLAN: Continue ICU care and Support Patient remains on 2 pressors Continue IV abx and antifungals per ID / appreciate input Continue Vent mgt / appreciate pulm input Continue amiodarone for Afib Continue Keppra IV Replace electrolytes ?Start tube feeds Continue close lab monitoring and mgt Appreciate all other consults PROPHYLAXIS: IV PPI / SCDs PROGNOSIS: Extremely poor / palliative care recommends Bioethics consult. Critical care time spent on pt care today = 40 min. Subjective 24 Hr Interval Summary Subjective hx not possible: pt non-verbal, pt critical status Exam/Review of Systems Vital Signs Vitals Vital Signs Date Time Temp Pulse Resp B/P Pulse Ox O2 Delivery O2 Flow Rate FiO2 12/26/16 12:00 101 12/26/16 11:40 27 97 60 12/26/16 07:00 75/42 12/26/16 04:15 Mechanical Ventilator 12/26/16 04:00 97.9 Intake and Output 12/25/16 12/25/16 12/26/16 14:59 22:59 06:59 Intake Total 150 ml 475.94 ml 635.22 ml Output Total 1325 ml 430 ml 350 ml Balance -1175 ml 45.94 ml 285.22 ml Exam Constitutional: non-verbal, other (obese, elderly, Patient barely responsive, not following commands or tracking), Eyes open spontaneously, No oriented, No distress Psych: other (unable to assess) Head: normocephalic, atraumatic Eyes: PERRL, No icteric ENMT: Intubated No mucosa pink and moist (dry) Neck: non-tender Respiratory: diminished breath sounds, + bibasal crackles No labored breathing Cardiovascular: regular rate and rhythm, No murmurs/extra sounds Gastrointestinal: soft, non-tender, bowel sounds, other (PEG tube noted + cellulitis butb no discharge and yellow serous fluid draining from around the tube) Genitourinary - Female: nl external genitalia Extremities: Generalized anasraca and bruising with ecchymosis Neurological: lethargic, other (altered, eyes opening spontaneously but no tracking or following commands), No nl mental status, No nl speech, No nl strength Results Result Diagram: 12/26/16 0540 12/26/16 0540 Results 24 hrs Laboratory Tests Test 12/25/16 14:58 12/25/16 17:32 12/25/16 18:40 12/25/16 20:56 Arterial Blood HCO3 13.1 L Arterial Blood Base Excess -10.1 L Arterial Blood Oxygen Saturation 92.9 L Rony Test ACCEPTAB Arterial Blood Gas Puncture Site Right Radial Arterial Blood Carboxyhemoglobin 0.3 Arterial Blood Date Drawn 12/25/2016 3:20:44 PM Arterial Blood Methemoglobin 0.5 Arterial Blood pCO2 (Temp correct) 22.4 L Arterial Blood pH (Temp corrected) 7.385 Arterial Blood pO2 (Temp corrected) 68.7 L Blood Gas A-a O2 Differential 226.7 H Blood Gas Actual Respiration Rate 30 Blood Gas Low PEEP Setting 5.0 Blood Gas Modality VENT - AC Blood Gas Notified Time 12/25/2016 3:25:23 PM Blood Gas Notified Whom JLD Blood Gas Respiration Rate 20.0 Blood Gas Specimen Source Blood arterial Blood Gas Temperature 37.0 Blood Gas Tidal Volume 500.0 FiO2 45.0 Oxyhemoglobin Percent 92.2 L Total Hemoglobin 11.8 L Bedside Glucose 156 169 Potassium Level 4.5 Test 12/26/16 00:04 12/26/16 00:47 12/26/16 05:40 12/26/16 10:06 Random Tobramycin Level 8.4 Bedside Glucose 151 158 Activated Partial Thromboplast Time 47.9 H Alanine Aminotransferase (ALT/SGPT) 71 H Albumin 2.3 L Albumin/Globulin Ratio 1.09 Alkaline Phosphatase 189 H Anion Gap 27 H Aspartate Amino Transf (AST/SGOT) 59 H Band Neutrophils % 27.0 H Basophils # Basophils % Blood Urea Nitrogen 12 Calcium Level 9.9 Carbon Dioxide Level 12 L Chloride Level 112 H Creatinine 0.36 L Direct Bilirubin 8.30 H Eosinophils # Eosinophils % Globulin 2.10 Glucose Level 135 Hematocrit 30.8 L Hemoglobin 10.5 L INR International Normalized Ratio 2.61 Indirect Bilirubin 1.5 H Lymphocytes # 0.4 L Lymphocytes % 4.0 L Magnesium Level 1.1 L Mean Corpuscular Hemoglobin 30.7 Mean Corpuscular Hemoglobin Concent 34.1 Mean Corpuscular Volume 90.1 Mean Platelet Volume 9.0 # Metamyelocytes # 2.1 Metamyelocytes % 19.0 H Monocytes # 0.2 L Monocytes % 2.0 Myelocytes # 1.1 Myelocytes % 10.0 H Neutrophils # 3.8 Neutrophils % 35.0 L Nucleated Red Blood Cells # Nucleated Red Blood Cells % Platelet Count 12 #*L Platelet Estimate PLT APPEAR DECREASED Potassium Level 4.6 Promyelocytes # 0.3 Promyelocytes % 3.0 H Prothrombin Time 28.3 #H Prothrombin Time Ratio 2.2 Red Blood Count 3.42 L Red Cell Distribution Width 18.9 H Sodium Level 146 H Total Bilirubin 9.8 H Total Protein 4.4 L White Blood Count 10.9 #H Test 12/26/16 13:32 Bedside Glucose 137 Medications Medications Current Medications Ondansetron HCl (Zofran Inj) 4 mg Q6H PRN IV NAUSEA AND/OR VOMITING; Start 10/20 at 17:00 Acetaminophen (Tylenol Supp) 650 mg Q4H PRN [place] PAIN LEVEL 1-3 OR FEVER; Start 12/16/16 at 17:00 Lorazepam (Ativan) 1 mg Q2H PRN IV ANXIETY Last administered on 12/26/16t 04:21 ; Admin Dose 1 MG; Start 12/16/16 at 17:00 Famotidine 20 mg 20 mg Q12 IV Last administered on 12/20/16 08:03; Admin Dose 20 MG; Start 12/16/16 at 21:00; Status Future Hold Norepinephrine/ Dextrose (Levophed/D5W) 500 ml @ 0 mls/hr TITRATE IV Last administered on 12/25/16 13:25; Admin Dose 9.37 MLS/HR; Start 12/17/16 at 00:00 Amiodarone HCl (Cordarone) 200 mg BID NGT Last administered on 12/25/16 08:32 ; Admin Dose 200 MG; Start 12/17/16 at 21:00 IV Flush 10 ml 10 ml PRN PRN IV IV PROTOCOL; Start 12/17/16 at 12:30 Phenylephrine HCl/ Dextrose (Hernán-Synephrine/ D5W) 500 ml @ 75 mls/hr TITRATE IV Last administered on 12/21/16 21:07; Admin Dose 18.75 MLS/HR; Start at 08:30 Miscellaneous Information 1 ea NOTE XX ; Start 12/18/16 at 13:00 Glucose (Glutose) 15 gm Q15M PRN PO DECREASED GLUCOSE; Start 12/18/16 at 13:00 Glucose (Glutose) 22.5 gm Q15M PRN PO DECREASED GLUCOSE; Start 12/18/16 at 13: 00 Glucagon (Glucagen) 1 mg Q15M PRN IM DECREASED GLUCOSE; Start 12/18/16 at 13:00 Glucose (Glutose) 15 gm Q15M PRN BUCCAL DECREASED GLUCOSE; Start 12/18/16 at 13 :00 Dexamethasone (Decadron) 4 mg DAILY IV Last administered on 12/26/16 09:58; Admin Dose 4 MG; Start 12/19/16 at 13:30 Dextrose (D50w Syringe) 25 ml Q15M PRN IV Till BS 80 mg/dL or above x2 Last administered on 12/23/16 09:26; Admin Dose 25 ML; Start 12/20/16 at 11:30 Dextrose (D50w Syringe) 50 ml Q15M PRN IV Till BS 80 mg/dL or above x2; Start 12/20/16 at 11:30 Pantoprazole 40 mg 40 mg DAILY@06 IV Last administered on 12/26/16 06:36; Admin Dose 40 MG; Start 12/21/16 at 06:00 Imipenem/ Cilastatin Sodium 100 ml @ 166.667 mls/hr Q6 IVPB Last administered on 12/26/16 12:44; Admin Dose 166.667 MLS/HR; Start 12/20/16 at 18:00 Levetiracetam 500 mg/Sodium Chloride 105 ml @ 420 mls/hr Q12 IVPB Last administered on 12/26/16 10:00; Admin Dose 420 MLS/HR; Start 12/21/16 at 21:00 Propofol 100 ml @ 1.74 mls/hr Q12H IV Last administered on 12/26/16 04:21; Admin Dose 1.74 MLS/HR; Start 12/21/16 at 12:30 Doxycycline Hyclate 100 mg/ Sodium Chloride 250 ml @ 250 mls/hr Q12 IVPB Last administered on 12/26/16 09:00; Admin Dose 250 MLS/HR; Start 12/22/16 at 21:00 Fluconazole/ Sodium Chloride (Diflucan 100 Mg/ NS (Pmx)) 50 ml @ 50 mls/hr Q24H IVPB Last administered on 12/25/16 15:34; Admin Dose 50 MLS/HR; Start at 15:00 Insulin Aspart NOVOLOG *MILD* ALGORI... Q4 SC Last administered on 12/26/16 10 :09; Admin Dose 1 UNIT; Start 12/23/16 at 17:00 Potassium Chloride/Dextrose/ Sod Cl (D5-1/2ns + KCl 40 Meq) 1,000 ml @ 50 mls/ hr Q20H IV Last administered on 12/26/16 13:20; Admin Dose 50 MLS/HR; Start at 12:00 Tobramycin TOBRAMYCIN PER PHARMACY NOTE XX ; Start 12/25/16 at 11:30 Tobramycin/Sodium Chloride (Tobramycin/NS) 107.5 ml @ 103.75 mls/ hr Q48H IVPB ; Start 12/27/16 at 14:00 JOHAN LEMUS Dec 26, 2016 13:47
[2016-12-26] MEDS ORDERED: MAGNESIUM SULFATE 3 GM in SOD CHLORIDE 0.9% 100 ML IVPB ONE (16:00)
[2016-12-26] MEDS: FLUCONAZOLE 100 MG/NS (PMX) 50 ML IVPB SCH (16:25)
--- NOTE | 2016-12-26 20:06 | CONS ---
Date/Time of Note Date/Time of Note DATE: 12/26/16 TIME: 20:04 Assessment/Plan Assessment/Plan Additional Assessment/Plan Additional Assessment/Plan 1. Sepsis, most probably related to bilateral pneumonia. 2. Mild leakage from the G-tube site due to the large stoma.better after ostomy pouch 3. Status post craniotomy for glioblastoma. 4. Anemia. 5. Hyponatremia. 6. Chronic encephalopathy. 7.shock on pressor support 8. vent dependent respiratory failure 9. pancytopenia ,secondary to sepsis 10 abnormal liver function,new problem,septic hepatopathy PLAN: patient has got ostomy pouch, and after that, the leakage has completely stopped. If the condition improves, then we will start feeding her through the G-tube antibiotics as per ID monitor cbc sonogram of liver ,r/o bile duct stone Consultation Date/Type/Reason Admit Date/Time Dec 16, 2016 at 15:45 [facility] Referring Provider: CAROL MICHELLE 24 HR Interval Summary Subjective hx not possible: pt non-verbal, pt critical Exam/Review of Systems Vital Signs Vitals Vital Signs Date Time Temp Pulse Resp B/P Pulse Ox O2 Delivery O2 Flow Rate FiO2 12/26/16 19:15 100 25 113/52 95 Mechanical Ventilator 12/26/16 17:40 60 12/26/16 16:00 97.6 Intake and Output 12/25/16 12/25/16 12/26/16 15:00 23:00 07:00 Intake Total 544.44 ml 749.28 ml Output Total 1450 ml 305 ml 390 ml Balance -1450 ml 239.44 ml 359.28 ml Exam Constitutional: alert, oriented, well developed Psych: nl mood/affect, no complaints Head: atraumatic, normocephalic Eyes: EOMI, PERRL, nl conjunctiva, nl lids, nl sclera ENMT: nl external ears & nose, nl lips & teeth, nl nasal mucosa & septum Neck: non-tender, supple Respiratory: clear to auscultation, normal air movement Cardiovascular: nl pulses, regular rate and rhythm Gastrointestinal: nl liver, spleen, non-tender, soft Musculoskeletal: nl extremities to inspection, nl gait and stance Extremities: normal pulses Neurological: [employer] II-XII intact, nl mental status, nl speech, nl strength Skin: nl turgor, No rash or lesions Lymph: nl lymph nodes Results Result Diagram: 12/26/16 0540 12/26/16 0540 Results 24 hrs Laboratory Tests Test 12/25/16 20:56 12/26/16 00:04 12/26/16 00:47 12/26/16 05:40 Bedside Glucose 169 151 Random Tobramycin Level 8.4 Activated Partial Thromboplast Time 47.9 H Alanine Aminotransferase (ALT/SGPT) 71 H Albumin 2.3 L Albumin/Globulin Ratio 1.09 Alkaline Phosphatase 189 H Anion Gap 27 H Aspartate Amino Transf (AST/SGOT) 59 H Band Neutrophils % 27.0 H Basophils # Basophils % Blood Urea Nitrogen 12 Calcium Level 9.9 Carbon Dioxide Level 12 L Chloride Level 112 H Creatinine 0.36 L Direct Bilirubin 8.30 H Eosinophils # Eosinophils % Globulin 2.10 Glucose Level 135 Hematocrit 30.8 L Hemoglobin 10.5 L INR International Normalized Ratio 2.61 Indirect Bilirubin 1.5 H Lymphocytes # 0.4 L Lymphocytes % 4.0 L Magnesium Level 1.1 L Mean Corpuscular Hemoglobin 30.7 Mean Corpuscular Hemoglobin Concent 34.1 Mean Corpuscular Volume 90.1 Mean Platelet Volume 9.0 # Metamyelocytes # 2.1 Metamyelocytes % 19.0 H Monocytes # 0.2 L Monocytes % 2.0 Myelocytes # 1.1 Myelocytes % 10.0 H Neutrophils # 3.8 Neutrophils % 35.0 L Nucleated Red Blood Cells # Nucleated Red Blood Cells % Platelet Count 12 #*L Platelet Estimate PLT APPEAR DECREASED Potassium Level 4.6 Promyelocytes # 0.3 Promyelocytes % 3.0 H Prothrombin Time 28.3 #H Prothrombin Time Ratio 2.2 Red Blood Count 3.42 L Red Cell Distribution Width 18.9 H Sodium Level 146 H Total Bilirubin 9.8 H Total Protein 4.4 L White Blood Count 10.9 #H Test 12/26/16 10:06 12/26/16 13:32 12/26/16 18:47 Bedside Glucose 158 137 170 Medications Medications Current Medications Ondansetron HCl (Zofran Inj) 4 mg Q6H PRN IV NAUSEA AND/OR VOMITING; Start 10/20 at 17:00 Acetaminophen (Tylenol Supp) 650 mg Q4H PRN [place] PAIN LEVEL 1-3 OR FEVER; Start 12/16/16 at 17:00 Lorazepam (Ativan) 1 mg Q2H PRN IV ANXIETY Last administered on 12/26/16 04:21 ; Admin Dose 1 MG; Start 12/16/16 at 17:00 Famotidine 20 mg 20 mg Q12 IV Last administered on 12/20/16 08:03; Admin Dose 20 MG; Start 12/16/16 at 21:00; Status Future Hold Norepinephrine/ Dextrose (Levophed/D5W) 500 ml @ 0 mls/hr TITRATE IV Last administered on 12/25/16 13:25; Admin Dose 9.37 MLS/HR; Start 12/17/16 at 00:00 Amiodarone HCl (Cordarone) 200 mg BID NGT Last administered on 12/25/16 08:32 ; Admin Dose 200 MG; Start 12/17/16 at 21:00 IV Flush 10 ml 10 ml PRN PRN IV IV PROTOCOL; Start 12/17/16 at 12:30 Phenylephrine HCl/ Dextrose (Hernán-Synephrine/ D5W) 500 ml @ 75 mls/hr TITRATE IV Last administered on 12/21/16 21:07; Admin Dose 18.75 MLS/HR; Start at 08:30 Miscellaneous Information 1 ea NOTE XX ; Start 12/18/16 at 13:00 Glucose (Glutose) 15 gm Q15M PRN PO DECREASED GLUCOSE; Start 12/18/16 at 13:00 Glucose (Glutose) 22.5 gm Q15M PRN PO DECREASED GLUCOSE; Start 12/18/16 at 13: 00 Glucagon (Glucagen) 1 mg Q15M PRN IM DECREASED GLUCOSE; Start 12/18/16 at 13:00 Glucose (Glutose) 15 gm Q15M PRN BUCCAL DECREASED GLUCOSE; Start 12/18/16 at 13 :00 Dexamethasone (Decadron) 4 mg DAILY IV Last administered on 12/26/16 09:58; Admin Dose 4 MG; Start 12/19/16 at 13:30 Dextrose (D50w Syringe) 25 ml Q15M PRN IV Till BS 80 mg/dL or above x2 Last administered on 12/23/16 09:26; Admin Dose 25 ML; Start 12/20/16 at 11:30 Dextrose (D50w Syringe) 50 ml Q15M PRN IV Till BS 80 mg/dL or above x2; Start 12/20/16 at 11:30 Pantoprazole 40 mg 40 mg DAILY@06 IV Last administered on 12/26/16 06:36; Admin Dose 40 MG; Start 12/21/16 at 06:00 Imipenem/ Cilastatin Sodium 100 ml @ 166.667 mls/hr Q6 IVPB Last administered on 12/26/16 18:55; Admin Dose 166.667 MLS/HR; Start 12/20/16 at 18:00 Levetiracetam 500 mg/Sodium Chloride 105 ml @ 420 mls/hr Q12 IVPB Last administered on 12/26/16 10:00; Admin Dose 420 MLS/HR; Start 12/21/16 at 21:00 Propofol 100 ml @ 1.74 mls/hr Q12H IV Last administered on 12/26/16 04:21; Admin Dose 1.74 MLS/HR; Start 12/21/16 at 12:30 Doxycycline Hyclate 100 mg/ Sodium Chloride 250 ml @ 250 mls/hr Q12 IVPB Last administered on 12/26/16 09:00; Admin Dose 250 MLS/HR; Start 12/22/16 at 21:00 Fluconazole/ Sodium Chloride (Diflucan 100 Mg/ NS (Pmx)) 50 ml @ 50 mls/hr Q24H IVPB Last administered on 12/26/16 16:25; Admin Dose 50 MLS/HR; Start at 15:00 Insulin Aspart NOVOLOG *MILD* ALGORI... Q4 SC Last administered on 12/26/16 18 :50; Admin Dose 1 UNIT; Start 12/23/16 at 17:00 Potassium Chloride/Dextrose/ Sod Cl (D5-1/2ns + KCl 40 Meq) 1,000 ml @ 50 mls/ hr Q20H IV Last administered on 12/26/16 13:20; Admin Dose 50 MLS/HR; Start at 12:00 Tobramycin TOBRAMYCIN PER PHARMACY NOTE XX ; Start 12/25/16 at 11:30 Tobramycin/Sodium Chloride (Tobramycin/NS) 107.5 ml @ 103.75 mls/ hr Q48H IVPB ; Start 12/27/16 at 14:00 SHANA GOODWIN MD Dec 26, 2016 20:06
[2016-12-27] VITALS (92 sets, daily range): BP systolic 70–154; BP diastolic 36–78; PULSE 77–138; RESP 17–32
--- NOTE | 2016-12-27 00:50 | RADRPT ---
PROCEDURE: US right upper quadrant CLINICAL INDICATION: Jaundice TECHNIQUE: Multiple real-time images were acquired of the patient's right upper abdomen utilizing a high resolution transducer. Technical note: The examination is limited by bowel gas COMPARISON: None available FINDINGS: Liver: Enlarged with increased echogenicity compatible with hepatic steatosis. There is normal joseph er contour no obvious mass or ductal dilatation. Normal directional blood flow is seen within the pa tent main portal vein. The maximum dimension estimated at 23 cm . Gallbladder: Normal. No sonographic Dominguez's sign is reported. Common bile duct: Normal; 4.3 mm. There is no evidence for choledocholithiasis. Right Kidney: Normal; maximum length measured at approximately 9.4 cm. Pancreas: Visualized portions are normal. The tail is partially obscured by bowel gas. RPTAT:HJJR IMPRESSION: 1. Limited exam because of bowel gas. 2. Hepatomegaly hepatic steatosis. 3. Otherwise unremarkable. Physician Yordan Date Time Electronically viewed and signed by Physician Yordan on 12/27/2016 00:50 /
[2016-12-27] MEDS: INSULIN ASPART [NOVOLOG] 3 ML PEN SC SCH ×6 (01:43→21:00)
[2016-12-27] MEDS: ALBUTEROL HFA 8 GM INHALER INH SCH ×4 (02:10→20:17)
[2016-12-27] MEDS: PANTOPRAZOLE 40 MG INJ IV SCH (06:00)
[2016-12-27] MEDS: IMIPENEM-CILAST 500MG IV (PMX) 100 ML IVPB SCH ×3 (06:00→18:16)
[2016-12-27 06:10] LABS: INR 2.36; PROTIME 26.1 Sec (12.2-14.2)
[2016-12-27 06:11] LABS: PARTIAL THROMBOPLASTIN TIME 51.3 Sec (25.0-35.0)
[2016-12-27 06:19] LABS: ALBUMIN 2.3 g/dl (3.3-4.9); POTASSIUM 4.5 mmol/L (3.5-5.1)
[2016-12-27 06:21] LABS: BILIRUBIN,DIRECT 7.3 mg/dl (0.00-0.20); BILIRUBIN,TOTAL 8.3 mg/dl (0.2-1.3); CREATININE 0.4 mg/dl (0.44-1.00)
[2016-12-27 06:22] LABS: ALBUMIN/GLOBULIN RATIO 1.04; CALCIUM 10.5 mg/dl (8.4-10.2); TOTAL PROTEIN 4.5 g/dl (6.1-8.1)
[2016-12-27 06:50] LABS: WHITE BLOOD COUNT 16.1 10^3/ul (4.8-10.8)
[2016-12-27 06:52] LABS: HEMOGLOBIN 9.9 g/dl (12.0-16.0); MEAN CORPUSCULAR HEMOGLOBIN 31.4 pg (29.0-33.0); MEAN CORPUSCULAR VOLUME 92.1 fl (82.0-101.0); RED BLOOD COUNT 3.15 10^6/ul (4.20-5.40)
[2016-12-27 06:53] LABS: MEAN CORPUSCULAR HGB CONC 34.1 g/dl (32.0-37.0); MEAN PLATELET VOLUME 10.4 fl (7.4-10.4); PLATELET COUNT 52 10^3/UL (140-440); RED CELL DISTRIBUTION WIDTH 20.2 % (11.5-14.5)
[2016-12-27 07:51] LABS: AADO2 Arterial 412.1 mmHg (7.0-24.0); Allen Test ACCEPTAB; Arterial Base Excess -15.6 mmol/L (-3.0-3); Arterial COHb 0.3 % (0.0-3.0); Arterial Fraction of Oxyhgb 86.3 % (93.0-99.0); Arterial HCO3 10.7 mmol/L (22.0-26.0); Arterial MetHb 0.6 % (0.0-1.5); Arterial Total Hemglobin 11.8 g/dl (12.0-18.0); MODE VENT - AC
--- NOTE | 2016-12-27 07:57 | RADRPT ---
PROCEDURE: CHEST 1VW CLINICAL INDICATION: Shortness of breath TECHNIQUE: Single frontal view of the chest was obtained COMPARISON: 12/24/2016 FINDINGS: Stable endotracheal tube and right PICC. The cardiac size is mildly enlarged, stable. Aortic vascular calcifications are demonstrated. There is worsening interstitial edema and pulmonary vascular congestion. The lungs are otherwise clear. No consolidation, effusion, or pneumothorax. Mild degenerative changes of the visualized osseous structures are visualized. IMPRESSION: 1. Stable cardiomegaly with worsening moderate pulmonary vascular congestion and interstitial edema. 2. Atherosclerosis. RPTAT:PP .Donovan Rossi MD, MD Date Time Electronically viewed and signed by .Donovan Rossi MD, MD on 12/27/2016 07:57 .V/
[2016-12-27] MEDS: IPRATROPIUM (HFA) 12.9 GM INHALER INH SCH ×3 (08:27→20:17)
--- NOTE | 2016-12-27 08:46 | PN ---
Date/Time of Note Date/Time of Note DATE: 12/27/16 TIME: 08:43 Assessment/Plan VTE Prophylaxis VTE Prophylaxis Intervention: contraindicated VTE Contraindication Reason: thrombocytopenia Lines/Catheters IV Catheter Type (from Nrsg): PICC Line Central line still needed: Yes Urinary Cath still in place: Yes Reason Cath still needed: other (indicate) Assessment/Plan Assessment/Plan 81 yo female with a past medical history of glioblastoma, chronic encephalopathy , brain abscess s/p craniotomy, dysphagia s/p PEG, who came from [facility] for hypotension/hypothermia, and possible aspiration pneumonitis. PROBLEMS: * Severe Sepsis with shock, bandemia and Lactic acidosis - 2/2 PNA /UTI * still on pressors * Severe metabolic acidosis * Multiorgan failure * Acute resp failure on full ventilator support * Husam Pneumonia - Pseudomonas * Yeast / Bacterial UTI * Leucocytosis with bandemia and thrombocytopenia 2/2 sepsis * Chronic encephalopathy with hx of the following * Glioblastoma * Hx .of brain abscess * s/p craniotomy * Resultant seizure d/o * Dysphagia 2/2 #4 s/p PEG * Afib with RVR - now in NSR * DM 2 : A1C 6.9 : Stable on SSI * Worsening Hepatic failure with * Severe anasarca * Thrombocytopenia / coagulopathy * likely ascites contributing to Tube leakage * Leakage around PEG tube with surrounding cellulitis PLAN: Continue ICU care and Support Patient remains on pressors / Give Bicarb Continue IV abx and antifungals per ID / appreciate input Continue Vent mgt / appreciate pulm input Continue amiodarone for Afib Continue Keppra IV Replace electrolytes ?Start tube feeds Continue close lab monitoring and mgt Appreciate all other consults PROPHYLAXIS: IV PPI / SCDs PROGNOSIS: Extremely poor / palliative care recommends Bioethics consult. Critical care time spent on pt care today = 40 min. Subjective 24 Hr Interval Summary Free Text/Dictation Nursing reports no acute overnight events. Remains intubated and on dual pressor support Subjective hx not possible: pt non-verbal, pt critical status Exam/Review of Systems Vital Signs Vitals Vital Signs Date Time Temp Pulse Resp B/P Pulse Ox O2 Delivery O2 Flow Rate FiO2 12/27/16 07:00 79 28 101/53 92 Mechanical Ventilator 12/27/16 05:29 70 12/27/16 00:45 97.1 Intake and Output 12/26/16 12/26/16 12/27/16 15:00 23:00 07:00 Intake Total 910.04 ml 883.372 ml 551.19 ml Output Total 135 ml 295 ml 280 ml Balance 775.04 ml 588.372 ml 271.19 ml Exam Constitutional: non-verbal, other (obese, elderly, Patient barely responsive, not following commands or tracking), Eyes open spontaneously, No oriented, No distress Psych: other (unable to assess) Head: normocephalic, atraumatic Eyes: PERRL, No icteric ENMT: Intubated No mucosa pink and moist (dry) Neck: non-tender Respiratory: diminished breath sounds, + bibasal crackles No labored breathing Cardiovascular: regular rate and rhythm, No murmurs/extra sounds Gastrointestinal: soft, non-tender, bowel sounds, other (PEG tube noted + cellulitis but no discharge and yellow serous fluid draining from around the tube into ostomy bag) Genitourinary - Female: nl external genitalia Extremities: Generalized anasraca and bruising with ecchymosis Neurological: lethargic, other (altered, eyes opening spontaneously but no tracking or following commands), No nl mental status, No nl speech, No nl strength Results Result Diagram: 12/27/16 0500 12/27/16 0500 Results 24 hrs Laboratory Tests Test 12/26/16 10:06 12/26/16 13:32 12/26/16 18:47 12/26/16 21:45 Bedside Glucose 158 137 170 174 Test 12/27/16 01:39 12/27/16 05:00 12/27/16 06:06 12/27/16 07:00 Bedside Glucose 155 149 Activated Partial Thromboplast Time 51.3 H Alanine Aminotransferase (ALT/SGPT) 62 Albumin 2.3 L Albumin/Globulin Ratio 1.04 Alkaline Phosphatase 203 H Anion Gap 24 H Aspartate Amino Transf (AST/SGOT) 61 H Basophils # Basophils % Blood Urea Nitrogen 13 Calcium Level 10.5 H Carbon Dioxide Level 11 L Chloride Level 111 H Creatinine 0.40 L Direct Bilirubin 7.30 H Eosinophils # Eosinophils % Globulin 2.20 Glucose Level 164 Hematocrit 29.0 L Hemoglobin 9.9 L INR International Normalized Ratio 2.36 Indirect Bilirubin 1.0 Lymphocytes # Lymphocytes % Magnesium Level 1.8 Mean Corpuscular Hemoglobin 31.4 Mean Corpuscular Hemoglobin Concent 34.1 Mean Corpuscular Volume 92.1 Mean Platelet Volume 10.4 Monocytes # Monocytes % Neutrophils # Neutrophils % Nucleated Red Blood Cells # Nucleated Red Blood Cells % Platelet Count 52 #L Potassium Level 4.5 Prothrombin Time 26.1 H Prothrombin Time Ratio 2.0 Red Blood Count 3.15 L Red Cell Distribution Width 20.2 H Sodium Level 141 Total Bilirubin 8.3 H Total Protein 4.5 L White Blood Count 16.1 #H Arterial Blood HCO3 10.7 L Arterial Blood Base Excess -15.6 L Arterial Blood Oxygen Saturation 87.1 L Rony Test ACCEPTAB Arterial Blood Gas Puncture Site Right Radial Arterial Blood Carboxyhemoglobin 0.3 Arterial Blood Date Drawn 12/27/2016 7:22:43 AM Arterial Blood Methemoglobin 0.6 Arterial Blood pCO2 (Temp correct) 27.1 L Arterial Blood pH (Temp corrected) 7.215 *L Arterial Blood pO2 (Temp corrected) 57.9 L Blood Gas A-a O2 Differential 412.1 H Blood Gas Actual Respiration Rate 24 Blood Gas Critical Value Read Back I DELMER CEE Blood Gas Low PEEP Setting 5.0 Blood Gas Modality VENT - AC Blood Gas Notified Time 12/27/2016 7:51:29 AM Blood Gas Notified Whom JLD Blood Gas Respiration Rate 20.0 Blood Gas Specimen Source Blood arterial Blood Gas Temperature 37.0 Blood Gas Tidal Volume 500.0 FiO2 70.0 Oxyhemoglobin Percent 86.3 L Total Hemoglobin 11.8 L Medications Medications Current Medications Ondansetron HCl (Zofran Inj) 4 mg Q6H PRN IV NAUSEA AND/OR VOMITING; Start 10/20 at 17:00 Acetaminophen (Tylenol Supp) 650 mg Q4H PRN [place] PAIN LEVEL 1-3 OR FEVER; Start 12/16/16 at 17:00 Lorazepam (Ativan) 1 mg Q2H PRN IV ANXIETY Last administered on 12/26/16 04:21 ; Admin Dose 1 MG; Start 12/16/16 at 17:00 Famotidine 20 mg 20 mg Q12 IV Last administered on 12/20/16 08:03; Admin Dose 20 MG; Start 12/16/16 at 21:00; Status Future Hold Norepinephrine/ Dextrose (Levophed/D5W) 500 ml @ 0 mls/hr TITRATE IV Last administered on 12/25/16 13:25; Admin Dose 9.37 MLS/HR; Start 12/17/16 at 00:00 Amiodarone HCl (Cordarone) 200 mg BID NGT Last administered on 12/26/16 21:33 ; Admin Dose 200 MG; Start 12/17/16 at 21:00 IV Flush 10 ml 10 ml PRN PRN IV IV PROTOCOL; Start 12/17/16 at 12:30 Phenylephrine HCl/ Dextrose (Hernán-Synephrine/ D5W) 500 ml @ 75 mls/hr TITRATE IV Last administered on 12/21/16 21:07; Admin Dose 18.75 MLS/HR; Start at 08:30 Miscellaneous Information 1 ea NOTE XX ; Start 12/18/16 at 13:00 Glucose (Glutose) 15 gm Q15M PRN PO DECREASED GLUCOSE; Start 12/18/16 at 13:00 Glucose (Glutose) 22.5 gm Q15M PRN PO DECREASED GLUCOSE; Start 12/18/16 at 13: 00 Glucagon (Glucagen) 1 mg Q15M PRN IM DECREASED GLUCOSE; Start 12/18/16 at 13:00 Glucose (Glutose) 15 gm Q15M PRN BUCCAL DECREASED GLUCOSE; Start 12/18/16 at 13 :00 Dexamethasone (Decadron) 4 mg DAILY IV Last administered on 12/26/16 09:58; Admin Dose 4 MG; Start 12/19/16 at 13:30 Dextrose (D50w Syringe) 25 ml Q15M PRN IV Till BS 80 mg/dL or above x2 Last administered on 12/23/16 09:26; Admin Dose 25 ML; Start 12/20/16 at 11:30 Dextrose (D50w Syringe) 50 ml Q15M PRN IV Till BS 80 mg/dL or above x2; Start 12/20/16 at 11:30 Pantoprazole 40 mg 40 mg DAILY@06 IV Last administered on 12/26/16 06:36; Admin Dose 40 MG; Start 12/21/16 at 06:00 Imipenem/ Cilastatin Sodium 100 ml @ 166.667 mls/hr Q6 IVPB Last administered on 12/26/16 23:59; Admin Dose 166.667 MLS/HR; Start 12/20/16 at 18:00 Levetiracetam 500 mg/Sodium Chloride 105 ml @ 420 mls/hr Q12 IVPB Last administered on 12/26/16 21:30; Admin Dose 420 MLS/HR; Start 12/21/16 at 21:00 Propofol 100 ml @ 1.74 mls/hr Q12H IV Last administered on 12/26/16 21:54; Admin Dose 5.22 MLS/HR; Start 12/21/16 at 12:30 Doxycycline Hyclate 100 mg/ Sodium Chloride 250 ml @ 250 mls/hr Q12 IVPB Last administered on 12/26/16 21:33; Admin Dose 250 MLS/HR; Start 12/22/16 at 21:00 Fluconazole/ Sodium Chloride (Diflucan 100 Mg/ NS (Pmx)) 50 ml @ 50 mls/hr Q24H IVPB Last administered on 12/26/16 16:25; Admin Dose 50 MLS/HR; Start at 15:00 Insulin Aspart NOVOLOG *MILD* ALGORI... Q4 SC Last administered on 12/27/16 01 :43; Admin Dose 1 UNIT; Start 12/23/16 at 17:00 Potassium Chloride/Dextrose/ Sod Cl (D5-1/2ns + KCl 40 Meq) 1,000 ml @ 50 mls/ hr Q20H IV Last administered on 12/26/16 13:20; Admin Dose 50 MLS/HR; Start at 12:00 Tobramycin TOBRAMYCIN PER PHARMACY NOTE XX ; Start 12/25/16 at 11:30 Tobramycin/Sodium Chloride (Tobramycin/NS) 107.5 ml @ 103.75 mls/ hr Q48H IVPB ; Start 12/27/16 at 14:00 JOHAN LEMUS Dec 27, 2016 08:46
[2016-12-27] MEDS: PROPOFOL 100 ML IV SCH (08:49)
[2016-12-27] MEDS ORDERED: NA BICARBONATE 8.4% 50 ML SYG IV ONE (09:00)
--- NOTE | 2016-12-27 09:01 | CONS ---
Date/Time of Note Date/Time of Note DATE: 12/27/16 TIME: 08:57 Assessment/Plan Assessment/Plan Additional Assessment/Plan Ventilator settings; assist control of 20, tidal volume 500, PEEP of 0, 70% FiO2. Chest x-ray was reviewed from today which showed diffuse bilateral pneumonia. Assessment and recommendations; 1. Admitted with respiratory failure due to severe pneumonia. 2. Severe sepsis. 3. History of glioblastoma status post multiple craniotomies with very poor mental status. 4. Severe hepatic dysfunction causing severe elevation in serum bilirubin. 5. Thrombocytopenia. From underlying sepsis. 6. Hypotension currently on Levophed drip. 7. Generalized edema. 8. Metabolic acidosis. 9. Cardiac arrhythmia. Currently in sinus rhythm The current treatment. Give additional sodium bicarb followed by changing of IV fluids to sodium bicarb drip at 50 mL/h. Overall prognosis remains extremely poor. Consultation Date/Type/Reason Admit Date/Time Dec 16, 2016 at 15:45 Initial Consult Date Patient's condition remains critical. Still requiring Levophed for blood pressure maintenance. She is also sedated with propofol drip. Remains orally intubated and ventilator dependent. General examination; elderly woman, orally intubated, sedated, currently in no distress. Type of Consultation: Pulmonary/critical care Referring Provider: CAROL MICHELLE Exam/Review of Systems Vital Signs Vitals Vital Signs Date Time Temp Pulse Resp B/P Pulse Ox O2 Delivery O2 Flow Rate FiO2 12/27/16 07:00 79 28 101/53 92 Mechanical Ventilator 12/27/16 05:29 70 12/27/16 00:45 97.1 Intake and Output 12/26/16 12/26/16 12/27/16 15:00 23:00 07:00 Intake Total 910.04 ml 883.372 ml 551.19 ml Output Total 135 ml 295 ml 280 ml Balance 775.04 ml 588.372 ml 271.19 ml Exam HEENT examination; supple neck, positive JVD. Orally intubated. Patient remains strongly icteric. Pupils are small bilaterally. Multiple well-healed craniotomy scars are present. Chest examination; diffuse bilateral crackles. S1-S2 audible, no murmurs. Regular rhythm. Abdomen examination; soft, no organomegaly. Bowel sounds audible. Extremity examination; 1+ anasarca. Patient does have multiple ecchymosis involving all 4 extremities. [employer] examination; patient is sedated. Results Result Diagram: 12/27/16 0500 12/27/16 0500 Results 24 hrs Laboratory Tests Test 12/26/16 10:06 12/26/16 13:32 12/26/16 18:47 12/26/16 21:45 Bedside Glucose 158 137 170 174 Test 12/27/16 01:39 12/27/16 05:00 12/27/16 06:06 12/27/16 07:00 Bedside Glucose 155 149 Activated Partial Thromboplast Time 51.3 H Alanine Aminotransferase (ALT/SGPT) 62 Albumin 2.3 L Albumin/Globulin Ratio 1.04 Alkaline Phosphatase 203 H Anion Gap 24 H Aspartate Amino Transf (AST/SGOT) 61 H Basophils # Basophils % Blood Urea Nitrogen 13 Calcium Level 10.5 H Carbon Dioxide Level 11 L Chloride Level 111 H Creatinine 0.40 L Direct Bilirubin 7.30 H Eosinophils # Eosinophils % Globulin 2.20 Glucose Level 164 Hematocrit 29.0 L Hemoglobin 9.9 L INR International Normalized Ratio 2.36 Indirect Bilirubin 1.0 Lymphocytes # Lymphocytes % Magnesium Level 1.8 Mean Corpuscular Hemoglobin 31.4 Mean Corpuscular Hemoglobin Concent 34.1 Mean Corpuscular Volume 92.1 Mean Platelet Volume 10.4 Monocytes # Monocytes % Neutrophils # Neutrophils % Nucleated Red Blood Cells # Nucleated Red Blood Cells % Platelet Count 52 #L Potassium Level 4.5 Prothrombin Time 26.1 H Prothrombin Time Ratio 2.0 Red Blood Count 3.15 L Red Cell Distribution Width 20.2 H Sodium Level 141 Total Bilirubin 8.3 H Total Protein 4.5 L White Blood Count 16.1 #H Arterial Blood HCO3 10.7 L Arterial Blood Base Excess -15.6 L Arterial Blood Oxygen Saturation 87.1 L Rony Test ACCEPTAB Arterial Blood Gas Puncture Site Right Radial Arterial Blood Carboxyhemoglobin 0.3 Arterial Blood Date Drawn 12/27/2016 7:22:43 AM Arterial Blood Methemoglobin 0.6 Arterial Blood pCO2 (Temp correct) 27.1 L Arterial Blood pH (Temp corrected) 7.215 *L Arterial Blood pO2 (Temp corrected) 57.9 L Blood Gas A-a O2 Differential 412.1 H Blood Gas Actual Respiration Rate 24 Blood Gas Critical Value Read Back Saumya DOWELL RN Blood Gas Low PEEP Setting 5.0 Blood Gas Modality VENT - AC Blood Gas Notified Time 12/27/2016 7:51:29 AM Blood Gas Notified Whom JLD Blood Gas Respiration Rate 20.0 Blood Gas Specimen Source Blood arterial Blood Gas Temperature 37.0 Blood Gas Tidal Volume 500.0 FiO2 70.0 Oxyhemoglobin Percent 86.3 L Total Hemoglobin 11.8 L Medications Medications Current Medications Ondansetron HCl (Zofran Inj) 4 mg Q6H PRN IV NAUSEA AND/OR VOMITING; Start 10/20 at 17:00 Acetaminophen (Tylenol Supp) 650 mg Q4H PRN [place] PAIN LEVEL 1-3 OR FEVER; Start 12/16/16 at 17:00 Lorazepam (Ativan) 1 mg Q2H PRN IV ANXIETY Last administered on 12/26/16 04:21 ; Admin Dose 1 MG; Start 12/16/16 at 17:00 Famotidine 20 mg 20 mg Q12 IV Last administered on 12/20/16 08:03; Admin Dose 20 MG; Start 12/16/16 at 21:00; Status Future Hold Norepinephrine/ Dextrose (Levophed/D5W) 500 ml @ 0 mls/hr TITRATE IV Last administered on 12/25/16 13:25; Admin Dose 9.37 MLS/HR; Start 12/17/16 at 00:00 Amiodarone HCl (Cordarone) 200 mg BID NGT Last administered on 12/26/16 21:33 ; Admin Dose 200 MG; Start 12/17/16 at 21:00 IV Flush 10 ml 10 ml PRN PRN IV IV PROTOCOL; Start 12/17/16 at 12:30 Phenylephrine HCl/ Dextrose (Hernán-Synephrine/ D5W) 500 ml @ 75 mls/hr TITRATE IV Last administered on 12/21/16 21:07; Admin Dose 18.75 MLS/HR; Start at 08:30 Miscellaneous Information 1 ea NOTE XX ; Start 12/18/16 at 13:00 Glucose (Glutose) 15 gm Q15M PRN PO DECREASED GLUCOSE; Start 12/18/16 at 13:00 Glucose (Glutose) 22.5 gm Q15M PRN PO DECREASED GLUCOSE; Start 12/18/16 at 13: 00 Glucagon (Glucagen) 1 mg Q15M PRN IM DECREASED GLUCOSE; Start 12/18/16 at 13:00 Glucose (Glutose) 15 gm Q15M PRN BUCCAL DECREASED GLUCOSE; Start 12/18/16 at 13 :00 Dextrose (D50w Syringe) 25 ml Q15M PRN IV Till BS 80 mg/dL or above x2 Last administered on 12/23/16 09:26; Admin Dose 25 ML; Start 12/20/16 at 11:30 Dextrose (D50w Syringe) 50 ml Q15M PRN IV Till BS 80 mg/dL or above x2; Start 12/20/16 at 11:30 Pantoprazole 40 mg 40 mg DAILY@06 IV Last administered on 12/26/16 06:36; Admin Dose 40 MG; Start 12/21/16 at 06:00 Imipenem/ Cilastatin Sodium 100 ml @ 166.667 mls/hr Q6 IVPB Last administered on 12/26/16 23:59; Admin Dose 166.667 MLS/HR; Start 12/20/16 at 18:00 Levetiracetam 500 mg/Sodium Chloride 105 ml @ 420 mls/hr Q12 IVPB Last administered on 12/26/16 21:30; Admin Dose 420 MLS/HR; Start 12/21/16 at 21:00 Propofol 100 ml @ 1.74 mls/hr Q12H IV Last administered on 12/27/16 08:49; Admin Dose 8.69 MLS/HR; Start 12/21/16 at 12:30 Doxycycline Hyclate 100 mg/ Sodium Chloride 250 ml @ 250 mls/hr Q12 IVPB Last administered on 12/26/16 21:33; Admin Dose 250 MLS/HR; Start 12/22/16 at 21:00 Fluconazole/ Sodium Chloride (Diflucan 100 Mg/ NS (Pmx)) 50 ml @ 50 mls/hr Q24H IVPB Last administered on 12/26/16 16:25; Admin Dose 50 MLS/HR; Start at 15:00 Insulin Aspart (Novolog Insulin Pen) NOVOLOG *MILD* ALGORI... Q4 SC Last administered on 12/27/16 01:43; Admin Dose 1 UNIT; Start 12/23/16 at 17:00 Tobramycin TOBRAMYCIN PER PHARMACY NOTE XX ; Start 12/25/16 at 11:30 Tobramycin/Sodium Chloride (Tobramycin/NS) 107.5 ml @ 103.75 mls/ hr Q48H IVPB ; Start 12/27/16 at 14:00 Sodium Bicarbonate 50 ml 50 ml ONCE ONCE IV ; Start 12/27/16 at 09:00; Stop at 09:01 Potassium Chloride/Dextrose (KCl/D5W) 1,020 ml @ 50 mls/hr [id number] IV ; Start 12/27/16 at 09:00; Status ALISE DIAS Dec 27, 2016 09:01
[2016-12-27] MEDS: DOXYCYCLINE 100 MG in SOD CHLORIDE 0.9% 250 ML IVPB SCH ×2 (09:33→21:01)
[2016-12-27] MEDS: AMIODARONE 200 MG TAB NGT SCH ×2 (09:34→21:02)
[2016-12-27] MEDS: LEVETIRACETAM IV 500 MG in SOD CHLORIDE 0.9% 100 ML IVPB SCH ×2 (09:34→21:01)
[2016-12-27] MEDS: POTASSIUM CHLORIDE IV SCH (11:22)
[2016-12-27] MEDS: DEXTROSE 5% IV SCH (11:22)
[2016-12-27] MEDS: SODIUM BICARBONATE IV SCH (11:22)
--- NOTE | 2016-12-27 12:09 | CONS ---
Date/Time of Note Date/Time of Note DATE: 12/27/16 TIME: 12:09 Assessment/Plan Assessment/Plan Chief Complaint/Hosp Course PROGRESSIVE PANCYTOPENIA , INCLUDING THE SIGNIFICANT DROP OF PLATELET COUNT FROM N ON ADMISSION TO 14 NOTE THAT PT WAS EXPOSED TO IMIPENEM, PEPCID, VANCO, CEFEPIME SMEAR- NEG AVOID MYELOSUPPRESSIVE MEDS DIC PROFILE- NEG POST PLATELET TRANSFUSION WITH GREAT RESPONSE PANCYTOPENIA IS MOST LIKELY 2 TO SEPSIS, ALTHOUGH DRUG EFFECT IS ALSO POSSIBLE ANEMIA WITH SIGNIFICANT DROP H/H TRANSFUSE PRBC PRN MONITOR FOR BLEEDING AND HEMOLYSIS glioblastoma-monitor acute changes OLD RECORD- P brain abscess s/p craniotomy Anemia - chronic disease - transfuse if hgb < 8 g/dL Septic Shock - 2/2 aspiration pneumonitis -ICU, pulm, broad spectrum antibiotics , pressor support, f-up respiratory cultures, ID Hyponatremia - chronic - monitor acute changes Chronic encephalopathy Dysphagia s/p PEG - possible replacement needed, Dr. Salgado consulted Gi ppx - pepcid IV DVT ppx - scds Problems: Consultation Date/Type/Reason Admit Date/Time Dec 16, 2016 at 15:45 Initial Consult Date 12/21/16 Type of Consultation: HEMEON Referring Provider: CAROL MICHELLE 24 HR Interval Summary Free Text/Dictation Subjective hx not possible: pt non-verbal, pt critical Constitutional: no complaints Exam/Review of Systems Vital Signs Vitals Vital Signs Date Time Temp Pulse Resp B/P Pulse Ox O2 Delivery O2 Flow Rate FiO2 12/27/16 08:00 88 12/27/16 07:00 28 101/53 92 Mechanical Ventilator 12/27/16 05:29 70 12/27/16 00:45 97.1 Intake and Output 12/26/16 12/26/16 12/27/16 15:00 23:00 07:00 Intake Total 910.04 ml 883.372 ml 551.19 ml Output Total 135 ml 295 ml 280 ml Balance 775.04 ml 588.372 ml 271.19 ml Exam Gen Marlo: intubated, sedated HEENT: NC/AT, PERRLA NECK: supple, no thyromegaly THORAX: symmetrical, no obvious deformities CV: S1S2, RRR, no M/G/R Lungs: + mild crackles at bases Abd: soft, NT/ND, +BS, no rebound, no guarding, neg HSM, PEG site leaking EXT: no edema, no ecchymosis, no clubbing, FROM, contractures Neuro: stares, grossly intact Skin: scattered ecchymoses Results Result Diagram: 12/27/16 0500 12/27/16 0500 Results 24 hrs Laboratory Tests Test 12/26/16 13:32 12/26/16 18:47 12/26/16 21:45 12/27/16 01:39 Bedside Glucose 137 170 174 155 Test 12/27/16 05:00 12/27/16 06:06 12/27/16 07:00 12/27/16 09:43 Activated Partial Thromboplast Time 51.3 H Alanine Aminotransferase (ALT/SGPT) 62 Albumin 2.3 L Albumin/Globulin Ratio 1.04 Alkaline Phosphatase 203 H Anion Gap 24 H Aspartate Amino Transf (AST/SGOT) 61 H Band Neutrophils % 36.0 H Basophils # Basophils % 1.0 Blood Urea Nitrogen 13 Calcium Level 10.5 H Carbon Dioxide Level 11 L Chloride Level 111 H Creatinine 0.40 L Direct Bilirubin 7.30 H Eosinophils # Eosinophils % 2.0 Globulin 2.20 Glucose Level 164 Hematocrit 29.0 L Hemoglobin 9.9 L INR International Normalized Ratio 2.36 Indirect Bilirubin 1.0 Lymphocytes # Lymphocytes % 6.0 L Magnesium Level 1.8 Mean Corpuscular Hemoglobin 31.4 Mean Corpuscular Hemoglobin Concent 34.1 Mean Corpuscular Volume 92.1 Mean Platelet Volume 10.4 Metamyelocytes % 1.0 H Monocytes # Monocytes % 10.0 Myelocytes % 2.0 H Neutrophils # Neutrophils % 40.0 Nucleated Red Blood Cells # Nucleated Red Blood Cells % Platelet Count 52 #L Potassium Level 4.5 Promyelocytes % 2.0 H Prothrombin Time 26.1 H Prothrombin Time Ratio 2.0 Reactive Lymphocytes % Red Blood Count 3.15 L Red Cell Distribution Width 20.2 H Sodium Level 141 Total Bilirubin 8.3 H Total Protein 4.5 L White Blood Count 16.1 #H Bedside Glucose 149 170 Arterial Blood HCO3 10.7 L Arterial Blood Base Excess -15.6 L Arterial Blood Oxygen Saturation 87.1 L Rony Test ACCEPTAB Arterial Blood Gas Puncture Site Right Radial Arterial Blood Carboxyhemoglobin 0.3 Arterial Blood Date Drawn 12/27/2016 7:22:43 AM Arterial Blood Methemoglobin 0.6 Arterial Blood pCO2 (Temp correct) 27.1 L Arterial Blood pH (Temp corrected) 7.215 *L Arterial Blood pO2 (Temp corrected) 57.9 L Blood Gas A-a O2 Differential 412.1 H Blood Gas Actual Respiration Rate 24 Blood Gas Critical Value Read Back I DELMER CEE Blood Gas Low PEEP Setting 5.0 Blood Gas Modality VENT - AC Blood Gas Notified Time 12/27/2016 7:51:29 AM Blood Gas Notified Whom JLD Blood Gas Respiration Rate 20.0 Blood Gas Specimen Source Blood arterial Blood Gas Temperature 37.0 Blood Gas Tidal Volume 500.0 FiO2 70.0 Oxyhemoglobin Percent 86.3 L Total Hemoglobin 11.8 L Medications Medications Current Medications Ondansetron HCl (Zofran Inj) 4 mg Q6H PRN IV NAUSEA AND/OR VOMITING; Start 10/20 at 17:00 Acetaminophen (Tylenol Supp) 650 mg Q4H PRN [place] PAIN LEVEL 1-3 OR FEVER; Start 12/16/16 at 17:00 Lorazepam (Ativan) 1 mg Q2H PRN IV ANXIETY Last administered on 12/26/16 04:21 ; Admin Dose 1 MG; Start 12/16/16 at 17:00 Famotidine 20 mg 20 mg Q12 IV Last administered on 12/20/16 08:03; Admin Dose 20 MG; Start 12/16/16 at 21:00; Status Future Hold Norepinephrine/ Dextrose (Levophed/D5W) 500 ml @ 0 mls/hr TITRATE IV Last administered on 12/25/16 13:25; Admin Dose 9.37 MLS/HR; Start 12/17/16 at 00:00 Amiodarone HCl (Cordarone) 200 mg BID NGT Last administered on 12/27/16 09:34 ; Admin Dose 200 MG; Start 12/17/16 at 21:00 IV Flush 10 ml 10 ml PRN PRN IV IV PROTOCOL; Start 12/17/16 at 12:30 Phenylephrine HCl/ Dextrose (Hernán-Synephrine/ D5W) 500 ml @ 75 mls/hr TITRATE IV Last administered on 12/21/16 21:07; Admin Dose 18.75 MLS/HR; Start at 08:30 Miscellaneous Information 1 ea NOTE XX ; Start 12/18/16 at 13:00 Glucose (Glutose) 15 gm Q15M PRN PO DECREASED GLUCOSE; Start 12/18/16 at 13:00 Glucose (Glutose) 22.5 gm Q15M PRN PO DECREASED GLUCOSE; Start 12/18/16 at 13: 00 Glucagon (Glucagen) 1 mg Q15M PRN IM DECREASED GLUCOSE; Start 12/18/16 at 13:00 Glucose (Glutose) 15 gm Q15M PRN BUCCAL DECREASED GLUCOSE; Start 12/18/16 at 13 :00 Dextrose (D50w Syringe) 25 ml Q15M PRN IV Till BS 80 mg/dL or above x2 Last administered on 12/23/16 09:26; Admin Dose 25 ML; Start 12/20/16 at 11:30 Dextrose (D50w Syringe) 50 ml Q15M PRN IV Till BS 80 mg/dL or above x2; Start 12/20/16 at 11:30 Pantoprazole 40 mg 40 mg DAILY@06 IV Last administered on 12/26/16 06:36; Admin Dose 40 MG; Start 12/21/16 at 06:00 Imipenem/ Cilastatin Sodium 100 ml @ 166.667 mls/hr Q6 IVPB Last administered on 12/26/16 23:59; Admin Dose 166.667 MLS/HR; Start 12/20/16 at 18:00 Levetiracetam 500 mg/Sodium Chloride 105 ml @ 420 mls/hr Q12 IVPB Last administered on 12/27/16 09:34; Admin Dose 420 MLS/HR; Start 12/21/16 at 21:00 Propofol 100 ml @ 1.74 mls/hr Q12H IV Last administered on 12/27/16 08:49; Admin Dose 8.69 MLS/HR; Start 12/21/16 at 12:30 Doxycycline Hyclate 100 mg/ Sodium Chloride 250 ml @ 250 mls/hr Q12 IVPB Last administered on 12/27/16 09:33; Admin Dose 250 MLS/HR; Start 12/22/16 at 21:00 Fluconazole/ Sodium Chloride (Diflucan 100 Mg/ NS (Pmx)) 50 ml @ 50 mls/hr Q24H IVPB Last administered on 12/26/16 16:25; Admin Dose 50 MLS/HR; Start at 15:00 Insulin Aspart (Novolog Insulin Pen) NOVOLOG *MILD* ALGORI... Q4 SC Last administered on 12/27/16 09:46; Admin Dose 1 UNIT; Start 12/23/16 at 17:00 Tobramycin TOBRAMYCIN PER PHARMACY NOTE XX ; Start 12/25/16 at 11:30 Tobramycin 300 mg/ Sodium Chloride 107.5 ml @ 103.75 mls/ hr Q48H IVPB ; Start 12/27/16 at 14:00 Potassium Chloride/Sodium Bicarbonate/ Dextrose (KCl/Na Bicarb/ D5W) 1,170 ml @ 50 mls/hr [id number] IV Last administered on 12/27/16 11:22; Admin Dose 50 MLS/ HR; Start 12/27/16 at 10:00 Eye Lubricant (Artificial Tears Oph) 2 drop QID BOTH EYES ; Start 12/27/16 at 13 :00 MAYA MIKE MD Dec 27, 2016 12:09
--- NOTE | 2016-12-27 12:31 | PN ---
DATE: 12/27/2016 INFECTIOUS DISEASE PROGRESS NOTE SUBJECTIVE: No acute events. The patient remains intubated, on pressors shield. She opens eyes and seems to follow simple commands. VITAL SIGNS: Temperature 97.1, pulse 79, respirations 24, blood pressure 101/42, saturation 93 on t he vent. Of note, the patient is on a blanket warmer. WBC today 16.1, H and H 9.9 and 29, platelets 52, neutrophils 40, bands 36, lymphs 6. BUN 13, creat inine 0.40. MICROBIOLOGY: Blood cultures remain negative. Endotracheal aspirate grew Pseudomonas. Urine cultu re grew Carmen albicans. INDWELLINGS: Endotracheal tube, NG tube, PICC line placed on December 17, Singer catheter. ANTIMICROBIALS: 1. Tobramycin IV. 2. Doxycycline 3. Fluconazole. 4. Imipenem. PHYSICAL EXAMINATION: GENERAL: This is a fragile, chronically ill-appearing, elderly woman, who is lying comfortably in b ed. HEENT: Head atraumatic, normocephalic. Sclerae anicteric. Buccal mucosa dry. NECK: Obese. CHEST: Chest rise is symmetrical. Breath sounds with bilateral scattered crackles. HEART: S1, S2. ABDOMEN: Obese, soft. Bowel tones hypoactive. EXTREMITIES: With bilateral edema. ASSESSMENT: 1. Severe sepsis with shock and multisystem organ failure. 2. Acute respiratory failure secondary to pneumonia and congestive heart failure exacerbation. 3. Transaminitis, with elevated total bilirubin. Gastroenterology on the case. Ultrasound of the abdomen was a limited exam and revealed hepatomegaly and hepatic steatosis. 4. Urinary tract infection. 5. Anemia, with thrombocytopenia. 6. History of glioblastoma with brain abscess, status post craniotomy. PLAN: The patient remains hemodynamically unstable, covered with appropriate antimicrobials. She i s being followed by multiple consultants. Will continue her on the current regimen and consider a C T of the abdomen when patient is stable. Dictated By: MERISSA DUTTA [employer] OPERATOR for [employer] Conf#: [id number] DID#: [id number]
[2016-12-27] MEDS: ARTIFICIAL TEARS 15 ML OPH BOTH EYES SCH ×3 (12:57→21:01)
[2016-12-27] MEDS ORDERED: TOBRAMYCIN 300 MG in SOD CHLORIDE 0.9% 100 ML IVPB SCH (14:00)
[2016-12-27] MEDS ORDERED: CASPOFUNGIN 70 MG in NS 250 ML IV SCH (15:30)
--- NOTE | 2016-12-27 20:04 | CONS ---
Date/Time of Note Date/Time of Note DATE: 12/27/16 TIME: 20:02 Assessment/Plan Assessment/Plan Additional Assessment/Plan Additional Assessment/Plan 1. Sepsis, most probably related to bilateral pneumonia. 2. Mild leakage from the G-tube site due to the large stoma.better after ostomy pouch 3. Status post craniotomy for glioblastoma. 4. Anemia. 5. Hyponatremia. 6. Chronic encephalopathy. 7.shock on pressor support 8. vent dependent respiratory failure 9. pancytopenia ,secondary to sepsis 10 abnormal liver function,new problem,septic hepatopathy PLAN: patient has got ostomy pouch, and after that, the leakage has completely stopped. If the condition improves, then we will start feeding her through the G-tube antibiotics as per ID monitor cbc sonogram of liver ,steatohepatitis,no biliary obstruction Consultation Date/Type/Reason Admit Date/Time Dec 16, 2016 at 15:45 [facility] Referring Provider: CAROL MICHELLE 24 HR Interval Summary Subjective hx not possible: pt non-verbal, pt critical Constitutional: no complaints Exam/Review of Systems Vital Signs Vitals Vital Signs Date Time Temp Pulse Resp B/P Pulse Ox O2 Delivery O2 Flow Rate FiO2 12/27/16 19:15 110 29 98/54 90 Mechanical Ventilator 12/27/16 17:05 80 12/27/16 16:00 97.1 Intake and Output 12/26/16 12/26/16 12/27/16 15:00 23:00 07:00 Intake Total 910.04 ml 883.372 ml 616.45 ml Output Total 135 ml 295 ml 320 ml Balance 775.04 ml 588.372 ml 296.45 ml Exam Constitutional: alert, oriented, well developed Psych: nl mood/affect, no complaints Head: atraumatic, normocephalic Eyes: EOMI, PERRL, nl conjunctiva, nl lids, nl sclera ENMT: nl external ears & nose, nl lips & teeth, nl nasal mucosa & septum Neck: non-tender, supple Respiratory: clear to auscultation, normal air movement Cardiovascular: nl pulses, regular rate and rhythm Gastrointestinal: nl liver, spleen, non-tender, soft Musculoskeletal: nl extremities to inspection, nl gait and stance Extremities: normal pulses Neurological: CATERPILLAR DRIVER II-XII intact, nl mental status, nl speech, nl strength Skin: nl turgor, No rash or lesions Lymph: nl lymph nodes Results Result Diagram: 12/27/16 0500 12/27/16 0500 Results 24 hrs Laboratory Tests Test 12/26/16 21:45 12/27/16 01:39 12/27/16 05:00 12/27/16 06:06 Bedside Glucose 174 155 149 Activated Partial Thromboplast Time 51.3 H Alanine Aminotransferase (ALT/SGPT) 62 Albumin 2.3 L Albumin/Globulin Ratio 1.04 Alkaline Phosphatase 203 H Anion Gap 24 H Aspartate Amino Transf (AST/SGOT) 61 H Band Neutrophils % 36.0 H Basophils # Basophils % 1.0 Blood Urea Nitrogen 13 Calcium Level 10.5 H Carbon Dioxide Level 11 L Chloride Level 111 H Creatinine 0.40 L Direct Bilirubin 7.30 H Eosinophils # Eosinophils % 2.0 Globulin 2.20 Glucose Level 164 Hematocrit 29.0 L Hemoglobin 9.9 L INR International Normalized Ratio 2.36 Indirect Bilirubin 1.0 Lymphocytes # Lymphocytes % 6.0 L Magnesium Level 1.8 Mean Corpuscular Hemoglobin 31.4 Mean Corpuscular Hemoglobin Concent 34.1 Mean Corpuscular Volume 92.1 Mean Platelet Volume 10.4 Metamyelocytes % 1.0 H Monocytes # Monocytes % 10.0 Myelocytes % 2.0 H Neutrophils # Neutrophils % 40.0 Nucleated Red Blood Cells # Nucleated Red Blood Cells % Platelet Count 52 #L Potassium Level 4.5 Promyelocytes % 2.0 H Prothrombin Time 26.1 H Prothrombin Time Ratio 2.0 Reactive Lymphocytes % Red Blood Count 3.15 L Red Cell Distribution Width 20.2 H Sodium Level 141 Total Bilirubin 8.3 H Total Protein 4.5 L White Blood Count 16.1 #H Test 12/27/16 07:00 12/27/16 09:43 12/27/16 13:03 12/27/16 18:19 Arterial Blood HCO3 10.7 L Arterial Blood Base Excess -15.6 L Arterial Blood Oxygen Saturation 87.1 L Rony Test ACCEPTAB Arterial Blood Gas Puncture Site Right Radial Arterial Blood Carboxyhemoglobin 0.3 Arterial Blood Date Drawn 12/27/2016 7:22:43 AM Arterial Blood Methemoglobin 0.6 Arterial Blood pCO2 (Temp correct) 27.1 L Arterial Blood pH (Temp corrected) 7.215 *L Arterial Blood pO2 (Temp corrected) 57.9 L Blood Gas A-a O2 Differential 412.1 H Blood Gas Actual Respiration Rate 24 Blood Gas Critical Value Read Back Saumya DOWELL RN Blood Gas Low PEEP Setting 5.0 Blood Gas Modality VENT - AC Blood Gas Notified Time 12/27/2016 7:51:29 AM Blood Gas Notified Whom JLD Blood Gas Respiration Rate 20.0 Blood Gas Specimen Source Blood arterial Blood Gas Temperature 37.0 Blood Gas Tidal Volume 500.0 FiO2 70.0 Oxyhemoglobin Percent 86.3 L Total Hemoglobin 11.8 L Bedside Glucose 170 158 115 Medications Medications Current Medications Ondansetron HCl (Zofran Inj) 4 mg Q6H PRN IV NAUSEA AND/OR VOMITING; Start 10/20 at 17:00 Acetaminophen (Tylenol Supp) 650 mg Q4H PRN [place] PAIN LEVEL 1-3 OR FEVER; Start 12/16/16 at 17:00 Lorazepam 1 mg 1 mg Q2H PRN IV ANXIETY Last administered on 12/26/16 04:21; Admin Dose 1 MG; Start 12/16/16 at 17:00 Norepinephrine/ Dextrose (Levophed/D5W) 500 ml @ 0 mls/hr TITRATE IV Last administered on 12/27/16 17:17; Admin Dose 28.12 MLS/HR; Start 12/17/16 at 00: 00 Amiodarone HCl (Cordarone) 200 mg BID NGT Last administered on 12/27/16 09:34 ; Admin Dose 200 MG; Start 12/17/16 at 21:00 IV Flush 10 ml 10 ml PRN PRN IV IV PROTOCOL; Start 12/17/16 at 12:30 Phenylephrine HCl/ Dextrose (Hernán-Synephrine/ D5W) 500 ml @ 75 mls/hr TITRATE IV Last administered on 12/21/16 21:07; Admin Dose 18.75 MLS/HR; Start at 08:30 Miscellaneous Information 1 ea NOTE XX ; Start 12/18/16 at 13:00 Glucose (Glutose) 15 gm Q15M PRN PO DECREASED GLUCOSE; Start 12/18/16 at 13:00 Glucose (Glutose) 22.5 gm Q15M PRN PO DECREASED GLUCOSE; Start 12/18/16 at 13: 00 Glucagon (Glucagen) 1 mg Q15M PRN IM DECREASED GLUCOSE; Start 12/18/16 at 13:00 Glucose (Glutose) 15 gm Q15M PRN BUCCAL DECREASED GLUCOSE; Start 12/18/16 at 13 :00 Dextrose (D50w Syringe) 25 ml Q15M PRN IV Till BS 80 mg/dL or above x2 Last administered on 12/23/16 09:26; Admin Dose 25 ML; Start 12/20/16 at 11:30 Dextrose (D50w Syringe) 50 ml Q15M PRN IV Till BS 80 mg/dL or above x2; Start 12/20/16 at 11:30 Pantoprazole 40 mg 40 mg DAILY@06 IV Last administered on 12/27/16 06:00; Admin Dose 40 MG; Start 12/21/16 at 06:00 Imipenem/ Cilastatin Sodium 100 ml @ 166.667 mls/hr Q6 IVPB Last administered on 12/27/16 18:16; Admin Dose 166.667 MLS/HR; Start 12/20/16 at 18:00 Levetiracetam 500 mg/Sodium Chloride 105 ml @ 420 mls/hr Q12 IVPB Last administered on 12/27/16 09:34; Admin Dose 420 MLS/HR; Start 12/21/16 at 21:00 Propofol 100 ml @ 1.74 mls/hr Q12H IV Last administered on 12/27/16 08:49; Admin Dose 8.69 MLS/HR; Start 12/21/16 at 12:30 Doxycycline Hyclate/Sodium Chloride (Vibramycin/NS) 250 ml @ 250 mls/hr Q12 IVPB Last administered on 12/27/16 09:33; Admin Dose 250 MLS/HR; Start at 21:00 Insulin Aspart (Novolog Insulin Pen) NOVOLOG *MILD* ALGORI... Q4 SC Last administered on 12/27/16 13:07; Admin Dose 1 UNIT; Start 12/23/16 at 17:00 Tobramycin TOBRAMYCIN PER PHARMACY NOTE XX ; Start 12/25/16 at 11:30 Tobramycin 300 mg/ Sodium Chloride 107.5 ml @ 103.75 mls/ hr Q48H IVPB Last administered on 12/27/16 14:26; Admin Dose 103.75 MLS/HR; Start 12/27/16 at 14: 00 Potassium Chloride/Sodium Bicarbonate/ Dextrose (KCl/Na Bicarb/ D5W) 1,170 ml @ 50 mls/hr [id number] IV Last administered on 12/27/16 11:22; Admin Dose 50 MLS/ HR; Start 12/27/16 at 10:00 Eye Lubricant 2 drop 2 drop QID BOTH EYES Last administered on 12/27/16 17:16 ; Admin Dose 2 DROP; Start 12/27/16 at 13:00 Caspofungin/ Sodium Chloride (Cancidas/NS) 250 ml @ 250 mls/hr Q24H IV ; Start 12/28/16 at 15:00 SHANA GOODWIN MD Dec 27, 2016 20:04
[2016-12-28] VITALS (82 sets, daily range): BP systolic 50–110; BP diastolic 23–93; PULSE 68–179; RESP 18–33
[2016-12-28] MEDS: IMIPENEM-CILAST 500MG IV (PMX) 100 ML IVPB SCH (00:50)
[2016-12-28] MEDS: INSULIN ASPART [NOVOLOG] 3 ML PEN SC SCH ×3 (00:55→08:35)
[2016-12-28] MEDS: PROPOFOL 100 ML IV SCH (00:56)
[2016-12-28] MEDS: ALBUTEROL HFA 8 GM INHALER INH SCH ×4 (01:49→20:12)
[2016-12-28] MEDS ORDERED: SOD CHLORIDE 0.9% 500 ML IV ONE (02:00)
[2016-12-28] MEDS ORDERED: PHENYLephrine 20MG IN 250 ML 250 ML IV SCH (02:00)
[2016-12-28] MEDS ORDERED: AMIODARONE 900 MG in DEXTROSE 5% 482 ML IV SCH (03:30)
[2016-12-28] MEDS: PHENYLephrine 40 MG in DEXTROSE 5% 496 ML IV SCH ×3 (04:31→23:41)
[2016-12-28] MEDS: PANTOPRAZOLE 40 MG INJ IV SCH (05:40)
[2016-12-28] MEDS ORDERED: IMIPENEM-CILAST 500MG IV (PMX) 100 ML IVPB SCH (06:00)
[2016-12-28 06:52] LABS: ADD SCAN DIFF NO
[2016-12-28 07:00] LABS: ABNORMAL IP MESSAGE 1; HEMATOCRIT 31.6 % (37.0-47.0); HEMOGLOBIN 9.8 g/dl (12.0-16.0); MEAN CORPUSCULAR HEMOGLOBIN 30.8 pg (29.0-33.0); MEAN CORPUSCULAR VOLUME 99.4 fl (82.0-101.0); MEAN PLATELET VOLUME 13.7 fl (7.4-10.4); RED BLOOD COUNT 3.18 10^6/ul (4.20-5.40); RED CELL DISTRIBUTION WIDTH 21.5 % (11.5-14.5)
[2016-12-28 07:07] LABS: ALBUMIN 1.5 g/dl (3.3-4.9)
[2016-12-28 07:10] LABS: ALBUMIN/GLOBULIN RATIO 0.71; BILIRUBIN,DIRECT 6.4 mg/dl (0.00-0.20); BILIRUBIN,INDIRECT 0.7 mg/dl (0-1.1); BILIRUBIN,TOTAL 7.1 mg/dl (0.2-1.3); CREATININE 0.4 mg/dl (0.44-1.00); TOTAL PROTEIN 3.6 g/dl (6.1-8.1)
[2016-12-28 07:11] LABS: CALCIUM 8.6 mg/dl (8.4-10.2)
[2016-12-28 07:46] LABS: PLATELET COUNT 23 10^3/UL (140-415)
[2016-12-28] MEDS: IPRATROPIUM (HFA) 12.9 GM INHALER INH SCH ×3 (08:26→20:12)
[2016-12-28] MEDS: ARTIFICIAL TEARS 15 ML OPH BOTH EYES SCH ×4 (08:32→22:37)
[2016-12-28] MEDS: LEVETIRACETAM IV 500 MG in SOD CHLORIDE 0.9% 100 ML IVPB SCH ×2 (08:32→22:03)
--- NOTE | 2016-12-28 08:57 | CONS ---
Date/Time of Note Date/Time of Note DATE: 12/28/16 TIME: 08:53 Assessment/Plan Assessment/Plan Additional Assessment/Plan Ventilator settings; AC of 20, tidal volume 500, 100% FiO2, PEEP of 5. Assessment recommendations; 1. Patient admitted with respiratory failure due to severe bilateral pneumonia. 2., History of glioblastoma with multiple craniotomies with patient's baseline mental status of complete unresponsiveness. 3. Cardiac arrhythmia. 4. Thrombocytopenia. 5. Severe metabolic acidosis. Refractory to sodium bicarb administration. 6. Shock liver. 7. Profound hypotension. 8. Severe hypoxemia. Continue current treatment. Prognosis is dismal. Consultation Date/Type/Reason Admit Date/Time Dec 16, 2016 at 15:45 Initial Consult Date Patient's condition remains critical. Still requiring Levophed for blood pressure maintenance. She is also sedated with propofol drip. Remains orally intubated and ventilator dependent. General examination; elderly woman, orally intubated, sedated, currently in no distress. Type of Consultation: Pulmonary/critical care Referring Provider: CAROL MICHELLE 24 HR Interval Summary Free Text/Dictation Patient's condition remains critical. He requiring high-dose pressor support in the form of Levophed and phenylephrine drips. She remains unresponsive. Has been off sedation. General examination; elderly woman, orally intubated. Unresponsive. Exam/Review of Systems Vital Signs Vitals Vital Signs Date Time Temp Pulse Resp B/P Pulse Ox O2 Delivery O2 Flow Rate FiO2 12/28/16 08:00 93 12/28/16 07:45 97.2 23 90/42 91 Mechanical Ventilator 12/28/16 05:29 100 Intake and Output 12/27/16 12/27/16 12/28/16 15:00 23:00 07:00 Intake Total 1065.68 ml 1513.65 ml 980.22 ml Output Total 210 ml 180 ml 20 ml Balance 855.68 ml 1333.65 ml 960.22 ml Exam H EENT examination; supple neck. Positive JVD. Pupils are small bilaterally. Patient remains strongly icteric. Multiple sternotomy scars are present. No thyromegaly. Chest examination; diffuse bilateral crackles. S1-S2 audible. No murmurs. Abdomen examination; soft, no organomegaly. Bowel sounds are absent. Extremity examination; 2+ generalized anasarca with severe ecchymosis involving all 4 extremities. INSTRUCTIONAL TECHNOLOGY FACILITATOR examination; patient remains unresponsive. Results Result Diagram: 12/28/16 0600 12/28/16 0600 Results 24 hrs Laboratory Tests Test 12/27/16 09:43 12/27/16 13:03 12/27/16 18:19 12/27/16 21:03 Bedside Glucose 170 158 115 128 Test 12/28/16 00:53 12/28/16 05:39 12/28/16 06:00 12/28/16 08:31 Bedside Glucose 75 123 155 Alanine Aminotransferase (ALT/SGPT) 58 Albumin 1.5 L Albumin/Globulin Ratio 0.71 Alkaline Phosphatase 182 H Anion Gap 23 H Aspartate Amino Transf (AST/SGOT) 72 H Blood Urea Nitrogen 13 Calcium Level 8.6 Carbon Dioxide Level 8 *L Chloride Level 108 Creatinine 0.40 L Direct Bilirubin 6.40 H Eosinophils # Eosinophils % Globulin 2.10 Glucose Level 358 #H Hematocrit 31.6 L Hemoglobin 9.8 L Indirect Bilirubin 0.7 Lymphocytes # Lymphocytes % Mean Corpuscular Hemoglobin 30.8 Mean Corpuscular Hemoglobin Concent 31.0 L Mean Corpuscular Volume 99.4 Mean Platelet Volume 13.7 #H Monocytes # Monocytes % Neutrophils # Neutrophils % Platelet Count 23 #*L Potassium Level 5.0 Red Blood Count 3.18 L Red Cell Distribution Width 21.5 H Sodium Level 134 L Total Bilirubin 7.1 H Total Protein 3.6 L White Blood Count 20.0 #H Medications Medications Current Medications Ondansetron HCl (Zofran Inj) 4 mg Q6H PRN IV NAUSEA AND/OR VOMITING; Start 10/20 at 17:00 Acetaminophen (Tylenol Supp) 650 mg Q4H PRN [place] PAIN LEVEL 1-3 OR FEVER; Start 12/16/16 at 17:00 Lorazepam 1 mg 1 mg Q2H PRN IV ANXIETY Last administered on 12/26/16 04:21; Admin Dose 1 MG; Start 12/16/16 at 17:00 Norepinephrine/ Dextrose (Levophed/D5W) 500 ml @ 0 mls/hr TITRATE IV Last administered on 12/27/16 17:17; Admin Dose 28.12 MLS/HR; Start 12/17/16 at 00: 00 Amiodarone HCl (Cordarone) 200 mg BID NGT Last administered on 12/27/16 21:02 ; Admin Dose 200 MG; Start 12/17/16 at 21:00; Status Future Hold IV Flush (NS 10 ml) 10 ml PRN PRN IV IV PROTOCOL; Start 12/17/16 at 12:30 Miscellaneous Information 1 ea NOTE XX ; Start 12/18/16 at 13:00 Glucose (Glutose) 15 gm Q15M PRN PO DECREASED GLUCOSE; Start 12/18/16 at 13:00 Glucose (Glutose) 22.5 gm Q15M PRN PO DECREASED GLUCOSE; Start 12/18/16 at 13: 00 Glucagon (Glucagen) 1 mg Q15M PRN IM DECREASED GLUCOSE; Start 12/18/16 at 13:00 Glucose (Glutose) 15 gm Q15M PRN BUCCAL DECREASED GLUCOSE; Start 12/18/16 at 13 :00 Dextrose (D50w Syringe) 25 ml Q15M PRN IV Till BS 80 mg/dL or above x2 Last administered on 12/23/16 09:26; Admin Dose 25 ML; Start 12/20/16 at 11:30 Dextrose (D50w Syringe) 50 ml Q15M PRN IV Till BS 80 mg/dL or above x2; Start 12/20/16 at 11:30 Pantoprazole 40 mg 40 mg DAILY@06 IV Last administered on 12/28/16 05:40; Admin Dose 40 MG; Start 12/21/16 at 06:00 Levetiracetam 500 mg/Sodium Chloride 105 ml @ 420 mls/hr Q12 IVPB Last administered on 12/28/16 08:32; Admin Dose 420 MLS/HR; Start 12/21/16 at 21:00 Propofol 100 ml @ 1.74 mls/hr Q12H IV Last administered on 12/28/16 00:56; Admin Dose 6.96 MLS/HR; Start 12/21/16 at 12:30 Doxycycline Hyclate/Sodium Chloride (Vibramycin/NS) 250 ml @ 250 mls/hr Q12 IVPB Last administered on 12/27/16 21:01; Admin Dose 250 MLS/HR; Start at 21:00 Tobramycin TOBRAMYCIN PER PHARMACY NOTE XX ; Start 12/25/16 at 11:30 Tobramycin 300 mg/ Sodium Chloride 107.5 ml @ 103.75 mls/ hr Q48H IVPB Last administered on 12/27/16 14:26; Admin Dose 103.75 MLS/HR; Start 12/27/16 at 14: 00 Potassium Chloride/Sodium Bicarbonate/ Dextrose (KCl/Na Bicarb/ D5W) 1,170 ml @ 50 mls/hr [id number] IV Last administered on 12/27/16 11:22; Admin Dose 50 MLS/ HR; Start 12/27/16 at 10:00 Eye Lubricant 2 drop 2 drop QID BOTH EYES Last administered on 12/28/16 08:32 ; Admin Dose 2 DROP; Start 12/27/16 at 13:00 Caspofungin 35 mg/ Sodium Chloride 250 ml @ 250 mls/hr Q24H IV ; Start at 15:00 Imipenem/ Cilastatin Sodium (Primaxin 500 Mg/ 100 ml (Pmx)) 100 ml @ 166.667 mls/hr Q6 IVPB Last administered on 12/28/16 05:40; Admin Dose 166.667 MLS/HR ; Start 12/28/16 at 06:00 Insulin Aspart NOVOLOG *MILD* ALGORI... Q4 SC Last administered on 12/28/16 08 :35; Admin Dose 1 UNIT; Start 12/28/16 at 05:00 Phenylephrine HCl 40 mg/Dextrose 500 ml @ 75 mls/hr TITRATE IV Last administered on 12/28/16 04:31; Admin Dose 37.5 MLS/HR; Start 12/28/16 at 07:00 Amiodarone HCl/ Dextrose (Cordarone Iv/ D5W) 500 ml @ 0 mls/hr Q0M IV Last administered on 12/28/16 03:46; Admin Dose 33.4 MLS/HR; Start 12/28/16 at 03:30 ALISE ESTRADA Dec 28, 2016 08:57
[2016-12-28] MEDS: DOXYCYCLINE 100 MG in SOD CHLORIDE 0.9% 250 ML IVPB SCH (09:32)
[2016-12-28 09:48] LABS: EOSINOPHILS # 0.2 10^3/ul (0.0-0.5); LYMPHOCYTES # 0.4 10^3/ul (0.8-2.9); MONOCYTE # 0.8 10^3/ul (0.3-0.9); MYELOCYTES # 0.4
[2016-12-28 09:54] LABS: SMUDGE CELLS% Few
[2016-12-28] MEDS: SODIUM BICARBONATE IV SCH (10:38)
[2016-12-28] MEDS: POTASSIUM CHLORIDE IV SCH (10:38)
[2016-12-28] MEDS: DEXTROSE 5% IV SCH (10:38)
--- NOTE | 2016-12-28 11:37 | PN ---
DATE: 12/28/2016 SUBJECTIVE: Patient is doing poorly. She is maxed on 2 pressors, unresponsive, hypothermic. MICROBIOLOGY: Her blood cultures from 12/26/2016 came back positive for gram-negative rods today. INDWELLINGS: Endotracheal tube, Singer, PEG and right upper extremity PICC line placed on December 05. VITAL SIGNS: WBC today 20, H and H 9.8 and 31.6, platelets 23, neutrophils 50, bands 35, lymphs 2, BUN 13, creatinine 0.40. Carbon dioxide 8. ANTIMICROBIALS: 1. Cancidas. 2. Imipenem. 3. IV tobramycin. 4. Doxycycline. PHYSICAL EXAMINATION: GENERAL: This is a chronically ill-appearing, elderly woman who is unresponsive, lying comfortably in bed. Patient is in no distress. HEENT: Head atraumatic, normocephalic. Sclerae anicteric. Pupils are dilated. NECK: Obese. CHEST: Rise symmetrical. Breath sounds with bilateral crackles. HEART: S1, S2. ABDOMEN: Obese, soft. Bowel tones hypoactive. EXTREMITIES: With bilateral edema, multiple pressure sores and ecchymotic areas. SKIN: As above, with severe anasarca. ASSESSMENT: 1. Severe sepsis with shock and multisystem organ failure. 2. Bacteremia with blood culture growing gram-negative rods. Will rule out line sepsis versus bili steffanie sepsis. 3. Transaminitis with elevated total bilirubin, gastroenterology on case. Per notes, probably sept ic hepatopathy. 4. Carmen glabrata urinary tract infection. 5. Pneumonia with sputum culture grew multi-drug resistant Pseudomonas aeruginosa, covered with imi penem. 6. Rapid atrial fibrillation. 7. Anemia with thrombocytopenia. 8. Encephalopathy. 9. History of glioblastoma status post craniotomy with brain abscess evacuation. PLAN: The patient is doing poorly, hemodynamically unstable with multisystem organ failure and now growing gram-negative rods in her blood, which could be secondary to line. Patient has a low platel et count. She is not a candidate for a new line at this point. She is covered with broad spectrum antibiotics, which we will continue for now. We will repeat blood cultures and urine cultures again from PICC line. Dictated By: MERISSA DUTTA INSTALLATION ENGINEER for MART DELACRUZ/NEWTON Conf#: [id number] [facility]#: [id number]
--- NOTE | 2016-12-28 13:13 | PN ---
DATE: 12/27/2016 FAMILY CONFERENCE The patient's 2 children, both sons, were in conference. Apparently there are 3 other daughters who one has been transferred from [place]. They are involved. They have an active decision-making proces s with ongoing level of care. Mrs. Hernández is not doing well. She is on low-dose pressors at this alyssa e. She is nonweanable. She is septic. She is still encephalopathic also. This has been explained to her sons, who initially were very defensive about the quality of her care, but later on became m uch more calm, and explained the family situation that is they are more interested in changing her c ode status; however, the sisters are not, and they feel like they are in between this decision-makin g process. They made it very clear that they do not want their mother to suffer. I have offered to meet with the daughter who is arriving in from out of town, although that is sometime next week. A s is right now, code status will remain the same. We will continue to support the family. Hopefull y, in the course of ongoing conversations, family members may consider at least changing code status . PROGNOSIS: Extremely poor. Dictated By: MISAEL CÁRDENAS MD, LP/NEWTON Conf#: [id number] DID#: [id number]
--- NOTE | 2016-12-28 14:09 | PN ---
Date/Time of Note Date/Time of Note DATE: 12/28/16 TIME: 14:06 Assessment/Plan VTE Prophylaxis VTE Prophylaxis Intervention: contraindicated VTE Contraindication Reason: thrombocytopenia Lines/Catheters IV Catheter Type (from Nrsg): PICC Line Central line still needed: Yes Urinary Cath still in place: Yes Reason Cath still needed: terminal illness/intractable pain Assessment/Plan Assessment/Plan 81 yo female with a past medical history of glioblastoma, chronic encephalopathy , brain abscess s/p craniotomy, dysphagia s/p PEG, who came from [facility] for hypotension/hypothermia, and possible aspiration pneumonitis. PROBLEMS: * Severe Sepsis with shock, bandemia and Lactic acidosis - 2/2 PNA /UTI * still on pressors * Severe metabolic acidosis * Multiorgan failure * Acute resp failure on full ventilator support * Husam Pneumonia - Pseudomonas * Yeast / Bacterial UTI * Leucocytosis with bandemia and thrombocytopenia 2/2 sepsis * Chronic encephalopathy with hx of the following * Glioblastoma * Hx .of brain abscess * s/p craniotomy * Resultant seizure d/o * Dysphagia 2/2 #4 s/p PEG * Afib with RVR - now in NSR * DM 2 : A1C 6.9 : Stable on SSI * Worsening Hepatic failure with * Severe anasarca * Thrombocytopenia / coagulopathy * likely ascites contributing to Tube leakage * Leakage around PEG tube with surrounding cellulitis PLAN: Continue ICU care and Support Patient remains on pressors / Continue Bicarb therapy Continue IV abx and antifungals per ID / appreciate input Continue Vent mgt / appreciate pulm input Continue amiodarone for Afib Continue Keppra IV Replace electrolytes Continue close lab monitoring and mgt Appreciate all other consults PROPHYLAXIS: IV PPI / SCDs PROGNOSIS: Extremely poor / strongly recommend readressing Code status Critical care time spent on pt care today = 40 min. Subjective 24 Hr Interval Summary Free Text/Dictation Patient seen and examined. Intubated and unresponsive, still on pressors Bicarb drip Spoke with nursing, secondary social studies teacher and palliative care Subjective hx not possible: pt non-verbal Exam/Review of Systems Vital Signs Vitals Vital Signs Date Time Temp Pulse Resp B/P Pulse Ox O2 Delivery O2 Flow Rate FiO2 12/28/16 12:00 109 12/28/16 10:30 20 97/32 93 Mechanical Ventilator 12/28/16 07:45 97.2 12/28/16 05:29 100 Intake and Output 12/27/16 12/27/16 12/28/16 15:00 23:00 07:00 Intake Total 1065.68 ml 1513.65 ml 980.22 ml Output Total 210 ml 180 ml 20 ml Balance 855.68 ml 1333.65 ml 960.22 ml Exam Constitutional: other (eyes open, not tracking, conjuctiavl edema ++, generalized anasarca), No alert Eyes: other (Pupils fixed and dilated) ENMT: intubated Respiratory: crackles/rales, diminished breath sounds Cardiovascular: irregular rhythm, No murmurs/extra sounds Gastrointestinal: ascites, distended, other (PEG tube nnwith surrounding ostomy bag and clear yellow drainage and surrounding erythema) Extremities: edema (diffuse), other (cyanosis) Neurological: other (obtunded), unresponsive, No nl mental status, No nl speech Results Result Diagram: 12/28/16 0600 12/28/16 0600 Results 24 hrs Laboratory Tests Test 12/27/16 18:19 12/27/16 21:03 12/28/16 00:53 12/28/16 05:39 Bedside Glucose 115 128 75 123 Test 12/28/16 06:00 12/28/16 08:31 Alanine Aminotransferase (ALT/SGPT) 58 Albumin 1.5 L Albumin/Globulin Ratio 0.71 Alkaline Phosphatase 182 H Anion Gap 23 H Aspartate Amino Transf (AST/SGOT) 72 H Band Neutrophils % 35.0 H Blood Urea Nitrogen 13 Calcium Level 8.6 Carbon Dioxide Level 8 *L Chloride Level 108 Creatinine 0.40 L Direct Bilirubin 6.40 H Eosinophils # 0.2 Eosinophils % 1.0 Globulin 2.10 Glucose Level 358 #H Hematocrit 31.6 L Hemoglobin 9.8 L Indirect Bilirubin 0.7 Lymphocytes # 0.4 L Lymphocytes % 2.0 L Mean Corpuscular Hemoglobin 30.8 Mean Corpuscular Hemoglobin Concent 31.0 L Mean Corpuscular Volume 99.4 Mean Platelet Volume 13.7 #H Metamyelocytes # 0.8 Metamyelocytes % 4.0 H Monocytes # 0.8 Monocytes % 4.0 Myelocytes # 0.4 Myelocytes % 2.0 H Neutrophils # 10.0 H Neutrophils % 50.0 Nucleated Red Blood Cells % 37.0 H Platelet Count 23 #*L Potassium Level 5.0 Promyelocytes # 0.4 Promyelocytes % 2.0 H Red Blood Count 3.18 L Red Cell Distribution Width 21.5 H Sodium Level 134 L Total Bilirubin 7.1 H Total Protein 3.6 L White Blood Count 20.0 #H Bedside Glucose 155 Medications Medications Current Medications Acetaminophen (Tylenol Supp) 650 mg Q4H PRN [place] PAIN LEVEL 1-3 OR FEVER; Start 12/16/16 at 17:00 Lorazepam 1 mg 1 mg Q2H PRN IV ANXIETY Last administered on 12/26/16 04:21; Admin Dose 1 MG; Start 12/16/16 at 17:00 Norepinephrine/ Dextrose (Levophed/D5W) 500 ml @ 0 mls/hr TITRATE IV Last administered on 12/28/16 10:36; Admin Dose 56.25 MLS/HR; Start 12/17/16 at 00: 00 Amiodarone HCl (Cordarone) 200 mg BID NGT Last administered on 12/27/16 21:02 ; Admin Dose 200 MG; Start 12/17/16 at 21:00; Status Future Hold Miscellaneous Information 1 ea NOTE XX ; Start 12/18/16 at 13:00 Dextrose (D50w Syringe) 25 ml Q15M PRN IV Till BS 80 mg/dL or above x2 Last administered on 12/23/16 09:26; Admin Dose 25 ML; Start 12/20/16 at 11:30 Dextrose 50 ml 50 ml Q15M PRN IV Till BS 80 mg/dL or above x2; Start 12/20/16 at 11:30 Levetiracetam 500 mg/Sodium Chloride 105 ml @ 420 mls/hr Q12 IVPB Last administered on 12/28/16 08:32; Admin Dose 420 MLS/HR; Start 12/21/16 at 21:00 Potassium Chloride/Sodium Bicarbonate/ Dextrose (KCl/Na Bicarb/ D5W) 1,170 ml @ 50 mls/hr [id number] IV Last administered on 12/28/16 10:38; Admin Dose 50 MLS/ HR; Start 12/27/16 at 10:00 Eye Lubricant 2 drop 2 drop QID BOTH EYES Last administered on 12/28/16 13:47 ; Admin Dose 2 DROP; Start 12/27/16 at 13:00 Phenylephrine HCl 40 mg/Dextrose 500 ml @ 75 mls/hr TITRATE IV Last administered on 12/28/16 04:31; Admin Dose 37.5 MLS/HR; Start 12/28/16 at 07:00 Amiodarone HCl/ Dextrose (Cordarone Iv/ D5W) 500 ml @ 0 mls/hr Q0M IV Last administered on 12/28/16 03:46; Admin Dose 33.4 MLS/HR; Start 12/28/16 at 03:30 JOHAN LEMUS Dec 28, 2016 14:09
[2016-12-28] MEDS ORDERED: CASPOFUNGIN 35 MG in SOD CHLORIDE 0.9% 250 ML IV SCH (15:00)
[2016-12-28] MEDS: LORAZEPAM 2 MG INJ IV PRN (15:11)
--- NOTE | 2016-12-28 18:35 | CONS ---
Date/Time of Note Date/Time of Note DATE: 12/28/16 TIME: 18:34 Assessment/Plan Assessment/Plan Additional Assessment/Plan Additional Assessment/Plan Additional Assessment/Plan 1. Sepsis, most probably related to bilateral pneumonia. 2. Mild leakage from the G-tube site due to the large stoma.better after ostomy pouch,no ascites 3. Status post craniotomy for glioblastoma. 4. Anemia. 5. Hyponatremia. 6. Chronic encephalopathy. 7.shock on pressor support 8. vent dependent respiratory failure 9. pancytopenia ,secondary to sepsis 10 abnormal liver function,new problem,septic hepatopathy PLAN: patient has got ostomy pouch, and after that, the leakage has completely stopped. If the condition improves, then we will start feeding her through the G-tube antibiotics as per ID monitor cbc sonogram of liver ,steatohepatitis,no biliary obstruction Consultation Date/Type/Reason Admit Date/Time Dec 16, 2016 at 15:45 Type of Consultation: Pulmonary/critical care Referring Provider: CAROL MICHELLE 24 HR Interval Summary Subjective hx not possible: pt non-verbal, pt critical Exam/Review of Systems Vital Signs Vitals Vital Signs Date Time Temp Pulse Resp B/P Pulse Ox O2 Delivery O2 Flow Rate FiO2 12/28/16 18:00 107 27 88/34 Mechanical Ventilator 12/28/16 17:00 100 12/28/16 16:00 97.1 12/28/16 15:20 100 Intake and Output 12/27/16 12/27/16 12/28/16 15:00 23:00 07:00 Intake Total 1065.68 ml 1513.65 ml 980.22 ml Output Total 210 ml 180 ml 20 ml Balance 855.68 ml 1333.65 ml 960.22 ml Exam Constitutional: distress, non-verbal Respiratory: labored breathing Cardiovascular: nl pulses, regular rate and rhythm Gastrointestinal: non-tender, soft Musculoskeletal: nl extremities to inspection, nl gait and stance Results Result Diagram: 12/28/16 0600 12/28/16 0600 Results 24 hrs Laboratory Tests Test 12/27/16 21:03 12/28/16 00:53 12/28/16 05:39 12/28/16 06:00 Bedside Glucose 128 75 123 Alanine Aminotransferase (ALT/SGPT) 58 Albumin 1.5 L Albumin/Globulin Ratio 0.71 Alkaline Phosphatase 182 H Anion Gap 23 H Aspartate Amino Transf (AST/SGOT) 72 H Band Neutrophils % 35.0 H Blood Urea Nitrogen 13 Calcium Level 8.6 Carbon Dioxide Level 8 *L Chloride Level 108 Creatinine 0.40 L Direct Bilirubin 6.40 H Eosinophils # 0.2 Eosinophils % 1.0 Globulin 2.10 Glucose Level 358 #H Hematocrit 31.6 L Hemoglobin 9.8 L Indirect Bilirubin 0.7 Lymphocytes # 0.4 L Lymphocytes % 2.0 L Mean Corpuscular Hemoglobin 30.8 Mean Corpuscular Hemoglobin Concent 31.0 L Mean Corpuscular Volume 99.4 Mean Platelet Volume 13.7 #H Metamyelocytes # 0.8 Metamyelocytes % 4.0 H Monocytes # 0.8 Monocytes % 4.0 Myelocytes # 0.4 Myelocytes % 2.0 H Neutrophils # 10.0 H Neutrophils % 50.0 Nucleated Red Blood Cells % 37.0 H Platelet Count 23 #*L Potassium Level 5.0 Promyelocytes # 0.4 Promyelocytes % 2.0 H Red Blood Count 3.18 L Red Cell Distribution Width 21.5 H Sodium Level 134 L Total Bilirubin 7.1 H Total Protein 3.6 L White Blood Count 20.0 #H Test 12/28/16 08:31 Bedside Glucose 155 Medications Medications Current Medications Acetaminophen (Tylenol Supp) 650 mg Q4H PRN [place] PAIN LEVEL 1-3 OR FEVER; Start 12/16/16 at 17:00 Lorazepam 1 mg 1 mg Q2H PRN IV ANXIETY Last administered on 12/28/16 15:11; Admin Dose 1 MG; Start 12/16/16 at 17:00 Norepinephrine/ Dextrose (Levophed/D5W) 500 ml @ 0 mls/hr TITRATE IV Last administered on 12/28/16 16:51; Admin Dose 56.25 MLS/HR; Start 12/17/16 at 00: 00 Amiodarone HCl (Cordarone) 200 mg BID NGT Last administered on 12/27/16 21:02 ; Admin Dose 200 MG; Start 12/17/16 at 21:00; Status Future Hold Miscellaneous Information 1 ea NOTE XX ; Start 12/18/16 at 13:00 Dextrose (D50w Syringe) 25 ml Q15M PRN IV Till BS 80 mg/dL or above x2 Last administered on 12/23/16 09:26; Admin Dose 25 ML; Start 12/20/16 at 11:30 Dextrose 50 ml 50 ml Q15M PRN IV Till BS 80 mg/dL or above x2; Start 12/20/16 at 11:30 Levetiracetam 500 mg/Sodium Chloride 105 ml @ 420 mls/hr Q12 IVPB Last administered on 12/28/16 08:32; Admin Dose 420 MLS/HR; Start 12/21/16 at 21:00 Potassium Chloride/Sodium Bicarbonate/ Dextrose (KCl/Na Bicarb/ D5W) 1,170 ml @ 50 mls/hr [id number] IV Last administered on 12/28/16 10:38; Admin Dose 50 MLS/ HR; Start 12/27/16 at 10:00 Eye Lubricant 2 drop 2 drop QID BOTH EYES Last administered on 12/28/16 13:47 ; Admin Dose 2 DROP; Start 12/27/16 at 13:00 Phenylephrine HCl 40 mg/Dextrose 500 ml @ 75 mls/hr TITRATE IV Last administered on 12/28/16 04:31; Admin Dose 37.5 MLS/HR; Start 12/28/16 at 07:00 Amiodarone HCl/ Dextrose (Cordarone Iv/ D5W) 500 ml @ 0 mls/hr Q0M IV Last administered on 12/28/16 03:46; Admin Dose 33.4 MLS/HR; Start 12/28/16 at 03:30 SHANA GOODWIN MD Dec 28, 2016 18:35
--- NOTE | 2016-12-28 21:42 | CONS ---
Date/Time of Note Date/Time of Note DATE: 12/28/16 TIME: 21:38 Assessment/Plan Assessment/Plan Chief Complaint/Hosp Course PROGRESSIVE PANCYTOPENIA , INCLUDING THE SIGNIFICANT DROP OF PLATELET COUNT FROM N ON ADMISSION TO 14 NOTE THAT PT WAS EXPOSED TO IMIPENEM, PEPCID, VANCO, CEFEPIME SMEAR- NEG AVOID MYELOSUPPRESSIVE MEDS DIC PROFILE- NEG POST PLATELET TRANSFUSION WITH GREAT RESPONSE PANCYTOPENIA IS MOST LIKELY 2 TO SEPSIS, ALTHOUGH DRUG EFFECT IS ALSO POSSIBLE THROMBOCYTOPENIA 2 TO SEPSIS MONITOR TRANSFUSE IF PLATELET COUNT LESS THAN 37510 ANEMIA WITH SIGNIFICANT DROP H/H TRANSFUSE PRBC PRN MONITOR FOR BLEEDING AND HEMOLYSIS glioblastoma-monitor acute changes OLD RECORD- P brain abscess s/p craniotomy Anemia - chronic disease - transfuse if hgb < 8 g/dL Septic Shock - 2/2 aspiration pneumonitis -ICU, pulm, broad spectrum antibiotics , pressor support, f-up respiratory cultures, ID Hyponatremia - chronic - monitor acute changes Chronic encephalopathy Dysphagia s/p PEG - possible replacement needed, Dr. Salgado consulted Gi ppx - pepcid IV DVT ppx - scds Problems: Consultation Date/Type/Reason Admit Date/Time Dec 16, 2016 at 15:45 Initial Consult Date 12/21/16 Type of Consultation: hemeon Referring Provider: CAROL MICHELLE 24 HR Interval Summary Free Text/Dictation all noted d/w staff no new events remains critically ill in icu, on pressors platelet count- down no active bleeding Exam/Review of Systems Vital Signs Vitals Vital Signs Date Time Temp Pulse Resp B/P Pulse Ox O2 Delivery O2 Flow Rate FiO2 12/28/16 18:31 100 23 93 100 12/28/16 18:00 88/34 Mechanical Ventilator 12/28/16 16:00 97.1 Intake and Output 12/27/16 12/27/16 12/28/16 15:00 23:00 07:00 Intake Total 1065.68 ml 1513.65 ml 980.22 ml Output Total 210 ml 180 ml 20 ml Balance 855.68 ml 1333.65 ml 960.22 ml Exam Gen Marlo: intubated, sedated HEENT: NC/AT, PERRLA NECK: supple, no thyromegaly THORAX: symmetrical, no obvious deformities CV: S1S2, RRR, no M/G/R Lungs: + mild crackles at bases Abd: soft, NT/ND, +BS, no rebound, no guarding, neg HSM, PEG site leaking EXT: no edema, no ecchymosis, no clubbing, FROM, contractures Neuro: stares, grossly intact Skin: scattered ecchymoses Results Result Diagram: 12/28/16 0600 12/28/16 0600 Results 24 hrs Laboratory Tests Test 12/28/16 00:53 12/28/16 05:39 12/28/16 06:00 12/28/16 08:31 Bedside Glucose 75 123 155 Alanine Aminotransferase (ALT/SGPT) 58 Albumin 1.5 L Albumin/Globulin Ratio 0.71 Alkaline Phosphatase 182 H Anion Gap 23 H Aspartate Amino Transf (AST/SGOT) 72 H Band Neutrophils % 35.0 H Blood Urea Nitrogen 13 Calcium Level 8.6 Carbon Dioxide Level 8 *L Chloride Level 108 Creatinine 0.40 L Direct Bilirubin 6.40 H Eosinophils # 0.2 Eosinophils % 1.0 Globulin 2.10 Glucose Level 358 #H Hematocrit 31.6 L Hemoglobin 9.8 L Indirect Bilirubin 0.7 Lymphocytes # 0.4 L Lymphocytes % 2.0 L Mean Corpuscular Hemoglobin 30.8 Mean Corpuscular Hemoglobin Concent 31.0 L Mean Corpuscular Volume 99.4 Mean Platelet Volume 13.7 #H Metamyelocytes # 0.8 Metamyelocytes % 4.0 H Monocytes # 0.8 Monocytes % 4.0 Myelocytes # 0.4 Myelocytes % 2.0 H Neutrophils # 10.0 H Neutrophils % 50.0 Nucleated Red Blood Cells % 37.0 H Platelet Count 23 #*L Potassium Level 5.0 Promyelocytes # 0.4 Promyelocytes % 2.0 H Red Blood Count 3.18 L Red Cell Distribution Width 21.5 H Sodium Level 134 L Total Bilirubin 7.1 H Total Protein 3.6 L White Blood Count 20.0 #H Medications Medications Current Medications Acetaminophen (Tylenol Supp) 650 mg Q4H PRN [place] PAIN LEVEL 1-3 OR FEVER; Start 12/16/16 at 17:00 Lorazepam 1 mg 1 mg Q2H PRN IV ANXIETY Last administered on 12/28/16t 15:11; Admin Dose 1 MG; Start 12/16/16 at 17:00 Norepinephrine/ Dextrose (Levophed/D5W) 500 ml @ 0 mls/hr TITRATE IV Last administered on 12/28/16 16:51; Admin Dose 56.25 MLS/HR; Start 12/17/16 at 00: 00 Amiodarone HCl (Cordarone) 200 mg BID NGT Last administered on 12/27/16 21:02 ; Admin Dose 200 MG; Start 12/17/16 at 21:00; Status Future Hold Miscellaneous Information 1 ea NOTE XX ; Start 12/18/16 at 13:00 Dextrose (D50w Syringe) 25 ml Q15M PRN IV Till BS 80 mg/dL or above x2 Last administered on 12/23/16 09:26; Admin Dose 25 ML; Start 12/20/16 at 11:30 Dextrose 50 ml 50 ml Q15M PRN IV Till BS 80 mg/dL or above x2; Start 12/20/16 at 11:30 Levetiracetam 500 mg/Sodium Chloride 105 ml @ 420 mls/hr Q12 IVPB Last administered on 12/28/16 08:32; Admin Dose 420 MLS/HR; Start 12/21/16 at 21:00 Potassium Chloride/Sodium Bicarbonate/ Dextrose (KCl/Na Bicarb/ D5W) 1,170 ml @ 50 mls/hr [id number] IV Last administered on 12/28/16 10:38; Admin Dose 50 MLS/ HR; Start 12/27/16 at 10:00 Eye Lubricant 2 drop 2 drop QID BOTH EYES Last administered on 12/28/16 13:47 ; Admin Dose 2 DROP; Start 12/27/16 at 13:00 Phenylephrine HCl 40 mg/Dextrose 500 ml @ 75 mls/hr TITRATE IV Last administered on 12/28/16 20:20; Admin Dose 45 MLS/HR; Start 12/28/16 at 07:00 Amiodarone HCl/ Dextrose (Cordarone Iv/ D5W) 500 ml @ 0 mls/hr Q0M IV Last administered on 12/28/16 03:46; Admin Dose 33.4 MLS/HR; Start 12/28/16 at 03:30 MAYA MIKE MD Dec 28, 2016 21:41
[2016-12-28] MEDS ORDERED: VASOPRESSIN 60 UNIT in DEXTROSE 5% 57 ML IV SCH (22:30)
[2016-12-28] MEDS ORDERED: DOPamine-D5W 1.6 MG/ML 250 ML IV SCH (23:10)
[2016-12-29] VITALS (30 sets, daily range): BP systolic 36–113; BP diastolic 20–81; PULSE 20–221; RESP 20–31
[2016-12-29] MEDS: PHENYLephrine 40 MG in DEXTROSE 5% 496 ML IV SCH (02:37)
[2016-12-29] MEDS: ALBUTEROL HFA 8 GM INHALER INH SCH (03:29)
--- NOTE | 2016-12-29 06:16 | EN ---
Date/Time of Note Date/Time of Note DATE: 12/29/16 TIME: 06:12 Event Note Medicine Medicine Event Note Was called by nursing staff 12/06 to patient having no heart beat and had . Upon arrival the patient had no movement, was maxed out on 4 pressors. Physical Exam: Gen Marlo: unconscious HEENT: pupils fixed and dilated NECK: supple, no thyromegaly THORAX: symmetrical, no obvious deformities CV: no heart tones auscultated Lungs: no inspiratory/expiratory effort Abd: soft, NT/ND, no bowel sounds EXT: anasarca Neuro: no gag, corneal, pupillary reflexes, flaccid paralysis, no response to painful stimuli Ms. Ammy Hernández, born on 1935, on 12/29/2016 at 6:01 am. Family at bedside and primary care team were notified. Primary care team will complete full discharge summary. MAMTA SUAREZ MD Dec 29, 2016 06:16
--- NOTE | 2016-12-29 09:14 | CONS ---
Date/Time of Note Date/Time of Note DATE: 12/29/16 TIME: 09:14 Assessment/Plan Assessment/Plan Chief Complaint/Hosp Course ID PROGRESS NOTE Patient this am and was not seen - Note was open to review chart prior to entering room. Unable to delete open note. Thank you for allowing "Grabiel Salcedo MD" to participate in the care of this 81 yo Female. Problems: Consultation Date/Type/Reason Admit Date/Time Dec 16, 2016 at 15:45 Initial Consult Date 12/21/16 Type of Consultation: ID Referring Provider: CAROL MICHELLE Exam/Review of Systems Vital Signs Vitals Vital Signs Date Time Temp Pulse Resp B/P Pulse Ox O2 Delivery O2 Flow Rate FiO2 12/29/16 05:38 20 12/29/16 05:22 20 100 12/29/16 05:15 36/23 50 Mechanical Ventilator 12/29/16 00:00 95.5 Intake and Output 12/28/16 12/28/16 12/29/16 15:00 23:00 07:00 Intake Total 1113.22 ml 1955.88 ml 2266.80 ml Output Total 0 ml 0 ml 10 ml Balance 1113.22 ml 1955.88 ml 2256.80 ml Results Result Diagram: 12/28/16 0600 12/28/16 0600 Medications Medications Current Medications Acetaminophen (Tylenol Supp) 650 mg Q4H PRN [place] PAIN LEVEL 1-3 OR FEVER; Start 12/16/16 at 17:00 Lorazepam 1 mg 1 mg Q2H PRN IV ANXIETY Last administered on 12/28/16 15:11; Admin Dose 1 MG; Start 12/16/16 at 17:00 Norepinephrine/ Dextrose (Levophed/D5W) 500 ml @ 0 mls/hr TITRATE IV Last administered on 12/29/16 00:38; Admin Dose 56.25 MLS/HR; Start 12/17/16 at 00: 00 Amiodarone HCl (Cordarone) 200 mg BID NGT Last administered on 12/27/16 21:02 ; Admin Dose 200 MG; Start 12/17/16 at 21:00; Status Future Hold Miscellaneous Information 1 ea NOTE XX ; Start 12/18/16 at 13:00 Dextrose (D50w Syringe) 25 ml Q15M PRN IV Till BS 80 mg/dL or above x2 Last administered on 12/23/16 09:26; Admin Dose 25 ML; Start 12/20/16 at 11:30 Dextrose 50 ml 50 ml Q15M PRN IV Till BS 80 mg/dL or above x2; Start 12/20/16 at 11:30 Levetiracetam 500 mg/Sodium Chloride 105 ml @ 420 mls/hr Q12 IVPB Last administered on 12/28/16 22:03; Admin Dose 420 MLS/HR; Start 12/21/16 at 21:00 Potassium Chloride/Sodium Bicarbonate/ Dextrose (KCl/Na Bicarb/ D5W) 1,170 ml @ 50 mls/hr [id number] IV Last administered on 12/28/16 10:38; Admin Dose 50 MLS/ HR; Start 12/27/16 at 10:00 Eye Lubricant 2 drop 2 drop QID BOTH EYES Last administered on 12/28/16 22:37 ; Admin Dose 2 DROP; Start 12/27/16 at 13:00 Phenylephrine HCl 40 mg/Dextrose 500 ml @ 75 mls/hr TITRATE IV Last administered on 12/29/16 02:37; Admin Dose 225 MLS/HR; Start 12/28/16 at 07:00 Amiodarone HCl 900 mg/Dextrose 500 ml @ 0 mls/hr Q0M IV Last administered on 03:46; Admin Dose 33.4 MLS/HR; Start 12/28/16 at 03:30 Vasopressin 60 unit/Dextrose 60 ml @ 1.2 mls/hr Q12H IV Last administered on 22:33; Admin Dose 1.2 MLS/HR; Start 12/28/16 at 22:30 Dopamine HCl/ Dextrose 250 ml @ 4.35 mls/hr TITRATE IV Last administered on 23:41; Admin Dose 4.35 MLS/HR; Start 12/28/16 at 23:10 VERENICE MALHOTRA NP Dec 29, 2016 09:14 Dextrose 50 ml 50 ml Q15M PRN IV Till BS 80 mg/dL or above x2; Start 12/20/16 at 11:30 Levetiracetam 500 mg/Sodium Chloride 105 ml @ 420 mls/hr Q12 IVPB Last administered on 12/28/16 22:03; Admin Dose 420 MLS/HR; Start 12/21/16 at 21:00 Potassium Chloride/Sodium Bicarbonate/ Dextrose (KCl/Na Bicarb/ D5W) 1,170 ml @ 50 mls/hr [id number] IV Last administered on 12/28/16 10:38; Admin Dose 50 MLS/ HR; Start 12/27/16 at 10:00 Eye Lubricant 2 drop 2 drop QID BOTH EYES Last administered on 12/28/16 22:37 ; Admin Dose 2 DROP; Start 12/27/16 at 13:00 Phenylephrine HCl 40 mg/Dextrose 500 ml @ 75 mls/hr TITRATE IV Last administered on 12/29/16 02:37; Admin Dose 225 MLS/HR; Start 12/28/16 at 07:00 Amiodarone HCl 900 mg/Dextrose 500 ml @ 0 mls/hr Q0M IV Last administered on 03:46; Admin Dose 33.4 MLS/HR; Start 12/28/16 at 03:30 Vasopressin 60 unit/Dextrose 60 ml @ 1.2 mls/hr Q12H IV Last administered on 22:33; Admin Dose 1.2 MLS/HR; Start 12/28/16 at 22:30 Dopamine HCl/ Dextrose 250 ml @ 4.35 mls/hr TITRATE IV Last administered on 23:41; Admin Dose 4.35 MLS/HR; Start 12/28/16 at 23:10 VERENICE MALHOTRA NP Dec 29, 2016 09:14
--- NOTE | 2016-12-31 07:04 | DES ---
DATE OF ADMISSION: 12/16/2016 DATE OF : 12/29/2016 PRELIMINARY CAUSE OF : Acute respiratory failure. FINAL DIAGNOSES: 1. Severe sepsis with septic shock, bandemia, and lactic acidosis secondary to #2. 2. Severe bilateral pneumonia. 3. Bacterial urinary tract infection. 4. Multiorgan failure secondary to sepsis. 5. Chronic encephalopathy secondary to history of glioblastoma from ____, status post craniotomy. 6. Seizure disorder. 7. Chronic dysphagia, status post PEG. 8. Chronic atrial fibrillation. 9. Diabetes mellitus type 2. SHORT HOSPITALIZATION COURSE: This patient was transferred to [facility] from [facility] where she was being managed for chronic respiratory failure, hype rtension, hypothermia, and aspiration pneumonitis. Unfortunately, despite very aggressive care, the patient never actually recovered from her severe sepsis. The patient was chronically encephalopath ic and her symptoms basically just worsened despite aggressive antibiotic regimen. Her cultures hav e grown out multiple organisms that were drug resistant and she developed severe sepsis and severe a nasarca and went into shock and was requiring pressor support. Despite aggressive care, the patient never really recovered and the family was kept updated throughout her hospitalization of her ____ c ondition. ____ her , the patient had been noted to be ____ and was requiring more pressor supp ort and this was communicated to her family, who at that time decided to withdraw aggressive care, n ot further ____ care as well as make the patient a no code. Eventually, in the early hours of 12/29 the patient passed. For details of her pronouncement, please review Dr. Chang's ____. Dictated By: JOHAN LEMUS MD BA/NTS Conf#: [id number] DID#: [id number]
== END 2016-12-29 06:00 | disposition expired | DRG 870 ==
LOC: ICU 15:45
PROVIDERS: ADMIT Student in an Organized Health Care Education/Training Program; ATTEND Student in an Organized Health Care Education/Training Program
PROC: 5A09457 Assistance with Respiratory Ventilation, 24-96 Consecutive Hours, Continuous Positive Airway Pressure (ICD-10-PCS; 2016-12-16)
PROC: 02HV33Z Insertion of Infusion Device into Superior Vena Cava, Percutaneous Approach (ICD-10-PCS; 2016-12-16)
PROC: 5A1945Z Respiratory Ventilation, 24-96 Consecutive Hours (ICD-10-PCS; 2016-12-18)
PROC: 5A1955Z Respiratory Ventilation, Greater than 96 Consecutive Hours (ICD-10-PCS; principal; 2016-12-21)
PROC: 0BH17EZ Insertion of Endotracheal Airway into Trachea, Via Natural or Artificial Opening (ICD-10-PCS; 2016-12-21)
PROC: 30233R1 Transfusion of Nonautologous Platelets into Peripheral Vein, Percutaneous Approach (ICD-10-PCS; 2016-12-21)
PROC: 30233N1 Transfusion of Nonautologous Red Blood Cells into Peripheral Vein, Percutaneous Approach (ICD-10-PCS; 2016-12-22)
DX: A41.9 Sepsis, unspecified organism (principal); J69.0 Pneumonitis due to inhalation of food and vomit; J96.21 Acute and chronic respiratory failure with hypoxia; K72.00 Acute and subacute hepatic failure without coma; R65.21 Severe sepsis with septic shock; G93.1 Anoxic brain damage, not elsewhere classified; B37.89 Other sites of candidiasis; E87.2 Acidosis; J98.11 Atelectasis; C71.9 Malignant neoplasm of brain, unspecified; E87.1 Hypo-osmolality and hyponatremia; N39.0 Urinary tract infection, site not specified; D61.818 Other pancytopenia; K94.23 Gastrostomy malfunction; I48.2 Chronic atrial fibrillation; I11.0 Hypertensive heart disease with heart failure; I95.89 Other hypotension; I50.9 Heart failure, unspecified; E11.65 Type 2 diabetes mellitus with hyperglycemia; E80.6 Other disorders of bilirubin metabolism; D69.6 Thrombocytopenia, unspecified; D63.8 Anemia in other chronic diseases classified elsewhere; K94.29 Other complications of gastrostomy; G40.909 Epilepsy, unspecified, not intractable, without status epilepticus; R60.1 Generalized edema; R13.19 Other dysphagia; F03.90 Unspecified dementia, unspecified severity, without behavioral disturbance, psychotic disturbance, mood disturbance, and anxiety; Y83.3 Surgical operation with formation of external stoma as the cause of abnormal reaction of the patient, or of later complication, without mention of misadventure at the time of the procedure; Z98.890 Other specified postprocedural states; Z66 Do not resuscitate
CPT/HCPCS: 31500; 36430; 36569; 36600; 71010; 76705; 76937; 80048; 80053; 80076; 80200; 80202; 81001; 81003; 82306; 82607; 82728; 82746; 82803; 82962; 83036; 83540; 83605; 83615; 83735; 84100; 84132; 84134; 84145; 84443; 84560; 85025; 85045; 85049; 85362; 85378; 85384; 85610; 85651; 85670; 85730; 86644; 86850; 86900; 86901; 86920; 86945; 87040; 87070; 87081; 87086; 89220; 93005; 93306; 94002; 94003; 94640; 94660; 94664; 94770; C9113; J0282; J0692; J0743; J1100; J1200; J1265; J1450; J1815; J1940; J1953; J1956; J2060; J2370; J3260; J3370; J3475; J3480; J7030; J7040; J7042; J7050; J7070; P9016; P9035; P9047